=== PATIENT | male | born 1965 | race Caucasian/White ===

== ENCOUNTER 2016-09-15 15:13 | Inpatient (IN) ==
--- NOTE | 2016-09-15 15:30 | Emergency Department Note ---
Disposition Clinical Impression: ESRD on hemodialysis, Anemia in CKD (chronic kidney disease), Benign hypertension with ESRD (end-stage renal disease), Pneumonia, Localized swelling , mass and lump, upper limb, Headache, Thrombocytopenia Disposition: Admitted As Inpatient Referrals: NO,PCP [Primary Care Provider] - Forms: ED Satisfaction Letter General Adult HPI - General Chief complaint: ED Extremity Problem,Nontraumatic Stated complaint: Left Arm Swelling Time Seen by Provider: 09/15/16 15:28 Source: patient, EMS Limitations: no limitations - History of Present Illness HPI Narrative: 50-year-old male dialysis patient comes from a snf, there is concern for left arm swelling at the dialysis port site. He reported as been red and warm. There is no history of hector trauma. No coldness blueness numbness or weakness of the arms or legs. The patient has felt somewhat twitchy. The patient denies any chest pain or shortness of breath he has had no abdominal pain but has had a few loose stools which have been nonbloody. The patient has had no trouble moving his arms or legs independently. No acute back pain. He states he has migraine headaches all the time and has a headache today which is nothing new there is no history of acute rapid onset headache trauma neck stiffness rash or fever. The patient is known to be anticoagulated. There is no history of convulsion or confusion. The patient came in from the snf regarding left arm swelling as the major complaint. Pain Scale: 9 - Related Data Home Medications Medication Instructions Recorded Confirmed Aspirin [Adult Low Dose Aspirin EC] 81 mg PO DAILY 08/27/15 09/15/16 Citalopram Hydrobromide 40 mg PO DAILY 04/23/16 09/15/16 [Citalopram HBr] Gabapentin [Neurontin] 300 mg PO BID 04/23/16 09/15/16 Losartan Potassium [Cozaar] 100 mg PO DAILY 04/23/16 09/15/16 Metoprolol [Lopressor] 50 mg PO BID 04/23/16 09/15/16 Oxybutynin Chloride [Ditropan Xl] 10 mg PO DAILY 05/21/16 09/15/16 B Complex W-C No.20/Folic Acid 1 mg PO DAILY 09/15/16 09/15/16 [Nephrocaps Softgel] BuPROPion XL (24 HR) [Wellbutrin 150 mg PO DAILY 09/15/16 09/15/16 XL] Calcium Carbonate [Tums] 500 mg PO TIDAC 09/15/16 09/15/16 Diazepam [Valium] 5 mg PO Q6H PRN 09/15/16 09/15/16 Ibuprofen [Motrin] 800 mg PO Q6H PRN 09/15/16 09/15/16 Lactulose 20 gm PO DAILY PRN 09/15/16 09/15/16 Oxycodone HCl/Acetaminophen 1 each PO Q6H PRN 09/15/16 09/15/16 [Percocet 10-325 mg Tablet] Oxygen 2 l NS AD 09/15/16 09/15/16 Sennosides/Docusate Sodium [Senna 1 each PO BID 09/15/16 09/15/16 Plus] Allergies Allergy/AdvReac Type Severity Reaction Status Date / Time lorazepam [From Ativan] AdvReac Paranoia Verified 09/15/16 15:21 All systems ED: reviewed and negative except as stated. Past Medical History - Past Medical History Medical history: Reports: CHF, diabetes, dialysis, hypertension, renal disease, other Surgical history: Reports: cholecystectomy Psychiatric history: Reports: depression - Social History Smoking Status: Never smoker Smokeless Tobacco Status: No Alcohol use: Reports: none Drug use: Reports: none Physical Exam - General Limitations: no limitations General appearance: alert, in no apparent distress - Head Head exam: atraumatic, normocephalic, normal inspection - Eye Eye exam: Present: normal appearance, PERRL, EOMI. Absent: scleral icterus, conjunctival injection, miosis, mydriasis - ENT ENT exam: normal exam, normal oropharynx, mucous membranes moist - Neck Neck exam: Present: normal inspection, full ROM, trachea midline. Absent: tenderness - Chest Chest inspection: Present: symmetric chest wall rise. Absent: tenderness - Respiratory Respiratory exam: Present: normal lung sounds bilaterally. Absent: respiratory distress, accessory muscle use, prolonged expiratory phase - Cardiovascular Cardiovascular exam: Present: regular rate, normal rhythm, normal heart sounds - Abdominal Exam Abdominal exam: Present: soft, Non-Tender, normal bowel sounds. Absent: tenderness, distention, guarding, rebound, rigidity - Extremities Exam Extremities exam: Present: full ROM, normal capillary refill, other (The patient 's left humeral area at the site of the dialysis port shows erythema and edema. No active bleeding. No crepitance of the skin no blackening or fluctuance. All 4 extremities are warm and well perfused without cyanosis or hector edema otherwise. All 4 extremities are supple and show no evidence of acute neurovascular or neuromuscular compromise or trauma.). Absent: tenderness, pedal edema, joint swelling, calf tenderness - Expanded Lower Extremity Exam Lower leg exam: Absent: Homans' sign Neurovascular/Tendon exam: Present: normal capillary refill. Absent: motor deficit, sensory deficit, tendon deficit, extremity cold to touch, pallor - Back Exam Back exam: Present: normal inspection, full ROM. Absent: tenderness, CVA tenderness (R), CVA tenderness (L), vertebral tenderness - Neurological Exam Neurological exam: Present: alert, oriented X3, CN II-XII intact. Absent: motor sensory deficit - Psychiatric Psychiatric exam: Present: normal affect, normal mood - Skin Skin exam: Present: warm, dry, intact, normal color. Absent: rash, cyanosis, diaphoresis, erythema, pallor, mottled Course Vital Signs Temperature 99.4 F 09/15/16 15:15 Pulse Rate 71 09/15/16 15:15 Respiratory Rate 18 09/15/16 15:15 Blood Pressure 172/93 09/15/16 15:15 O2 Sat by Pulse Oximetry 95 09/15/16 15:15 Temperature 99.4 F 09/15/16 15:15 Pulse Rate 77 09/15/16 18:43 Respiratory Rate 18 09/15/16 18:43 Blood Pressure 168/83 09/15/16 18:43 O2 Sat by Pulse Oximetry 95 09/15/16 18:43 Oxygen Delivery Oxygen Delivery Nasal Cannula Medical Decision Making - [facility] Narrative Medical decision making narrative: The patient diabetic, has end-stage renal disease on dialysis, the patient seems to have had some muscle spasms in the ED, he was treated for hyperkalemia. His chest x-ray indicates pneumonitis, antibiotics were given. The patient also has swelling in the left upper extremity around his dialysis port which may be related to hematoma, infection, or even potentially an abscess. Blood cultures were sent. The patient is currently stable, he does not have tachycardia, high fever, or an elevated white count, he does not necessarily meet Sirs or sepsis criteria. However, based on his comorbidities, possible arm infection and or dialysis port failure, in association with HCAP, and apparent symptomatic hyperkalemia, I thought it would be appropriate to admit the patient to the hospital. I discussed the case with the hospitalist on -call. The patient's EKG demonstrates recurrent PVCs. He is not describing chest pain or palpitations. - Lab Data Lab results reviewed: Yes I reviewed the patient's lab results. Result diagrams: 09/15/16 17:12 09/15/16 17:12 Lab Results 09/15/16 09/15/16 09/15/16 Range/Units 16:26 16:26 16:26 WBC (4.3-11.1) K/mcL RBC (4.19-5.50) M/mcL Hgb (12.9-16.9) g/dL Hct (37.5-50.1) % MCV (83.0-100.0) fL MCH (28.0-33.3) pg MCHC (31.6-35.5) g/dL RDW (11.5-14.5) % Plt Count (140-400) K/mcL MPV (9.4-12.4) fL Immature Gran % (0-4) % Seg Neutrophils % % Lymphocytes % % Monocytes % % Eosinophils % % Basophils % % Neutrophils # (1.6-8.9) K/mcL Lymphocytes # (0.6-4.6) K/mcL Monocytes # (0.0-1.3) K/mcL Eosinophils # (0.0-0.6) K/mcL Basophils # (0.0-0.2) K/mcL Immature Plt Fraction (1.1-6.1) % PT 13.2 H (9.4-12.1) Seconds INR 1.2 APTT 35.8 (26.0-36.0) Seconds Sodium (136-145) mEq/L Potassium (3.5-4.5) mEq/L Chloride (98-109) mEq/L Carbon Dioxide (19-29) mEq/L BUN (8-26) mg/dL Creatinine (0.72-1.25) mg/dL Est GFR ( Amer) (> 60) Est GFR (Non-Af Amer) (> 60) BUN/Creatinine Ratio (6-26) Glucose (70-99) mg/dL Calculated Osmolality (280-300) Lactic Acid (0.5-2.2) mmol/L Calcium (8.6-10.8) mg/dL Magnesium (1.6-2.6) mg/dL Total Bilirubin (0.2-1.2) mg/dL Direct Bilirubin (0.0-0.5) mg/dL Indirect Bilirubin (0.0-1.2) mg/dL AST (5-34) Units/L ALT (0-55) Units/L Alkaline Phosphatase (38-126) Units/L Troponin I (0-0.03) ng/mL B-Natriuretic Peptide 4272 H (0-100) pg/mL Serum Total Protein (6.0-8.3) g/dL Albumin (3.5-5.0) g/dL Globulin (2.4-3.5) g/dL Albumin/Globulin Ratio (1.1-2.2) Specimen Rejected Hemolyzed 09/15/16 09/15/16 09/15/16 Range/Units 17:12 17:12 17:12 WBC 8.7 (4.3-11.1) K/mcL RBC 3.60 L (4.19-5.50) M/mcL Hgb 11.1 L (12.9-16.9) g/dL Hct 34.6 L (37.5-50.1) % MCV 96.1 (83.0-100.0) fL MCH 30.8 (28.0-33.3) pg MCHC 32.1 (31.6-35.5) g/dL RDW 16.2 H (11.5-14.5) % Plt Count 131 L (140-400) K/mcL MPV 10.7 (9.4-12.4) fL Immature Gran % 0.5 (0-4) % Seg Neutrophils % 91.6 % Lymphocytes % 3.4 % Monocytes % 4.3 % Eosinophils % 0.1 % Basophils % 0.1 % Neutrophils # 7.9 (1.6-8.9) K/mcL Lymphocytes # 0.3 L (0.6-4.6) K/mcL Monocytes # 0.4 (0.0-1.3) K/mcL Eosinophils # 0.0 (0.0-0.6) K/mcL Basophils # 0.0 (0.0-0.2) K/mcL Immature Plt Fraction 3.9 (1.1-6.1) % PT (9.4-12.1) Seconds INR APTT (26.0-36.0) Seconds Sodium 135 L (136-145) mEq/L Potassium 5.6 H (3.5-4.5) mEq/L Chloride 96 L (98-109) mEq/L Carbon Dioxide 28 (19-29) mEq/L BUN 42 H (8-26) mg/dL Creatinine 4.93 H (0.72-1.25) mg/dL Est GFR ( Amer) 15 L (> 60) Est GFR (Non-Af Amer) 13 L (> 60) BUN/Creatinine Ratio 9 (6-26) Glucose 110 H (70-99) mg/dL Calculated Osmolality 291 (280-300) Lactic Acid 1.2 (0.5-2.2) mmol/L Calcium 9.5 (8.6-10.8) mg/dL Magnesium 1.7 (1.6-2.6) mg/dL Total Bilirubin 1.5 H (0.2-1.2) mg/dL Direct Bilirubin 0.7 H (0.0-0.5) mg/dL Indirect Bilirubin 0.8 (0.0-1.2) mg/dL AST 19 (5-34) Units/L ALT 14 (0-55) Units/L Alkaline Phosphatase 116 (38-126) Units/L Troponin I (0-0.03) ng/mL B-Natriuretic Peptide (0-100) pg/mL Serum Total Protein 7.3 (6.0-8.3) g/dL Albumin 2.9 L (3.5-5.0) g/dL Globulin 4.4 H (2.4-3.5) g/dL Albumin/Globulin Ratio 0.7 L (1.1-2.2) Specimen Rejected 09/15/16 Range/Units 17:12 WBC (4.3-11.1) K/mcL RBC (4.19-5.50) M/mcL Hgb (12.9-16.9) g/dL Hct (37.5-50.1) % MCV (83.0-100.0) fL MCH (28.0-33.3) pg MCHC (31.6-35.5) g/dL RDW (11.5-14.5) % Plt Count (140-400) K/mcL MPV (9.4-12.4) fL Immature Gran % (0-4) % Seg Neutrophils % % Lymphocytes % % Monocytes % % Eosinophils % % Basophils % % Neutrophils # (1.6-8.9) K/mcL Lymphocytes # (0.6-4.6) K/mcL Monocytes # (0.0-1.3) K/mcL Eosinophils # (0.0-0.6) K/mcL Basophils # (0.0-0.2) K/mcL Immature Plt Fraction (1.1-6.1) % PT (9.4-12.1) Seconds INR APTT (26.0-36.0) Seconds Sodium (136-145) mEq/L Potassium (3.5-4.5) mEq/L Chloride (98-109) mEq/L Carbon Dioxide (19-29) mEq/L BUN (8-26) mg/dL Creatinine (0.72-1.25) mg/dL Est GFR ( Amer) (> 60) Est GFR (Non-Af Amer) (> 60) BUN/Creatinine Ratio (6-26) Glucose (70-99) mg/dL Calculated Osmolality (280-300) Lactic Acid (0.5-2.2) mmol/L Calcium (8.6-10.8) mg/dL Magnesium (1.6-2.6) mg/dL Total Bilirubin (0.2-1.2) mg/dL Direct Bilirubin (0.0-0.5) mg/dL Indirect Bilirubin (0.0-1.2) mg/dL AST (5-34) Units/L ALT (0-55) Units/L Alkaline Phosphatase (38-126) Units/L Troponin I 0.05 H* (0-0.03) ng/mL B-Natriuretic Peptide (0-100) pg/mL Serum Total Protein (6.0-8.3) g/dL Albumin (3.5-5.0) g/dL Globulin (2.4-3.5) g/dL Albumin/Globulin Ratio (1.1-2.2) Specimen Rejected - Radiology Data Radiology results reviewed: Yes I reviewed the patient's radiology results.
[2016-09-15 16:41] LABS: INR 1.2; Prothrombin Time 13.2 Seconds (9.4-12.1)
[2016-09-15 16:44] LABS: Activated Partial Thrombo Time 35.8 Seconds (26.0-36.0)
[2016-09-15] MEDS ORDERED: Vancomycin 1,000 MG in D5% in Water 250 ML IVPB ONE (16:57)
[2016-09-15] MEDS ORDERED: Piperacillin/Tazobactam 3.375 GM in D5% in Water (Mini-Bag+) 100 ML IVPB ONE ×2 (16:57→18:00)
[2016-09-15] MEDS ORDERED: Piperacillin/Tazobactam 2.25 GM in D5% in Water (Mini-Bag+) 100 ML IVPB ONE (16:58)
[2016-09-15] MEDS ORDERED: Levofloxacin 750 MG/150 ML 750 MG/150 ML BAG IVPB ONE (16:59)
[2016-09-15 17:20] LABS: Basophils % 0.1 %; Eosinophils % 0.1 %; Hematocrit 34.6 % (37.5-50.1); Hemoglobin 11.1 g/dL (12.9-16.9); Immature Granulocytes % 0.5 % (0-4); Immature Platelets 3.9 % (1.1-6.1); Lymphocytes # 0.3 K/mcL (0.6-4.6); Lymphocytes % 3.4 %; Mean Corpuscular HGB Conc 32.1 g/dL (31.6-35.5); Mean Corpuscular Hemoglobin 30.8 pg (28.0-33.3); Mean Corpuscular Volume 96.1 fL (83.0-100.0); Mean Platelet Volume 10.7 fL (9.4-12.4); Monocytes # 0.4 K/mcL (0.0-1.3); Monocytes % 4.3 %; Neutrophils # 7.9 K/mcL (1.6-8.9); Platelet Count 131 K/mcL (140-400); Red Cell Distribution Width 16.2 % (11.5-14.5); Segmented Neutrophils % 91.6 %
[2016-09-15 17:36] LABS: Albumin 2.9 g/dL (3.5-5.0); Albumin/Globulin Ratio 0.7 (1.1-2.2); Bilirubin,Direct 0.7 mg/dL (0.0-0.5); Bilirubin,Indirect 0.8 mg/dL (0.0-1.2); Bilirubin,Total 1.5 mg/dL (0.2-1.2); Calcium 9.5 mg/dL (8.6-10.8); Globulin 4.4 g/dL (2.4-3.5); Magnesium 1.7 mg/dL (1.6-2.6); Potassium 5.6 mEq/L (3.5-4.5); Total Protein 7.3 g/dL (6.0-8.3)
[2016-09-15] MEDS ORDERED: Albuterol 2.5 MG/3 ML NEBULIZER IH ONE (17:53)
[2016-09-15] MEDS ORDERED: Calcium Gluconate 1,000 MG in D5% in Water 100 ML IVPB ONE (17:53)
[2016-09-15] MEDS ORDERED: Aspirin 325 MG TABLET PO ONE (17:56)
[2016-09-15] MEDS ORDERED: *HR* Dextrose 50 % in Water (Syg) 50 ML SYRINGE IVP ONE (17:56)
[2016-09-15] MEDS ORDERED: Insulin Human Regular 10 UNIT in 0.9 % Sodium Chloride 10 ML IV ONE (17:57)
[2016-09-15] MEDS ORDERED: *HR* OxyCODONE/APAP 5/325 TABLET PO ONE (18:36)
[2016-09-16] MEDS ORDERED: *HR* Promethazine 25 MG/ML VIAL IVP PRN (01:25)
[2016-09-16] MEDS ORDERED: Acetaminophen 325 MG TABLET PO PRN ×2 (01:25→22:02)
[2016-09-16] MEDS ORDERED: Naloxone 0.4 MG/ML INJ IVP PRN ×2 (01:25→22:02)
[2016-09-16] MEDS ORDERED: Lactulose Oral Soln 20 GM/30 ML UDC PO PRN ×2 (01:29→22:02)
[2016-09-16] MEDS ORDERED: NON-FORMULARY MEDICATION 1 EACH EACH (Oxygen [Oxygen] 2 L) NS SCH (01:30)
[2016-09-16] MEDS ORDERED: Naloxone 0.4 MG/ML INJ IVP STA (01:35)
[2016-09-16] MEDS ORDERED: Albuterol 2.5 MG/3 ML NEBULIZER IH PRN ×2 (01:35→22:02)
[2016-09-16 01:53] LABS: VBG HCO3 32.8 mEq/L (21-27); VBG PH 7.47 pH Units (7.32-7.42)
[2016-09-16] MEDS ORDERED: Promethazine 12.5 MG in 0.9 % Sodium Chloride 50 ML IVPB PRN (01:55)
[2016-09-16 02:00] LABS: INR 1.3; Prothrombin Time 14.5 Seconds (9.4-12.1)
[2016-09-16] MEDS ORDERED: Vancomycin 1,500 MG in D5% in Water 250 ML IVPB SCH (02:00)
[2016-09-16] MEDS ORDERED: Levofloxacin 750 MG/150 ML 750 MG/150 ML BAG IVPB SCH (02:00)
[2016-09-16 02:03] LABS: Activated Partial Thrombo Time 33.4 Seconds (26.0-36.0)
[2016-09-16 02:10] LABS: Albumin 2.6 g/dL (3.5-5.0); Albumin/Globulin Ratio 0.7 (1.1-2.2); Bilirubin,Total 1.5 mg/dL (0.2-1.2); Calcium 9.1 mg/dL (8.6-10.8); Chol/HDL Ratio 2.8 (0-4.9); Magnesium 1.7 mg/dL (1.6-2.6); Phosphorous 2.6 mg/dL (2.3-4.7); Potassium 5.7 mEq/L (3.5-4.5); Total Protein 6.6 g/dL (6.0-8.3)
[2016-09-16] MEDS: Ipratropium/Albuterol Neb 3 ML IH SCH ×4 (04:02→22:12)
[2016-09-16 06:00] LABS: Acinetobacter baumannii by PCR Not Detected (Not Detect); Candida albicans by PCR Not Detected (Not Detect); Candida glabrata by PCR Not Detected (Not Detect); Candida krusei by PCR Not Detected (Not Detect); Candida parapsilosis by PCR Not Detected (Not Detect); Candida tropicalis by PCR Not Detected (Not Detect); Enterococcus by PCR Not Detected (Not Detect); Escherichia coli by PCR Not Detected (Not Detect); Klebsiella oxytoca by PCR Not Detected (Not Detect); Klebsiella pneumoniae by PCR Not Detected (Not Detect); Pseudomonas aeruginosa by PCR Not Detected (Not Detect); Serratia marcescens by PCR Not Detected (Not Detect); Staphylococcus aureus by PCR ***DETECTED*** (Not Detect); Streptococcus agalactiae(B)PCR Not Detected (Not Detect); Streptococcus by PCR Not Detected (Not Detect); Streptococcus pneumoniae PCR Not Detected (Not Detect); Streptococcus pyogenes (A) PCR Not Detected (Not Detect); mecA Methicillin-Resist Gene ***DETECTED*** (Not Detect)
[2016-09-16] MEDS ORDERED: Piperacillin/Tazobactam 3.375 GM in D5% in Water (Mini-Bag+) 100 ML IVPB SCH (06:00)
--- NOTE | 2016-09-16 06:10 | Internal Med History&Physical ---
Date of Encounter: 09/16/16 Time of Encounter: 02:00 Assessment and Plan (1) Myoclonic jerking Current visit: Yes Status: Acute . (2) Toxic metabolic encephalopathy Current visit: Yes Status: Acute . (3) Delirium due to conditions classified elsewhere Current visit: Yes Status: Acute . (4) Serotonin syndrome Current visit: Yes Status: Acute . (5) ESRD on hemodialysis Current visit: Yes Status: Acute . (6) Volume overload Current visit: Yes Status: Acute . Qualifiers: Hypervolemia type: unspecified Qualified Code(s): E87.70 - Fluid overload, unspecified (7) Dialysis AV fistula infection Current visit: Yes Status: Acute . Qualifiers: Encounter type: initial encounter Qualified Code(s): T82.7XXA - Infection and inflammatory reaction due to other cardiac and vascular devices, implants and grafts, initial encounter (8) Pneumonia Current visit: Yes Status: Acute . Qualifiers: Pneumonia type: due to unspecified organism Laterality: right Lung location: unspecified part of lung Qualified Code(s): J18.9 - Pneumonia, unspecified organism Internal Medicine - H&P: HPI Chief complaint: Left arm swelling. Confusion. Admitted From: Emergency Dept Plans for Post Hospital Care: Home History of present illness: Mr. Martínez is a 50 year old male with significant history for ESRD HD dependent (MWF), major depression/anxiety, ?cognitive impairment unspecified, DM peripheral neuropathy, chr MSK pain, OA, COPD continuous O2 dependent, HTN, HLD , chr H/As, type II DM, PVD, morbid obesity, nonsmoker, etc.. Patient is admitted to [facility] via the emergency department when he presented via EMS services from retirement with concerns regarding his left arm. Patient is hemodialysis dependent and had received dialysis the day of his presentation. He reported that 6 L of fluid was removed. However he still felt volume overloaded. He stated that his left arm swelling occurred about the dialysis port site. Red warm and tender. He denied any history of trauma beyond that the received dialysis. He denied any coldness or cyanosis numbness or weakness of his distal arm and hand/digits and he can relate to this finding. He denied any impairment of use of his upper or lower extremities. Denied any associated fevers chills sweats. Denied chest pain abdominal pain and flank pain. Denied any upper or lower respiratory complaints. He related pain to his arm at a 9/10 severity. Local resident. Though at presentation was consistent with mild delirium and intermittent twitching of the extremities. Findings in the ED noted a temperature of 99.4 degrees Fahrenheit. Vital signs were otherwise stable. O2 saturation was 95% on 2 L per nasal cannula. PT 13.2 INR 1.2 PTT 35.8. BNP 4272 troponin 0.05. WBC 8.7 hemoglobin 11.1 platelets 131,000. Differential normal. Comprehensive metabolic panel noted sodium 135 potassium 5.6 chloride 96. BUN 42 creatinine 4.93 GFR 13. Glucose 110 osmolality 291. Total bilirubin 1.5 direct 0.7. Magnesium 1.7. Lactic acid 1.2. LFTs normal. Albumin 2.9 total 7.3. Chest x- ray suggested right perihilar airspace opacity compatible with pneumonia. CT head scan demonstrated no acute intracranial abnormality. Preliminary findings suggest acute toxic metabolic encephalopathy with delirium. Etiology is multifactorial. Findings for right perihilar pneumonia, uremia, hypoxic respiratory failure, mild volume overload, polypharmacy. Discussion of patient' s polypharmacy relates to psychotropic medications almost entirely. Patient is oriented to self but variable and is an unreliable historian of current circumstances and events. Examination demonstrates intermittent myoclonic jerking. This in concert with low-grade temperature a/c headache confusion disorientation monoclonus tremulousness agitation is suggestive of serotonin syndrome. SIRS/sepsis criteria are not fulfilled at presentation. This however acutely and seriously ill and likely possesses a sepsis picture yet to be fullyn evolved. Further workup and investigation will proceed. The patient was visited and interviewed and examined. Cumulative laboratory and radiographic data base will be considered and discussed. Pertinent ancillary medical records including ECW and PCI documentation when available was reviewed and considered. Given the patient's presenting concerns, past medical history, clinical findings and symptoms, he is admitted at this time will undergo further evaluation and disposition. Orders were written as per the computerized physician tape recorder mechanic system.......................................................................... .................... Consultative opinions will be sought as clinical circumstances justify. Nephrology/dialysis team consultation. Pain management needs will be addressed. Laboratory+radiographic data base will be updated as appropriate. Studies include: Cultures of blood and urine and sputum, prolactin, cpk, LDH, pt/inr, aptt, ddimer, UA, UDS, cardiac injury panel, BNP, metabolic and hematologic panel, magnesium, phosphorus, ionized calcium, thyroid panel, lipid profile, A1c , C-peptide, CRP, sedimentation rate, respiratory infection profile, respiratory virus panel, blood gas, lactic acid, serologies, etc. Precautions: Aspiration, fall, seizure, delirium protocol/surveillance initiated. Telemetry with continuous hemodynamic monitoring and pulse oximetry initiated. Empiric antibiotic coverage: Intravenous Vancomycin, Zosyn, Levaquin pending culture data. Special studies: CT head/ chest, chest x-ray, telemetry, EKG. Pulmonary toilet: Incentive spirometry, aerosol bronchodilator, mucolytic, antitussive, supplemental oxygen. Corticosteroid therapyPRN. CPAP/BiPAP supplemental oxygen deliveryPRN. Aerosol Mucomyst therapyPRN. Fluid and electrolyte repletion efforts will proceed. Careful attention to fluid balance and renal recovery will be emphasized. Avoidance of nephrotoxic exposure and adverse drug drug interaction in the setting of impaired renal function will be monitored closely. Acute coronary syndrome protocol/surveillance initiated. DVT and PUD prophylaxis initiated: PPI therapy, intermittent pneumatic cuffs. Subcutaneous heparin was held due to thrombocytopenia. Early ambulation will be encouraged. Immunization updates recommended. Influenza and pneumococcal vaccinations as part of ongoing preventative healthcare recommendations strongly recommended. Smoking cessation counseling addressed. Patient is a nonsmoker. Advanced care directive discussion addressed. Patient does not declare any healthcare restrictions at this time per healthcare records. Cardiovascular risk appraisal and cardiovascular risk reduction efforts will be emphasized. Physical+occupational therapy asked to evaluate patient's functional capacity and progressive mobility as circumstances justify. Sliding scale insulin coverage, ADA-RENAL dietary restraint and schedule an as- needed basis fingerstick glucose assessments were initiated. Nutrition/ diabetes education counseling may be considered as circumstances justify. Outpatient medication schedules will be reviewed, confirmed and facilitated as appropriate. Reconciliation of home treatments including adjustments, substitutions and reintroduction into the treatment regimen will address necessary maintenance therapies for chronic pre-existing medical conditions. Plan of care has been reviewed and discussed in detail with the patient's attending/caregiver staff. Questions addressed. Hospital course dictated by clinical findings, treatment response and potential consultative interventions. Patient is at risk for further acute clinical decline and morbidity due to his frailty, presenting chief complaints and comorbid conditions. Condition is serious. Prognosis is guarded. CODE STATUS is full. Past Med Surg Social Fam HX - Past Medical History Source: old records reviewed Medical history: arthritis, CHF, diabetes, dialysis, GERD, hypertension, osteoporosis, renal disease, venous stasis, other Psychiatric history: anxiety, depression, other - Past Surgical History Surgical History: cholecystectomy, vascular surgery - Social History Smoking Status: Never smoker Smokeless Tobacco Status: No Alcohol use: none, unknown Drug use: none, unknown Occupational status: unemployed, disabled Current living situation: [facility] Activity Level: Independent ambulation, Mostly sedentary Recent Out of Country Travel Within the Last 8 Weeks: No Exposure or Possible Exposure to Illness During Travel: No - Family History Mother Living Status: Hx Family Cardiac Disorders: Yes Hx Family Endocrine Disorder: Yes Father Living Status: Hx Family Respiratory Disorders: Yes Internal Medicine - H&P: Meds Aspirin [Adult Low Dose Aspirin EC] 81 mg PO DAILY 08/27/15 [History] Citalopram Hydrobromide [Citalopram HBr] 40 mg PO DAILY 04/23/16 [History] Gabapentin [Neurontin] 300 mg PO BID 04/23/16 [History] Losartan Potassium [Cozaar] 100 mg PO DAILY 04/23/16 [History] Metoprolol [Lopressor] 50 mg PO BID 04/23/16 [History] Oxybutynin Chloride [Ditropan Xl] 10 mg PO DAILY 05/21/16 [History] B Complex W-C No.20/Folic Acid [Nephrocaps Softgel] 1 mg PO DAILY 09/15/16 [ History] BuPROPion XL (24 HR) [Wellbutrin XL] 150 mg PO DAILY 09/15/16 [History] Calcium Carbonate [Tums] 500 mg PO TIDAC 09/15/16 [History] Diazepam [Valium] 5 mg PO Q6H PRN 09/15/16 [History] Ibuprofen [Motrin] 800 mg PO Q6H PRN 09/15/16 [History] Lactulose 20 gm PO DAILY PRN 09/15/16 [History] Oxycodone HCl/Acetaminophen [Percocet 10-325 mg Tablet] 1 each PO Q6H PRN [History] Oxygen 2 l NS AD 09/15/16 [History] Sennosides/Docusate Sodium [Senna Plus] 1 each PO BID 09/15/16 [History] Allergies lorazepam [From Ativan] Adverse Reaction (Verified 09/15/16 15:21) Paranoia ROS unobtainable: due to mental status All Systems PM: A 10-system review of systems was performed and is negative for pertinent findings except as documented above in the HPI. The patient was found to be acutely encephalopathic and delirious. The patient presents as a non-historian of current circumstances and events. Information collected from medical records , EGD and EMS triage, retirement staff reports. - Constitutional Constitutional: as per HPI - EENT Eyes: as per HPI Ears: as per HPI Nose, mouth and throat: as per HPI - Cardiovascular Cardiovascular ROS IM: as per HPI - Respiratory Respiratory: as per HPI - Gastrointestinal Gastrointestinal: as per HPI - Genitourinary Genitourinary ROS male: as per HPI - Musculoskeletal Musculoskeletal ROS IM: as per HPI - Integumentary Integumentary IM: as per HPI - Neurological Neurological ROS: as per HPI - Psychiatric Psychiatric: as per HPI - Endocrine Endocrine IM: as per HPI - Hematologic/Lymphatic Hematologic/Lymphatic: as per HPI - Allergic/Immunologic Allergic/Immunologic: as per HPI - Constitutional Vitals: Temp Pulse Resp BP Pulse Ox 99.2 F 84 18 140/79 98 09/16/16 04:52 09/16/16 04:52 09/16/16 04:52 09/16/16 04:52 09/16/16 04:52 Vital Signs Temp Pulse Resp BP Pulse Ox 09/16/16 04:52 99.2 F 84 18 140/79 98 09/16/16 04:20 100 09/16/16 04:07 18 99 09/15/16 23:11 99.4 F 76 18 146/87 94 09/15/16 21:13 18 191/90 09/15/16 20:38 76 16 175/96 98 09/15/16 18:43 77 18 168/83 95 09/15/16 17:30 72 20 157/117 96 09/15/16 16:40 73 18 174/101 96 09/15/16 15:48 76 20 176/88 95 09/15/16 15:15 99.4 F 71 18 172/93 95 Intake and Output 09/15/16 09/15/16 09/16/16 15:59 23:59 07:59 Intake Total 520.1 / 520.1 Output Total 0 / 0 Balance 520.1 / 520.1 0 / 0 Intake: IV Fluids 520.1 / 520.1 HumuLIN R 10 UNIT In 10.1 / 10.1 Normal Saline Flush 10 ML @ 1212 mls/hr IV ONCE ONE Rx#:[id number] Calcium Gluconate 1,000 110 / 110 MG In Dextrose 5% 100 ML @ 220 mls/hr IVPB ONCE ONE Rx#:[id number] Levaquin 750mg/150 mL 750 150 / 150 mg In 150 ml @ 100 mls/ hr IVPB ONCE ONE Rx#: [id number] Vancocin 1,000 MG In 250 / 250 Dextrose 5% 250 ML @ 167 mls/hr IVPB ONCE ONE Rx#: [id number] Output: Urine 0 / 0 Other: # Urine Diapers 1 Weight 108.862 kg 107.1 kg 107.9 kg Blood Glucose* 130 96 Patient Weight 09/16/16 23:59 Weight 107.9 kg General appearance: Present: A&O X 1, mild distress, morbidly obese. Absent: answers questions appropriately - Head Head exam: Present: atraumatic, normocephalic - Eye Eye exam: Present: EOMI, PERRL, conjuntiva pink, sclera anicteric Pupils: Present: normal accommodation, PERRL - ENT ENT exam: Present: mucous membranes dry, normal oropharynx - Neck Neck exam general surgery: Present: full ROM, supple, trachea midline. Absent: lymphadenopathy, nuchal rigidity - Respiratory Respiratory exam: Present: decreased breath sounds. Absent: accessory muscle use, CTAB, rales, rhonchi, stridor, wheezes - Cardiovascular Cardiovascular exam: Present: distant heart sounds, RRR, +S1, +S2, tachycardia. Absent: diastolic murmur, gallop, rubs, systolic murmur - GI/Abdominal GI/Abdominal exam: Present: normal bowel sounds, soft, no peritoneal signs. Absent: distended, tenderness - Extremities Exam Extremities exam: Present: full ROM, warm, radial pulses palpable and symetrical. Absent: calf tenderness, cyanotic, normal inspection (Apparent cellulitis areas of focal tissue necrosis apparent at vascular access site for hemodialysis. Tender to palpation. Warm to touch.), pedal edema - Expanded Upper Extremities Exam Upper Arm exam: Present: ecchymosis, erythema, swelling, tenderness. Absent: normal inspection Vascular exam: Absent: vascular compromise - Neurological Exam Neurological exam: Present: alert, altered, CN II-XII intact, no focal deficits. Absent: oriented X3, pronater drift, facial droop, speech deficit - Expanded Neurological Exam Neurological exam expanded: Present: ataxia, inattentive, protecting the airway , tremor. Absent: expressive aphasia, receptive aphasia Patient oriented to: Present: person. Absent: place, time Speech: Present: garbled Ataxia: Present: yes Coma Scale Eye Opening: To Voice Coma Scale Motor Response: Localizes to Pain Coma Scale Verbal Response: Confused Coma Scale Total: 12 - Psychiatric Psychiatric exam: Present: agitated, anxious - Expanded Psychiatric Exam Focused psych exam: Present: psychomotor agitation - Skin Skin exam: Present: dry, intact, warm Internal Med - H&P Results - Labs CBC & Chem 7: 09/15/16 17:12 09/16/16 01:46 Labs: BMP 09/16/16 01:46 Sodium 135 L Potassium 5.7 H Chloride 97 L Carbon Dioxide 29 BUN 47 H Creatinine 5.32 H Glucose 99 Calcium 9.1 Cardiac Enzymes 09/16/16 Range/Units 01:46 Troponin I 0.05 H* (0-0.03) ng/mL Liver Function 09/16/16 Range/Units 01:46 Total Bilirubin 1.5 H (0.2-1.2) mg/dL AST 18 (5-34) Units/L ALT 14 (0-55) Units/L Alkaline Phosphatase 93 (38-126) Units/L Albumin 2.6 L (3.5-5.0) g/dL Short CBC 09/15/16 Range/Units 17:12 WBC 8.7 (4.3-11.1) K/mcL Hgb 11.1 L (12.9-16.9) g/dL Hct 34.6 L (37.5-50.1) % Plt Count 131 L (140-400) K/mcL Neutrophils # 7.9 (1.6-8.9) K/mcL BMP 09/16/16 09/15/16 Range/Units 01:46 17:12 Sodium 135 L 135 L (136-145) mEq/L Potassium 5.7 H 5.6 H (3.5-4.5) mEq/L Chloride 97 L 96 L (98-109) mEq/L Carbon Dioxide 29 28 (19-29) mEq/L BUN 47 H 42 H (8-26) mg/dL Creatinine 5.32 H 4.93 H (0.72-1.25) mg/dL Glucose 99 110 H (70-99) mg/dL Calcium 9.1 9.5 (8.6-10.8) mg/dL Cardiac Enzymes 09/16/16 09/15/16 Range/Units 01:46 17:12 Troponin I 0.05 H* 0.05 H* (0-0.03) ng/mL Liver Function 09/16/16 09/15/16 Range/Units 01:46 17:12 Total Bilirubin 1.5 H 1.5 H (0.2-1.2) mg/dL Direct Bilirubin 0.7 H (0.0-0.5) mg/dL AST 18 19 (5-34) Units/L ALT 14 14 (0-55) Units/L Alkaline Phosphatase 93 116 (38-126) Units/L Albumin 2.6 L 2.9 L (3.5-5.0) g/dL Abnormal lab results RBC 3.60 M/mcL (4.19-5.50) L 09/15/16 17:12 Hgb 11.1 g/dL (12.9-16.9) L 09/15/16 17:12 Hct 34.6 % (37.5-50.1) L 09/15/16 17:12 RDW 16.2 % (11.5-14.5) H 09/15/16 17:12 Plt Count 131 K/mcL (140-400) L 09/15/16 17:12 Lymphocytes # 0.3 K/mcL (0.6-4.6) L 09/15/16 17:12 PT 14.5 Seconds (9.4-12.1) H 09/16/16 01:46 VBG pH 7.47 pH Units (7.32-7.42) H 09/16/16 01:46 VBG pO2 72 mmHg (25-40) H 09/16/16 01:46 VBG HCO3 32.8 mEq/L (21-27) H 09/16/16 01:46 Sodium 135 mEq/L (136-145) L 09/16/16 01:46 Potassium 5.7 mEq/L (3.5-4.5) H 09/16/16 01:46 Chloride 97 mEq/L (98-109) L 09/16/16 01:46 BUN 47 mg/dL (8-26) H 09/16/16 01:46 Creatinine 5.32 mg/dL (0.72-1.25) H 09/16/16 01:46 Est GFR ( Amer) 14 (> 60) L 09/16/16 01:46 Est GFR (Non-Af Amer) 11 (> 60) L 09/16/16 01:46 POC Glucose 96 (58-89) H 09/16/16 02:21 Total Bilirubin 1.5 mg/dL (0.2-1.2) H 09/16/16 01:46 Direct Bilirubin 0.7 mg/dL (0.0-0.5) H 09/15/16 17:12 Troponin I 0.05 ng/mL (0-0.03) H* 09/16/16 01:46 B-Natriuretic Peptide 4272 pg/mL (0-100) H 09/15/16 16:26 Albumin 2.6 g/dL (3.5-5.0) L 09/16/16 01:46 Globulin 4.0 g/dL (2.4-3.5) H 09/16/16 01:46 Albumin/Globulin Ratio 0.7 (1.1-2.2) L 09/16/16 01:46 HDL Cholesterol 25 mg/dL (40-59) L 09/16/16 01:46 Prolactin 42.94 ng/mL (3.46-19.40) H 09/16/16 01:46 Staphylococcus sp PCR DETECTED (Not Detect) A 09/15/16 16:26 Staph aureus (PCR) DETECTED (Not Detect) A 09/15/16 16:26 mecA-Methicil Res Gene DETECTED (Not Detect) A 09/15/16 16:26 Laboratory Results WBC 8.7 K/mcL (4.3-11.1) 09/15/16 17:12 RBC 3.60 M/mcL (4.19-5.50) L 09/15/16 17:12 Hgb 11.1 g/dL (12.9-16.9) L 09/15/16 17:12 Hct 34.6 % (37.5-50.1) L 09/15/16 17:12 MCV 96.1 fL (83.0-100.0) 09/15/16 17:12 MCH 30.8 pg (28.0-33.3) 09/15/16 17:12 MCHC 32.1 g/dL (31.6-35.5) 09/15/16 17:12 RDW 16.2 % (11.5-14.5) H 09/15/16 17:12 Plt Count 131 K/mcL (140-400) L 09/15/16 17:12 MPV 10.7 fL (9.4-12.4) 09/15/16 17:12 Immature Gran % 0.5 % (0-4) 09/15/16 17:12 Seg Neutrophils % 91.6 % 09/15/16 17:12 Lymphocytes % 3.4 % 09/15/16 17:12 Monocytes % 4.3 % 09/15/16 17:12 Eosinophils % 0.1 % 09/15/16 17:12 Basophils % 0.1 % 09/15/16 17:12 Neutrophils # 7.9 K/mcL (1.6-8.9) 09/15/16 17:12 Lymphocytes # 0.3 K/mcL (0.6-4.6) L 09/15/16 17:12 Monocytes # 0.4 K/mcL (0.0-1.3) 09/15/16 17:12 Eosinophils # 0.0 K/mcL (0.0-0.6) 09/15/16 17:12 Basophils # 0.0 K/mcL (0.0-0.2) 09/15/16 17:12 Immature Plt Fraction 3.9 % (1.1-6.1) 09/15/16 17:12 PT 14.5 Seconds (9.4-12.1) H 09/16/16 01:46 INR 1.3 09/16/16 01:46 APTT 33.4 Seconds (26.0-36.0) 09/16/16 01:46 VBG pH 7.47 pH Units (7.32-7.42) H 09/16/16 01:46 VBG pCO2 45 mmHg (41-51) 09/16/16 01:46 VBG pO2 72 mmHg (25-40) H 09/16/16 01:46 VBG HCO3 32.8 mEq/L (21-27) H 09/16/16 01:46 Sodium 135 mEq/L (136-145) L 09/16/16 01:46 Potassium 5.7 mEq/L (3.5-4.5) H 09/16/16 01:46 Chloride 97 mEq/L (98-109) L 09/16/16 01:46 Carbon Dioxide 29 mEq/L (19-29) 09/16/16 01:46 BUN 47 mg/dL (8-26) H 09/16/16 01:46 Creatinine 5.32 mg/dL (0.72-1.25) H 09/16/16 01:46 Est GFR ( Amer) 14 (> 60) L 09/16/16 01:46 Est GFR (Non-Af Amer) 11 (> 60) L 09/16/16 01:46 BUN/Creatinine Ratio 9 (6-26) 09/16/16 01:46 Glucose 99 mg/dL (70-99) 09/16/16 01:46 POC Glucose 96 (58-89) H 09/16/16 02:21 Calculated Osmolality 292 (280-300) 09/16/16 01:46 Lactic Acid 1.2 mmol/L (0.5-2.2) 09/15/16 17:12 Calcium 9.1 mg/dL (8.6-10.8) 09/16/16 01:46 Phosphorus 2.6 mg/dL (2.3-4.7) 09/16/16 01:46 Magnesium 1.7 mg/dL (1.6-2.6) 09/16/16 01:46 Total Bilirubin 1.5 mg/dL (0.2-1.2) H 09/16/16 01:46 Direct Bilirubin 0.7 mg/dL (0.0-0.5) H 09/15/16 17:12 Indirect Bilirubin 0.8 mg/dL (0.0-1.2) 09/15/16 17:12 AST 18 Units/L (5-34) 09/16/16 01:46 ALT 14 Units/L (0-55) 09/16/16 01:46 Alkaline Phosphatase 93 Units/L (38-126) 09/16/16 01:46 Ammonia 27 mcmol/L (18-72) 09/16/16 01:46 Troponin I 0.05 ng/mL (0-0.03) H* 09/16/16 01:46 B-Natriuretic Peptide 4272 pg/mL (0-100) H 09/15/16 16:26 Serum Total Protein 6.6 g/dL (6.0-8.3) 09/16/16 01:46 Albumin 2.6 g/dL (3.5-5.0) L 09/16/16 01:46 Globulin 4.0 g/dL (2.4-3.5) H 09/16/16 01:46 Albumin/Globulin Ratio 0.7 (1.1-2.2) L 09/16/16 01:46 Triglycerides 63 mg/dL (< 150) 09/16/16 01:46 Cholesterol 71 mg/dL (< 200) 09/16/16 01:46 LDL Cholesterol, Calc 33 mg/dL (0-99) 09/16/16 01:46 VLDL Cholesterol, Calc 13 mg/dL (< 31) 09/16/16 01:46 HDL Cholesterol 25 mg/dL (40-59) L 09/16/16 01:46 Cholesterol/HDL Ratio 2.8 (0-4.9) 09/16/16 01:46 Prolactin 42.94 ng/mL (3.46-19.40) H 09/16/16 01:46 A. baumannii (PCR) Not Detected (Not Detect) 09/15/16 16:26 Corine albicans (PCR) Not Detected (Not Detect) 09/15/16 16:26 C. glabrata (PCR) Not Detected (Not Detect) 09/15/16 16:26 C. krusei (PCR) Not Detected (Not Detect) 09/15/16 16:26 C. parapsilosis (PCR) Not Detected (Not Detect) 09/15/16 16:26 C. tropicalis (PCR) Not Detected (Not Detect) 09/15/16 16:26 Enterobacteriac sp PCR Not Detected (Not Detect) 09/15/16 16:26 E. cloacae complex PCR Not Detected (Not Detect) 09/15/16 16:26 Enterococcus sp PCR Not Detected (Not Detect) 09/15/16 16:26 E. coli (PCR) Not Detected (Not Detect) 09/15/16 16:26 H. influenzae (PCR) Not Detected (Not Detect) 09/15/16 16:26 Klebsiella oxytoca PCR Not Detected (Not Detect) 09/15/16 16:26 Klebsiella pneumoniae Not Detected (Not Detect) 09/15/16 16:26 List. monocytogenes PCR Not Detected (Not Detect) 09/15/16 16:26 N. meningitidis (PCR) Not Detected (Not Detect) 09/15/16 16:26 Proteus species (PCR) Not Detected (Not Detect) 09/15/16 16:26 Serratia marcescens PCR Not Detected (Not Detect) 09/15/16 16:26 Staphylococcus sp PCR DETECTED (Not Detect) A 09/15/16 16:26 Staph aureus (PCR) DETECTED (Not Detect) A 09/15/16 16:26 mecA-Methicil Res Gene DETECTED (Not Detect) A 09/15/16 16:26 Streptococcus sp PCR Not Detected (Not Detect) 09/15/16 16:26 Group A Strep DNA Not Detected (Not Detect) 09/15/16 16:26 Group B Strep (PCR) Not Detected (Not Detect) 09/15/16 16:26 Strep pneumoniae (PCR) Not Detected (Not Detect) 09/15/16 16:26 P. aeruginosa (PCR) Not Detected (Not Detect) 09/15/16 16:26 Thong/B-Vanco Res Genes N/A (Not Detect) 09/15/16 16:26 KPC (blaKPC) Detect PCR N/A (Not Detect) 09/15/16 16:26 Specimen Rejected Hemolyzed 09/15/16 16:26 Impressions Chest X-Ray 09/15/16 15:32 IMPRESSION: Right perihilar airspace opacity compatible with right perihilar pneumonia. D/ / Germán Ravi MD / Germán Ravi MD Interpreting Provider: Germán Ravi MD Head CT 09/15/16 16:44 IMPRESSION: No acute intracranial abnormality. D/ / Oneil Tong MD / Oneil Tong MD Interpreting Provider: Oneil Tong MD - ABG Interpretation ABG results: 09/16/16 01:46 VBG pH 7.47 H VBG pCO2 45 VBG pO2 72 H VBG HCO3 32.8 H
[2016-09-16] MEDS ORDERED: diazePAM 10 MG/2 ML SYRINGE IVP PRN ×7 (07:27→22:02)
[2016-09-16 07:28] LABS: Vancomycin,Trough 12.4 mcg/mL (10-20)
[2016-09-16] MEDS: Cyprohepatdine 4 MG TABLET PO SCH ×3 (08:29→18:41)
[2016-09-16] MEDS: diazePAM 10 MG/2 ML SYRINGE IVP PRN ×2 (08:37→15:16)
[2016-09-16] MEDS ORDERED: Aspirin Enteric Coated 81 MG Tablet PO SCH (09:00)
[2016-09-16] MEDS ORDERED: Sennosides/Docusate Sodium TABLET PO SCH (09:00)
[2016-09-16] MEDS ORDERED: Renal Vitamin 1 MG CAPSULE PO SCH (09:00)
[2016-09-16] MEDS ORDERED: Thiamine (B-1) 100 MG TABLET PO SCH (09:00)
[2016-09-16 09:05] LABS: Basophils % 0.1 %; Eosinophils % 0.1 %; Hematocrit 32.5 % (37.5-50.1); Hemoglobin 10.3 g/dL (12.9-16.9); Immature Granulocytes % 0.5 % (0-4); Lymphocytes # 0.2 K/mcL (0.6-4.6); Lymphocytes % 1.9 %; Mean Corpuscular HGB Conc 31.7 g/dL (31.6-35.5); Mean Corpuscular Hemoglobin 31.1 pg (28.0-33.3); Mean Corpuscular Volume 98.2 fL (83.0-100.0); Mean Platelet Volume 11.3 fL (9.4-12.4); Monocytes # 0.3 K/mcL (0.0-1.3); Monocytes % 3.4 %; Neutrophils # 7.7 K/mcL (1.6-8.9); Platelet Count 113 K/mcL (140-400); Red Blood Count 3.31 M/mcL (4.19-5.50); Red Cell Distribution Width 16.1 % (11.5-14.5)
[2016-09-16 09:17] LABS: Calcium 9.4 mg/dL (8.6-10.8); Magnesium 1.6 mg/dL (1.6-2.6); Phosphorous 2.6 mg/dL (2.3-4.7); Potassium 5.9 mEq/L (3.5-4.5)
[2016-09-16 09:28] LABS: Platelet Estimate Slight Decrease (Normal)
--- NOTE | 2016-09-16 10:53 | Nephrology Consult Note ---
Date of Encounter: 09/16/16 Time of Encounter: 10:20 Assessment and Plan (1) ESRD on hemodialysis Current Visit: Yes Status: Acute ESRD on HD. Infected AVG /site. GM positive cocci, on Vanco. Vascular consult placed. Will consult IR for temporary catheter placement followed by HD. History of Present Illness - Reason for Consult end stage renal disease - History of Present Illness Mr. Bass is a 50 year old male with ESRD who dialyzes at [facility] on , Last dialysis on Tuesday. Other PMH- HTN, CHF, diabetes. Mr Bass presented to ER from nursing facility with redness and swelling at left brachiocephalic AV graft site. Peripheral blood cultures show gm positive coccci. Vancomycin ordered. This morning Mr. Bass is alert, has tongue rolling and extremity twitching which he has been noted over past few weeks when at diaysis. He is unsure of his current whereabouts. He denies pain. AVG site is erythemic, swollen with thickened oozing blood. Dialysis staff stated he has had prolonged bleedin after treatment and was scheduled for shuntogram. Past Med Surg Social Fam HX - Past Medical History Medical history: arthritis, CHF, diabetes, dialysis, GERD, hypertension, osteoporosis, renal disease, venous stasis, other Psychiatric history: anxiety, depression, other - Past Surgical History Surgical History: cholecystectomy, vascular surgery - Social History Smoking Status: Never smoker Smokeless Tobacco Status: No Alcohol use: none, unknown Drug use: none, unknown - Family History Mother Living Status: Hx Family Cardiac Disorders: Yes Hx Family Endocrine Disorder: Yes Father Living Status: Hx Family Respiratory Disorders: Yes Hx Family Cancer: Yes Medications and Allergies Aspirin [Adult Low Dose Aspirin EC] 81 mg PO DAILY 08/27/15 [History] Citalopram Hydrobromide [Citalopram HBr] 40 mg PO DAILY 04/23/16 [History] Gabapentin [Neurontin] 300 mg PO BID 04/23/16 [History] Losartan Potassium [Cozaar] 100 mg PO DAILY 04/23/16 [History] Metoprolol [Lopressor] 50 mg PO BID 04/23/16 [History] Oxybutynin Chloride [Ditropan Xl] 10 mg PO DAILY 05/21/16 [History] B Complex W-C No.20/Folic Acid [Nephrocaps Softgel] 1 mg PO DAILY 09/15/16 [ History] BuPROPion XL (24 HR) [Wellbutrin XL] 150 mg PO DAILY 09/15/16 [History] Calcium Carbonate [Tums] 500 mg PO TIDAC 09/15/16 [History] Diazepam [Valium] 5 mg PO Q6H PRN 09/15/16 [History] Ibuprofen [Motrin] 800 mg PO Q6H PRN 09/15/16 [History] Lactulose 20 gm PO DAILY PRN 09/15/16 [History] Oxycodone HCl/Acetaminophen [Percocet 10-325 mg Tablet] 1 each PO Q6H PRN [History] Oxygen 2 l NS AD 09/15/16 [History] Sennosides/Docusate Sodium [Senna Plus] 1 each PO BID 09/15/16 [History] Allergies lorazepam [From Ativan] Adverse Reaction (Verified 09/15/16 15:21) Paranoia Review of Systems All Systems: reviewed and no additional remarkable complaints except as stated Exam - Vital Signs Vital signs: Initial Vital Signs Temp Pulse Resp BP Pulse Ox 99.4 F 71 18 172/93 95 09/15/16 15:15 09/15/16 15:15 09/15/16 15:15 09/15/16 15:15 09/15/16 15:15 Vital Signs - Last 8 Hours Temp Pulse Resp BP Pulse Ox 09/16/16 08:09 96 09/16/16 08:00 98.1 F 73 16 108/77 96 09/16/16 04:52 99.2 F 84 18 140/79 98 09/16/16 04:20 100 09/16/16 04:07 18 99 Intake and Output 09/15/16 09/16/16 09/16/16 23:59 07:59 15:59 Intake Total 190 / 190 Output Total 0 / 0 Balance 0 / 0 190 / 190 Intake: Oral 190 / 190 Output: Urine 0 / 0 Other: Meal Breakfast # Urine Diapers 1 Weight 107.1 kg 107.9 kg Blood Glucose* 95 Patient Weight 09/16/16 23:59 Weight 107.9 kg - General Appearance General appearance: well-developed, well-nourished, appears started age EENT: mucous membranes moist Neck: no JVD, no carotid bruit Respiratory: clear Cardiology: no edema, regular rate, regular rhythm - Dialysis Access Dialysis Vascular Access: Arteriovenous Graft Additional Comments: AVG site is erythemic, swollen with thickened oozing blood. Gastrointestinal: normoactive bowel sounds, no tenderness Integumentary: warm and dry Psychiatric: mood/affect appropriate, cooperative Results - Lab Results 09/16/16 06:49 09/16/16 06:49 Most recent lab results Calcium 9.4 mg/dL (8.6-10.8) 09/16/16 06:49 Phosphorus 2.6 mg/dL (2.3-4.7) 09/16/16 06:49 Magnesium 1.6 mg/dL (1.6-2.6) 09/16/16 06:49 Consult Discharge Plan - Plan Referrals: NO,PCP [Primary Care Provider] - ([facility] ([facility]))
[2016-09-16] MEDS ORDERED: 0.9 % Sodium Chloride 250 ML IVC PRN ×2 (12:24→22:02)
[2016-09-16] MEDS ORDERED: 0.9 % Sodium Chloride 1,000 ML PRIME SCH ×2 (12:30→22:02)
[2016-09-16] MEDS ORDERED: Heparin 1,000 UNITS/500 mL NS 500 ML ONE ×2 (12:53→16:28)
[2016-09-16] MEDS ORDERED: Vancomycin 500 MG in D5% in Water (Mini-Bag+) 100 ML IVPB ONE (13:00)
--- NOTE | 2016-09-16 13:05 | Vascular/Endovasc Consult Note ---
Date of Encounter: 09/16/16 Time of Encounter: 12:00 Assessment and Plan (1) Myoclonic jerking Current Visit: Yes Status: Acute May be related to renal status and infection (2) Toxic metabolic encephalopathy Current Visit: Yes Status: Acute May be related to renal status and infection. (3) Dialysis AV fistula infection Current Visit: Yes Status: Acute Infected left upper arm AV shunt. This is a left brachial to axillary vein AV shunt. It is not as noted elsewhere a brachiocephalic shunt. Because of the large raised area with necrotic skin this may represent a pseudoaneurysm and needs to be excised today for risk of rupture and then spontaneous arterial bleeding. Qualifiers: Encounter type: initial encounter Qualified Code(s): T82.7XXA - Infection and inflammatory reaction due to other cardiac and vascular devices, implants and grafts, initial encounter - History of Present Illness Consult date: 09/16/16 Consult reason: Infected left upper arm AV shunt Chief complaint: The patient is confused History of present illness: Mr. Martínez is a 50 year old male That was admitted yesterday to the hospitalist service with a variety of complaints. Apparently he was transferred from his extended care facility because of mental status and mild clonic jerking. It is unclear how long he has had this jerking phenomenon. There was issues raised according to chart notations that his left upper arm AV shunt is not functioning appropriately and he has had prolonged bleeding. Apparently he was scheduled for a shuntogram. We do not know where this was going to be performed or what time. The patient is confused and cannot give me any significant history whatsoever. He cannot tell me who or when or where the AV shunt was created. He cannot give me any history in regards to the functioning of the shunt or problems with the shunt use. Of note in the chart the patient has blood cultures that are positive for gram- positive cocci. Past Med Surg Social Fam HX - Past Medical History Medical history: arthritis, CHF, diabetes, dialysis, GERD, hypertension, osteoporosis, renal disease, venous stasis, other Psychiatric history: anxiety, depression, other - Past Surgical History Surgical History: cholecystectomy, vascular surgery - Social History Smoking Status: Never smoker Smokeless Tobacco Status: No Alcohol use: none, unknown Drug use: none, unknown - Family History Mother Living Status: Hx Family Cardiac Disorders: Yes Hx Family Endocrine Disorder: Yes Father Living Status: Hx Family Respiratory Disorders: Yes Hx Family Cancer: Yes Medications and Allergies Aspirin [Adult Low Dose Aspirin EC] 81 mg PO DAILY 08/27/15 [History] Citalopram Hydrobromide [Citalopram HBr] 40 mg PO DAILY 04/23/16 [History] Gabapentin [Neurontin] 300 mg PO BID 04/23/16 [History] Losartan Potassium [Cozaar] 100 mg PO DAILY 04/23/16 [History] Metoprolol [Lopressor] 50 mg PO BID 04/23/16 [History] Oxybutynin Chloride [Ditropan Xl] 10 mg PO DAILY 05/21/16 [History] B Complex W-C No.20/Folic Acid [Nephrocaps Softgel] 1 mg PO DAILY 09/15/16 [ History] BuPROPion XL (24 HR) [Wellbutrin XL] 150 mg PO DAILY 09/15/16 [History] Calcium Carbonate [Tums] 500 mg PO TIDAC 09/15/16 [History] Diazepam [Valium] 5 mg PO Q6H PRN 09/15/16 [History] Ibuprofen [Motrin] 800 mg PO Q6H PRN 09/15/16 [History] Lactulose 20 gm PO DAILY PRN 09/15/16 [History] Oxycodone HCl/Acetaminophen [Percocet 10-325 mg Tablet] 1 each PO Q6H PRN [History] Oxygen 2 l NS AD 09/15/16 [History] Sennosides/Docusate Sodium [Senna Plus] 1 each PO BID 09/15/16 [History] Allergies lorazepam [From Ativan] Adverse Reaction (Verified 09/15/16 15:21) Paranoia All Systems Review: A 10-system review of systems was performed and is negative for pertinent findings except as documented above in the HPI. Exam Vital Signs, Last 4 Hours Temp Pulse Resp BP Pulse Ox 09/16/16 11:50 100.1 F H 94 18 153/74 98 General: Present: Other (The patient is confused. He is difficult to arouse.) HEENT: Present: Atraumatic Neck: Absent: JVD Cardiac: Present: Reg Rate and Rhythm, Normal S1 and S2 Lungs: Present: Decreased breath sounds Neuro: Present: Other (The patient has myoclonic jerking of all 4 extremities and torso.) Abdomen: Present: Soft, Other (Obese). Absent: Masses Vascular: Present: Pulse, absent (I do not palpate pulses at his feet. He has ulcerations on his heels bilaterally.), Other (The patient has a raised boggy area immediately proximal to the antecubital crease near the arterial anastomosis for his AV shunt. This mass measures approximately 6 x 8 cm. There is a black and necrotic area over the top portion of this mass. There is also a small puncture site which has purulent type material in it. This was not manipulated to express the area. I'm concerned this may represent a pseudoaneurysm and so to avoid potential rupture this was not further manipulated. The AV shunt itself is widely patent. He has an excellent pulse and thrill and bruit.). Absent: Edema Consult Discharge Plan - Plan Referrals: NO,PCP [Primary Care Provider] - ([facility] ([facility]))
--- NOTE | 2016-09-16 13:15 | Event Note ---
Date of Encounter: 09/16/16 Time of Encounter: 13:14 I was informed by the nursing staff that they have been unable to reach the family despite multiple attempts. As this is a life-threatening condition the patient requires surgery today. We will proceed with surgery without consent in order to prevent loss of life.
[2016-09-16] MEDS ORDERED: *HR* Heparin 5,000 UNIT/ML VIAL ONE ×2 (13:39→19:28)
--- NOTE | 2016-09-16 13:52 | IR Procedure Note ---
Date of procedure: 09/16/16 Consent Obtained: Verbal consent, Written consent Timeout: Correct patient and procedure verified, Correct site verified, Time out performed, Skin prep completed Local anesthetic: Lidocaine 1% Indications: infected AV graft Procedure Performed: temp HDC placement Site/Technique: CRISTIN Estimated blood loss (cc): 5 Complications: None; Tolerated procedure well Post Procedure Treatment Plan: ok to use catheter
[2016-09-16] MEDS ORDERED: Ondansetron 4 MG/2 ML VIAL IVP PRN ×2 (14:33→22:02)
--- NOTE | 2016-09-16 16:08 | Anesthesia Evaluation PreOp ---
Date of Encounter: 09/16/16 Time of Encounter: 16:06 - Past History Planned Operation: I&D L-UE graft INFO OBTAINED Fr COMPUTERIZED RECORDS Cardiac History: CHF, HTN (maintained on Cozaar, Lopressor), Other ( PVDz) Pulmonary History: Denies Any Significant HX (unknown) APPLICATION DEVELOPMENT INTERN History: Seizures (Pt demonstrating myoclonic/involuntary jerking activity) , Other (Toxic Metabolic Encephalopathy, Delirium, Serotonin syndrome. Depression/Anxiety - Maintained on Citalopram, Buspar, Diazepam, ? Cognitive Impairment. Peripheral Neuropathy - maintained on GAbapentin.) Other Medical History: Renal (ESRD on MWF hemodialysis), Diabetes Type II, GERD Anesthesia History: Past Anesthesia (Jennifer, VAscular surgery) Alcohol Use: none, unknown Drug use: none, unknown Medications and Allergies Aspirin [Adult Low Dose Aspirin EC] 81 mg PO DAILY 08/27/15 [History] Citalopram Hydrobromide [Citalopram HBr] 40 mg PO DAILY 04/23/16 [History] Gabapentin [Neurontin] 300 mg PO BID 04/23/16 [History] Losartan Potassium [Cozaar] 100 mg PO DAILY 04/23/16 [History] Metoprolol [Lopressor] 50 mg PO BID 04/23/16 [History] Oxybutynin Chloride [Ditropan Xl] 10 mg PO DAILY 05/21/16 [History] B Complex W-C No.20/Folic Acid [Nephrocaps Softgel] 1 mg PO DAILY 09/15/16 [ History] BuPROPion XL (24 HR) [Wellbutrin XL] 150 mg PO DAILY 09/15/16 [History] Calcium Carbonate [Tums] 500 mg PO TIDAC 09/15/16 [History] Diazepam [Valium] 5 mg PO Q6H PRN 09/15/16 [History] Ibuprofen [Motrin] 800 mg PO Q6H PRN 09/15/16 [History] Lactulose 20 gm PO DAILY PRN 09/15/16 [History] Oxycodone HCl/Acetaminophen [Percocet 10-325 mg Tablet] 1 each PO Q6H PRN [History] Oxygen 2 l NS AD 09/15/16 [History] Sennosides/Docusate Sodium [Senna Plus] 1 each PO BID 09/15/16 [History] Allergies lorazepam [From Ativan] Adverse Reaction (Verified 09/15/16 15:21) Paranoia - Meds/Allergy Pre-op Review Medications Reviewed: Yes Allergies Reviewed: Yes Beta Blockers on Current Med List: No Anesthesia Results - Labs 09/16/16 06:49 09/16/16 06:49 Laboratory Results Impressions Chest X-Ray 09/15/16 15:32 IMPRESSION: Right perihilar airspace opacity compatible with right perihilar pneumonia. D/ / Germán Ravi MD / Germán Ravi MD Interpreting Provider: Germán Ravi MD Guidance Needle Placement Ultrasound 09/16/16 00:00 IMPRESSION: Successful ultrasound and fluoroscopy guided non-tunneled right internal jugular dialysis catheter placement. D/ / 09/16/2016 14:34:29 Jeremy Brooks MD / jarrod Interpreting Provider: Jeremy Brooks MD Insertion Non-Tunneled Catheter 09/16/16 00:00 IMPRESSION: Successful ultrasound and fluoroscopy guided non-tunneled right internal jugular dialysis catheter placement. D/ / 09/16/2016 14:34:29 Jeremy Brooks MD / jarrod Interpreting Provider: Jeremy Brooks MD Chest CT 09/16/16 09:00 IMPRESSION: Diffuse bilateral ground-glass and nodular infiltrate is seen bilaterally, suggestive of pneumonitis. Edema is an additional consideration in the appropriate clinical setting. Mediastinal lymph nodes are upper limits of normal in size. Trace bilateral pleural effusions. Follow-up to resolution recommended. D/ / Jordi Gill MD / Jordi Gill MD Interpreting Provider: Jordi Gill MD Head CT 09/16/16 09:00 IMPRESSION: 1. Motion artifact degrades the overall exam. 2. No acute intracranial hemorrhage or global mass effect. 3. Chronic small vessel ischemic disease. D/ / 09/16/2016 10:18:17 Bebeto Amor MD / Angela Emery Interpreting Provider: Bebeto Amor MD - Imaging EKG: image reviewed Anesthesia Exam Vital Signs Temp Pulse Resp BP Pulse Ox 09/16/16 11:50 100.1 F H 94 18 153/74 98 09/16/16 08:09 96 09/16/16 08:00 98.1 F 73 16 108/77 96 09/16/16 04:52 99.2 F 84 18 140/79 98 09/16/16 04:20 100 09/16/16 04:07 18 99 09/15/16 23:11 99.4 F 76 18 146/87 94 09/15/16 21:13 18 191/90 09/15/16 20:38 76 16 175/96 98 09/15/16 18:43 77 18 168/83 95 09/15/16 17:30 72 20 157/117 96 09/15/16 16:40 73 18 174/101 96 Intake and Output 09/16/16 09/16/16 09/16/16 07:59 15:59 23:59 Intake Total 190 / 190 Output Total 0 / 0 Balance 0 / 0 190 / 190 Intake: Oral 190 / 190 Output: Urine 0 / 0 Other: Meal Breakfast Weight 107.9 kg Blood Glucose* 95 146 Patient Weight 09/16/16 23:59 Weight 107.9 kg - HEENT Pupil (Motor): Pupils equal, EOMI (PT opened eyes twice during interview attempts) Mallampati: IV (Pt not cooperative to Physical exam) Teeth: Edentulous, Poor dentition Oral Opening: Greater than 3 - APPLICATION DEVELOPMENT INTERN LOC: Unable to assess (Pt unable to cooperate with physical exam or interview) APPLICATION DEVELOPMENT INTERN Motor: Normal RUE (Pt demonstrates some myoclonic jerking activity), Normal LUE, Normal RLE, Normal LLE, Normal Face APPLICATION DEVELOPMENT INTERN Sensory: Normal: RUE, LUE, RLE, LLE, Face - Cardiac Rhythm: Regular Murmur: None - Pulmonary Breath Sounds: bilateral Clear (distant breath sounds w/faint crackles) Respiratory Effort: Symmetrical Anesthesia Assess/Plan ASA Score: 4 (ESRD, Toxic Encephalopathy, HTN, CHF, DM) Modified Williams Scale for Level of Consciousness: Asleep with sluggish response to stimulus (Pt is non-conversant) Anesthetic Plan: General Monitoring Plan: Standard Monitors Recovery Plan: PACU Anes Supervising Prov Stmt: Pt seen/evaluated, R&B discussed, questions answered. Consent via 2 physician decree re: emergent need for surgery per Dr. Suárez.
[2016-09-16] MEDS ORDERED: Lidocaine 1% 20 ML MDV ONE (16:27)
--- NOTE | 2016-09-16 16:30 | Event Note ---
Date of Encounter: 09/16/16 Time of Encounter: 15:06 Patient is a 50-year-old male with extensive medical history admitted for healthcare acquired pneumonia, bacteremia, and toxic metabolic encephalopathy. Patient seen and examined at bedside. Resting in bed and denies any discomfort at this time. Patient is alert and oriented to self and it is unclear of patient's baseline mental status. Patient is noted to have an infected AV graft for which vascular surgery was consulted. Given the severity of the infection, patient is to undergo surgical procedure for the removal of this graft today. Patient is started on empiric IV antibiotics. He is also noted to be on numerous psychotropic agents contributing to his mental status and as per PCP, patient is noted to have myoclonic jerking for the last several weeks. At this time we will hold all psychotropic agents and there is a concern for serotonin syndrome due to which patient was started on Valium when necessary. CIWA protocol is initiated to monitor his symptoms and use Valium as needed. Patient has history of end-stage renal disease and is on hemodialysis. Nephrology is consulted for continuation of his dialysis sessions. Due to the infected AV graft, interventional radiology was consulted for a temporary HD dialysis catheter. Patient is to receive hemodialysis after receiving a temporary HD catheter.
[2016-09-16] MEDS ORDERED: *HR* Propofol 200 MG/20 ML VIAL IVP ONE ×2 (17:02→17:18)
[2016-09-16] MEDS ORDERED: *HR* FentaNYL (PF) 100 MCG/2 ML VIAL ONE (17:03)
[2016-09-16] MEDS ORDERED: EPHEDrine 50 MG/ML VIAL ONE (18:13)
--- NOTE | 2016-09-16 19:27 | Electrocardiograph Report ---
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
--- NOTE | 2016-09-16 20:46 | Operative Note ---
Date of procedure: 09/16/16 Pre-op diagnosis: infected left arm AV shunt Post-op diagnosis: other (Plus contained rupture of left upper arm AV shunt pseudoaneurysm) Procedure: excision of infected left upper arm AV shunt thrombectomy of left upper extremity arteries via arm incision debridement of left brachial artey with reconstruction via bovine pericardial patch angioplasty Complications: none Anesthesia: BRYANT Surgeon: Eddie Suárez Estimated blood loss (cc): 600 Specimen: infected AV shunt and cultures and Gram stain Condition: critical Disposition: ICU Procedure in Detail: History Germán Roca is a 50-year-old white male that was seen in emergent consultation for evaluation of a left upper arm AV shunt infection. Unfortunately the patient has delirium and some type of metabolic encephalopathy so he was unable to provide much history. As best we could determine he had had a left upper arm AV shunt placed sometime in the past and was [facility] ER because of redness and swelling at the AV shunt as well as skin color changes. The patient was found to have gram-positive cocci in his bloodstream and necrotic skin over the AV shunt. The patient was then recommended for emergent surgery to prevent complete disruption and external arterial bleeding. Unfortunately the patient was unable to provide consent and family members could not be contacted and so therefore the surgery was performed as a life- threatening emergency surgery performed without consent. Procedure After the patient was brought from the floor he was evaluated in the preoperative holding area and then taken to the operating room. General endotracheal anesthesia was established. The left upper extremity was sterilely prepped and draped. A timeout protocol was observed. The initial incision was made over the left antecubital area. Dissection here revealed the anastomosis to the brachial artery. Dissection was made proximally and distally and then the graft was lighted. Interestingly I discovered that the arterial anastomosis had been treated with a previous stent angioplasty. This is an unusual location for stent angioplasty as this is normally reserved for the venous side of an AV shunt. The divided shunt particles were then removed as much as possible and then the brachial artery was closed with a running 6-0 Prolene suture. Care was taken to preserve the lumen as well as to debride some of the residual fibrinous material. This surgical area was then closed with interrupted sutures. Attention was then directed to the venous outflow. The patient was initially thought to have a brachial to axillary AV shunt which is a typical construction at this location. The patient had a very curious construction of a brachial artery to mid upper arm cephalic vein in an end-to-end fashion. Therefore this graft to vein connection was divided and the vein oversewn at this location. The shunt edges were then freed up in an attempt to mobilize this for further removal. Then a third and final incision was made over the area of swelling and discoloration with necrotic tissue. Upon opening this area patient had both liquid blood and chronic from boast blood. The patient was found to have a disruption of the graft off of the brachial artery at yet a second and more proximal anastomosis to the one at the antecubital area. The graft was then dissected and it was removed and sent for culture. Attention was then directed to try to repair this brachial artery area proximal to the antecubital crease. The patient experiences significant amount of blood loss because of trying to obtain control was difficult due to marked inflammation and edema and distortion of all typical anatomic planes. Control was eventually obtained with proximal and distal Vesseloops. The brachial artery at this location was edematous and the edges of the artery were jagged. This was debrided. A vein patch angioplasty was then performed. However before this was done it was noted that there was no backbleeding from the distal arterial system. Therefore a 3 [place] catheter was passed antegrade into the brachial artery and proximal forearm vessels. Fresh thrombus was retrieved and backbleeding was established. Heparinized saline was then administered. It should also be noted that intravenous heparin was administered to patient as well when working on the brachial artery which was controlled proximally and distally. The edges of the brachial artery were debrided and then a bovine pericardial patch was delicately sewn onto this irregular and jagged vessel. After appropriate backbleeding and flushing the area was opened. Pulsatile flow was then restored into the forearm and hand. Excellent pulses were found in the surgical wound and excellent Doppler signals at the wrist. It should be noted that on the synthetic graft itself and area of rupture was found and so then therefore this issue demonstrated and was actually a contained rupture of a pseudoaneurysm that was most likely infected at this left antecubital site. This portion of the graft was submitted for culture as noted above. The wounds were then copiously irrigated. The more proximal wound at the shunt to vein anastomosis was closed with interrupted suture. At the large distal upper arm wound at the site of the infection pseudoaneurysm rupture the artery was covered in 2 layers. The edges of the skin were then surgically debrided and hemostasis was achieved. This part of the wound was then packed open with saline soaked gauze. Dry sterile dressings were applied to the other 2 incisions. The left hand was inspected and found to be warm and pink. The patient was then extubated in the operating room. He was taken to the intensive care unit for further observation due to the late hour and the blood loss and his dialysis in mental status status.
--- NOTE | 2016-09-16 21:13 | Anesthesia Evaluation Post Op ---
Date of Encounter: 09/16/16 Time of Encounter: 21:13 - Vital Signs Vital Signs: Last Vital Signs Temp 100.1 F H 09/16/16 11:50 Pulse 94 09/16/16 11:50 Resp 18 09/16/16 11:50 BP 153/74 09/16/16 11:50 Pulse Ox 98 09/16/16 11:50 - Lungs Lungs: Clear Ascult./Percussion - Airway Airway: Non-obstructed - Cardiovascular Regular Rate - Mental Status Mental Status: Alert & Oriented, Answers Appropriately - Pain Pain Scale: 2 - Nausea Vomiting Nausea Vomiting: Not Present - Hydration Hydration: NPO - Discharge PostOp Status: Transfer Patient to floor (Care in ICU)
[2016-09-16] MEDS ORDERED: *HR* HYDROmorphone (PF) 1 MG/ML SYRINGE IVP ONE (22:15)
[2016-09-17] MEDS: Ipratropium/Albuterol Neb 3 ML IH SCH ×4 (03:59→22:17)
[2016-09-17] MEDS ORDERED: *HR* OxyCODONE Immed Rel 5 MG TABLET PO PRN (04:03)
[2016-09-17] MEDS: Piperacillin/Tazobactam 3.375 GM in D5% in Water (Mini-Bag+) 100 ML IVPB SCH (05:04)
[2016-09-17] MEDS: Cyprohepatdine 4 MG TABLET PO SCH ×3 (08:43→18:22)
[2016-09-17] MEDS: Thiamine (B-1) 100 MG TABLET PO SCH (08:43)
[2016-09-17] MEDS: Aspirin Enteric Coated 81 MG Tablet PO SCH (08:43)
[2016-09-17] MEDS: Renal Vitamin 1 MG CAPSULE PO SCH (08:43)
[2016-09-17] MEDS: Sennosides/Docusate Sodium TABLET PO SCH (08:43)
[2016-09-17] MEDS: *HR* HYDROmorphone (PF) 1 MG/ML SYRINGE IVP PRN (08:44)
[2016-09-17 09:00] LABS: Basophils % 0.2 %; Mean Corpuscular Volume 96.6 fL (83.0-100.0)
[2016-09-17 09:02] LABS: Eosinophils # 0.1 K/mcL (0.0-0.6); Eosinophils % 1.8 %; Hematocrit 25.8 % (37.5-50.1); Hemoglobin 8.1 g/dL (12.9-16.9); Immature Granulocytes % 0.4 % (0-4); Immature Platelets 7.5 % (1.1-6.1); Lymphocytes # 0.4 K/mcL (0.6-4.6); Lymphocytes % 8.1 %; Mean Corpuscular HGB Conc 31.4 g/dL (31.6-35.5); Mean Corpuscular Hemoglobin 30.3 pg (28.0-33.3); Mean Platelet Volume 11.3 fL (9.4-12.4); Monocytes # 0.5 K/mcL (0.0-1.3); Monocytes % 9.7 %; Neutrophils # 3.9 K/mcL (1.6-8.9); Red Blood Count 2.67 M/mcL (4.19-5.50); Red Cell Distribution Width 16.2 % (11.5-14.5); Segmented Neutrophils % 79.8 %
[2016-09-17 09:05] LABS: Platelet Count 98 K/mcL (140-400)
[2016-09-17 09:13] LABS: Calcium 8.5 mg/dL (8.6-10.8); Magnesium 1.9 mg/dL (1.6-2.6); Phosphorous 3.8 mg/dL (2.3-4.7); Potassium 5.8 mEq/L (3.5-4.5)
[2016-09-17 09:40] LABS: Platelet Estimate Slight Decrease (Normal)
[2016-09-17] MEDS ORDERED: 0.9 % Sodium Chloride 250 ML IVC PRN (09:50)
--- NOTE | 2016-09-17 09:50 | Nephrology Progress Note ---
Date of Encounter: 09/17/16 Time of Encounter: 09:48 - Assessment and Plan (1) ESRD on hemodialysis Current Visit: Yes Status: Acute The patient will undergo dialysis today. He will be placed on Aranesp for his anemia. He remains on antibiotics. (2) Anemia in CKD (chronic kidney disease) Current Visit: Yes Status: Acute (3) Dialysis AV fistula infection Current Visit: Yes Status: Acute Qualifiers: Encounter type: initial encounter Qualified Code(s): T82.7XXA - Infection and inflammatory reaction due to other cardiac and vascular devices, implants and grafts, initial encounter Subjective Interval history: The patient is status post ligation of left AV fistula. Currently he is alert and oriented. He is complaining of some postoperative pain. He has a temporary dialysis catheter in place. He will undergo dialysis today. He is on vancomycin. Cultures are growing gram-positive cocci. Objective - Vital Signs Vital signs: Vital Signs Temp Pulse Resp BP Pulse Ox 09/17/16 08:13 97.9 F 09/17/16 08:00 70 16 108/61 96 09/17/16 07:32 71 09/17/16 07:00 70 18 103/61 94 09/17/16 06:00 71 16 100/67 95 09/17/16 05:00 73 12 118/82 96 09/17/16 04:13 98 F 09/17/16 04:00 74 12 122/71 92 09/17/16 03:59 17 91 09/17/16 03:50 83 09/17/16 03:00 74 19 109/58 94 09/17/16 02:00 72 16 107/60 97 09/17/16 01:00 73 16 104/57 98 09/17/16 00:11 98.4 F 09/17/16 00:00 76 16 108/56 97 09/16/16 23:00 81 16 129/61 96 09/16/16 22:24 79 17 142/71 95 09/16/16 22:14 17 100 09/16/16 21:00 99 F 77 20 140/65 100 Intake and Output 09/16/16 09/17/16 09/17/16 23:59 07:59 15:59 Intake Total 0 / 0 0 / 0 100 / 100 Output Total 600 / 600 Balance -600 / -600 0 / 0 100 / 100 Intake: IV Fluids 100 / 100 Zosyn 3.375 GM In 100 / 100 Dextrose 5% (Minibag+) 100 ML 100 ML @ 25 mls/hr IVPB Q12H [facility] Rx#: [id number] Oral 0 / 0 0 / 0 Output: Estimated Blood Loss 600 / 600 Other: Weight 109.5 kg Blood Glucose* 74 74 71 Patient Weight 09/17/16 23:59 Weight 109.5 kg - General Appearance Exam: Patient is alert and oriented. He is in no acute distress. Lungs mage breath sounds otherwise clear. Heart regular rate and rhythm with a 2/6 talk ejection murmur. Abdomen is obese. There is no tenderness. There is a temporary dialysis catheter in the right internal jugular vein. There is minimal lower extremity swelling. - Lab 09/17/16 08:50 09/17/16 08:50 Most recent lab results Calcium 8.5 mg/dL (8.6-10.8) L 09/17/16 08:50 Phosphorus 3.8 mg/dL (2.3-4.7) 09/17/16 08:50 Magnesium 1.9 mg/dL (1.6-2.6) 09/17/16 08:50 Consult Discharge Plan - Plan Referrals: NO,PCP [Primary Care Provider] - ([facility] ([facility]))
[2016-09-17] MEDS ORDERED: Darbepoetin 100 MCG/0.5 ML SYRINGE SQ SCH (10:00)
--- NOTE | 2016-09-17 14:44 | Internal Med Progress Note ---
Date of Encounter: 09/17/16 Time of Encounter: 14:42 - Assessment and plan (1) Toxic metabolic encephalopathy Current Visit: Yes Status: Acute Assessment and plan: Likely secondary to bacteremia and HCAP Concern for polypharmacy and serotonin syndrome given the list of psychotropic agents patient was on at the [place] Mental status improved, Alert and oriented today will continue IV abx continue to hold psychotropic agents closely monitor mental status Patient can be transferred out of the ICU after HD today (2) Infection of AV graft for dialysis Current Visit: Yes Status: Acute Assessment and plan: Vascular surgery consultation appreciated S/P: excision of infected left upper arm AV shunt, thrombectomy of left upper extremity arteries via arm incision, debridement of left brachial artey with reconstruction via bovine pericardial patch angioplasty POD #1 continue pain control (3) Bacteremia Current Visit: Yes Status: Acute Assessment and plan: Gram positive bacteremia secondary to infected AV graft will continue IV abx pharmacy to dose vancomycin and monitor trough will follow up repeat blood cultures (4) HCAP (healthcare-associated pneumonia) Current Visit: Yes Status: Acute Assessment and plan: continue IV abx will de-escalate therapy as per culture results and clinical improvement (5) Anemia in CKD (chronic kidney disease) Current Visit: Yes Status: Chronic Assessment and plan: H&H low but acceptable no acute bleeding reported at this time continue to monitor (6) ESRD on hemodialysis Current Visit: Yes Status: Acute Assessment and plan: Nephrology input appreciated patient to receive HD today (7) Hypertension Current Visit: No Status: Acute Assessment and plan: BP within acceptable range continue home medications Qualifiers: Hypertension type: essential hypertension Qualified Code(s): I10 - Essential (primary) hypertension (8) DVT prophylaxis Current Visit: No Status: Acute Assessment and plan: Heparin sQ (9) Disorder of penis, 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 Patient is POD #1 s/p excision of infected LUE AV graft. Patient was transferred to the ICU post op. He tolerated the procedure well and is currently AAO x 3 in the ICU. Reports of post-op pain but denies any other discomfort at this time. Patient had a temporary HD catheter placed yesterday and is to undergo HD today (09/17/16). - Constitutional Vitals: Temp Pulse Resp BP Pulse Ox 98.3 F 75 16 121/71 94 09/17/16 11:00 09/17/16 14:00 09/17/16 14:00 09/17/16 14:00 09/17/16 14:00 General appearance: Present: A&O X 3, morbidly obese, no acute distress, answers questions appropriately - Head Head exam: Present: atraumatic, normocephalic - Neck Additional comments: right IJ HD cath in place - Respiratory Respiratory exam: Present: CTAB. Absent: accessory muscle use, rales, respiratory distress, rhonchi, wheezes - Cardiovascular Cardiovascular exam: Present: RRR, +S1, +S2. Absent: diastolic murmur, gallop, rubs, systolic murmur - GI/Abdominal GI/Abdominal exam: Present: normal bowel sounds, soft, no peritoneal signs. Absent: distended, tenderness - Extremities Exam Extremities exam: Present: pedal edema, warm, radial pulses palpable and symetrical Additional comments: Dressing intact on LUE Internal Medicine: Result - Labs CBC & Chem 7: 09/17/16 08:50 09/17/16 08:50 Labs: Short CBC 09/17/16 Range/Units 08:50 WBC 4.9 (4.3-11.1) K/mcL Hgb 8.1 L D (12.9-16.9) g/dL Hct 25.8 L (37.5-50.1) % Plt Count 98 L (140-400) K/mcL Neutrophils # 3.9 (1.6-8.9) K/mcL BMP 09/17/16 08:50 Sodium 135 L Potassium 5.8 H Chloride 95 L Carbon Dioxide 30 H BUN 65 H D Creatinine 6.71 H Glucose 67 L Calcium 8.5 L - ABG Interpretation ABG results: PT/INR, D-dimer PT 14.5 Seconds (9.4-12.1) H 09/16/16 01:46 Consult Discharge Plan - Plan Referrals: NO,PCP [Primary Care Provider] - ([facility] ([facility]))
[2016-09-17] MEDS: *HR* OxyCODONE/APAP 7.5/325 TABLET PO PRN (15:14)
[2016-09-17] MEDS: *HR* Heparin 5,000 UNIT/ML VIAL SQ SCH (18:22)
[2016-09-17] MEDS ORDERED: 0.9 % Sodium Chloride 2,000 ML ONE (20:24)
--- NOTE | 2016-09-17 20:56 | Vascular/Endovas Progress Note ---
Date of Encounter: 09/17/16 Time of Encounter: 19:00 - Assessment and plan (1) Myoclonic jerking Current Visit: Yes Status: Acute May be related to renal status and infection (2) Toxic metabolic encephalopathy Current Visit: Yes Status: Acute May be related to renal status and infection. (3) Dialysis AV fistula infection Current Visit: Yes Status: Acute Status post excision of left upper arm AV shunt. The patient had a contained rupture of a pseudoaneurysm. Cultures were taken of the graft and of the clot and submitted for further analysis at the time of surgery. At this time the brachial reconstruction is widely patent with excellent perfusion to the left upper extremity and hand. The patient will continue with dressing changes twice a day to the left upper arm incision. Qualifiers: Encounter type: initial encounter Qualified Code(s): T82.7XXA - Infection and inflammatory reaction due to other cardiac and vascular devices, implants and grafts, initial encounter - Subjective Interval history: This patient is postoperative day #1 from an emergency left upper arm AV shunt removal. The patient was found to have a contained rupture of a pseudoaneurysm from his AV shunt. Serial appeared to be infected it was widely debrided and the skin edges were packed open. The graft was removed in its entirety. The brachial artery required a bovine pericardial patch to reconstruct the vessel to provide continuity to the forearm and hand. On today's visit the patient has no specific complaints. Vital Signs, Last 4 Hours Temp Pulse Resp BP Pulse Ox 09/17/16 20:36 98.4 F 09/17/16 20:00 78 16 137/62 94 09/17/16 19:00 79 12 116/64 94 09/17/16 17:00 82 16 140/58 94 - Physical Examination General: Present: Conversant, No Apparent Distress Vascular: Present: Pulse, normal (Left wrist pulses are normal and left hand has normal color and temperature.), Surgical incisions (The surgical incisions are clean and dry. The mid incision which was packed open had the dressing removed. The skin edges were inspected. There is no signs of further necrosis or gross infection. There is no signs of bleeding. The artery has been covered in 2 layers.) Results 09/17/16 08:50 09/17/16 08:50 Lab Results, Last 24 hours 09/17/16 09/17/16 08:50 08:50 WBC 4.9 Hgb 8.1 L D Hct 25.8 L Plt Count 98 L Sodium 135 L Potassium 5.8 H Chloride 95 L Carbon Dioxide 30 H BUN 65 H D Creatinine 6.71 H Glucose 67 L Calcium 8.5 L Magnesium 1.9 Consult Discharge Plan - Plan Referrals: NO,PCP [Primary Care Provider[facility] - [facility]
[2016-09-17] MEDS ORDERED: Vancomycin 500 MG in D5% in Water (Mini-Bag+) 100 ML IVPB ONE (23:00)
[2016-09-18] MEDS: Piperacillin/Tazobactam 3.375 GM in D5% in Water (Mini-Bag+) 100 ML IVPB SCH ×2 (01:02→12:11)
[2016-09-18] MEDS: Sennosides/Docusate Sodium TABLET PO SCH ×3 (01:03→21:00)
[2016-09-18] MEDS: Cyprohepatdine 4 MG TABLET PO SCH ×5 (01:03→20:59)
[2016-09-18] MEDS: *HR* OxyCODONE/APAP 7.5/325 TABLET PO PRN ×3 (01:03→16:58)
[2016-09-18] MEDS ORDERED: Levofloxacin 500 MG/100 ML 500 MG/100 ML BAG IVPB SCH (02:00)
[2016-09-18] MEDS: Ipratropium/Albuterol Neb 3 ML IH SCH ×4 (04:14→22:49)
[2016-09-18 04:17] LABS: Basophils % 0.2 %; Eosinophils # 0.2 K/mcL (0.0-0.6); Eosinophils % 4.1 %; Hematocrit 25.8 % (37.5-50.1); Hemoglobin 8.2 g/dL (12.9-16.9); Immature Granulocytes % 0.4 % (0-4); Lymphocytes # 0.4 K/mcL (0.6-4.6); Lymphocytes % 7.7 %; Mean Corpuscular HGB Conc 31.8 g/dL (31.6-35.5); Mean Corpuscular Hemoglobin 30.5 pg (28.0-33.3); Mean Corpuscular Volume 95.9 fL (83.0-100.0); Mean Platelet Volume 11.4 fL (9.4-12.4); Monocytes # 0.6 K/mcL (0.0-1.3); Monocytes % 12.2 %; Neutrophils # 3.6 K/mcL (1.6-8.9); Platelet Count 100 K/mcL (140-400); Red Blood Count 2.69 M/mcL (4.19-5.50); Red Cell Distribution Width 16.1 % (11.5-14.5); Segmented Neutrophils % 75.4 %
[2016-09-18 04:32] LABS: Calcium 8.3 mg/dL (8.6-10.8); Magnesium 1.4 mg/dL (1.6-2.6); Phosphorous 2.3 mg/dL (2.3-4.7)
[2016-09-18 04:35] LABS: Potassium 4.7 mEq/L (3.5-4.5)
[2016-09-18] MEDS: *HR* Heparin 5,000 UNIT/ML VIAL SQ SCH ×2 (05:46→16:54)
[2016-09-18] MEDS ORDERED: Magnesium Sulfate 1 GM in D5% in Water 100 ML IVPB ONE (08:09)
[2016-09-18] MEDS: Thiamine (B-1) 100 MG TABLET PO SCH (08:19)
[2016-09-18] MEDS: Aspirin Enteric Coated 81 MG Tablet PO SCH (08:19)
[2016-09-18] MEDS: Renal Vitamin 1 MG CAPSULE PO SCH (08:19)
--- NOTE | 2016-09-18 08:49 | Internal Med Progress Note ---
Date of Encounter: 09/18/16 Time of Encounter: 08:47 - Assessment and plan (1) Toxic metabolic encephalopathy Current Visit: Yes Status: Acute Assessment and plan: Likely secondary to bacteremia and HCAP Concern for polypharmacy and serotonin syndrome given the list of psychotropic agents patient was on at the [place] Mental status improved,appears to be at baseline. AAO x 3. will continue IV abx continue to hold psychotropic agents closely monitor mental status (2) Infection of AV graft for dialysis Current Visit: Yes Status: Acute Assessment and plan: Vascular surgery consultation appreciated S/P: excision of infected left upper arm AV shunt-POD #2 continue pain control continue daily dressing changes as per surgery (3) Bacteremia Current Visit: Yes Status: Acute Assessment and plan: Gram positive bacteremia secondary to infected AV graft will continue IV abx pharmacy to dose vancomycin and monitor trough will follow up repeat blood cultures wound cultures positive for MRSA, will continue current abx regimen Patient will need 14 days of IV abx after the first negative blood culture results. (4) HCAP (healthcare-associated pneumonia) Current Visit: Yes Status: Acute Assessment and plan: continue IV abx Continue Vancomycin and Zosyn (5) Anemia in CKD (chronic kidney disease) Current Visit: Yes Status: Chronic Assessment and plan: H&H low but acceptable no acute bleeding reported at this time continue to monitor (6) ESRD on hemodialysis Current Visit: Yes Status: Acute Assessment and plan: )Nephrology input appreciated patient received HD yesterday (09/17/16) (7) Hypertension Current Visit: No Status: Acute Assessment and plan: BP within acceptable range continue home medications Qualifiers: Hypertension type: essential hypertension Qualified Code(s): I10 - Essential (primary) hypertension (8) DVT prophylaxis Current Visit: No Status: Acute Assessment and plan: Heparin sQ (9) Disorder of penis, 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 Patient is POD #2 s/p excision of infected LUE AV graft. Patient resting comfortably in bed and reports of pain at the surgical site which is controlled with the pain medications. Currently AAO x 3, tolerated HD well yesterday and no overnight issues reported - Constitutional Vitals: Temp Pulse Resp BP Pulse Ox 97.1 F L 73 16 118/52 96 09/18/16 06:58 09/18/16 06:58 09/18/16 06:58 09/18/16 06:58 09/18/16 06:58 General appearance: Present: A&O X 3, morbidly obese, no acute distress, answers questions appropriately - Head Head exam: Present: atraumatic, normocephalic - Eye Eye exam: Present: normal appearance, conjuntiva pink, sclera anicteric - Respiratory Respiratory exam: Present: CTAB. Absent: respiratory distress, wheezes - Cardiovascular Cardiovascular exam: Present: RRR, +S1, +S2. Absent: diastolic murmur, gallop, rubs, systolic murmur - GI/Abdominal GI/Abdominal exam: Present: normal bowel sounds, soft, no peritoneal signs. Absent: distended, tenderness - Extremities Exam Extremities exam: Present: warm, radial pulses palpable and symetrical. Absent : pedal edema Additional comments: LUE dressing intact - Neurological Exam Neurological exam: Present: alert, oriented X3 Internal Medicine: Result - Labs CBC & Chem 7: 09/18/16 03:56 09/18/16 03:56 Labs: Short CBC 09/17/16 09/18/16 Range/Units 08:50 03:56 WBC 4.9 4.8 (4.3-11.1) K/mcL Hgb 8.1 L D 8.2 L (12.9-16.9) g/dL Hct 25.8 L 25.8 L (37.5-50.1) % Plt Count 98 L 100 L (140-400) K/mcL Neutrophils # 3.9 3.6 (1.6-8.9) K/mcL BMP 09/17/16 09/18/16 08:50 03:56 Sodium 135 L 138 Potassium 5.8 H 4.7 H D Chloride 95 L 99 Carbon Dioxide 30 H 31 H BUN 65 H D 28 H D Creatinine 6.71 H 3.74 H Glucose 67 L 94 Calcium 8.5 L 8.3 L - ABG Interpretation ABG results: PT/INR, D-dimer PT 14.5 Seconds (9.4-12.1) H 09/16/16 01:46 Consult Discharge Plan - Plan Referrals: NO,PCP [Primary Care Provider] - ([facility] ([facility]))
--- NOTE | 2016-09-18 10:25 | Nephrology Progress Note ---
Date of Encounter: 09/18/16 Time of Encounter: 10:00 - Assessment and Plan (1) ESRD on hemodialysis Current Visit: Yes Status: Acute ESRD on HD. Infected AVG /site. GM positive cocci, on Vanco. Blood cutures drawn today. No HD today. Subjective Interval history: Alert, aware of surroundings. States feeling better. Objective - Vital Signs Vital signs: Vital Signs Temp Pulse Resp BP Pulse Ox 09/18/16 08:15 74 09/18/16 06:58 97.1 F L 73 16 118/52 96 09/18/16 06:00 73 16 118/56 94 09/18/16 05:00 72 12 116/66 96 09/18/16 04:36 98.6 F 09/18/16 04:15 13 119/61 96 09/18/16 04:00 71 20 119/61 93 09/18/16 03:00 82 18 128/62 94 09/18/16 02:56 90 09/18/16 02:00 82 16 140/61 96 09/18/16 01:00 90 14 131/68 97 09/18/16 00:15 125/67 09/18/16 00:01 98.5 F 09/18/16 00:00 88 14 132/71 100 09/17/16 23:45 116/78 09/17/16 23:30 117/69 09/17/16 23:15 113/66 09/17/16 23:00 86 12 94/72 93 09/17/16 22:45 122/66 09/17/16 22:30 113/63 09/17/16 22:17 16 117/62 93 09/17/16 22:15 117/62 09/17/16 22:00 81 12 113/57 94 09/17/16 21:45 109/69 09/17/16 21:30 131/71 09/17/16 21:15 125/71 09/17/16 21:00 85 20 136/74 93 09/17/16 20:45 97.9 F 18 144/67 09/17/16 20:36 98.4 F 09/17/16 20:00 78 16 137/62 94 09/17/16 19:00 82 12 116/64 94 09/17/16 17:00 82 16 140/58 94 09/17/16 15:46 16 135/63 98 09/17/16 15:06 75 09/17/16 15:00 76 18 116/75 98 09/17/16 14:00 75 16 121/71 94 09/17/16 12:19 119/59 09/17/16 12:00 80 20 127/71 94 09/17/16 11:29 73 94 09/17/16 11:11 16 119/59 94 09/17/16 11:00 98.3 F 73 18 119/59 95 Intake and Output 09/17/16 09/18/16 09/18/16 23:59 07:59 15:59 Intake Total 600 / 600 200 / 200 120 / 120 Output Total 0 / 0 0 / 0 Balance 600 / 600 200 / 200 120 / 120 Intake: IV Fluids 200 / 200 Zosyn 3.375 GM In 100 / 100 Dextrose 5% (Minibag+) 100 ML 100 ML @ 25 mls/hr IVPB Q12H [facility] Rx#: [id number] Vancocin 500 MG In 100 / 100 Dextrose 5% (Minibag+) 100 ML 100 ML @ 100 mls/ hr IVPB ONCE ONE Rx#: [id number] Oral 0 / 0 0 / 0 120 / 120 Intake, Rinseback and 600 / 600 Flushes Output: Urine 0 / 0 Catheter 0 / 0 Other: Meal Breakfast Percent of Meal Consumed 100% Weight 108.363 kg Blood Glucose* 108 85 Hemodialysis Net Fluid 1380 1600 Removed (mL) Patient Weight 09/18/16 23:59 Weight 108.363 kg - General Appearance General appearance: Present: well-developed, well-nourished, appears started age , obese EENT: Present: mucous membranes moist Neck: Present: no JVD Respiratory: Present: clear Cardiology: Present: no edema, regular rate, regular rhythm Gastrointestinal: Present: normoactive bowel sounds, no tenderness Integumentary: Present: warm and dry Psychiatric: Present: mood/affect appropriate, cooperative - Lab 09/18/16 03:56 09/18/16 03:56 Most recent lab results Calcium 8.3 mg/dL (8.6-10.8) L 09/18/16 03:56 Phosphorus 2.3 mg/dL (2.3-4.7) 09/18/16 03:56 Magnesium 1.4 mg/dL (1.6-2.6) L 09/18/16 03:56 Consult Discharge Plan - Plan Referrals: NO,PCP [Primary Care Provider] - ([facility] ([facility]))
[2016-09-18] MEDS ORDERED: Gentamicin Oint 15 GM TUBE TP SCH (13:30)
--- NOTE | 2016-09-18 18:15 | Vascular/Endovas Progress Note ---
Date of Encounter: 09/18/16 Time of Encounter: 13:15 - Assessment and plan (1) Dialysis AV fistula infection Current Visit: Yes Status: Acute The patient presented to the ER with an infected arteriovenous shunt. He underwent excision and repair of the brachial artery with a bovine pericardial patch. His wounds appear to be healing. Continue with dressing changes. Qualifiers: Encounter type: subsequent encounter Qualified Code(s): T82.7XXD - Infection and inflammatory reaction due to other cardiac and vascular devices, implants and grafts, subsequent encounter - Subjective Interval history: The patient is postoperative day #2 after excision of his infected arteriovenous shunt. He has had no acute issues overnight. Vital Signs, Last 4 Hours Temp Pulse Resp BP Pulse Ox 09/18/16 16:01 16 100 09/18/16 15:54 97.5 F L 64 18 123/84 99 09/18/16 15:45 59 - Physical Examination Vascular: Present: Other (The left radial pulse is palpable, the open wound has viable margins with no signifcant drainage, remaining incisions are clean and dry without drainage) Results 09/19/16 03:58 09/19/16 03:58 Lab Results, Last 24 hours 09/18/16 09/18/16 03:56 03:56 WBC 4.8 Hgb 8.2 L Hct 25.8 L Plt Count 100 L Sodium 138 Potassium 4.7 H D Chloride 99 Carbon Dioxide 31 H BUN 28 H D Creatinine 3.74 H Glucose 94 Calcium 8.3 L Magnesium 1.4 L Consult Discharge Plan - Plan Referrals: NO,PCP [Non-Partnered Physician] - ([facility] ([facility]))
[2016-09-19] MEDS: Piperacillin/Tazobactam 3.375 GM in D5% in Water (Mini-Bag+) 100 ML IVPB SCH ×3 (00:25→23:26)
[2016-09-19 04:08] LABS: Basophils % 0.4 %; Eosinophils # 0.4 K/mcL (0.0-0.6); Eosinophils % 8.4 %; Hematocrit 25.2 % (37.5-50.1); Hemoglobin 8.1 g/dL (12.9-16.9); Immature Granulocytes % 0.6 % (0-4); Lymphocytes # 0.8 K/mcL (0.6-4.6); Lymphocytes % 16.6 %; Mean Corpuscular HGB Conc 32.1 g/dL (31.6-35.5); Mean Corpuscular Hemoglobin 30.2 pg (28.0-33.3); Mean Platelet Volume 11.3 fL (9.4-12.4); Monocytes # 0.7 K/mcL (0.0-1.3); Monocytes % 14.7 %; Neutrophils # 2.8 K/mcL (1.6-8.9); Platelet Count 109 K/mcL (140-400); Red Blood Count 2.68 M/mcL (4.19-5.50); Red Cell Distribution Width 16.1 % (11.5-14.5); Segmented Neutrophils % 59.3 %
[2016-09-19 04:22] LABS: Calcium 8.4 mg/dL (8.6-10.8); Magnesium 2.1 mg/dL (1.6-2.6)
[2016-09-19 04:24] LABS: Phosphorous 3.9 mg/dL (2.3-4.7)
[2016-09-19 04:25] LABS: Potassium 6.1 mEq/L (3.5-4.5)
[2016-09-19] MEDS: Ipratropium/Albuterol Neb 3 ML IH SCH ×4 (04:36→22:43)
[2016-09-19] MEDS: *HR* Heparin 5,000 UNIT/ML VIAL SQ SCH ×2 (05:30→17:12)
[2016-09-19] MEDS: Cyprohepatdine 4 MG TABLET PO SCH ×4 (08:35→20:13)
[2016-09-19] MEDS: Aspirin Enteric Coated 81 MG Tablet PO SCH (08:35)
[2016-09-19] MEDS: *HR* OxyCODONE/APAP 7.5/325 TABLET PO PRN ×2 (08:36→20:14)
[2016-09-19] MEDS: Renal Vitamin 1 MG CAPSULE PO SCH (08:36)
[2016-09-19] MEDS: Thiamine (B-1) 100 MG TABLET PO SCH (08:36)
[2016-09-19] MEDS: Sennosides/Docusate Sodium TABLET PO SCH ×2 (08:36→20:14)
--- NOTE | 2016-09-19 08:47 | Nephrology Progress Note ---
Date of Encounter: 09/19/16 Time of Encounter: 08:35 - Assessment and Plan (1) ESRD on hemodialysis Current Visit: Yes Status: Acute ESRD on HD. POD #2 excision of infected AV shunt. Blood cutures pending. No HD today. Kaexylate ordered for K 6.1. Subjective Interval history: Alert, oriented. States feeling better. Eating breakfast. Objective - Vital Signs Vital signs: Vital Signs Temp Pulse Resp BP Pulse Ox 09/19/16 08:02 97.5 F L 60 18 136/76 99 09/19/16 04:36 16 98 09/19/16 04:09 98.2 F 62 16 127/69 96 09/19/16 00:02 97.4 F L 60 16 124/73 98 09/18/16 22:49 18 99 09/18/16 20:47 97.9 F 65 18 121/90 99 09/18/16 16:01 16 100 09/18/16 15:54 97.5 F L 64 18 123/84 99 09/18/16 15:45 59 09/18/16 11:23 97.9 F 66 16 116/53 92 09/18/16 11:04 18 96 09/18/16 10:50 66 Intake and Output 09/18/16 09/19/16 09/19/16 23:59 07:59 15:59 Intake Total 100 / 100 100 / 100 Balance 100 / 100 100 / 100 Intake: IV Fluids 100 / 100 100 / 100 Zosyn 3.375 GM In 100 / 100 100 / 100 Dextrose 5% (Minibag+) 100 ML 100 ML @ 25 mls/hr IVPB Q12H [facility] Rx#: [id number] Other: Weight 108.1 kg Blood Glucose* 116 95 Patient Weight 09/19/16 23:59 Weight 108.1 kg - General Appearance General appearance: Present: well-developed, well-nourished, appears started age , obese EENT: Present: mucous membranes moist Neck: Present: no JVD Respiratory: Present: clear Cardiology: Present: no edema, regular rate, regular rhythm Gastrointestinal: Present: normoactive bowel sounds, no tenderness Integumentary: Present: warm and dry Neurologic: Present: alert and oriented x3 Psychiatric: Present: mood/affect appropriate, cooperative - Lab 09/19/16 03:58 09/19/16 03:58 Most recent lab results Calcium 8.4 mg/dL (8.6-10.8) L 09/19/16 03:58 Phosphorus 3.9 mg/dL (2.3-4.7) D 09/19/16 03:58 Magnesium 2.1 mg/dL (1.6-2.6) 09/19/16 03:58 Consult Discharge Plan - Plan Referrals: NO,PCP [Non-Partnered Physician] - ([facility] ([facility]))
[2016-09-19] MEDS ORDERED: Vancomycin 1,000 MG in D5% in Water 250 ML IVPB ONE (10:15)
--- NOTE | 2016-09-19 12:16 | Podiatry Consult Note ---
Date of Encounter: 09/19/16 Time of Encounter: 12:13 Assessment and Plan (1) Decubitus ulcer, heel, right, unstageable Current visit: Yes Status: Acute unstagable right heel ulceration present for 1 year DM with neuropathy I had a thorough review with the patient regarding his history, my findings and recommendations for treatment. discussed his heel ulceration and the soft tissue does not appear to be infected. this is a chronic ulceration will get xray to check for underlying osseous abnormality of the calcaneus. nurse will order offloading boots. discussed importance of offloading. c/w santyl on the right heel ulceration. I think he would benefit from f/u in the wound care center post discharge. (2) ESRD on hemodialysis Current visit: Yes Status: Acute History of Present Illness Chief complaint: right heel ulcer HPI: Mr. Martínze is a 50 year old male with neuropathy and ESRD who was admitted with an infected AV fistula found to have an MRSA bacteremia. He says the wound on the right heel has been present for about a year. The patient states that Dr. Alford who comes to the facility where he lives monitors the wound and he gets some sort of pressure jet treatment on it every few days. He says he has had vascular testing to look at the blood flow in his legs done at [place]. Denies f/c /n/v/sob/cp. He says he has a pad he uses at the facility where he lives to keep the weight off the wound. Past Med Surg Social Fam HX - Past Medical History Medical history: arthritis, CHF, diabetes, dialysis, GERD, hypertension, osteoporosis, renal disease, venous stasis, other Psychiatric history: anxiety, depression, other - Past Surgical History Surgical History: cholecystectomy, vascular surgery - Social History Smoking Status: Never smoker Smokeless Tobacco Status: No Alcohol use: none, unknown Drug use: none, unknown - Family History Mother Living Status: Hx Family Cardiac Disorders: Yes Hx Family Endocrine Disorder: Yes Father Living Status: Hx Family Respiratory Disorders: Yes Hx Family Cancer: Yes Medications and Allergies Aspirin [Adult Low Dose Aspirin EC] 81 mg PO DAILY 08/27/15 [History] Citalopram Hydrobromide [Citalopram HBr] 40 mg PO DAILY 04/23/16 [History] Gabapentin [Neurontin] 300 mg PO BID 12/02/16 [History] Losartan Potassium [Cozaar] 100 mg PO DAILY 04/23/16 [History] Metoprolol [Lopressor] 50 mg PO BID 04/23/16 [History] Oxybutynin Chloride [Ditropan Xl] 10 mg PO DAILY 05/21/16 [History] B Complex W-C No.20/Folic Acid [Nephrocaps Softgel] 1 mg PO DAILY 09/15/16 [ History] BuPROPion XL (24 HR) [Wellbutrin XL] 150 mg PO DAILY 09/15/16 [History] Calcium Carbonate [Tums] 500 mg PO TIDAC 09/15/16 [History] Diazepam [Valium] 5 mg PO Q6H PRN 09/15/16 [History] Ibuprofen [Motrin] 800 mg PO Q6H PRN 09/15/16 [History] Lactulose 20 gm PO DAILY PRN 09/15/16 [History] Oxycodone HCl/Acetaminophen [Percocet 10-325 mg Tablet] 1 each PO Q6H PRN [History] Oxygen 2 l NS AD 09/15/16 [History] Sennosides/Docusate Sodium [Senna Plus] 1 each PO BID 09/15/16 [History] Allergies lorazepam [From Ativan] Adverse Reaction (Verified 09/15/16 15:21) Paranoia All Systems Reviewed: A 10-system review of systems was performed and is negative for pertinent findings except as documented above in the HPI. Physical Exam - Constitutional Vitals: Temp Pulse Resp BP Pulse Ox 97.7 F 60 16 150/64 100 09/19/16 11:50 09/19/16 11:50 09/19/16 11:50 09/19/16 11:50 09/19/16 11:50 General appearance: no acute distress Exam: AOx3 - Head Head exam: Present: atraumatic, normocephalic - Extremities Exam Additional comments: right heel eschar without fluctuance, no drainage. no ascending erythema. non- palpable DP/PT. feet are warm to touch. CFT < 3 sec x 5 digits b/l feet. left foot heel has small unstagable eschar which appears to be superficial without erythema, drainage, or fluctuance. absent protective sensation to light touch. no pain with palpation posterior aspect of heels. Results - Labs Result Diagrams: 09/19/16 03:58 09/19/16 03:58 Labs: Abnormal lab results RBC 2.68 M/mcL (4.19-5.50) L 09/19/16 03:58 Hgb 8.1 g/dL (12.9-16.9) L 09/19/16 03:58 Hct 25.2 % (37.5-50.1) L 09/19/16 03:58 RDW 16.1 % (11.5-14.5) H 09/19/16 03:58 Plt Count 109 K/mcL (140-400) L 09/19/16 03:58 Platelet Estimate Slight Decrease (Normal) L 09/17/16 08:50 Immature Plt Fraction 7.5 % (1.1-6.1) H 09/17/16 08:50 PT 14.5 Seconds (9.4-12.1) H 09/16/16 01:46 VBG pH 7.47 pH Units (7.32-7.42) H 09/16/16 01:46 VBG pO2 72 mmHg (25-40) H 09/16/16 01:46 VBG HCO3 32.8 mEq/L (21-27) H 09/16/16 01:46 Potassium 6.1 mEq/L (3.5-4.5) H D 09/19/16 03:58 BUN 40 mg/dL (8-26) H D 09/19/16 03:58 Creatinine 4.90 mg/dL (0.72-1.25) H 09/19/16 03:58 Est GFR ( Amer) 15 (> 60) L 09/19/16 03:58 Est GFR (Non-Af Amer) 13 (> 60) L 09/19/16 03:58 POC Glucose 116 (58-89) H 09/18/16 20:41 Calcium 8.4 mg/dL (8.6-10.8) L 09/19/16 03:58 Total Bilirubin 1.5 mg/dL (0.2-1.2) H 09/16/16 01:46 Direct Bilirubin 0.7 mg/dL (0.0-0.5) H 09/15/16 17:12 Creatine Kinase 17 Units/L (30-200) L 09/16/16 06:49 B-Natriuretic Peptide 4272 pg/mL (0-100) H 09/15/16 16:26 Albumin 2.6 g/dL (3.5-5.0) L 09/16/16 01:46 Globulin 4.0 g/dL (2.4-3.5) H 09/16/16 01:46 Albumin/Globulin Ratio 0.7 (1.1-2.2) L 09/16/16 01:46 HDL Cholesterol 25 mg/dL (40-59) L 09/16/16 01:46 Prolactin 42.94 ng/mL (3.46-19.40) H 09/16/16 01:46 Staphylococcus sp PCR DETECTED (Not Detect) A 09/15/16 16:26 Staph aureus (PCR) DETECTED (Not Detect) A 09/15/16 16:26 mecA-Methicil Res Gene DETECTED (Not Detect) A 09/15/16 16:26 H & H 09/19/16 Range/Units 03:58 Hgb 8.1 L (12.9-16.9) g/dL Hct 25.2 L (37.5-50.1) % All other labs normal. Consult Discharge Plan - Plan Referrals: NO,PCP [Non-Partnered Physician] - ([facility] ([facility]))
--- NOTE | 2016-09-19 13:02 | Internal Med Progress Note ---
Date of Encounter: 09/19/16 Time of Encounter: 13:01 - Assessment and plan (1) Toxic metabolic encephalopathy Current Visit: Yes Status: Acute Assessment and plan: Resolved Likely secondary to bacteremia and HCAP Concern for polypharmacy and serotonin syndrome given the list of psychotropic agents patient was on at the [facility] Mental status back to baseline will continue IV abx continue to hold psychotropic agents closely monitor mental status (2) Infection of AV graft for dialysis Current Visit: Yes Status: Acute Assessment and plan: Vascular surgery consultation appreciated S/P: excision of infected left upper arm AV shunt-POD #3 continue pain control continue daily dressing changes as per surgery (3) Bacteremia Current Visit: Yes Status: Acute Assessment and plan: Gram positive bacteremia secondary to infected AV graft will continue IV abx pharmacy to dose vancomycin and monitor trough will follow up repeat blood cultures wound cultures positive for MRSA, will continue current abx regimen Patient will need 14 days of IV abx after the first negative blood culture results. (4) HCAP (healthcare-associated pneumonia) Current Visit: Yes Status: Acute Assessment and plan: continue IV abx Continue Vancomycin and Zosyn (5) Anemia in CKD (chronic kidney disease) Current Visit: Yes Status: Chronic Assessment and plan: H&H low but acceptable no acute bleeding reported at this time continue to monitor (6) ESRD on hemodialysis Current Visit: Yes Status: Acute Assessment and plan: Nephrology input appreciated patient received HD on (09/17/16) continue HD sessions as per nephrology (7) Hypertension Current Visit: No Status: Acute Assessment and plan: BP within acceptable range continue home medications Qualifiers: Hypertension type: essential hypertension Qualified Code(s): I10 - Essential (primary) hypertension (8) DVT prophylaxis Current Visit: No Status: Acute Assessment and plan: Heparin sQ (9) Disorder of penis, 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 Patient is POD #3 s/p excision of infected LUE AV graft. Patient resting comfortably in bed and reports of adequate control of the pain. Noted to the Rt heel ulcer for which podiatry was consulted. No infectious etiology reported. Will continue daily dressing changes - Constitutional Vitals: Temp Pulse Resp BP Pulse Ox 97.7 F 61 16 150/64 100 09/19/16 11:50 09/19/16 12:10 09/19/16 11:50 09/19/16 11:50 09/19/16 11:50 General appearance: Present: A&O X 3, morbidly obese, no acute distress, answers questions appropriately - Head Head exam: Present: atraumatic, normocephalic - Eye Eye exam: Present: normal appearance, conjuntiva pink, sclera anicteric - Neck Additional comments: right IJ temporary HD cath - Respiratory Respiratory exam: Present: CTAB. Absent: accessory muscle use, rales, rhonchi, wheezes - Cardiovascular Cardiovascular exam: Present: RRR, +S1, +S2. Absent: diastolic murmur, gallop, rubs, systolic murmur - GI/Abdominal GI/Abdominal exam: Present: normal bowel sounds, soft, no peritoneal signs. Absent: distended, tenderness - Extremities Exam Extremities exam: Present: warm, radial pulses palpable and symetrical. Absent : pedal edema Additional comments: right heel ulcer-dressing intact - Neurological Exam Neurological exam: Present: alert, oriented X3 - Psychiatric Psychiatric exam: Present: normal affect, normal mood Internal Medicine: Result - Labs CBC & Chem 7: 09/19/16 03:58 09/19/16 03:58 Labs: Short CBC 09/19/16 Range/Units 03:58 WBC 4.8 (4.3-11.1) K/mcL Hgb 8.1 L (12.9-16.9) g/dL Hct 25.2 L (37.5-50.1) % Plt Count 109 L (140-400) K/mcL Neutrophils # 2.8 (1.6-8.9) K/mcL BMP 09/19/16 03:58 Sodium 137 Potassium 6.1 H D Chloride 100 Carbon Dioxide 24 BUN 40 H D Creatinine 4.90 H Glucose 95 Calcium 8.4 L - ABG Interpretation ABG results: PT/INR, D-dimer PT 14.5 Seconds (9.4-12.1) H 09/16/16 01:46 - Impressions Impressions Foot X-Ray 09/19/16 12:11 IMPRESSION: 1. Skin defect in the right heel likely corresponding with the reported ulceration. No findings of underlying necrotizing fasciitis or osteomyelitis. 2. Mild osteoarthritic changes of the right talonavicular, 1st tarsometatarsal, and 3rd metatarsophalangeal joints. 3. Bony demineralization. D/ / Jimmy Love MD / Jimmy Love MD Interpreting Provider: Jimmy Love MD Consult Discharge Plan - Plan Referrals: NO,PCP [Non-Partnered Physician] - (ECF ([facility]))
--- NOTE | 2016-09-19 22:03 | Vascular/[facility] Progress Note ---
Date of Encounter: 09/19/16 Time of Encounter: 13:00 - Assessment and plan (1) Dialysis AV fistula infection Current Visit: Yes Status: Acute His wound looks like it is healing well. Continue with dressing changes. Qualifiers: Encounter type: subsequent encounter Qualified Code(s): T82.7XXD - Infection and inflammatory reaction due to other cardiac and vascular devices, implants and grafts, subsequent encounter - Subjective Interval history: The patient is postoperative day #2 after excision of his infected arteriovenous shunt. He has had no acute issues overnight. Vital Signs, Last 4 Hours Temp Pulse Resp BP Pulse Ox 09/19/16 19:46 98.3 F 70 18 173/93 98 - Physical Examination General: Present: Conversant Cardiac: Present: Reg Rate and Rhythm Lungs: Present: Normal Breath Sounds Neuro: Present: Alert and responsive Vascular: Present: Surgical incisions (Incisions clean and dry without erythema or drainage, wound margins viable) Results 09/22/16 06:43 09/22/16 06:43 Lab Results, Last 24 hours 09/19/16 09/19/16 03:58 03:58 WBC 4.8 Hgb 8.1 L Hct 25.2 L Plt Count 109 L Sodium 137 Potassium 6.1 H D Chloride 100 Carbon Dioxide 24 BUN 40 H D Creatinine 4.90 H Glucose 95 Calcium 8.4 L Magnesium 2.1 Consult Discharge Plan - Plan Additional Instructions: Please follow up with your primary care physician and radio station engineer within one week after your discharge. Please follow up with vascular surgery within one to two weeks after discharge. Continue twice a day normal saline wet to dry dressing changes for the left upper arm AV shunt excision site. Please follow up with podiatry/wound care within five days after your discharge. Continue daily right heel dressing. Continue with santyl on right heel ulceration. Your home dose of Citalopram, Oxybutynin, and Wellbutrin have been discontinued due to your myoclonic jerks and confused mental status that you presented with during this hospitalization. you have been off these medications throughout the course of this hospitalization. Please consult your primary care physician about the need of restarting these medications. Amlodipine has been added to your home medications given your elevated blood pressure readings. Please closely monitor your blood pressure. Resume all other home medications as prescribed by your primary care physician. Referrals: NO,PCP [Non-Partnered Physician] - (EC ([facility])) Prescriptions: Diazepam [Valium] 5 mg PO Q6H PRN #20 tablet PRN Reason: Tremors/Seizure-Like Activity Oxycodone HCl/Acetaminophen [Percocet 10-325 mg Tablet] 1 each PO Q6H PRN #20 tablet PRN Reason: Pain Vancomycin [Vancocin] 500 each IV WD #3 vial
[2016-09-20] MEDS: *HR* HYDROmorphone (PF) 1 MG/ML SYRINGE IVP PRN (03:16)
[2016-09-20 04:42] LABS: Basophils % 0.2 %; Eosinophils # 0.4 K/mcL (0.0-0.6); Eosinophils % 10.8 %; Hematocrit 24.4 % (37.5-50.1); Hemoglobin 7.8 g/dL (12.9-16.9); Immature Granulocytes % 0.7 % (0-4); Lymphocytes # 0.8 K/mcL (0.6-4.6); Lymphocytes % 18.7 %; Mean Corpuscular Hemoglobin 30.4 pg (28.0-33.3); Mean Corpuscular Volume 94.9 fL (83.0-100.0); Mean Platelet Volume 10.1 fL (9.4-12.4); Monocytes # 0.4 K/mcL (0.0-1.3); Monocytes % 10.8 %; Neutrophils # 2.4 K/mcL (1.6-8.9); Platelet Count 117 K/mcL (140-400); Red Blood Count 2.57 M/mcL (4.19-5.50); Red Cell Distribution Width 15.9 % (11.5-14.5); Segmented Neutrophils % 58.8 %
[2016-09-20] MEDS: Ipratropium/Albuterol Neb 3 ML IH SCH ×4 (04:54→23:28)
[2016-09-20 05:07] LABS: Calcium 8.4 mg/dL (8.6-10.8); Magnesium 1.8 mg/dL (1.6-2.6); Phosphorous 4.4 mg/dL (2.3-4.7); Potassium 5.4 mEq/L (3.5-4.5)
[2016-09-20] MEDS: *HR* Heparin 5,000 UNIT/ML VIAL SQ SCH ×2 (06:34→15:48)
--- NOTE | 2016-09-20 08:28 | Nephrology Progress Note ---
Date of Encounter: 09/20/16 Time of Encounter: 08:26 - Assessment and Plan (1) ESRD on hemodialysis Current Visit: Yes Status: Acute The patient will undergo dialysis today. He will be transfused 2 units of blood. Since his cultures from the and are negative we should be able to remove the temporary dialysis catheter and place a tunneled dialysis catheter. (2) Anemia in CKD (chronic kidney disease) Current Visit: Yes Status: Chronic (3) Dialysis AV fistula infection Current Visit: Yes Status: Acute Qualifiers: Encounter type: subsequent encounter Qualified Code(s): T82.7XXD - Infection and inflammatory reaction due to other cardiac and vascular devices, implants and grafts, subsequent encounter Subjective Interval history: Patient reports no complaints. He is sitting up in bed eating breakfast. He is scheduled for dialysis today. Blood cultures from September 18 as well as September 19 are negative. Objective - Vital Signs Vital signs: Vital Signs Temp Pulse Resp BP Pulse Ox 09/20/16 07:51 97.3 F L 61 17 147/83 98 09/20/16 04:55 16 96 09/20/16 04:48 97.9 F 64 16 157/74 100 09/20/16 00:35 98.1 F 64 16 143/77 97 09/19/16 22:50 16 98 09/19/16 19:46 98.3 F 70 18 173/93 98 09/19/16 16:56 16 97 09/19/16 16:41 97.9 F 61 16 148/82 100 09/19/16 12:10 61 09/19/16 11:50 97.7 F 60 16 150/64 100 09/19/16 11:28 16 100 09/19/16 08:35 61 Intake and Output 09/19/16 09/20/16 09/20/16 23:59 07:59 15:59 Intake Total 100 / 100 0 / 0 Output Total 0 / 0 0 / 0 Balance 100 / 100 0 / 0 Intake: IV Fluids 100 / 100 Zosyn 3.375 GM In 100 / 100 Dextrose 5% (Minibag+) 100 ML 100 ML @ 25 mls/hr IVPB Q12H [facility] Rx#: [id number] Oral 0 / 0 0 / 0 Output: Urine 0 / 0 0 / 0 Other: Blood Glucose* 117 95 - General Appearance Exam: Patient is alert and oriented. He is in no acute distress. Lungs sounds otherwise clear. Heart regular rhythm with a 2/6 systolic murmur. Abdomen is obese. There is no tenderness guarding or rigidity. Lower extremity show no edema. There is a dressing on the left arm following AV fistula surgery. There is a temporary dialysis catheter in the right internal jugular vein. - Lab 09/20/16 04:30 09/20/16 04:30 Most recent lab results Calcium 8.4 mg/dL (8.6-10.8) L 09/20/16 04:30 Phosphorus 4.4 mg/dL (2.3-4.7) 09/20/16 04:30 Magnesium 1.8 mg/dL (1.6-2.6) 09/20/16 04:30 Consult Discharge Plan - Plan Referrals: NO,PCP [Non-Partnered Physician] - (ECF ([facility]))
[2016-09-20] MEDS ORDERED: 0.9 % Sodium Chloride 250 ML IVC PRN (08:33)
[2016-09-20] MEDS: Sennosides/Docusate Sodium TABLET PO SCH ×2 (09:23→21:08)
[2016-09-20] MEDS: Aspirin Enteric Coated 81 MG Tablet PO SCH (09:24)
[2016-09-20] MEDS: Cyprohepatdine 4 MG TABLET PO SCH ×4 (09:24→21:08)
[2016-09-20] MEDS: Renal Vitamin 1 MG CAPSULE PO SCH (09:24)
[2016-09-20] MEDS: Thiamine (B-1) 100 MG TABLET PO SCH (09:24)
[2016-09-20] MEDS ORDERED: *HR* Heparin 10,000 UNIT/10 ML VIAL IV PRN (12:15)
--- NOTE | 2016-09-20 15:31 | Internal Med Progress Note ---
Date of Encounter: 09/20/16 Time of Encounter: 15:28 - Assessment and plan (1) Toxic metabolic encephalopathy Current Visit: Yes Status: Acute Assessment and plan: Resolved Likely secondary to bacteremia and HCAP and Polypharmacy Concern for serotonin syndrome given the list of psychotropic agents patient was on at the [place] Mental status back to baseline will continue IV abx continue to hold psychotropic agents closely monitor mental status (2) Infection of AV graft for dialysis Current Visit: Yes Status: Acute Assessment and plan: Vascular surgery consultation appreciated S/P: excision of infected left upper arm AV shunt-POD #4 continue pain control continue daily dressing changes as per surgery (3) Bacteremia Current Visit: Yes Status: Acute Assessment and plan: Gram positive bacteremia secondary to infected AV graft will continue IV abx pharmacy to dose vancomycin and monitor trough will follow up repeat blood cultures wound cultures positive for MRSA, will continue current abx regimen Patient will need 14 days of IV abx after the first negative blood culture results. Scheduled for tunneled HD cath and PICC line placement by IR in am (09/21/16) (4) HCAP (healthcare-associated pneumonia) Current Visit: Yes Status: Acute Assessment and plan: continue IV abx Continue Vancomycin and Zosyn (5) Anemia in CKD (chronic kidney disease) Current Visit: Yes Status: Chronic Assessment and plan: Drop in H&H noted patient received two units PRBC in Dialysis today will closely monitor H&H (6) ESRD on hemodialysis Current Visit: Yes Status: Acute Assessment and plan: Nephrology input appreciated patient received HD today (09/20/16) continue HD sessions as per nephrology (7) Hypertension Current Visit: No Status: Acute Assessment and plan: Noted to be hypertensive during HD Will start Hydralazine 10mg IVP q6h PRN SBP>160 continue home medications will closely monitor, if remains hypertensive, will adjust medications accordingly Qualifiers: Hypertension type: essential hypertension Qualified Code(s): I10 - Essential (primary) hypertension (8) DVT prophylaxis Current Visit: No Status: Acute Assessment and plan: Heparin sQ (9) Disorder of penis, 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 Patient is POD #4 s/p excision of infected LUE AV graft. Patient resting comfortably in bed and reports of adequate control of the pain. Noted to the Rt heel ulcer for which podiatry was consulted. No infectious etiology reported. Will continue daily dressing changes s/p HD today (09/20/16), noted to have drop in H&H, received 2unit PRBC during dialysis. Scheduled for tunnelled HD cath and PICC line placement by IR in am (09/21/16). - Constitutional Vitals: Temp Pulse Resp BP Pulse Ox 98.3 F 68 14 193/80 98 09/20/16 13:30 09/20/16 12:20 09/20/16 13:30 09/20/16 13:30 09/20/16 11:10 General appearance: Present: A&O X 3, morbidly obese, no acute distress, answers questions appropriately - Head Head exam: Present: atraumatic, normocephalic - Eye Eye exam: Present: normal appearance, conjuntiva pink, sclera anicteric - Neck Additional comments: right IJ HD cath in place - Respiratory Respiratory exam: Present: CTAB. Absent: accessory muscle use, rales, rhonchi, wheezes - Cardiovascular Cardiovascular exam: Present: RRR, +S1, +S2. Absent: diastolic murmur, gallop, rubs, systolic murmur - GI/Abdominal GI/Abdominal exam: Present: normal bowel sounds, soft, no peritoneal signs. Absent: distended, tenderness - Extremities Exam Extremities exam: Present: warm, radial pulses palpable and symetrical. Absent : calf tenderness, cyanotic, pedal edema Additional comments: right heel ulcer-dressing intact - Neurological Exam Neurological exam: Present: alert, oriented X3 - Psychiatric Psychiatric exam: Present: normal affect, normal mood Internal Medicine: Result - Labs CBC & Chem 7: 09/20/16 04:30 09/20/16 04:30 Labs: Short CBC 09/20/16 Range/Units 04:30 WBC 4.1 L (4.3-11.1) K/mcL Hgb 7.8 L (12.9-16.9) g/dL Hct 24.4 L (37.5-50.1) % Plt Count 117 L (140-400) K/mcL Neutrophils # 2.4 (1.6-8.9) K/mcL BMP 09/20/16 04:30 Sodium 136 Potassium 5.4 H Chloride 95 L Carbon Dioxide 28 BUN 50 H D Creatinine 5.69 H Glucose 111 H Calcium 8.4 L - ABG Interpretation ABG results: PT/INR, D-dimer PT 14.5 Seconds (9.4-12.1) H 09/16/16 01:46 Consult Discharge Plan - Plan Referrals: NO,PCP [Non-Partnered Physician] - ([facility] ([facility]))
[2016-09-20] MEDS: Piperacillin/Tazobactam 3.375 GM in D5% in Water (Mini-Bag+) 100 ML IVPB SCH (15:48)
--- NOTE | 2016-09-20 16:18 | Vascular/Endovas Progress Note ---
Date of Encounter: 09/20/16 Time of Encounter: 16:15 - Assessment and plan (1) Myoclonic jerking Current Visit: Yes Status: Acute May be related to renal status and infection and appears to have resolved as the patient has clinically improved. (2) Toxic metabolic encephalopathy Current Visit: Yes Status: Acute May be related to renal status and infection and appears to have resolved that the patient has clinically improved. (3) Dialysis AV fistula infection Current Visit: Yes Status: Acute Postoperative day #4 Status post excision of left upper arm AV shunt. The patient had a contained rupture of an infected pseudoaneurysm. Cultures were taken of the graft and of the clot and submitted for further analysis at the time of surgery which were positive for MRSA. At this time the brachial reconstruction is widely patent with excellent perfusion to the left upper extremity and hand. The patient will continue with dressing changes twice a day to the left upper arm incision. The patient is tentatively scheduled for conversion of the temporary dialysis catheter to a tunneled permanent hemodialysis catheter tomorrow. Patient may be transferred to the extended care facility at the discretion of the admitting service. Patient will need to continue twice a day normal saline wet to dry dressing changes for the left upper arm AV shunt excision site. Qualifiers: Encounter type: subsequent encounter Qualified Code(s): T82.7XXD - Infection and inflammatory reaction due to other cardiac and vascular devices, implants and grafts, subsequent encounter - Subjective Interval history: This patient is postoperative day #4 from an emergency left upper arm AV shunt removal. The patient was found to have a contained rupture of a infected pseudoaneurysm from his left upper arm AV shunt. The skin edges were packed open. The graft was removed in its entirety. The brachial artery required a bovine pericardial patch to reconstruct the vessel to provide arterial continuity to the forearm and hand. On today's visit the patient has no specific complaints except for left upper extremity pain associated with the surgical site and infection. Vital Signs, Last 4 Hours Temp Pulse Resp BP Pulse Ox 09/20/16 15:00 97.6 F 69 17 185/80 93 09/20/16 13:30 98.3 F 14 193/80 09/20/16 13:25 177/84 09/20/16 13:10 181/80 09/20/16 12:55 151/92 09/20/16 12:40 186/73 09/20/16 12:25 180/84 09/20/16 12:20 98.2 F 68 14 180/84 - Physical Examination General: Present: Conversant, No Apparent Distress Vascular: Present: Pulse, normal (Brachial artery pulses of the left upper extremity are normal.), Color/Temperature (On the left hand is normal.), Surgical incisions (The left upper arm incision was debrided and packed open is clean and dry. The skin edges are viable. There is no purulence or cellulitis or fasciitis present. The patient has excellent brachial pulses both proximal and distal to this incision as this was the area that required brachial artery reconstruction with a bovine pericardial patch.) Results 09/20/16 04:30 09/20/16 04:30 Lab Results, Last 24 hours 09/20/16 09/20/16 04:30 04:30 WBC 4.1 L Hgb 7.8 L Hct 24.4 L Plt Count 117 L Sodium 136 Potassium 5.4 H Chloride 95 L Carbon Dioxide 28 BUN 50 H D Creatinine 5.69 H Glucose 111 H Calcium 8.4 L Magnesium 1.8 Consult Discharge Plan - Plan Referrals: NO,PCP [Non-Partnered Physician] - (ECF ([facility]))
[2016-09-20] MEDS ORDERED: 0.9 % Sodium Chloride 3,000 ML ONE (16:51)
[2016-09-20] MEDS: *HR* OxyCODONE/APAP 7.5/325 TABLET PO PRN (17:31)
[2016-09-20] MEDS ORDERED: Piperacillin/Tazobactam 3.375 GM in D5% in Water (Mini-Bag+) 100 ML IVPB SCH (19:30)
[2016-09-20] MEDS ORDERED: diazePAM 10 MG TABLET PO ONE (21:24)
[2016-09-20] MEDS: Melatonin 3 MG TABLET PO SCH (21:59)
[2016-09-21] MEDS: Ipratropium/Albuterol Neb 3 ML IH SCH ×4 (04:14→22:24)
[2016-09-21] MEDS: Piperacillin/Tazobactam 3.375 GM in D5% in Water (Mini-Bag+) 100 ML IVPB SCH ×2 (05:05→15:32)
[2016-09-21] MEDS: *HR* Heparin 5,000 UNIT/ML VIAL SQ SCH ×2 (05:08→15:30)
[2016-09-21 05:14] LABS: Basophils % 0.2 %; Eosinophils # 0.4 K/mcL (0.0-0.6); Eosinophils % 8.3 %; Hematocrit 30.3 % (37.5-50.1); Immature Granulocytes % 0.6 % (0-4); Lymphocytes # 0.7 K/mcL (0.6-4.6); Mean Corpuscular HGB Conc 32.3 g/dL (31.6-35.5); Mean Corpuscular Hemoglobin 29.3 pg (28.0-33.3); Mean Corpuscular Volume 90.7 fL (83.0-100.0); Mean Platelet Volume 10.2 fL (9.4-12.4); Monocytes # 0.5 K/mcL (0.0-1.3); Monocytes % 10.2 %; Neutrophils # 3.6 K/mcL (1.6-8.9); Platelet Count 144 K/mcL (140-400); Red Blood Count 3.34 M/mcL (4.19-5.50); Segmented Neutrophils % 67.7 %
[2016-09-21 05:20] LABS: Hemoglobin 9.8 g/dL (12.9-16.9)
[2016-09-21 05:32] LABS: Calcium 8.2 mg/dL (8.6-10.8); Magnesium 1.7 mg/dL (1.6-2.6); Phosphorous 3.5 mg/dL (2.3-4.7); Potassium 4.8 mEq/L (3.5-4.5)
[2016-09-21] MEDS ORDERED: Heparin 1,000 UNITS/500 mL NS 500 ML ONE (10:49)
[2016-09-21] MEDS ORDERED: 0.9 % Sodium Chloride 500 ML ONE (11:57)
[2016-09-21] MEDS: *HR* FentaNYL (PF) 100 MCG/2 ML VIAL ONE ×2 (12:02→12:10)
[2016-09-21] MEDS: *HR* Midazolam HCl 2 MG/2 ML VIAL ONE ×2 (12:02→12:12)
[2016-09-21] MEDS ORDERED: *HR* Heparin 5,000 UNIT/ML VIAL ONE (12:16)
[2016-09-21] MEDS: Cyprohepatdine 4 MG TABLET PO SCH ×4 (12:34→21:48)
--- NOTE | 2016-09-21 12:48 | Nephrology Progress Note ---
Date of Encounter: 09/21/16 Time of Encounter: 12:46 - Assessment and Plan (1) ESRD on hemodialysis Current Visit: Yes Status: Acute The patient will continue to be supported with dialysis every Tuesday. Following hospital discharge we will continue him on vancomycin for another several weeks. (2) Anemia in CKD (chronic kidney disease) Current Visit: Yes Status: Chronic (3) Dialysis AV fistula infection Current Visit: Yes Status: Acute Qualifiers: Encounter type: subsequent encounter Qualified Code(s): T82.7XXD - Infection and inflammatory reaction due to other cardiac and vascular devices, implants and grafts, subsequent encounter Subjective Interval history: The patient has just returned from the IR lab after getting his permacath placed. He continues to have some postoperative arm pain. Otherwise he has no new complaints. Vital signs are stable. Objective - Vital Signs Vital signs: Vital Signs Temp Pulse Resp BP Pulse Ox 09/21/16 12:25 77 15 193/89 97 09/21/16 12:23 78 16 210/98 100 09/21/16 12:20 84 15 216/131 99 09/21/16 12:14 80 13 228/112 99 09/21/16 12:08 68 14 99 09/21/16 12:05 65 14 162/82 99 09/21/16 11:57 70 15 177/86 96 09/21/16 07:43 98.3 F 68 16 127/59 96 09/21/16 04:14 20 98 09/20/16 23:42 97.9 F 68 16 169/74 94 09/20/16 23:28 16 92 09/20/16 20:22 98.2 F 68 18 171/91 97 09/20/16 15:34 18 94 09/20/16 15:00 97.6 F 69 17 185/80 93 09/20/16 13:30 98.3 F 14 193/80 09/20/16 13:25 177/84 09/20/16 13:10 181/80 09/20/16 12:55 151/92 Intake and Output 09/20/16 09/21/16 09/21/16 23:59 07:59 15:59 Intake Total 100 / 100 100 / 100 Balance 100 / 100 100 / 100 Intake: IV Fluids 100 / 100 100 / 100 Zosyn 3.375 GM In 100 / 100 100 / 100 Dextrose 5% (Minibag+) 100 ML 100 ML @ 25 mls/hr IVPB Q12H [facility] Rx#: [id number] Oral 0 / 0 Other: Weight 106.9 kg Blood Glucose* 107 74 Patient Weight 09/21/16 23:59 Weight 106.9 kg - General Appearance Exam: Patient is alert and oriented. He is in no acute distress. Lungs essentially clear to auscultation anteriorly. Heart regular rate and rhythm. Abdomen is benign. There is no lower extremity edema. There is a tunneled dialysis catheter in the right chest. - Lab 09/21/16 04:50 09/21/16 04:50 Most recent lab results Calcium 8.2 mg/dL (8.6-10.8) L 09/21/16 04:50 Phosphorus 3.5 mg/dL (2.3-4.7) 09/21/16 04:50 Magnesium 1.7 mg/dL (1.6-2.6) 09/21/16 04:50 Consult Discharge Plan - Plan Referrals: NO,PCP [Non-Partnered Physician] - [facility]
[2016-09-21] MEDS: Thiamine (B-1) 100 MG TABLET PO SCH (12:51)
[2016-09-21] MEDS: Sennosides/Docusate Sodium TABLET PO SCH ×2 (12:52→21:48)
[2016-09-21] MEDS: Renal Vitamin 1 MG CAPSULE PO SCH (12:52)
[2016-09-21] MEDS: Aspirin Enteric Coated 81 MG Tablet PO SCH (12:52)
--- NOTE | 2016-09-21 14:17 | Internal Med Progress Note ---
Date of Encounter: 09/21/16 Time of Encounter: 14:07 - Assessment and plan (1) Toxic metabolic encephalopathy Current Visit: Yes Status: Acute Assessment and plan: Resolved Likely secondary to bacteremia and HCAP and Polypharmacy Concern for serotonin syndrome given the list of psychotropic agents patient was on at the [place] Mental status back to baseline will continue IV abx continue to hold psychotropic agents closely monitor mental status (2) Infection of AV graft for dialysis Current Visit: Yes Status: Acute Assessment and plan: Vascular surgery consultation appreciated S/P: excision of infected left upper arm AV shunt-POD #5 continue pain control continue daily dressing changes as per surgery (3) Bacteremia Current Visit: Yes Status: Acute Assessment and plan: Gram positive bacteremia secondary to infected AV graft will continue IV abx pharmacy to dose vancomycin and monitor trough will follow up repeat blood cultures wound cultures positive for MRSA, will continue current abx regimen Patient will need 14 days of IV abx after the first negative blood culture results. tunneled HD cath and PICC line placed by IR (09/21/16) Likely d/c in am with pt to receive vancomycin until September 30 to complete therapy for 14 days. Vanco renally dosed and will receive after HD. (4) HCAP (healthcare-associated pneumonia) Current Visit: Yes Status: Acute Assessment and plan: continue IV abx Continue Vancomycin and Zosyn (5) Anemia in CKD (chronic kidney disease) Current Visit: Yes Status: Chronic Assessment and plan: patient received two units PRBC in Dialysis yesterday (09/20/16) Repeat H&H within acceptable range will closely monitor H&H (6) ESRD on hemodialysis Current Visit: Yes Status: Acute Assessment and plan: Nephrology input appreciated patient received HD (09/20/16) continue HD sessions as per nephrology (7) Hypertension Current Visit: No Status: Acute Assessment and plan: Noted to remain hypertensive Will start Amlodipine 5mg PO qd Hydralazine 10mg IV q6h PRN SBP>160 continue to closely monitor BP Qualifiers: Hypertension type: essential hypertension Qualified Code(s): I10 - Essential (primary) hypertension (8) DVT prophylaxis Current Visit: No Status: Acute Assessment and plan: Heparin sQ (9) Disorder of penis, 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 Patient is POD #5 s/p excision of infected LUE AV graft. Patient resting comfortably in bed and reports of adequate control of the pain. Noted to the Rt heel ulcer for which podiatry was consulted. No infectious etiology reported. Will continue daily dressing changes s/p HD (09/20/16), noted to have drop in H&H, received 2unit PRBC during dialysis. Tunnelled HD cath and PICC line placement done today (09/21/16). - Constitutional Vitals: Temp Pulse Resp BP Pulse Ox 97.6 F 72 15 164/77 88 09/21/16 13:27 09/21/16 13:27 09/21/16 13:27 09/21/16 13:27 09/21/16 13:27 General appearance: Present: A&O X 3, morbidly obese, no acute distress, answers questions appropriately - Head Head exam: Present: atraumatic, normocephalic - Eye Eye exam: Present: normal appearance, conjuntiva pink, sclera anicteric - Respiratory Respiratory exam: Absent: respiratory distress, wheezes - Cardiovascular Cardiovascular exam: Present: RRR, +S1, +S2. Absent: diastolic murmur, gallop, rubs, systolic murmur - GI/Abdominal GI/Abdominal exam: Present: normal bowel sounds, soft, no peritoneal signs. Absent: distended, tenderness - Extremities Exam Extremities exam: Present: warm, radial pulses palpable and symetrical. Absent : calf tenderness, cyanotic, pedal edema Additional comments: right heel dressing intact - Neurological Exam Neurological exam: Present: alert, oriented X3 - Psychiatric Psychiatric exam: Present: normal affect, normal mood Internal Medicine: Result - Labs CBC & Chem 7: 09/21/16 04:50 09/21/16 04:50 Labs: Short CBC 09/21/16 Range/Units 04:50 WBC 5.3 (4.3-11.1) K/mcL Hgb 9.8 L D (12.9-16.9) g/dL Hct 30.3 L (37.5-50.1) % Plt Count 144 (140-400) K/mcL Neutrophils # 3.6 (1.6-8.9) K/mcL BMP 09/21/16 04:50 Sodium 135 L Potassium 4.8 H Chloride 97 L Carbon Dioxide 28 BUN 33 H D Creatinine 4.27 H Glucose 79 Calcium 8.2 L - ABG Interpretation ABG results: PT/INR, D-dimer PT 14.5 Seconds (9.4-12.1) H 09/16/16 01:46 - Impressions Impressions Guidance Needle Placement Ultrasound 09/21/16 00:00 IMPRESSION: Successful ultrasound and fluoroscopy guided tunneled catheter placement . D/ / Oneil Tong MD / Oneil Tong MD Interpreting Provider: Oneil Tong MD Insertion Tunneled Catheter 09/21/16 00:00 IMPRESSION: Successful ultrasound and fluoroscopy guided tunneled catheter placement . D/ / Oneil Tong MD / Oneil Tong MD Interpreting Provider: Oneil Tong MD Consult Discharge Plan - Plan Referrals: NO,PCP [Non-Partnered Physician] - (ECF ([place]))
[2016-09-21] MEDS: amLODIPine 5 MG TABLET PO SCH (15:28)
[2016-09-21] MEDS: *HR* OxyCODONE/APAP 7.5/325 TABLET PO PRN (15:38)
[2016-09-21] MEDS: Melatonin 3 MG TABLET PO SCH (21:48)
[2016-09-22] MEDS: *HR* OxyCODONE/APAP 7.5/325 TABLET PO PRN (02:02)
[2016-09-22] MEDS: Ipratropium/Albuterol Neb 3 ML IH SCH ×4 (04:27→22:29)
[2016-09-22] MEDS: Sennosides/Docusate Sodium TABLET PO SCH ×2 (06:27→21:41)
[2016-09-22] MEDS: Cyprohepatdine 4 MG TABLET PO SCH (06:27)
[2016-09-22] MEDS: Thiamine (B-1) 100 MG TABLET PO SCH (06:27)
[2016-09-22] MEDS: Aspirin Enteric Coated 81 MG Tablet PO SCH (06:27)
[2016-09-22] MEDS: Renal Vitamin 1 MG CAPSULE PO SCH (06:27)
[2016-09-22] MEDS: *HR* Heparin 5,000 UNIT/ML VIAL SQ SCH ×2 (06:27→17:25)
[2016-09-22 07:10] LABS: Albumin 2.3 g/dL (3.5-5.0); Albumin/Globulin Ratio 0.6 (1.1-2.2); Bilirubin,Total 0.8 mg/dL (0.2-1.2); Calcium 8.7 mg/dL (8.6-10.8); Globulin 4.1 g/dL (2.4-3.5); Potassium 5.2 mEq/L (3.5-4.5); Total Protein 6.4 g/dL (6.0-8.3)
[2016-09-22 07:43] LABS: Basophils % 0.2 %; Eosinophils # 0.4 K/mcL (0.0-0.6); Eosinophils % 6.5 %; Hematocrit 30.6 % (37.5-50.1); Immature Granulocytes % 0.5 % (0-4); Lymphocytes # 0.8 K/mcL (0.6-4.6); Lymphocytes % 12.1 %; Mean Corpuscular HGB Conc 32.7 g/dL (31.6-35.5); Mean Corpuscular Hemoglobin 29.7 pg (28.0-33.3); Mean Corpuscular Volume 90.8 fL (83.0-100.0); Mean Platelet Volume 10.5 fL (9.4-12.4); Monocytes # 0.5 K/mcL (0.0-1.3); Monocytes % 8.4 %; Neutrophils # 4.5 K/mcL (1.6-8.9); Platelet Count 177 K/mcL (140-400); Red Blood Count 3.37 M/mcL (4.19-5.50); Red Cell Distribution Width 16.1 % (11.5-14.5); Segmented Neutrophils % 72.3 %
[2016-09-22] MEDS ORDERED: 0.9 % Sodium Chloride 250 ML IVC PRN (08:07)
--- NOTE | 2016-09-22 08:07 | Nephrology Progress Note ---
Date of Encounter: 09/22/16 Time of Encounter: 08:05 - Assessment and Plan (1) ESRD on hemodialysis Current Visit: Yes Status: Acute The patient will continue to be supported with dialysis every Tuesday. Following hospital discharge we will continue him on vancomycin for another several weeks. (2) Anemia in CKD (chronic kidney disease) Current Visit: Yes Status: Chronic (3) Dialysis AV fistula infection Current Visit: Yes Status: Acute Qualifiers: Encounter type: subsequent encounter Qualified Code(s): T82.7XXD - Infection and inflammatory reaction due to other cardiac and vascular devices, implants and grafts, subsequent encounter Subjective Interval history: The patient reports she is having some pain in his arm as well as the dialysis catheter site. Otherwise he says he is doing well. He appears comfortable lying in bed eating breakfast. He will receive his usual dialysis today. Objective - Vital Signs Vital signs: Vital Signs Temp Pulse Resp BP Pulse Ox 09/22/16 07:28 98.3 F 67 16 164/73 98 09/22/16 04:28 18 91 09/22/16 04:16 98.2 F 64 17 163/73 92 09/21/16 23:37 98.2 F 63 18 179/81 97 09/21/16 22:29 18 173/81 96 09/21/16 19:25 98.1 F 65 17 173/81 97 09/21/16 16:21 98.1 F 65 16 134/66 96 09/21/16 15:34 16 134/66 98 09/21/16 13:27 97.6 F 72 15 164/77 88 09/21/16 12:25 77 15 193/89 97 09/21/16 12:23 78 16 210/98 100 09/21/16 12:20 84 15 216/131 99 09/21/16 12:14 80 13 228/112 99 09/21/16 12:08 68 14 99 09/21/16 12:05 65 14 162/82 99 09/21/16 11:57 70 15 177/86 96 Intake and Output 09/21/16 09/22/16 09/22/16 23:59 07:59 15:59 Intake Total 50 / 50 0 / 0 Output Total 0 / 0 0 / 0 Balance 50 / 50 0 / 0 Intake: Oral 50 / 50 0 / 0 Output: Urine 0 / 0 0 / 0 Other: Weight 105.96 kg Blood Glucose* 96 136 Patient Weight 09/22/16 23:59 Weight 105.96 kg - General Appearance Exam: The patient is alert and oriented. He is in no acute distress. Lung sounds otherwise clear. Heart regular rate and rhythm. Abdomen is obese otherwise benign. There is minimal lower extremity swelling. There is a dressing on the left arm. There is a tunnel dialysis catheter in the right chest. - Lab 09/22/16 06:43 09/22/16 06:43 Most recent lab results Calcium 8.7 mg/dL (8.6-10.8) 09/22/16 06:43 Phosphorus 3.5 mg/dL (2.3-4.7) 09/21/16 04:50 Magnesium 1.7 mg/dL (1.6-2.6) 09/21/16 04:50 Consult Discharge Plan - Plan Referrals: NO,PCP [Non-Partnered Physician] - (EC ([facility])) Prescriptions: Vancomycin [Vancocin] 500 each IV WD #3 vial
[2016-09-22] MEDS ORDERED: *HR* OxyCODONE/APAP 7.5/325 TABLET PO PRN (08:37)
--- NOTE | 2016-09-22 09:47 | Discharge Summary ---
Date of Encounter: 09/22/16 Time of Encounter: 09:20 - Discharge Diagnosis (1) Toxic metabolic encephalopathy Priority: Primary Status: Resolved (2) Infection of AV graft for dialysis Priority: Primary Status: Acute (3) Bacteremia Priority: Primary Status: Acute (4) HCAP (healthcare-associated pneumonia) Priority: Primary Status: Acute (5) Anemia in CKD (chronic kidney disease) Priority: Secondary Status: Chronic (6) ESRD on hemodialysis Priority: Secondary Status: Acute (7) Hypertension Priority: Secondary Status: Chronic Qualifiers: Hypertension type: essential hypertension Qualified Code(s): I10 - Essential (primary) hypertension (8) DVT prophylaxis Priority: Secondary Status: Acute (9) Disorder of penis, unspecified Priority: Secondary Status: Chronic (10) Hypomagnesemia Priority: Secondary Status: Resolved (11) Decubitus ulcer, heel, right, unstageable Priority: Secondary Status: Chronic - Discharge Medications Prescriptions: Diazepam [Valium] 5 mg PO Q6H PRN #20 tablet PRN Reason: Tremors/Seizure-Like Activity Oxycodone HCl/Acetaminophen [Percocet 10-325 mg Tablet] 1 each PO Q6H PRN #20 tablet PRN Reason: Pain Vancomycin [Vancocin] 500 each IV WD #3 vial Home Medications: Aspirin [Adult Low Dose Aspirin EC] 81 mg PO DAILY 08/27/15 [History] Gabapentin [Neurontin] 300 mg PO BID 04/23/16 [History] Losartan Potassium [Cozaar] 100 mg PO DAILY 04/23/16 [History] Metoprolol [Lopressor] 50 mg PO BID 04/23/16 [History] B Complex W-C No.20/Folic Acid [Nephrocaps Softgel] 1 mg PO DAILY 09/15/16 [ History] Calcium Carbonate [Tums] 500 mg PO TIDAC 09/15/16 [History] Ibuprofen [Motrin] 800 mg PO Q6H PRN 09/15/16 [History] Lactulose 20 gm PO DAILY PRN 09/15/16 [History] Oxygen 2 l NS AD 09/15/16 [History] Sennosides/Docusate Sodium [Senna Plus] 1 each PO BID 09/15/16 [History] Vancomycin [Vancocin] 500 each IV WD #3 vial 09/21/16 [Rx] Amlodipine [Norvasc] 5 mg PO DAILY tablet 09/22/16 [Rx] Diazepam [Valium] 5 mg PO Q6H PRN #20 tablet 09/22/16 [Rx] Ipratropium/Albuterol Neb [Duoneb] 3 ml IH QIDR PRN inhsol 09/22/16 [Rx] Oxycodone HCl/Acetaminophen [Percocet 10-325 mg Tablet] 1 each PO Q6H PRN #20 tablet 09/22/16 [Rx] Vancomycin [Vancocin] 0 each IVPB RPHPROT PRN #0 vial 09/22/16 [Rx] Allergies/Adverse Reactions: Allergies lorazepam [From Ativan] Adverse Reaction (Verified 09/15/16 15:21) Paranoia Procedures/tests Complete & Pending: Procedures Performed prior 72 hours Category Date Time Status IR cvc insrt tunnel wo prt/educational recruiter [IR] Routine IR 09/21/16 Completed IR us guide needle place [IR] Routine IR 09/21/16 Completed Date of admission: 09/16/16 16:22 Primary care physician: Olvin Alford MD Consults: 09/17/16 10:00 Consult to Dialysis [CONS] ONCE 09/18/16 13:29 Consult to Podiatry [CONS] Routine Consulting Provider: Pod[facility] Reason for Consult: RIGHT HEEL NECROTIC WOUND Call Completed: Yes 09/20/16 08:30 Consult to Interventional Radiology [CONS] Routine Consulting Provider: Radiology Interventional Cols Reason for Consult: remove temporary HD cath, place tunneled dialysis catheter, tunneled PICC line for termite helper IV abx Time Notified: 08:31 Call Completed: No 09/20/16 08:45 Consult to Dialysis [CONS] ONCE 09/22/16 08:15 Consult to Dialysis [CONS] ONCE Discharging clinician: Lia Kim Anticipated date of discharge: 09/22/16 - Patient Status Disposition: Transfer SNF Condition: Good Functional capacity at discharge: bed bound Overall status at discharge: patient is back to baseline - Discharge Instructions Follow Up With: NO,PCP [Non[facility]Partnered Physician[facility] - [facility] Additional Instructions: Please follow up with your primary care physician and armor reconnaissance vehicle crewman within one week after your discharge. Please follow up with vascular surgery within one to two weeks after discharge. Continue twice a day normal saline wet to dry dressing changes for the left upper arm AV shunt excision site. Please follow up with podiatry/wound care within five days after your discharge. Continue daily right heel dressing. Continue with santyl on right heel ulceration. Your home dose of Citalopram, Oxybutynin, and Wellbutrin have been discontinued due to your myoclonic jerks and confused mental status that you presented with during this hospitalization. you have been off these medications throughout the course of this hospitalization. Please consult your primary care physician about the need of restarting these medications. Amlodipine has been added to your home medications given your elevated blood pressure readings. Please closely monitor your blood pressure. Resume all other home medications as prescribed by your primary care physician. - Diet and Activity Activity: as per physical therapy, wear oxygen at all times Diet: low salt diet Hospital course: Mr. Martínez is a 50 year old male with PMH of ESRD on HD, DM, OA, COPD on LTOT, depression/anxiety, and morbid obesity who was admitted for management of toxic metabolic encephalopathy, healthcare acquired pneumonia, infected left upper extremity AV graft. Patient was noted to have MRSA bacteremia secondary to infected AV graft. Patient was started on IV abx and vascular surgery was consulted and patient underwent surgical resection of the infected AV graft. he was also noted to be on psychotropic agents contributing to his mental status change and myoclonic jerks due to which all these medications were placed on hold. Patient was followed by nephrology and was continued on his outpatient schedule of Hemodialysis. He initially received a temporary HD cath and after clearance of blood cultures, a Perma cath was placed. Patient is currently hemodynamically stable, mental status at baseline (AAO x 3), and responding appropriately to therapy. He was also noted to have necrotic right heel ulcer for which podiatry was consulted and daily wound care was initiated. Patient will be discharged back to [place] with follow up with your PCP, nephrology, podiatry , and vascular surgery. Patient is to continue IV abx for a total of 14 days after the first negative blood culture and armor reconnaissance vehicle crewman is to manage the abx, as patient will be receiving the abx after dialysis. Patient demonstrates understanding of his diagnosis and agree with the discharge care and plan. - Time Spent with Patient Total time spent providing and/or coordinating discharge services: Greater than 30 minutes - Constitutional Vitals: Temp Pulse Resp BP Pulse Ox 98.3 F 67 16 164/73 98 09/22/16 07:28 09/22/16 07:28 09/22/16 07:28 09/22/16 07:28 09/22/16 07:28 General appearance: Present: A&O X 3, morbidly obese, no acute distress, answers questions appropriately - Head Head exam: Present: atraumatic, normocephalic - Eye Eye exam: Present: normal appearance, conjuntiva pink, sclera anicteric - Respiratory Respiratory exam: Present: CTAB. Absent: accessory muscle use, rales, rhonchi, wheezes - Cardiovascular Cardiovascular exam: Present: RRR, +S1, +S2. Absent: diastolic murmur, gallop, rubs, systolic murmur - GI/Abdominal GI/Abdominal exam: Present: normal bowel sounds, soft, no peritoneal signs. Absent: distended, tenderness - Extremities Exam Extremities exam: Present: warm, radial pulses palpable and symetrical. Absent : calf tenderness, pedal edema Additional comments: right heel ulcer-dressing intact - Neurological Exam Neurological exam: Present: alert, oriented X3 - Psychiatric Psychiatric exam: Present: normal affect, normal mood
--- NOTE | 2016-09-22 10:05 | Physician Discharge Referral ---
Extended[facility] Referral Info Transfer To: F Provider in Charge after Transfer: PCP - Diagnosis (1) Toxic metabolic encephalopathy Priority: Primary Status: Resolved (2) Infection of AV graft for dialysis Priority: Primary Status: Acute (3) Bacteremia Priority: Primary Status: Acute (4) HCAP (healthcare-associated pneumonia) Priority: Primary Status: Acute (5) Anemia in CKD (chronic kidney disease) Priority: Secondary Status: Chronic (6) ESRD on hemodialysis Priority: Secondary Status: Acute (7) Hypertension Priority: Secondary Status: Chronic (8) DVT prophylaxis Priority: Secondary Status: Acute (9) Disorder of penis, unspecified Priority: Secondary Status: Chronic (10) Hypomagnesemia Priority: Secondary Status: Resolved (11) Decubitus ulcer, heel, right, unstageable Priority: Secondary Status: Chronic - Transfer Medications Prescriptions: Diazepam [Valium] 5 mg PO Q6H PRN #20 tablet PRN Reason: Tremors/Seizure-Like Activity Oxycodone HCl/Acetaminophen [Percocet 10-325 mg Tablet] 1 each PO Q6H PRN #20 tablet PRN Reason: Pain Vancomycin [Vancocin] 500 each IV WD #3 vial Home Medications: Aspirin [Adult Low Dose Aspirin EC] 81 mg PO DAILY 08/27/15 [History] Gabapentin [Neurontin] 300 mg PO BID 04/23/16 [History] Losartan Potassium [Cozaar] 100 mg PO DAILY 04/23/16 [History] Metoprolol [Lopressor] 50 mg PO BID 04/23/16 [History] B Complex W-C No.20/Folic Acid [Nephrocaps Softgel] 1 mg PO DAILY 09/15/16 [ History] Calcium Carbonate [Tums] 500 mg PO TIDAC 09/15/16 [History] Ibuprofen [Motrin] 800 mg PO Q6H PRN 09/15/16 [History] Lactulose 20 gm PO DAILY PRN 09/15/16 [History] Oxygen 2 l NS AD 09/15/16 [History] Sennosides/Docusate Sodium [Senna Plus] 1 each PO BID 09/15/16 [History] Vancomycin [Vancocin] 500 each IV WD #3 vial 09/21/16 [Rx] Amlodipine [Norvasc] 5 mg PO DAILY tablet 09/22/16 [Rx] Diazepam [Valium] 5 mg PO Q6H PRN #20 tablet 09/22/16 [Rx] Ipratropium/Albuterol Neb [Duoneb] 3 ml IH QIDR PRN inhsol 09/22/16 [Rx] Oxycodone HCl/Acetaminophen [Percocet 10-325 mg Tablet] 1 each PO Q6H PRN #20 tablet 09/22/16 [Rx] Vancomycin [Vancocin] 0 each IVPB RPHPROT PRN #0 vial 09/22/16 [Rx] Allergies/Adverse Reactions: Allergies lorazepam [From Ativan] Adverse Reaction (Verified 09/15/16 15:21) Paranoia - Respiratory Orders Smoking Cessation: Smoking cessation has been advised. For more information, call the [employer] Line at 2-904-ZMWS-NOW. - Rehabiliation Orders Other: Please follow up with your primary care physician and contracts advisor within one week after your discharge. Please follow up with vascular surgery within one to two weeks after discharge. Continue twice a day normal saline wet to dry dressing changes for the left upper arm AV shunt excision site. Please follow up with podiatry/wound care within five days after your discharge. Continue daily right heel dressing. Continue with santyl on right heel ulceration. Your home dose of Citalopram, Oxybutynin, and Wellbutrin have been discontinued due to your myoclonic jerks and confused mental status that you presented with during this hospitalization. you have been off these medications throughout the course of this hospitalization. Please consult your primary care physician about the need of restarting these medications. Amlodipine has been added to your home medications given your elevated blood pressure readings. Please closely monitor your blood pressure. Resume all other home medications as prescribed by your primary care physician. CERTIFICATION: I certify that the transfer of the above named patient to an Extended Care Facility is necessary for the continuing treatment of the diagnosis listed. The above information is true and accurate reflection of patient's current condition. Confidential - Redisclosure prohibited without a patient's written consent.
[2016-09-22 10:32] LABS: Hepatitis B Surface Antigen Nonreactive (Nonreactive)
[2016-09-22 10:33] LABS: Hepatitis B Surface Antibody 99.49 mIU/mL
[2016-09-22] MEDS ORDERED: *HR* Heparin 10,000 UNIT/10 ML VIAL IV PRN (10:56)
[2016-09-22] MEDS ORDERED: Vancomycin 500 MG in D5% in Water (Mini-Bag+) 100 ML IVPB ONE (12:00)
[2016-09-22] MEDS: amLODIPine 5 MG TABLET PO SCH (15:41)
[2016-09-22] MEDS ORDERED: 0.9 % Sodium Chloride 2,000 ML ONE (17:16)
[2016-09-22] MEDS ORDERED: amLODIPine 5 MG TABLET PO STA (18:44)
[2016-09-22] MEDS: Melatonin 3 MG TABLET PO SCH (21:41)
[2016-09-23] MEDS: Ipratropium/Albuterol Neb 3 ML IH SCH ×3 (04:05→16:50)
[2016-09-23] MEDS: *HR* Heparin 5,000 UNIT/ML VIAL SQ SCH (06:20)
[2016-09-23] MEDS ORDERED: amLODIPine 5 MG TABLET PO SCH (07:36)
[2016-09-23] MEDS ORDERED: diazePAM 5 MG TABLET PO ONE (09:05)
--- NOTE | 2016-09-23 09:19 | Nephrology Progress Note ---
Date of Encounter: 09/23/16 Time of Encounter: 09:05 - Assessment and Plan (1) ESRD on hemodialysis Current Visit: Yes Status: Acute ESRD on HD. S/P Excision of infected AV shunt. No HD today. If discharged will dialyze tomorrow in [place]. Subjective Interval history: Alert, oriented. States feeling better. Objective - Vital Signs Vital signs: Vital Signs Temp Pulse Resp BP Pulse Ox 09/23/16 07:25 98.6 F 71 19 160/77 92 09/23/16 04:31 98.4 F 72 18 159/77 95 09/23/16 04:05 18 96 09/23/16 00:20 97.9 F 81 18 169/69 90 09/22/16 22:29 18 99 09/22/16 20:11 97.8 F 72 18 168/78 90 09/22/16 15:47 98.4 F 70 17 176/81 100 09/22/16 15:10 98.5 F 18 147/75 09/22/16 15:00 155/83 09/22/16 14:45 149/72 09/22/16 14:30 163/76 09/22/16 14:15 165/76 09/22/16 14:00 160/51 09/22/16 13:45 151/68 09/22/16 13:30 163/76 09/22/16 13:15 152/75 09/22/16 13:00 134/73 09/22/16 12:45 146/71 09/22/16 12:30 147/70 09/22/16 12:15 150/71 09/22/16 12:00 162/73 09/22/16 11:45 178/84 09/22/16 11:36 98.5 F 73 18 168/77 96 09/22/16 11:30 98.5 F 18 170/81 09/22/16 10:31 16 96 Intake and Output 09/22/16 09/23/16 09/23/16 23:59 07:59 15:59 Intake Total Balance Intake: Oral Other: Meal Breakfast Percent of Meal Consumed 0% Weight 104.2 kg Blood Glucose* 100 90 Patient Weight 09/23/16 23:59 Weight 104.2 kg - General Appearance General appearance: Present: well-developed, well-nourished, appears started age , obese EENT: Present: mucous membranes moist Neck: Present: no JVD Respiratory: Present: clear Cardiology: Present: no edema, regular rate, regular rhythm Gastrointestinal: Present: normoactive bowel sounds, no tenderness Integumentary: Present: warm and dry Neurologic: Present: alert and oriented x3 Psychiatric: Present: mood/affect appropriate, cooperative - Lab 09/22/16 06:43 09/22/16 06:43 Most recent lab results Calcium 8.7 mg/dL (8.6-10.8) 09/22/16 06:43 Phosphorus 3.5 mg/dL (2.3-4.7) 09/21/16 04:50 Magnesium 1.7 mg/dL (1.6-2.6) 09/21/16 04:50 Consult Discharge Plan - Plan Additional Instructions: Please follow up with your primary care physician and ophthalmic technician apprentice within one week after your discharge. Please follow up with vascular surgery within one to two weeks after discharge. Continue twice a day normal saline wet to dry dressing changes for the left upper arm AV shunt excision site. Please follow up with podiatry/wound care within five days after your discharge. Continue daily right heel dressing. Continue with santyl on right heel ulceration. Your home dose of Citalopram, Oxybutynin, and Wellbutrin have been discontinued due to your myoclonic jerks and confused mental status that you presented with during this hospitalization. you have been off these medications throughout the course of this hospitalization. Please consult your primary care physician about the need of restarting these medications. Amlodipine has been added to your home medications given your elevated blood pressure readings. Please closely monitor your blood pressure. Resume all other home medications as prescribed by your primary care physician. Referrals: NO,PCP [Non-Partnered Physician] - ([facility] ([facility])) Prescriptions: Diazepam [Valium] 5 mg PO Q6H PRN #20 tablet PRN Reason: Tremors/Seizure-Like Activity Oxycodone HCl/Acetaminophen [Percocet 10-325 mg Tablet] 1 each PO Q6H PRN #20 tablet PRN Reason: Pain Vancomycin [Vancocin] 500 each IV WD #3 vial
--- NOTE | 2016-09-23 09:58 | Internal Med Progress Note ---
Date of Encounter: 09/23/16 Time of Encounter: 09:56 - Assessment and plan (1) Toxic metabolic encephalopathy Current Visit: Yes Status: Resolved (2) Infection of AV graft for dialysis Current Visit: Yes Status: Acute (3) Bacteremia Current Visit: Yes Status: Acute (4) HCAP (healthcare-associated pneumonia) Current Visit: Yes Status: Acute (5) Anemia in CKD (chronic kidney disease) Current Visit: Yes Status: Chronic (6) ESRD on hemodialysis Current Visit: Yes Status: Acute (7) Hypertension Current Visit: No Status: Chronic Qualifiers: Hypertension type: essential hypertension Qualified Code(s): I10 - Essential (primary) hypertension (8) DVT prophylaxis Current Visit: No Status: Acute (9) Disorder of penis, unspecified Current Visit: No Status: Chronic (10) Hypomagnesemia Current Visit: Yes Status: Resolved (11) Decubitus ulcer, heel, right, unstageable Current Visit: Yes Status: Chronic - Subjective Interval history: Patient seen and examined at bedside. Patient is POD #6 s/p excision of infected LUE AV graft. Patient resting comfortably in bed and reports of adequate control of the pain. Pt was discharged to ECF yesterday pending BP control. He remained hypertensive overnight and appears to be anxious this morning. Will give one dose of Valium (from her home meds) and Increased Metoprolol and Amlodipine dose Nephrology informed about patient's BP readings and they will monitor it after discharge. Once BP is better controlled, patient will be discharged to ECF. No overnight issues reported. Pt denies any pain at this time. - Constitutional Vitals: Temp Pulse Resp BP Pulse Ox 98.6 F 71 19 160/77 92 09/23/16 07:25 09/23/16 07:25 09/23/16 07:25 09/23/16 07:25 09/23/16 07:25 General appearance: Present: A&O X 3, morbidly obese, no acute distress, answers questions appropriately - Head Head exam: Present: atraumatic, normocephalic - Eye Eye exam: Present: normal appearance, conjuntiva pink, sclera anicteric - Respiratory Respiratory exam: Present: CTAB. Absent: respiratory distress, rhonchi, wheezes - Cardiovascular Cardiovascular exam: Present: RRR, +S1, +S2. Absent: diastolic murmur, gallop, rubs, systolic murmur - GI/Abdominal GI/Abdominal exam: Present: normal bowel sounds, soft, no peritoneal signs. Absent: distended, tenderness - Extremities Exam Extremities exam: Present: warm, radial pulses palpable and symetrical. Absent : calf tenderness Additional comments: right heel dressing intact - Neurological Exam Neurological exam: Present: alert, oriented X3 Internal Medicine: Result - Labs CBC & Chem 7: 09/22/16 06:43 09/22/16 06:43 - ABG Interpretation ABG results: PT/INR, D-dimer PT 14.5 Seconds (9.4-12.1) H 09/16/16 01:46 Consult Discharge Plan - Plan Additional Instructions: Please follow up with your primary care physician and prenatal teacher within one week after your discharge. Please follow up with vascular surgery within one to two weeks after discharge. Continue twice a day normal saline wet to dry dressing changes for the left upper arm AV shunt excision site. Please follow up with podiatry/wound care within five days after your discharge. Continue daily right heel dressing. Continue with santyl on right heel ulceration. Your home dose of Citalopram, Oxybutynin, and Wellbutrin have been discontinued due to your myoclonic jerks and confused mental status that you presented with during this hospitalization. you have been off these medications throughout the course of this hospitalization. Please consult your primary care physician about the need of restarting these medications. Amlodipine has been added to your home medications given your elevated blood pressure readings. Please closely monitor your blood pressure. Resume all other home medications as prescribed by your primary care physician. Referrals: NO,PCP [Non-Partnered Physician] - ([facility] ([facility] Prescriptions: Diazepam [Valium] 5 mg PO Q6H PRN #20 tablet PRN Reason: Tremors/Seizure-Like Activity Oxycodone HCl/Acetaminophen [Percocet 10-325 mg Tablet] 1 each PO Q6H PRN #20 tablet PRN Reason: Pain Vancomycin [Vancocin] 500 each IV WD #3 vial
[2016-09-23] MEDS: Sennosides/Docusate Sodium TABLET PO SCH (10:05)
[2016-09-23] MEDS: Renal Vitamin 1 MG CAPSULE PO SCH (10:05)
[2016-09-23] MEDS: Aspirin Enteric Coated 81 MG Tablet PO SCH (10:05)
[2016-09-23] MEDS: Thiamine (B-1) 100 MG TABLET PO SCH (10:06)
--- NOTE | 2016-09-23 14:02 | Vascular/[facility] Progress Note ---
Date of Encounter: 09/23/16 Time of Encounter: 14:00 - Assessment and plan (1) Myoclonic jerking Current Visit: Yes Status: Acute May be related to renal status and infection and appears to have resolved as the patient has clinically improved. (2) Toxic metabolic encephalopathy Current Visit: Yes Status: Resolved May be related to renal status and infection and appears to have resolved that the patient has clinically improved. (3) Dialysis AV fistula infection Current Visit: Yes Status: Acute Postoperative day #7 Status post excision of left upper arm AV shunt. The patient had a contained rupture of an infected pseudoaneurysm. Cultures were taken of the graft and of the clot and submitted for further analysis at the time of surgery which were positive for MRSA. The brachial reconstruction is widely patent with excellent perfusion to the left upper extremity and hand. Patient may be transferred to the extended care facility at the discretion of the admitting service. Patient to continue twice a day normal saline wet to dry dressing changes for the left upper arm AV shunt excision site. Qualifiers: Encounter type: subsequent encounter Qualified Code(s): T82.7XXD - Infection and inflammatory reaction due to other cardiac and vascular devices, implants and grafts, subsequent encounter - Subjective Interval history: This patient is postoperative day #7 from an emergency left upper arm AV shunt removal. The patient was found to have a contained rupture of a infected pseudoaneurysm from his left upper arm AV shunt. The skin edges were packed open. The graft was removed in its entirety. The brachial artery required a bovine pericardial patch to reconstruct the vessel to provide arterial continuity to the forearm and hand. On today's visit the patient has no specific complaints. The left upper extremity is feeling better. His discharge and return to the extended care facility was postponed from yesterday due to hypertension. He is tentatively scheduled to go to the extended care facility later today if his blood pressure remains under appropriate control. He specifically denies any issues of pain or discomfort or paresthesias in the left upper extremity and hand. Vital Signs, Last 4 Hours Temp Pulse Resp BP Pulse Ox 09/23/16 11:19 98.3 F 74 18 166/80 97 09/23/16 10:40 19 92 - Physical Examination General: Present: Conversant, No Apparent Distress Vascular: Present: Surgical incisions (The close surgical incisions are clean and dry. They're healing well.The left upper arm incision that was packed open was inspected. There is no signs of bleeding or hematoma or purulence. There is no signs of fasciitis. This area shows early granulation tissue. There is some decrease in the edema of the tissue. The wound edges have not significantly changed and there is no significant decrease in the overall wound area at this time.) Results 09/22/16 06:43 09/22/16 06:43 Consult Discharge Plan - Plan Additional Instructions: Please follow up with your primary care physician and assessor within one week after your discharge. Please follow up with vascular surgery within one to two weeks after discharge. Continue twice a day normal saline wet to dry dressing changes for the left upper arm AV shunt excision site. Please follow up with podiatry/wound care within five days after your discharge. Continue daily right heel dressing. Continue with santyl on right heel ulceration. Your home dose of Citalopram, Oxybutynin, and Wellbutrin have been discontinued due to your myoclonic jerks and confused mental status that you presented with during this hospitalization. you have been off these medications throughout the course of this hospitalization. Please consult your primary care physician about the need of restarting these medications. Amlodipine has been added to your home medications given your elevated blood pressure readings. Please closely monitor your blood pressure. Resume all other home medications as prescribed by your primary care physician. Referrals: NO,PCP [Non-Partnered Physician] - ([facility] ([facility])) Eddie Suárez MD [Partnered Physician] - (Follow-up with Dr. Suárez in 3 weeks. Call clinic at [phone] to schedule appointment.) Prescriptions: Diazepam [Valium] 5 mg PO Q6H PRN #20 tablet PRN Reason: Tremors/Seizure-Like Activity Oxycodone HCl/Acetaminophen [Percocet 10-325 mg Tablet] 1 each PO Q6H PRN #20 tablet PRN Reason: Pain Vancomycin [Vancocin] 500 each IV WD #3 vial
[2016-09-23] MEDS ORDERED: hydrALAZINE 25 MG TABLET PO SCH (15:00)
[2016-09-23 15:26] VITALS: BP 145/77
[2016-09-23] MEDS ORDERED: Aminoglycoside Consult 1 EACH MC ONE (16:59)
== END 2016-09-23 17:00 | DRG 252 ==
LOC: EMEROO 15:13 → 2ANU 15:13 → ICNU 09-16 20:44 → 2NNU 09-18 06:50 → 2ANU 09-19 16:43
PROVIDERS: ADMIT Internal Medicine; ATTEND Internal Medicine
PROC: IRPERMA (2016-09-21 12:00)

== ENCOUNTER 2016-12-11 10:37 | Inpatient (IN) ==
[2016-12-11 11:07] LABS: Basophils % 0.1 %; Hematocrit 26.6 % (37.5-50.1); Hemoglobin 9.1 g/dL (12.9-16.9); Lymphocytes # 0.2 K/mcL (0.6-4.6); Mean Corpuscular HGB Conc 34.2 g/dL (31.6-35.5); Mean Corpuscular Hemoglobin 32.2 pg (28.0-33.3); Mean Platelet Volume 10.6 fL (9.4-12.4); Monocytes # 0.4 K/mcL (0.0-1.3); Monocytes % 2.2 %; Platelet Count 205 K/mcL (140-400); Red Blood Count 2.83 M/mcL (4.19-5.50); Red Cell Distribution Width 13.1 % (11.5-14.5); Segmented Neutrophils % 95.7 %
[2016-12-11] MEDS ORDERED: Acetaminophen 650 MG RECTAL SUPP RC ONE (11:10)
[2016-12-11 11:12] LABS: INR 1.2; Prothrombin Time 12.6 Seconds (9.4-12.1)
--- NOTE | 2016-12-11 11:14 | Emergency Department Note ---
Disposition Clinical Impression: History of renal dialysis, Elevated lactic acid level Altered mental status Qualifiers: Altered mental status type: unspecified Qualified Code(s): R41.82 - Altered mental status, unspecified Sepsis Qualifiers: Sepsis type: sepsis due to unspecified organism Qualified Code(s): A41.9 - Sepsis, unspecified organism Renal failure Qualifiers: Renal failure chronicity: chronic Chronic kidney disease stage: on chronic dialysis Qualified Code(s): N18.6 - End stage renal disease; Z99.2 - Dependence on renal dialysis Leukocytosis Qualifiers: Leukocytosis type: unspecified Qualified Code(s): D72.829 - Elevated white blood cell count, unspecified Anemia Qualifiers: Anemia type: unspecified type Qualified Code(s): D64.9 - Anemia, unspecified Infected venous access port Qualifiers: Encounter type: initial encounter Qualified Code(s): T80.219A - Unspecified infection due to central venous catheter, initial encounter Hypothyroidism Qualifiers: Hypothyroidism type: unspecified Qualified Code(s): E03.9 - Hypothyroidism, unspecified Disposition: Admitted As Inpatient Condition: Serious Referrals: NO,PCP [Primary Care Provider] - Time of Disposition: 12:54 Altered Mental Status HPI - General Chief Complaint: ED Altered Mental Status Stated Complaint: ams Time Seen by Provider: 12/11/16 10:43 Source: EMS Mode of arrival: EMS Limitations: altered mental status Nursing Notes Reviewed: Yes Vital Signs Reviewed: Yes - History of Present Illness HPI Narrative: Patient is a 51-year-old male that presents to the emergency department via EMS for altered mental status. EMS states that he was at dialysis and became altered and so he was brought here. I called and spoke with [facility] and they said that he came in this morning for dialysis and stated that he was oriented and alert but had a couple of confused statements. They stated that they went to change the catheter and noticed a yellowish discharge and it was somewhat red. They called the physician and he ordered 1 g of vancomycin to be given. They stated that he slept through the duration of dialysis. When they went to wake him they said that he was completely altered and confused. The dialysis center said that he normally dialyzes 3 times a week on Tuesday, and Tuesday. They stated that he did not dialyze on but they gave him medicines to make up for. Normally dialysis session is 3 hours 15 minutes. - Related Data Home Medications Medication Instructions Recorded Confirmed Aspirin [Adult Low Dose Aspirin EC] 81 mg PO DAILY 08/27/15 09/15/16 Gabapentin [Neurontin] 300 mg PO BID 04/23/16 09/15/16 Losartan Potassium [Cozaar] 100 mg PO DAILY 04/23/16 09/15/16 Metoprolol [Lopressor] 50 mg PO BID 04/23/16 09/15/16 B Complex W-C No.20/Folic Acid 1 mg PO DAILY 09/15/16 09/15/16 [Nephrocaps Softgel] Oxygen 2 l NS AD 09/15/16 09/15/16 Sennosides/Docusate Sodium [Senna 1 each PO BID 09/15/16 09/15/16 Plus] BuPROPion XL (24 HR) [Wellbutrin 150 mg PO DAILY 12/11/16 12/11/16 XL] Cetirizine HCl [Zyrtec] 10 mg PO DAILY 12/11/16 12/11/16 Citalopram Hydrobromide [Celexa] 40 mg PO DAILY 12/11/16 12/11/16 Oxybutynin Chloride [Ditropan Xl] 10 mg PO DAILY 12/11/16 12/11/16 Oxycodone HCl/Acetaminophen 1 tab PO Q6H PRN 12/11/16 12/11/16 [Percocet 10-325 mg Tablet] Previous Rx's Medication Instructions Recorded Vancomycin [Vancocin] 500 each IV WD #3 vial 09/21/16 Ipratropium/Albuterol Neb [Duoneb] 3 ml IH QIDR PRN inhsol 09/22/16 amLODIPine [Norvasc] 5 mg PO DAILY tablet 09/22/16 diazePAM [Valium] 5 mg PO Q6H PRN #20 tablet 09/22/16 Allergies Allergy/AdvReac Type Severity Reaction Status Date / Time lorazepam [From Ativan] AdvReac Paranoia Verified 09/15/16 15:21 Limitations: ROS unobtainable due to patients medical condition Past Medical History - Past Medical History Source: old records reviewed Medical history: Reports: arthritis, CHF, diabetes, dialysis, GERD, hypertension , osteoporosis, renal disease, venous stasis, other Surgical history: Reports: cholecystectomy, vascular surgery Psychiatric history: Reports: anxiety, depression, other - Social History Smoking Status: Never smoker Smokeless Tobacco Status: No Alcohol use: Reports: none, unknown Drug use: Reports: none, unknown Physical Exam - General Limitations: altered mental status General appearance: alert - Head Head exam: atraumatic - Eye Eye exam: Present: normal appearance, PERRL - Neck Neck exam: Present: normal inspection, trachea midline - Respiratory Respiratory exam: Present: normal lung sounds bilaterally. Absent: respiratory distress, wheezes - Cardiovascular Cardiovascular exam: Present: regular rate, normal rhythm, normal heart sounds, +S2 - Abdominal Exam Abdominal exam: Present: soft, normal bowel sounds, other (warm to touch) - Expanded Lower Extremity Exam Foot/toe exam: Present: calcaneal tenderness, other (wound on the bottom heal of right foot) - Neurological Exam Neurological exam: Present: other. Absent: alert, oriented X3 - Psychiatric Psychiatric exam: Absent: normal affect, normal mood - Skin Skin exam: Present: dry, intact (except for on the right heal), other (Skin is very warm) Course Course Narrative: 11:20 AM Reevaluation -Patient opened his eyes and responded to his name. -wound on his right foot was examined and patient responded to pain from the wound. 11:45 AM Labs are reviewed with the attending showing a leukocytosis with toxic granulation concerning for sepsis Patient has returned from CT scan and is stable we are awaiting images from the CT scan. 12:05 PM I spoke with the corner former and Dr. Anderson and informed him of the patient's condition. He has accepted the patient to the ICU on his service. 12:[address] Anderson came to the ER to see the patient. I was present in the room while he examined the patient. He has that we give gentamicin 1 mg/kg. I have placed that order. 12:58pm Patient is now verbal. Patient is currently stable 1:10pm Patient has left for the ICU Vital Signs Temperature 101.7 F H 12/11/16 10:38 Pulse Rate 93 12/11/16 10:38 Respiratory Rate 20 12/11/16 10:38 Blood Pressure 178/72 12/11/16 10:38 O2 Sat by Pulse Oximetry 96 12/11/16 10:38 Temperature 101.7 F H 12/11/16 10:38 Pulse Rate 93 12/11/16 11:11 Respiratory Rate 18 12/11/16 11:11 Blood Pressure 169/66 12/11/16 11:11 O2 Sat by Pulse Oximetry 99 12/11/16 11:11 Oxygen Delivery Oxygen Delivery Nasal Cannula Altered Mental Status - MDM Narrative Medical decision making narrative: Due to the patient coming in with altered mental status we have ordered the sepsis protocol as well as labs for altered mental status. We did not administer fluids due to the patient requiring dialysis. Patient had a GCS of 10 and was protecting his airway. We did order labs in imaging. CT scan was negative. The labs showed a leukocytosis with toxic granulation. Also there was a lactic acid of 2.4. I have called and spoke with Dr. Anderson the corner former and he has accepted the patient to his service. I was present when Dr. Anderson came to the ED to see the patient. He ask that we being gentamicin and i have placed that order. - Medical Records Medical records reviewed: Yes I reviewed the patient's medical records. - Lab Data Lab results reviewed: Yes I reviewed the patient's lab results. Result diagrams: 12/11/16 10:57 12/11/16 10:57 Lab Results 12/11/16 12/11/16 12/11/16 Range/Units 10:57 10:57 10:57 WBC 16.7 H D (4.3-11.1) K/mcL RBC 2.83 L (4.19-5.50) M/mcL Hgb 9.1 L (12.9-16.9) g/dL Hct 26.6 L (37.5-50.1) % MCV 94.0 (83.0-100.0) fL MCH 32.2 (28.0-33.3) pg MCHC 34.2 (31.6-35.5) g/dL RDW 13.1 (11.5-14.5) % Plt Count 205 (140-400) K/mcL MPV 10.6 (9.4-12.4) fL Immature Gran % 1.0 (0-4) % Seg Neutrophils % 95.7 % Lymphocytes % 1.0 % Monocytes % 2.2 % Eosinophils % 0.0 % Basophils % 0.1 % Neutrophils # 16.0 H (1.6-8.9) K/mcL Lymphocytes # 0.2 L (0.6-4.6) K/mcL Monocytes # 0.4 (0.0-1.3) K/mcL Eosinophils # 0.0 (0.0-0.6) K/mcL Basophils # 0.0 (0.0-0.2) K/mcL Toxic Granulation Present A (Not Present) Dohle Bodies Present A (Not Present) PT 12.6 H (9.4-12.1) Seconds INR 1.2 APTT 32.3 (26.0-36.0) Seconds Sodium 135 L (136-145) mEq/L Potassium 4.3 (3.5-4.5) mEq/L Chloride 95 L (98-109) mEq/L Carbon Dioxide 29 (19-29) mEq/L BUN 30 H D (8-26) mg/dL Creatinine 3.93 H (0.72-1.25) mg/dL Est GFR ( Amer) 20 L (> 60) Est GFR (Non-Af Amer) 16 L (> 60) BUN/Creatinine Ratio 8 (6-26) Glucose 160 H (70-99) mg/dL Calculated Osmolality 290 (280-300) Lactic Acid (0.5-2.2) mmol/L Calcium 8.8 (8.6-10.8) mg/dL Phosphorus 2.9 (2.3-4.7) mg/dL Magnesium 1.6 (1.6-2.6) mg/dL Total Bilirubin 1.3 H (0.2-1.2) mg/dL Direct Bilirubin 0.7 H (0.0-0.5) mg/dL Indirect Bilirubin 0.6 (0.0-1.2) mg/dL AST 26 (5-34) Units/L ALT 25 (0-55) Units/L Alkaline Phosphatase 178 H (38-126) Units/L Troponin I (0-0.03) ng/mL Serum Total Protein 8.0 (6.0-8.3) g/dL Albumin 2.8 L (3.5-5.0) g/dL Globulin 5.2 H (2.4-3.5) g/dL Albumin/Globulin Ratio 0.5 L (1.1-2.2) TSH 4.857 H (0.350-4.840) mcIU/mL Ethyl Alcohol < 10 (0-10) mg/dL 12/11/16 12/11/16 Range/Units 10:57 10:59 WBC (4.3-11.1) K/mcL RBC (4.19-5.50) M/mcL Hgb (12.9-16.9) g/dL Hct (37.5-50.1) % MCV (83.0-100.0) fL MCH (28.0-33.3) pg MCHC (31.6-35.5) g/dL RDW (11.5-14.5) % Plt Count (140-400) K/mcL MPV (9.4-12.4) fL Immature Gran % (0-4) % Seg Neutrophils % % Lymphocytes % % Monocytes % % Eosinophils % % Basophils % % Neutrophils # (1.6-8.9) K/mcL Lymphocytes # (0.6-4.6) K/mcL Monocytes # (0.0-1.3) K/mcL Eosinophils # (0.0-0.6) K/mcL Basophils # (0.0-0.2) K/mcL Toxic Granulation (Not Present) Dohle Bodies (Not Present) PT (9.4-12.1) Seconds INR APTT (26.0-36.0) Seconds Sodium (136-145) mEq/L Potassium (3.5-4.5) mEq/L Chloride (98-109) mEq/L Carbon Dioxide (19-29) mEq/L BUN (8-26) mg/dL Creatinine (0.72-1.25) mg/dL Est GFR ( Amer) (> 60) Est GFR (Non-Af Amer) (> 60) BUN/Creatinine Ratio (6-26) Glucose (70-99) mg/dL Calculated Osmolality (280-300) Lactic Acid 2.4 H (0.5-2.2) mmol/L Calcium (8.6-10.8) mg/dL Phosphorus (2.3-4.7) mg/dL Magnesium (1.6-2.6) mg/dL Total Bilirubin (0.2-1.2) mg/dL Direct Bilirubin (0.0-0.5) mg/dL Indirect Bilirubin (0.0-1.2) mg/dL AST (5-34) Units/L ALT (0-55) Units/L Alkaline Phosphatase (38-126) Units/L Troponin I 0.03 (0-0.03) ng/mL Serum Total Protein (6.0-8.3) g/dL Albumin (3.5-5.0) g/dL Globulin (2.4-3.5) g/dL Albumin/Globulin Ratio (1.1-2.2) TSH (0.350-4.840) mcIU/mL Ethyl Alcohol (0-10) mg/dL - Radiology Data Radiology results reviewed: Yes I reviewed the patient's radiology results. Head CT 12/11/16 10:45 IMPRESSION: No acute intracranial abnormality. D/ / Alfred Wiggins MD / Alfred Wiggins MD Interpreting Provider: Alfred Wiggins MD Chest X-Ray 12/11/16 10:44 IMPRESSION: Mild congestion D/ / Alfred Wiggins MD / Alfred Wiggins MD Interpreting Provider: Alfred Wiggins MD Head CT 12/11/16 10:45 IMPRESSION: No acute intracranial abnormality. D/ / Alfred Wiggins MD / Alfred Wiggins MD Interpreting Provider: Alfred Wiggins MD - EKG Data EKG attestation: Yes I reviewed and interpreted this EKG. EKG results narrative: EKG shows sinus rhythm at a rate of 91 bpm, ME interval of 151, QRS duration 110 QTC 415 with a left axis. No ischemic changes noted on this EKG. EKG compared to previous on 10/22/15 no acute changes in comparison. TPA Checklist - LKW: 3-4.5 hrs Add. Warnings/Precautions Patient/family understanding: The patient/family members have been counseled and understood the risk, benefit , and alternatives of treatment.
[2016-12-11 11:15] LABS: Activated Partial Thrombo Time 32.3 Seconds (26.0-36.0)
[2016-12-11 11:20] LABS: Alanine Aminotransferase 25 Units/L (0-55); Albumin 2.8 g/dL (3.5-5.0); Albumin/Globulin Ratio 0.5 (1.1-2.2); Alkaline Phosphatase 178 Units/L (38-126); Aspartate Amino Transferase 26 Units/L (5-34); BUN/Creatinine Ratio 8 (6-26); Bilirubin,Direct 0.7 mg/dL (0.0-0.5); Bilirubin,Indirect 0.6 mg/dL (0.0-1.2); Bilirubin,Total 1.3 mg/dL (0.2-1.2); Blood Urea Nitrogen 30 mg/dL (8-26); Calcium 8.8 mg/dL (8.6-10.8); Carbon Dioxide 29 mEq/L (19-29); Chloride 95 mEq/L (98-109); Globulin 5.2 g/dL (2.4-3.5); Glucose 160 mg/dL (70-99); Osmolality,Calculated 290 (280-300); Potassium 4.3 mEq/L (3.5-4.5); Sodium 135 mEq/L (136-145); eGFR For African Americans 20 (> 60); eGFR For Non-African Americans 16 (> 60)
[2016-12-11 11:21] LABS: Ethanol < 10 mg/dL (0-10)
[2016-12-11 11:34] LABS: Magnesium 1.6 mg/dL (1.6-2.6); Phosphorous 2.9 mg/dL (2.3-4.7)
[2016-12-11 11:37] LABS: Dohle Bodies Present (Not Present); Toxic Granulation Present (Not Present)
[2016-12-11 11:40] LABS: Thyroid Stimulating Hormone 4.857 mcIU/mL (0.350-4.840)
--- NOTE | 2016-12-11 12:02 | Emergency Department Note ---
START Narrative - START START: I examined this patient and my medical decision-making was reviewed with the GREY PERCHER/PA/Advanced Practice Nurse/Resident Physician. I agree with the documented findings, disposition and treatment plan as described except to the extent set forth below. ED attending: Patient's emergency medicine resident Dr. ELLIOTT. Please see copy of this note for H&P evaluation and management and ED disposition. We both had independent clxa-hy-zyva time in contact with this patient. Briefly: A 51-year-old male dialysis dependent by EMS for altered mental status. By report patient arrived ambulatory awake and alert at his port access which was "infected and had pus. Was given a dose of vancomycin 1 g and had his full four-hour dialysis. Patient was sleeping during that time and when they woke him up and noted he was obtunded. Accu-Chek was 116 field systolic 178. Patient arrived here able to maintain his airway. With a GCS of 10. Patient had emergent fluid resuscitation imaging and lab work. EKG showed sinus rhythm at about 92 bpm with pulmonary pattern nonspecific ST-T changes noted acute changes. Labs showed he had a significant leukocytosis of over 16 with toxic granulations highly suggestive for sepsis. Patient had a lactic acid level elevated at 2.4. And an elevated transaminase. Patient maintained blood pressures but mentation remained about the same although he woke up a little bit. Head CT noncontrast interpreted without radiology initially showed no acute mass bleed or shift. With the patient is current presentation were thinking sepsis to severe sepsis. Patient will be admitted to the intensive care unit at [facility]. We have provided one-hour critical care services to this patient. Presentation to intensive this is currently in progress. Patient is critical at this time with prognosis unknown.
[2016-12-11] MEDS ORDERED: Clindamycin 600 MG/50 ML 600 MG/50 ML IV.SOLN IVPB ONE (12:04)
[2016-12-11 12:14] LABS: VBG HCO3 31.4 mEq/L (21-27); VBG PH 7.38 pH Units (7.32-7.42)
[2016-12-11 12:14] LABS: Triiodothyronine (T3) Free 1.05 pg/mL (1.71-3.71)
[2016-12-11] MEDS ORDERED: SODIUM CHLORIDE 0.9% IVPB ONE (12:21)
[2016-12-11] MEDS ORDERED: GENTAMICIN IVPB ONE (12:21)
[2016-12-11] MEDS ORDERED: Naloxone 0.4 MG/ML INJ IVP PRN (12:48)
--- NOTE | 2016-12-11 13:06 | Pulmonology History & Physical ---
Date of Encounter: 12/11/16 Time of Encounter: 12:59 Assessment and Plan (1) Sepsis Current visit: Yes Status: Acute Sepsis suspected as etiology of current circumstances, findings (and likely etiology of encephalopathy), line source most likely site of infection. IV ATB (Vancomycin, Gentamicin x 1). Remove HD catheter (spoke with [employer], IR long winder tender). Admit to ICU for close monitoring. DVT, ulcer prophylaxis. Resume home medications. Culture of blood pending. Qualifiers: Sepsis type: sepsis due to unspecified organism Qualified Code(s): A41.9 - Sepsis, unspecified organism Code(s): A41.9 - Sepsis, unspecified organism SNOMED Code(s): 47978229 History of Present Illness Chief complaint: Encephalopathy HPI: Mr. Martínez is a 51 year old male morbidly obese admitted form Hd unit ( completed 3.5 hours of HD) with decreased LOC, encephalopathy, ? fever, purulent drained from right SC permacath device hence blood cultures obtained at HD center dose of vancomycin IV administered in ER. Admitted to ICU for close monitoring given encephalopathy. Note acceptable BP, rhythm, airway control (severely encephalopathic, awakes with stimulation, readily back to sleep when not stimulated). Recent (September) placement of currrent HD catheter following removal of infected RUE AVF (MRSA bacteremia). Reported histories include ESRD, DM, HTN, HLD, ?PVD (heal ulcer right LE), ?CARLA , ?COPD (listed as non smoker but Duoneb listed as hiome medication). Unable to obtain ROS due to mental status, unable to verify accuracy of medical histories. Past Med Surg Social Fam HX - Past Medical History Medical history: arthritis, CHF, diabetes, dialysis, GERD, hypertension, osteoporosis, renal disease, venous stasis, other Psychiatric history: anxiety, depression, other - Past Surgical History Surgical History: cholecystectomy, vascular surgery - Social History Smoking Status: Never smoker Smokeless Tobacco Status: No Alcohol use: none, unknown Drug use: none, unknown - Family History Mother Living Status: Hx Family Cardiac Disorders: Yes Hx Family Endocrine Disorder: Yes Father Living Status: Hx Family Respiratory Disorders: Yes Hx Family Cancer: Yes Medications and Allergies Aspirin [Adult Low Dose Aspirin EC] 81 mg PO DAILY 08/27/15 [History] Gabapentin [Neurontin] 300 mg PO BID 04/23/16 [History] Losartan Potassium [Cozaar] 100 mg PO DAILY 04/23/16 [History] Metoprolol [Lopressor] 50 mg PO BID 04/23/16 [History] B Complex W-C No.20/Folic Acid [Nephrocaps Softgel] 1 mg PO DAILY 09/15/16 [ History] Oxygen 2 l NS AD 09/15/16 [History] Sennosides/Docusate Sodium [Senna Plus] 1 each PO BID 09/15/16 [History] Vancomycin [Vancocin] 500 each IV WD #3 vial 09/21/16 [Rx] Ipratropium/Albuterol Neb [Duoneb] 3 ml IH QIDR PRN inhsol 09/22/16 [Rx] amLODIPine [Norvasc] 5 mg PO DAILY tablet 09/22/16 [Rx] diazePAM [Valium] 5 mg PO Q6H PRN #20 tablet 09/22/16 [Rx] BuPROPion XL (24 HR) [Wellbutrin XL] 150 mg PO DAILY 12/11/16 [History] Cetirizine HCl [Zyrtec] 10 mg PO DAILY 12/11/16 [History] Citalopram Hydrobromide [Celexa] 40 mg PO DAILY 12/11/16 [History] Oxybutynin Chloride [Ditropan Xl] 10 mg PO DAILY 12/11/16 [History] Oxycodone HCl/Acetaminophen [Percocet 10-325 mg Tablet] 1 tab PO Q6H PRN [History] Allergies lorazepam [From Ativan] Adverse Reaction (Verified 09/15/16 15:21) Paranoia ROS unobtainable: due to mental status All Systems: A 10-system review of systems was performed and is negative for pertinent findings except as documented above in the HPI. Physical Examination General appearance: no acute distress, lethargic, other (Obese male) Eyes: nonicteric ENT: oropharynx moist Mallampati (class): 3 Auscultation: right: other (tunneled catheter right upper anterior chest, erythema site, minimal drainage, purulent material noted on overlying dressing) , bilateral: clear, diminished breath sounds Cardiovascular: regular rate and rhythm, murmur noted (systolic murmur) Gastrointestinal: normoactive bowel sounds, non-distended, other (central obesity) Extremities: no cyanosis, edema (Trace edema, small heal ulcer right foot, minimal drainage) non-focal exam, unable to assess due to mental status Results - Laboratory Findings CBC and BMP: 12/11/16 10:57 12/11/16 10:57 PT/INR, D-dimer PT 12.6 Seconds (9.4-12.1) H 12/11/16 10:57 Abnormal lab findings: Abnormal lab results WBC 16.7 K/mcL (4.3-11.1) H D 12/11/16 10:57 RBC 2.83 M/mcL (4.19-5.50) L 12/11/16 10:57 Hgb 9.1 g/dL (12.9-16.9) L 12/11/16 10:57 Hct 26.6 % (37.5-50.1) L 12/11/16 10:57 Neutrophils # 16.0 K/mcL (1.6-8.9) H 12/11/16 10:57 Lymphocytes # 0.2 K/mcL (0.6-4.6) L 12/11/16 10:57 Toxic Granulation Present (Not Present) A 12/11/16 10:57 Dohle Bodies Present (Not Present) A 12/11/16 10:57 PT 12.6 Seconds (9.4-12.1) H 12/11/16 10:57 VBG pCO2 53 mmHg (41-51) H 12/11/16 12:08 VBG HCO3 31.4 mEq/L (21-27) H 12/11/16 12:08 Sodium 135 mEq/L (136-145) L 12/11/16 10:57 Chloride 95 mEq/L (98-109) L 12/11/16 10:57 BUN 30 mg/dL (8-26) H D 12/11/16 10:57 Creatinine 3.93 mg/dL (0.72-1.25) H 12/11/16 10:57 Est GFR ( Amer) 20 (> 60) L 12/11/16 10:57 Est GFR (Non-Af Amer) 16 (> 60) L 12/11/16 10:57 Glucose 160 mg/dL (70-99) H 12/11/16 10:57 Lactic Acid 2.4 mmol/L (0.5-2.2) H 12/11/16 10:59 Total Bilirubin 1.3 mg/dL (0.2-1.2) H 12/11/16 10:57 Direct Bilirubin 0.7 mg/dL (0.0-0.5) H 12/11/16 10:57 Alkaline Phosphatase 178 Units/L (38-126) H 12/11/16 10:57 Albumin 2.8 g/dL (3.5-5.0) L 12/11/16 10:57 Globulin 5.2 g/dL (2.4-3.5) H 12/11/16 10:57 Albumin/Globulin Ratio 0.5 (1.1-2.2) L 12/11/16 10:57 TSH 4.857 mcIU/mL (0.350-4.840) H 12/11/16 10:57 Free T3 1.05 pg/mL (1.71-3.71) L 12/11/16 10:57
--- NOTE | 2016-12-11 13:45 | IR Procedure Note ---
Date of procedure: 12/11/16 Consent Obtained: Verbal consent, Written consent Timeout: Correct patient and procedure verified, Correct site verified, Time out performed, Skin prep completed Local anesthetic: Lidocaine 1% Indications: sepsis Procedure Performed: tunneled dialysis catheter removal Site/Technique: RIJ Results/Findings: purulence adherent to catheter and within subcutaneous tract Estimated blood loss (cc): 0 Complications: None; Tolerated procedure well Post Procedure Treatment Plan: bedrest x 1 hour with HOB > 30 degrees; tip sent for cx
[2016-12-11] MEDS: *HR* Heparin 5,000 UNIT/ML VIAL SQ SCH ×2 (15:34→21:02)
[2016-12-11] MEDS ORDERED: D5% in Water 1,000 ML IVC PRN (15:53)
[2016-12-11] MEDS ORDERED: *HR* Dextrose 50 % in Water (Syg) 50 ML SYRINGE IVP PRN (15:53)
[2016-12-11] MEDS ORDERED: Dextrose Gel 15 GM PO PRN ×2 (15:53)
[2016-12-11] MEDS: Insulin LISPRO 300 UNITS/3 ML VIAL SQ SCH ×2 (17:37→20:58)
[2016-12-11] MEDS: Acetaminophen 325 MG TABLET PO PRN (20:58)
[2016-12-11] MEDS: Famotidine 20 MG TABLET PO SCH (20:58)
[2016-12-12] MEDS ORDERED: Piperacillin/Tazobactam 3.375 GM in D5% in Water (Mini-Bag+) 100 ML IVPB SCH
[2016-12-12] MEDS ORDERED: Vancomycin 2,000 MG in D5% in Water 500 ML IVPB ONE (00:01)
[2016-12-12 03:59] LABS: Acinetobacter baumannii by PCR Not Detected (Not Detect); Candida albicans by PCR Not Detected (Not Detect); Candida glabrata by PCR Not Detected (Not Detect); Candida krusei by PCR Not Detected (Not Detect); Candida parapsilosis by PCR Not Detected (Not Detect); Candida tropicalis by PCR Not Detected (Not Detect); Enterococcus by PCR Not Detected (Not Detect); Escherichia coli by PCR Not Detected (Not Detect); Klebsiella oxytoca by PCR Not Detected (Not Detect); Klebsiella pneumoniae by PCR Not Detected (Not Detect); Pseudomonas aeruginosa by PCR Not Detected (Not Detect); Serratia marcescens by PCR Not Detected (Not Detect); Staphylococcus aureus by PCR ***DETECTED*** (Not Detect); Streptococcus agalactiae(B)PCR Not Detected (Not Detect); Streptococcus by PCR Not Detected (Not Detect); Streptococcus pneumoniae PCR Not Detected (Not Detect); Streptococcus pyogenes (A) PCR Not Detected (Not Detect); blaKPC Carbapenem-Resist Gene Not Detected (Not Detect); mecA Methicillin-Resist Gene ***DETECTED*** (Not Detect); vanA/B Vancomycin-Resist Genes Not Detected (Not Detect)
[2016-12-12] MEDS: Acetaminophen 325 MG TABLET PO PRN ×3 (05:43→23:13)
[2016-12-12] MEDS: *HR* Heparin 5,000 UNIT/ML VIAL SQ SCH ×3 (05:43→22:14)
[2016-12-12] MEDS ORDERED: Vancomycin 1,000 MG in D5% in Water 250 ML IVPB SCH (06:00)
[2016-12-12] MEDS ORDERED: Ondansetron 4 MG/2 ML VIAL IVP PRN (08:21)
--- NOTE | 2016-12-12 08:34 | Nephrology Consult Note ---
Date of Encounter: 12/12/16 Time of Encounter: 08:20 Assessment and Plan (1) ESRD on hemodialysis Current Visit: No Status: Acute Sepsis, encephalopathy, most likely related to HD catheter. On Gent, Vanco. No HD today, HD schedule TTS. History of Present Illness - Reason for Consult end stage renal disease - History of Present Illness Mr. Martínez is a 51 year old male with ESRD who dialyzes at [facility]. Last dialysis yesterday. Dialysis cath site noted by staff to have purulent drainage. Site was cultures, given Vancomycin 1 gram and completed full dialysis. At end of treatment staff noted obtunded. Sent to ER, fluid resuscitated, EKG sinus rhythm, Labs showed significant leukocytosis with toxic granulations suggestive for sepsis. Head CT negative for acute process. Admitted to the ICU for close monitoring. HD catheter removed by IR darlene. This morning alert, oriented. States does not feel good, admits nausea. States cannot recall yesterdays events. Past Med Surg Social Fam HX - Past Medical History Medical history: arthritis, CHF, diabetes, dialysis, GERD, hypertension, osteoporosis, renal disease, venous stasis, other Psychiatric history: anxiety, depression, other - Past Surgical History Surgical History: cholecystectomy, vascular surgery - Social History Smoking Status: Never smoker Smokeless Tobacco Status: No Alcohol use: none, unknown Drug use: none, unknown - Family History Mother History Unknown: Yes Adopted: No Living Status: Cause of : DM Hx Family Cardiac Disorders: Yes Hx Family Endocrine Disorder: Yes Father History Unknown: Yes Adopted: No Living Status: Cause of : CA Hx Family Respiratory Disorders: Yes Hx Family Cancer: Yes Medications and Allergies Aspirin [Adult Low Dose Aspirin EC] 81 mg PO DAILY 08/27/15 [History] Gabapentin [Neurontin] 300 mg PO TID 04/23/16 [History] Losartan Potassium [Cozaar] 100 mg PO DAILY 04/23/16 [History] Metoprolol [Lopressor] 50 mg PO BID 04/23/16 [History] B Complex W-C No.20/Folic Acid [Nephrocaps Softgel] 1 mg PO DAILY 09/15/16 [ History] Oxygen 2 l NS AD 09/15/16 [History] Sennosides/Docusate Sodium [Senna Plus] 1 tab PO BID 09/15/16 [History] Vancomycin [Vancocin] 500 each IV WD #3 vial 09/21/16 [Rx] Ipratropium/Albuterol Neb [Duoneb] 3 ml IH QIDR PRN inhsol 09/22/16 [Rx] amLODIPine [Norvasc] 5 mg PO DAILY tablet 09/22/16 [Rx] diazePAM [Valium] 5 mg PO Q6H PRN #20 tablet 09/22/16 [Rx] BuPROPion XL (24 HR) [Wellbutrin XL] 150 mg PO DAILY 12/11/16 [History] Cetirizine HCl [Zyrtec] 10 mg PO DAILY 12/11/16 [History] Citalopram Hydrobromide [Celexa] 40 mg PO DAILY 12/11/16 [History] Oxybutynin Chloride [Ditropan Xl] 10 mg PO DAILY 12/11/16 [History] Oxycodone HCl/Acetaminophen [Percocet 10-325 mg Tablet] 1 tab PO Q6H PRN [History] Allergies lorazepam [From Ativan] Adverse Reaction (Verified 09/15/16 15:21) Paranoia Review of Systems All Systems: reviewed and no additional remarkable complaints except as stated Exam - Vital Signs Vital signs: Initial Vital Signs Temp Pulse Resp BP Pulse Ox 101.7 F H 93 20 178/72 96 12/11/16 10:38 12/11/16 10:38 12/11/16 10:38 12/11/16 10:38 12/11/16 10:38 Vital Signs - Last 8 Hours Temp Pulse Resp BP Pulse Ox 12/12/16 06:00 99.6 F 81 16 120/54 92 12/12/16 05:00 75 16 119/60 93 12/12/16 04:00 66 14 117/54 99 12/12/16 03:32 66 12/12/16 03:20 99.9 F H 12/12/16 03:00 66 16 106/53 97 12/12/16 02:00 98.4 F 66 12 108/55 95 12/12/16 01:00 68 16 109/44 95 12/12/16 00:30 70 Intake and Output 12/11/16 12/12/16 12/12/16 23:59 07:59 15:59 Intake Total 720 / 720 600 / 600 Balance 720 / 720 600 / 600 Intake: IV Fluids 600 / 600 Zosyn 3.375 GM In 100 / 100 Dextrose 5% (Minibag+) 100 ML 100 ML @ 25 mls/hr IVPB Q12H [facility] Rx#: [id number] Vancocin 2,000 MG In 500 / 500 Dextrose 5% 500 ML @ 250 mls/hr IVPB ONCE ONE Rx#: [id number] Oral 720 / 720 Other: # Urine Diapers 0 0 Weight 110.1 kg Blood Glucose* 131 Patient Weight 12/12/16 23:59 Weight 110.1 kg - General Appearance General appearance: well-developed, well-nourished, appears started age, obese EENT: mucous membranes moist Neck: no JVD, no carotid bruit Respiratory: clear Cardiology: no edema, regular rate, regular rhythm Gastrointestinal: normoactive bowel sounds, no tenderness, no guarding Integumentary: warm and dry Neurologic: alert and oriented x3 Psychiatric: mood/affect appropriate, cooperative Results - Lab Results 12/11/16 10:57 12/11/16 10:57 Most recent lab results Calcium 8.8 mg/dL (8.6-10.8) 12/11/16 10:57 Phosphorus 2.9 mg/dL (2.3-4.7) 12/11/16 10:57 Magnesium 1.6 mg/dL (1.6-2.6) 12/11/16 10:57 Consult Discharge Plan - Plan
[2016-12-12] MEDS: Aspirin Enteric Coated 81 MG Tablet PO SCH (08:35)
[2016-12-12] MEDS: Famotidine 20 MG TABLET PO SCH (08:35)
[2016-12-12] MEDS: amLODIPine 5 MG TABLET PO SCH (08:36)
[2016-12-12] MEDS: Insulin LISPRO 300 UNITS/3 ML VIAL SQ SCH ×4 (08:36→20:27)
--- NOTE | 2016-12-12 09:03 | Pulmonology Progress Note ---
Date of Encounter: 12/12/16 Time of Encounter: 09:01 Assessment and Plan (1) Sepsis Current Visit: Yes Status: Acute Septic secondary to infected tunneled dialysis catheter. Catheter removed yesterday. Catheter has been sent for culture. Blood cultures positive for MRSA. Patient received vancomycin and gentamicin which will likely remain therapeutic until the patient next dialysis session. Patient has remained hemodynamically stable, encephalopathy is improving. We will repeat blood cultures today, if they remain persistently positive patient will need evaluation for endocarditis. We will discuss with nephrology, patient will need some type of temporary access to continue with hemodialysis. Qualifiers: Sepsis type: sepsis due to unspecified organism Qualified Code(s): A41.9 - Sepsis, unspecified organism (2) Infected venous access port Current Visit: Yes Status: Acute Qualifiers: Encounter type: initial encounter Qualified Code(s): T80.219A - Unspecified infection due to central venous catheter, initial encounter (3) Bacteremia Current Visit: No Status: Acute (4) ESRD on hemodialysis Current Visit: No Status: Acute (5) Myoclonic jerking Current Visit: No Status: Acute (6) Decubitus ulcer, heel, right, unstageable Current Visit: No Status: Chronic Subjective Principal diagnosis: Sepsis Interval history: Patient seen and examined at bedside. Patient states that he feels about the same as yesterday. Sinuses appeared to be improved. Fevers reported overnight. No other acute events noted. Objective PUL Vital signs: Last Vital Signs Temp 101.2 F H 12/12/16 07:45 Pulse 81 12/12/16 06:00 Resp 16 12/12/16 06:00 BP 120/54 12/12/16 06:00 Pulse Ox 92 12/12/16 06:00 General appearance: no acute distress ENT: oropharynx moist Effort: normal, other (Tunnel dialysis catheter is been removed from the right chest, mild surrounding erythema, no purulent drainage noted) Auscultation: bilateral: diminished breath sounds Cardiovascular: regular rate and rhythm Gastrointestinal: hypoactive bowel sounds, soft, non-tender, non-distended Extremities: no cyanosis, edema (trace) normal mental status, non-focal exam Results - Laboratory Findings CBC and BMP: 12/11/16 10:57 12/11/16 10:57 PT/INR, D-dimer PT 12.6 Seconds (9.4-12.1) H 12/11/16 10:57 Abnormal lab findings: Abnormal lab results WBC 16.7 K/mcL (4.3-11.1) H D 12/11/16 10:57 RBC 2.83 M/mcL (4.19-5.50) L 12/11/16 10:57 Hgb 9.1 g/dL (12.9-16.9) L 12/11/16 10:57 Hct 26.6 % (37.5-50.1) L 12/11/16 10:57 Neutrophils # 16.0 K/mcL (1.6-8.9) H 12/11/16 10:57 Lymphocytes # 0.2 K/mcL (0.6-4.6) L 12/11/16 10:57 Toxic Granulation Present (Not Present) A 12/11/16 10:57 Dohle Bodies Present (Not Present) A 12/11/16 10:57 PT 12.6 Seconds (9.4-12.1) H 12/11/16 10:57 VBG pCO2 53 mmHg (41-51) H 12/11/16 12:08 VBG HCO3 31.4 mEq/L (21-27) H 12/11/16 12:08 Sodium 135 mEq/L (136-145) L 12/11/16 10:57 Chloride 95 mEq/L (98-109) L 12/11/16 10:57 BUN 30 mg/dL (8-26) H D 12/11/16 10:57 Creatinine 3.93 mg/dL (0.72-1.25) H 12/11/16 10:57 Est GFR ( Amer) 20 (> 60) L 12/11/16 10:57 Est GFR (Non-Af Amer) 16 (> 60) L 12/11/16 10:57 Glucose 160 mg/dL (70-99) H 12/11/16 10:57 POC Glucose 119 (58-89) H 12/12/16 08:14 Total Bilirubin 1.3 mg/dL (0.2-1.2) H 12/11/16 10:57 Direct Bilirubin 0.7 mg/dL (0.0-0.5) H 12/11/16 10:57 Alkaline Phosphatase 178 Units/L (38-126) H 12/11/16 10:57 Albumin 2.8 g/dL (3.5-5.0) L 12/11/16 10:57 Globulin 5.2 g/dL (2.4-3.5) H 12/11/16 10:57 Albumin/Globulin Ratio 0.5 (1.1-2.2) L 12/11/16 10:57 TSH 4.857 mcIU/mL (0.350-4.840) H 12/11/16 10:57 Free T3 1.05 pg/mL (1.71-3.71) L 12/11/16 10:57 Staph aureus (PCR) DETECTED (Not Detect) A 12/11/16 11:19 mecA-Methicil Res Gene DETECTED (Not Detect) A 12/11/16 11:19 - Clinical Findings Intake & Output: Intake & Output 12/11/16 12/12/16 12/12/16 23:59 07:59 15:59 Intake Total 720 / 720 600 / 600 Balance 720 / 720 600 / 600 Weight 110.1 kg Consult Discharge Plan - Plan Referrals: NO,PCP [Primary Care Provider] -
[2016-12-12] MEDS ORDERED: Acetaminophen 325 MG TABLET PO PRN (23:15)
[2016-12-13 01:57] LABS: Basophils % 0.2 %; Eosinophils # 0.1 K/mcL (0.0-0.6); Eosinophils % 1.5 %; Hematocrit 23.3 % (37.5-50.1); Hemoglobin 7.7 g/dL (12.9-16.9); Immature Granulocytes % 0.4 % (0-4); Lymphocytes # 0.4 K/mcL (0.6-4.6); Lymphocytes % 6.4 %; Mean Platelet Volume 11.6 fL (9.4-12.4); Monocytes # 0.4 K/mcL (0.0-1.3); Monocytes % 7.5 %; Neutrophils # 4.6 K/mcL (1.6-8.9); Platelet Count 144 K/mcL (140-400); Red Blood Count 2.48 M/mcL (4.19-5.50); Red Cell Distribution Width 13.3 % (11.5-14.5)
[2016-12-13 02:16] LABS: Calcium 8.3 mg/dL (8.6-10.8); Magnesium 1.7 mg/dL (1.6-2.6); Potassium 5.1 mEq/L (3.5-4.5)
[2016-12-13] MEDS: *HR* Heparin 5,000 UNIT/ML VIAL SQ SCH ×3 (05:32→23:14)
[2016-12-13] MEDS ORDERED: Famotidine 20 MG TABLET PO SCH (06:30)
--- NOTE | 2016-12-13 07:49 | Pulmonology Progress Note ---
<Marina Baxter - Last Filed: 12/13/16 10:55> Date of Encounter: 12/13/16 Time of Encounter: 07:48 Assessment and Plan (1) Sepsis Current Visit: Yes Status: Acute Sepsis secondary to infected tunneled dialysis catheter. The catheter was removed on 12/11/16. Preliminary read on blood cultures were positive for MRSA. Patient is currently receiving vancomycin. Continue vancomycin. Patient remains hemodynamically stable and is alert and oriented. An echo was ordered to evaluate for endocarditis. Patient receives hemodialysis on Tuesday and Tuesday. Qualifiers: Sepsis type: sepsis due to unspecified organism Qualified Code(s): A41.9 - Sepsis, unspecified organism (2) Infected venous access port Current Visit: Yes Status: Acute Port was removed on 12/11/2016. Qualifiers: Encounter type: initial encounter Qualified Code(s): T80.219A - Unspecified infection due to central venous catheter, initial encounter (3) ESRD on hemodialysis Current Visit: No Status: Acute Patient receives dialysis on Tuesday and Tuesday. May possibly require some type of temporary access to continually hemodialysis. Subjective Principal diagnosis: Sepsis Objective PUL Vital signs: Last Vital Signs Temp 98.7 F 12/13/16 03:00 Pulse 59 12/13/16 06:00 Resp 14 12/13/16 06:00 BP 102/47 12/13/16 06:00 Pulse Ox 100 12/13/16 06:00 General appearance: no acute distress, alert Eyes: nonicteric ENT: oropharynx moist Neck: supple, no lymphadenopathy, no JVD Effort: normal Auscultation: bilateral: diminished breath sounds Cardiovascular: regular rate and rhythm Gastrointestinal: normoactive bowel sounds, soft, non-tender, non-distended Integumentary: other (Tunnel dialysis catheter was removed from right chest. No erythema noted. No purulent discharge.) Extremities: no cyanosis, no edema, no clubbing, pulses normal Musculoskeletal: no deformities normal mental status Results - Laboratory Findings CBC and BMP: 12/13/16 01:28 12/13/16 01:28 PT/INR, D-dimer PT 12.6 Seconds (9.4-12.1) H 12/11/16 10:57 Abnormal lab findings: Abnormal lab results RBC 2.48 M/mcL (4.19-5.50) L 12/13/16 01:28 Hgb 7.7 g/dL (12.9-16.9) L 12/13/16 01:28 Hct 23.3 % (37.5-50.1) L 12/13/16 01:28 Lymphocytes # 0.4 K/mcL (0.6-4.6) L 12/13/16 01:28 Toxic Granulation Present (Not Present) A 12/11/16 10:57 Dohle Bodies Present (Not Present) A 12/11/16 10:57 PT 12.6 Seconds (9.4-12.1) H 12/11/16 10:57 VBG pCO2 53 mmHg (41-51) H 12/11/16 12:08 VBG HCO3 31.4 mEq/L (21-27) H 12/11/16 12:08 Sodium 128 mEq/L (136-145) L D 12/13/16 01:28 Potassium 5.1 mEq/L (3.5-4.5) H 12/13/16 01:28 Chloride 91 mEq/L (98-109) L 12/13/16 01:28 BUN 61 mg/dL (8-26) H D 12/13/16 01:28 Creatinine 6.01 mg/dL (0.72-1.25) H D 12/13/16 01:28 Est GFR ( Amer) 12 (> 60) L 12/13/16 01:28 Est GFR (Non-Af Amer) 10 (> 60) L 12/13/16 01:28 Glucose 123 mg/dL (70-99) H 12/13/16 01:28 POC Glucose 109 (58-89) H 12/12/16 18:49 Calcium 8.3 mg/dL (8.6-10.8) L 12/13/16 01:28 Total Bilirubin 1.3 mg/dL (0.2-1.2) H 12/11/16 10:57 Direct Bilirubin 0.7 mg/dL (0.0-0.5) H 12/11/16 10:57 Alkaline Phosphatase 178 Units/L (38-126) H 12/11/16 10:57 Albumin 2.8 g/dL (3.5-5.0) L 12/11/16 10:57 Globulin 5.2 g/dL (2.4-3.5) H 12/11/16 10:57 Albumin/Globulin Ratio 0.5 (1.1-2.2) L 12/11/16 10:57 TSH 4.857 mcIU/mL (0.350-4.840) H 12/11/16 10:57 Free T3 1.05 pg/mL (1.71-3.71) L 12/11/16 10:57 Staph aureus (PCR) DETECTED (Not Detect) A 12/11/16 11:19 mecA-Methicil Res Gene DETECTED (Not Detect) A 12/11/16 11:19 - Microbiology Findings Microbiology Findings: Microbiology, Last 48 Hours 12/11/16 13:28 Catheter Tip Culture - Preliminary Intravenous or Arterial Cath Gram Positive Cocci 12/12/16 08:47 Blood Culture - Preliminary Peripheral Venipuncture Gram Positive Cocci - Clinical Findings Intake & Output: Intake & Output 12/12/16 12/12/16 12/13/16 15:59 23:59 07:59 Intake Total 240 / 240 Output Total 0 / 0 Balance 240 / 240 Weight 111.5 kg Consult Discharge Plan - Plan Referrals: NO,PCP [Primary Care Provider] - (patient is from [facility]) <Abdullahi Saeed - Last Filed: 12/13/16 13:22> Date of Encounter: 12/13/16 Objective PUL Vital signs: Last Vital Signs Temp 97.1 F L 12/13/16 07:45 Pulse 65 12/13/16 08:11 Resp 14 12/13/16 07:00 BP 112/43 12/13/16 07:00 Pulse Ox 100 12/13/16 07:00 Results - Laboratory Findings CBC and BMP: 12/13/16 01:28 12/13/16 01:28 PT/INR, D-dimer PT 12.6 Seconds (9.4-12.1) H 12/11/16 10:57 Abnormal lab findings: Abnormal lab results RBC 2.48 M/mcL (4.19-5.50) L 12/13/16 01:28 Hgb 7.7 g/dL (12.9-16.9) L 12/13/16 01:28 Hct 23.3 % (37.5-50.1) L 12/13/16 01:28 Lymphocytes # 0.4 K/mcL (0.6-4.6) L 12/13/16 01:28 Toxic Granulation Present (Not Present) A 12/11/16 10:57 Dohle Bodies Present (Not Present) A 12/11/16 10:57 PT 12.6 Seconds (9.4-12.1) H 12/11/16 10:57 VBG pCO2 53 mmHg (41-51) H 12/11/16 12:08 VBG HCO3 31.4 mEq/L (21-27) H 12/11/16 12:08 Sodium 128 mEq/L (136-145) L D 12/13/16 01:28 Potassium 5.1 mEq/L (3.5-4.5) H 12/13/16 01:28 Chloride 91 mEq/L (98-109) L 12/13/16 01:28 BUN 61 mg/dL (8-26) H D 12/13/16 01:28 Creatinine 6.01 mg/dL (0.72-1.25) H D 12/13/16 01:28 Est GFR ( Amer) 12 (> 60) L 12/13/16 01:28 Est GFR (Non-Af Amer) 10 (> 60) L 12/13/16 01:28 Glucose 123 mg/dL (70-99) H 12/13/16 01:28 POC Glucose 103 (58-89) H 12/13/16 07:51 Calcium 8.3 mg/dL (8.6-10.8) L 12/13/16 01:28 Total Bilirubin 1.3 mg/dL (0.2-1.2) H 12/11/16 10:57 Direct Bilirubin 0.7 mg/dL (0.0-0.5) H 12/11/16 10:57 Alkaline Phosphatase 178 Units/L (38-126) H 12/11/16 10:57 Albumin 2.8 g/dL (3.5-5.0) L 12/11/16 10:57 Globulin 5.2 g/dL (2.4-3.5) H 12/11/16 10:57 Albumin/Globulin Ratio 0.5 (1.1-2.2) L 12/11/16 10:57 TSH 4.857 mcIU/mL (0.350-4.840) H 12/11/16 10:57 Free T3 1.05 pg/mL (1.71-3.71) L 12/11/16 10:57 Staph aureus (PCR) DETECTED (Not Detect) A 12/11/16 11:19 mecA-Methicil Res Gene DETECTED (Not Detect) A 12/11/16 11:19 - Microbiology Findings Microbiology Findings: Microbiology, Last 48 Hours 12/11/16 13:28 Catheter Tip Culture - Preliminary Intravenous or Arterial Cath Gram Positive Cocci 12/12/16 08:47 Blood Culture - Preliminary Peripheral Venipuncture Gram Positive Cocci - Clinical Findings Intake & Output: Intake & Output 12/12/16 12/13/16 12/13/16 23:59 07:59 15:59 Intake Total 240 / 240 Output Total 0 / 0 Balance 240 / 240 Weight 111.5 kg - Attending Attestation I examined this patient and my medical decision-making was reviewed with the Resident Physician. I agree with the documented findings, disposition and treatment plan as described except to the extent set forth below. Patient seen and examined at bedside Labs, radiology, chart personally reviewed. All lines examined without evidence of infection. Management was reviewed during multidisciplinary critical care rounds. Neuropsych: Awake and alert no focal neuro deficit Pulm: acceptable oxygenation on baseline O2 requirement likely s/t to cardiogenic pulmonary edema Cards: Distributive shock s/t sepsis off vasopressor x 24 hours; MAP consistently >60 FEN-GI: diet advanced Renal: ESRD on dialysis may need catheter removal ID: likely MRSA bacteremia possibly from CLABSI ID consulted cont ABx repeat blood cultures ECHO pending Heme/Onc: DVT prophylaxis given Endo: glucose monitored Integ/MSK: Skin Care per routine ICU protocol CODE: Full Stable for transfer to medical telemetry unit for ongoing care
[2016-12-13] MEDS: Insulin LISPRO 300 UNITS/3 ML VIAL SQ SCH ×4 (08:46→21:43)
[2016-12-13] MEDS: Aspirin Enteric Coated 81 MG Tablet PO SCH (08:46)
[2016-12-13] MEDS: amLODIPine 5 MG TABLET PO SCH (08:46)
[2016-12-13] MEDS ORDERED: Dextrose Gel 15 GM PO PRN ×2 (08:51)
[2016-12-13] MEDS ORDERED: *HR* Dextrose 50 % in Water (Syg) 50 ML SYRINGE IVP PRN (08:51)
[2016-12-13] MEDS ORDERED: D5% in Water 1,000 ML IVC PRN (08:51)
[2016-12-13] MEDS ORDERED: Naloxone 0.4 MG/ML INJ IVP PRN (08:51)
[2016-12-13] MEDS ORDERED: Ondansetron 4 MG/2 ML VIAL IVP PRN (08:51)
[2016-12-13] MEDS ORDERED: amLODIPine 5 MG TABLET PO SCH (09:00)
[2016-12-13] MEDS ORDERED: Aspirin Enteric Coated 81 MG Tablet PO SCH (09:00)
--- NOTE | 2016-12-13 09:37 | Nephrology Progress Note ---
Date of Encounter: 12/13/16 Time of Encounter: 09:20 - Assessment and Plan (1) ESRD on hemodialysis Current Visit: No Status: Acute Sepsis, encephalopathy, most likely related to HD catheter. On Vanco. No HD today. Redraw blood cultures today. Temp cath placement tomorrow. Subjective Principal diagnosis: Sepsis Interval history: watching TV, states feeling much better, ate breakfast. Objective - Vital Signs Vital signs: Vital Signs Temp Pulse Resp BP Pulse Ox 12/13/16 08:11 65 12/13/16 07:45 97.1 F L 12/13/16 07:00 65 14 112/43 100 12/13/16 06:00 59 14 102/47 100 12/13/16 05:00 68 14 126/46 98 12/13/16 04:00 68 12 81/39 100 12/13/16 03:48 68 12/13/16 03:00 98.7 F 68 14 91/47 99 12/13/16 02:00 70 18 102/43 99 12/13/16 01:00 69 13 116/48 100 12/13/16 00:00 67 12 103/50 100 12/12/16 23:50 98.2 F 12/12/16 23:22 72 12/12/16 23:00 79 18 117/47 100 12/12/16 22:00 65 12 107/67 95 12/12/16 21:00 60 12 109/61 97 12/12/16 20:24 56 12/12/16 20:04 97.8 F 12/12/16 20:00 56 12 85/51 100 12/12/16 19:00 62 14 71/48 100 12/12/16 18:06 55 20 124/58 100 12/12/16 17:00 57 20 113/60 100 12/12/16 16:00 96.8 F L 64 20 92/36 98 12/12/16 15:00 59 20 97/53 99 12/12/16 14:01 57 20 98/51 95 12/12/16 13:00 61 20 108/57 95 12/12/16 12:00 99.2 F 64 20 94/57 98 12/12/16 11:00 62 20 88/54 98 12/12/16 10:00 67 16 89/57 94 Intake and Output 0712/13/16 12/13/16 23:59 07:59 15:59 Intake Total 240 / 240 Output Total 0 / 0 Balance 240 / 240 Intake: Oral 240 / 240 Output: Urine 0 / 0 Other: # Urine Diapers 0 Weight 111.5 kg Blood Glucose* 109 103 Patient Weight 12/13/16 23:59 Weight 111.5 kg - General Appearance General appearance: Present: well-developed, well-nourished, appears started age , obese EENT: Present: mucous membranes moist Neck: Present: no JVD Respiratory: Present: clear Cardiology: Present: no edema, regular rate, regular rhythm Gastrointestinal: Present: normoactive bowel sounds, no tenderness Integumentary: Present: warm and dry Neurologic: Present: alert and oriented x3 Psychiatric: Present: mood/affect appropriate, cooperative - Lab 12/13/16 01:28 12/13/16 01:28 Most recent lab results Calcium 8.3 mg/dL (8.6-10.8) L 12/13/16 01:28 Phosphorus 2.9 mg/dL (2.3-4.7) 12/11/16 10:57 Magnesium 1.7 mg/dL (1.6-2.6) 12/13/16 01:28 Consult Discharge Plan - Plan Referrals: NO,PCP [Primary Care Provider] -
[2016-12-13] MEDS: Acetaminophen 325 MG TABLET PO PRN ×2 (13:02→21:51)
--- NOTE | 2016-12-13 13:12 | Infectious Disease Consult ---
Date of Encounter: 12/13/16 Time of Encounter: 13:10 Assessment and Plan (1) Severe sepsis Status: Acute Assessment and plan: The patient had three SIRS criteria plus encephalopathy and lactic acidosis on admission. Likely secondary to bacteremia and infected temporary dialysis catheter. Improved. The patient has been afebrile. Tachycardia has improved. Leukocytosis , encephalopathy, and lactic acidosis have resolved. Blood cultures drawn 12/11/16 are positive 2/2 sets for MRSA. Repeat blood cultures drawn 12/12/16 are positive 2/2 sets for MRSA. Additional blood cultures ordered to be drawn this morning. (2) Bacteremia Status: Acute Assessment and plan: Causative organism MRSA. Source likely the temporary dialysis catheter, which has been removed. Uncomplicated - no evidence of septic emboli at this point and the patient does not have any indwelling hardware. Blood cultures drawn 12/11/16 are positive 2/2 sets peripherally for MRSA and 1/ 1 set drawn from the TDC. Repeat blood cultures drawn 12/12/16 are also positive 2/2 sets for MRSA (drawn after TDC removed). Additional blood cultures ordered to be drawn this morning x 2 sets. Get TTE. If negative, the patient may require DEBORAH. The patient has one major and one minor Modified Gentile's Criteria. No endocarditis stigmata noted on exam. Despite having the TDC removed, the patient continues to be bacteremic --> blood cultures drawn too soon after line removed vs. another nidus of infection. Continue Vancomycin IV. Pharmacy to dose. Goal trough ~15. Random vanc level drawn yesterday 34.6. Duration of treatment depends on the clinical picture. Monitor for drug toxicity and dose-adjust antibiotics. (3) Infected venous access port Status: Acute Assessment and plan: Per the medical record, the HD staff reported yellow drainage and erythema at the insertion site. Tip culture positive for MRSA. Blood culture drawn from the TDC positive 1/ set as well. TDC removed 12/11/16 by Interventional Radiology. No evidence of superficial infection at this time. Qualifiers: Encounter type: initial encounter Qualified Code(s): T80.219A - Unspecified infection due to central venous catheter, initial encounter (4) Flank pain Status: Resolved Assessment and plan: Etiology unclear. Concern for infectious etiology. Get CT of the abdomen and pelvis. (5) Encephalopathy Status: Resolved Assessment and plan: Likely secondary to sepsis. CT head negative. Resolved. (6) Elevated lactic acid level Status: Resolved Assessment and plan: Likely secondary to sepsis. Resolved. (7) ESRD on hemodialysis Status: Chronic Assessment and plan: Follows with Dr. Terrell. Nephrology consulted and following. (8) CHF (congestive heart failure) Status: Chronic Qualifiers: Congestive heart failure type: unspecified congestive heart failure type Congestive heart failure chronicity: chronic Qualified Code(s): I50.9 - Heart failure, unspecified Infectious Disease HPI - Data of Consult Patient: new to practice Consult date: 12/13/16 Requesting Physician: Sameer Anderson DO Primary Care Provider: PCP NO - Consult Narrative Reason for consult: MRSA Bacteremia History of present illness: Mr. Martínez is a 51 year old male with a past medical history of end-stage renal disease on hemodialysis Tuesday, , and Tuesday, CHF, diabetes, hypertension, venous stasis, and previous MRSA bacteremia in September 2016. The patient was admitted to the hospital December 11 for sepsis, altered mental status, and an infected temporary dialysis catheter. We are consulted December 13 for further evaluation and treatment recommendations regarding MRSA bacteremia. The patient is a 51-year-old male with past medical history as stated above. Apparently, the patient was previously hospitalized back in September 2016 was diagnosed with MRSA bacteremia with the source being a left upper extremity AV graft. During the hospitalization, the patient underwent removal of the graft and completed a 14 day course of IV antibiotics. Apparently, the patient began to have altered mental status on the day of admission while he was at dialysis. He is also noted to have some yellow discharge and redness at the temporary dialysis catheter site. He was since Satya transferred to the emergency department after he completed 3 and half hours of hemodialysis. Upon arrival, the patient was febrile and tachycardic. He had leukocytosis with neutrophilic predominance and lactic acidosis. A CT of the head was negative and a chest x- ray showed mild pulmonary vascular congestion. The patient had previously received vancomycin at the hemodialysis center and has received gentamicin in the emergency department. Blood cultures were obtained 2 sets. The patient was referred to interventional radiology and had a temporary dialysis catheter removed on the day of admission. He was started on empiric IV antibiotics and admitted to the hospital for further evaluation and treatment. Since admission, the patient has had marked improvement in his clinical status. His leukocytosis has resolved. He has been afebrile for 24 hours. Blood cultures obtained in the emergency department came back +2 out of 2 sets for MRSA. Repeat blood cultures were obtained December 12 after the temporary dialysis catheter was removed and are again +2 out of 2 sets. Currently, the patient is on IV vancomycin only. We been asked to evaluate and make further recommendations. During my exam today, the patient has difficulty relaying the events leading up to his hospitalization. He states that as far as he knows he had been feeling poorly for a couple days prior to admission, but he doesn't rub or anything about being at dialysis Center. He does remember having some low-grade fevers and rigors with chills prior to admission. He does not recall having a headache or neck pain. He denies any congestion, earache, or sore throat. He denies any chest pain, shortness of breath, or cough. He does report a poor appetite leading up to this hospitalization, but denies any nausea, vomiting, diarrhea, or constipation. He denies any abdominal pain. The patient has chronic urinary incontinence secondary to a previous urological procedure. He denies any changes in the odor or color of his urine that he is aware of. He complains of right flank pain that is new since admission. He also complains of chronic lower back pain secondary to herniated disc. He has a chronic stage II ulcer to the right heel that he states is improving and he has not noticed any drainage or foul odor or regression of the wound. The patient denies any oral thrush or any skin lesions. He denies any visual changes. CC: Sameer Anderson, DO Past Med Surg Social Fam HX - Past Medical History Attestation: Yes The following information was validated with the patient. 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) Psychiatric history: anxiety, depression, other - Past Surgical History Surgical History: cholecystectomy, vascular surgery (AV graft removal LUE 2016 d/t MRSA), other (Penis surgery) - Social History Smoking Status: Never smoker Smokeless Tobacco Status: No Alcohol use: none, unknown Drug use: none, unknown Occupational status: unemployed Current living situation: [facility] Activity Level: Uses cane/walker Recent Out of Country Travel Within the Last 8 Weeks: No Exposure or Possible Exposure to Illness During Travel: No - Family History Mother History Unknown: Yes Adopted: No Living Status: Cause of : DM Hx Family Cardiac Disorders: Yes Hx Family Endocrine Disorder: Yes Father History Unknown: Yes Adopted: No Living Status: Cause of : CA Hx Family Respiratory Disorders: Yes Hx Family Cancer: Yes Infectious Disease-CN:Meds Aspirin [Adult Low Dose Aspirin EC] 81 mg PO DAILY 08/27/15 [History] Gabapentin [Neurontin] 300 mg PO TID 04/23/16 [History] Losartan Potassium [Cozaar] 100 mg PO DAILY 04/23/16 [History] Metoprolol [Lopressor] 50 mg PO BID 04/23/16 [History] B Complex W-C No.20/Folic Acid [Nephrocaps Softgel] 1 mg PO DAILY 09/15/16 [ History] Oxygen 2 l NS AD 09/15/16 [History] Sennosides/Docusate Sodium [Senna Plus] 1 tab PO BID 09/15/16 [History] Vancomycin [Vancocin] 500 each IV WD #3 vial 09/21/16 [Rx] Ipratropium/Albuterol Neb [Duoneb] 3 ml IH QIDR PRN inhsol 09/22/16 [Rx] amLODIPine [Norvasc] 5 mg PO DAILY tablet 09/22/16 [Rx] diazePAM [Valium] 5 mg PO Q6H PRN #20 tablet 09/22/16 [Rx] BuPROPion XL (24 HR) [Wellbutrin XL] 150 mg PO DAILY 12/11/16 [History] Cetirizine HCl [Zyrtec] 10 mg PO DAILY 12/11/16 [History] Citalopram Hydrobromide [Celexa] 40 mg PO DAILY 12/11/16 [History] Oxybutynin Chloride [Ditropan Xl] 10 mg PO DAILY 12/11/16 [History] Oxycodone HCl/Acetaminophen [Percocet 10-325 mg Tablet] 1 tab PO Q6H PRN [History] Allergies lorazepam [From Ativan] Adverse Reaction (Verified 09/15/16 15:21) Paranoia All systems: reviewed and no additional remarkable complaints except as stated Exam - Constitutional Vitals: Temp Pulse Resp BP Pulse Ox 97.7 F 63 16 117/66 98 12/13/16 10:28 12/13/16 10:28 12/13/16 10:28 12/13/16 10:28 12/13/16 10:28 General appearance: cooperative, no acute distress, obese - Head Head exam: Present: atraumatic, normal inspection, normocephalic - Eye Eye exam: Present: EOMI, normal appearance, PERRL Pupils: Present: normal accommodation Additional comments: No subconjunctival hemorrhage noted. - ENT ENT exam: Present: mucous membranes moist - Neck Neck exam: Present: normal inspection - Respiratory Respiratory exam: Present: CTAB. Absent: rales, respiratory distress, rhonchi, wheezes - Cardiovascular Cardiovascular exam: Present: RRR, +S1, +S2 - GI/Abdominal GI/Abdominal exam: Present: distended (obese), normal bowel sounds, soft. Absent: tenderness - Extremities Exam Extremities exam: Absent: joint swelling, pedal edema, tenderness Additional comments: Stage II pressure ulcer noted to the posterior heel. 50% slough/50% granulation tissue. No drainage or foul odor or erythema noted. Non-tender. No endocarditis stigmata noted. Surgical site noted to the LUE is well-healed, non-tender, and non- erythematous. No fluctuance noted. - Back Exam Back exam: Present: CVA tenderness (R). Absent: rash noted, vertebral tenderness - Neurological Exam Neurological exam: Present: alert, oriented X3, no focal deficits - Psychiatric Psychiatric exam: Present: normal affect, normal mood - Skin Skin exam: Present: dry, intact, normal color, warm - Additional findings Additional findings: Previous temporary dialysis catheter site without erythema, warmth, or tenderness noted. Dressing C/D/I. Infectious Disease CN: Results - Labs CBC & Chem 7: 12/14/16 08:05 12/14/16 08:05 Cultures: Cultures 12/12/16 08:47 Blood Culture - Preliminary Peripheral Venipuncture Gram Positive Cocci 12/11/16 13:28 Catheter Tip Culture - Preliminary Intravenous or Arterial Cath Gram Positive Cocci 12/12/16 08:47 Blood Culture - Preliminary Peripheral Venipuncture Gram Positive Cocci Consult Discharge Plan - Plan Referrals: NO,PCP [Primary Care Provider] - (patient is from [facility]) - Attending Attestation I examined this patient and my medical decision-making was reviewed with the Resident Physician. I agree with the documented findings, disposition and treatment plan as described except to the extent set forth below. This is an addendum to original report dictated by Macie zarate CNP. Please refer to his note for full detail. Next Patient is 49-year-old gentleman with incisional disease on hemodialysis with a failed fistula in the left upper extremity in the past removed by Dr. Suárez who has a port for dialysis in the right upper chest that he's had for about 3 months. Patient came in complaining of fevers chills and sepsis like picture. Patient was evaluated noted to have severe sepsis and had bacteremia with MRSA. Source of bacteremia was considered to be the port because it was positive. Port was removed and we were asked to evaluate the patient and make further recommendations. Likely patient tells me feeling much better. Patient was getting an echo done as I was examining him. Repeat cultures have been noted. Patient has been started on vancomycin. At this point agree with current antibiotic treatment. Repeat cultures. Port has been removed. Echo has been done. The patient will probably need a DEBORAH. Patient also having some right flank pain so CT scan has been ordered. Monitor labs and for drug toxicity. Duration of treatment depends on the DEBORAH findings and the CAT scan finding.
--- NOTE | 2016-12-13 13:46 | Electrocardiograph Report ---
[place] [id number] Test Date: 2016-12-11 Pat Name: Germán Martínez Department: 104 Room: 2A Gender: M [employer]ur[employer]acer: : 1965 Requested By: Travis Vogel Order Number: [id number] Reading MD: Anshu Huynh MD Measurements Intervals [place] Rate: 91 P: 46 IL: 151 QRS: -59 QRSD: 110 T: 70 QT: 366 QTc: 415 Interpretive Statements SINUS RHYTHM PATTERN CONSISTENT WITH PULMONARY DISEASE LEFT ANTERIOR FASCICULAR BLOCK Poor R wave progression Electronically Signed On 12-13-2016 13:44:45 EDT by Anshu Huynh MD
[2016-12-14] MEDS: *HR* Heparin 5,000 UNIT/ML VIAL SQ SCH ×3 (07:53→22:50)
[2016-12-14] MEDS: Famotidine 20 MG TABLET PO SCH (07:54)
[2016-12-14] MEDS: Insulin LISPRO 300 UNITS/3 ML VIAL SQ SCH ×4 (07:57→22:50)
--- NOTE | 2016-12-14 08:15 | Nephrology Progress Note ---
Date of Encounter: 12/14/16 Time of Encounter: 08:13 - Assessment and Plan (1) ESRD on hemodialysis Current Visit: No Status: Chronic Patient has MRSA from a tunnel dialysis catheter. The catheter is been removed. He will require placement of a temporary dialysis catheter. He will undergo dialysis today. We will continue monitor blood cultures. He is currently on vancomycin. Once his blood cultures are cleared we can have a new tunnel dialysis catheter placed. (2) Non-compliance with renal dialysis Current Visit: No Status: Acute (3) Infected venous access port Current Visit: Yes Status: Acute Qualifiers: Encounter type: initial encounter Qualified Code(s): T80.219A - Unspecified infection due to central venous catheter, initial encounter Subjective Principal diagnosis: Sepsis Interval history: The patient reports she is feeling better. His PermCath is been removed. Blood cultures from December 11 and December 12 remain positive. Catheter tip is growing MRSA. Patient will require placement of a temporary dialysis catheter. Once blood cultures are cleared we can then replace the tunnel dialysis catheter. He will undergo dialysis today. Objective - Vital Signs Vital signs: Vital Signs Temp Pulse Resp BP Pulse Ox 12/14/16 07:36 97.7 F 59 19 125/80 96 12/14/16 04:54 97.7 F 65 17 141/87 96 12/13/16 23:33 97.9 F 72 17 163/75 93 12/13/16 20:24 98.6 F 69 17 125/73 96 12/13/16 16:06 98.2 F 63 16 112/51 95 12/13/16 10:28 97.7 F 63 16 117/66 98 Intake and Output 12/13/16 12/14/16 12/14/16 23:59 07:59 15:59 Intake Total 420 / 420 Balance 420 / 420 Intake: Oral 420 / 420 Other: Meal WATER WITH MEDS Percent of Meal Consumed 10% Weight 110 kg Blood Glucose* 124 103 Patient Weight 12/14/16 23:59 Weight 110 kg - General Appearance Exam: Patient is alert and oriented. He is in no acute distress. Lung sounds otherwise clear. Heart regular rate and rhythm with a 2/6 soft ejection murmur. Abdomen is benign. There is no lower extremity swelling. Tunnel dialysis catheter is been removed from the right chest. - Lab 12/13/16 01:28 12/13/16 01:28 Most recent lab results Calcium 8.3 mg/dL (8.6-10.8) L 12/13/16 01:28 Phosphorus 2.9 mg/dL (2.3-4.7) 12/11/16 10:57 Magnesium 1.7 mg/dL (1.6-2.6) 12/13/16 01:28 Consult Discharge Plan - Plan Referrals: NO,PCP [Primary Care Provider] - (patient is from [facility])
[2016-12-14] MEDS ORDERED: 0.9 % Sodium Chloride 250 ML IVC PRN (08:16)
[2016-12-14] MEDS ORDERED: Darbepoetin 100 MCG/0.5 ML SYRINGE SQ SCH (08:30)
[2016-12-14 08:45] LABS: Basophils % 0.2 %; Eosinophils # 0.4 K/mcL (0.0-0.6); Eosinophils % 8.5 %; Hematocrit 24.2 % (37.5-50.1); Immature Granulocytes % 0.4 % (0-4); Lymphocytes # 0.8 K/mcL (0.6-4.6); Lymphocytes % 16.2 %; Mean Corpuscular HGB Conc 33.1 g/dL (31.6-35.5); Mean Corpuscular Hemoglobin 31.1 pg (28.0-33.3); Mean Corpuscular Volume 94.2 fL (83.0-100.0); Mean Platelet Volume 11.4 fL (9.4-12.4); Monocytes # 0.6 K/mcL (0.0-1.3); Monocytes % 11.3 %; Neutrophils # 3.2 K/mcL (1.6-8.9); Platelet Count 164 K/mcL (140-400); Red Blood Count 2.57 M/mcL (4.19-5.50); Red Cell Distribution Width 13.5 % (11.5-14.5); Segmented Neutrophils % 63.4 %
[2016-12-14 08:50] LABS: Prothrombin Time 10.5 Seconds (9.4-12.1)
[2016-12-14 08:58] LABS: Calcium 8.6 mg/dL (8.6-10.8); Potassium 5.2 mEq/L (3.5-4.5)
[2016-12-14] MEDS ORDERED: Aspirin Enteric Coated 81 MG Tablet PO SCH (09:00)
[2016-12-14] MEDS: amLODIPine 5 MG TABLET PO SCH (09:47)
--- NOTE | 2016-12-14 13:19 | Infectious Disease Progress No ---
Date of Encounter: 12/14/16 Time of Encounter: 13:15 - Assessment and Plan (1) Severe sepsis Current Visit: Yes Status: Acute The patient had three SIRS criteria plus encephalopathy and lactic acidosis on admission. Likely secondary to bacteremia and infected temporary dialysis catheter. Improved. The patient has been afebrile. Tachycardia has improved. Leukocytosis , encephalopathy, and lactic acidosis have resolved. Blood cultures drawn 12/11/16 are positive 2/2 sets for MRSA. Repeat blood cultures drawn 12/12/16 are positive 2/2 sets for MRSA. Additional blood cultures drawn 12/13/16 are pending x 2 sets. (2) Bacteremia Current Visit: No Status: Acute Causative organism MRSA. Source likely the temporary dialysis catheter, which has been removed. Uncomplicated - no evidence of septic emboli at this point and the patient does not have any indwelling hardware. Blood cultures drawn 12/11/16 are positive 2/2 sets peripherally for MRSA and 1/ 1 set drawn from the TDC. Repeat blood cultures drawn 12/12/16 are also positive 2/2 sets for MRSA (drawn after TDC removed). Additional blood cultures drawn 12/13/16 are pending x 2 sets. TTE negative for valvular vegetations. Get DEBORAH. The patient has one major and one minor Modified Gentile's Criteria. No endocarditis stigmata noted on exam. Despite having the TDC removed, the patient continues to be bacteremic --> blood cultures drawn too soon after line removed vs. another nidus of infection. Await repeat blood cultures. Continue Vancomycin IV. Pharmacy to dose. Goal trough ~15. Random vanc level drawn today 28.8. Dose discussed with Janee Britt. Duration of treatment depends on the clinical picture. Monitor for drug toxicity and dose-adjust antibiotics. (3) Infected venous access port Current Visit: Yes Status: Acute Per the medical record, the HD staff reported yellow drainage and erythema at the insertion site. Tip culture positive for MRSA. Blood culture drawn from the TDC positive 1/ set as well. TDC removed 12/11/16 by Interventional Radiology. No evidence of superficial infection at this time. Qualifiers: Encounter type: initial encounter Qualified Code(s): T80.219A - Unspecified infection due to central venous catheter, initial encounter (4) Flank pain Current Visit: Yes Status: Resolved Etiology unclear. Resolved. Hold off on CT scan for now. (5) Encephalopathy Current Visit: Yes Status: Resolved Likely secondary to sepsis. CT head negative. Resolved. (6) Elevated lactic acid level Current Visit: Yes Status: Resolved Likely secondary to sepsis. Resolved. (7) ESRD on hemodialysis Current Visit: No Status: Chronic Follows with Dr. Terrell. Nephrology consulted and following. (8) CHF (congestive heart failure) Current Visit: No Status: Chronic Qualifiers: Congestive heart failure type: unspecified congestive heart failure type Congestive heart failure chronicity: chronic Qualified Code(s): I50.9 - Heart failure, unspecified - Subjective Interval history: Patient seen and examined. No acute events noted overnight. Patient resting in bed. States he is tired, but feels a little better today. Denies fevers, chills , or rigors. Denies chest pain, shortness of breath, or cough. Denies nausea, vomiting, or diarrhea. States he has not had a BM in a few days, but the primary team has started a bowel regimen. Denies abdominal pain. States his appetite is okay. States his right flank pain is resolved this morning. Denies oral thrush or new skin lesions. Infect Dis PN-Objective Data - Labs CBC & Chem 7: 12/14/16 08:05 12/14/16 08:05 Labs: Laboratory Results - last 24 hr 12/14/16 12/14/16 12/14/16 08:05 08:05 08:05 WBC 5.1 RBC 2.57 L Hgb 8.0 L Hct 24.2 L MCV 94.2 MCH 31.1 MCHC 33.1 RDW 13.5 Plt Count 164 MPV 11.4 Immature Gran % 0.4 Seg Neutrophils % 63.4 Lymphocytes % 16.2 Monocytes % 11.3 Eosinophils % 8.5 Basophils % 0.2 Neutrophils # 3.2 Lymphocytes # 0.8 Monocytes # 0.6 Eosinophils # 0.4 Basophils # 0.0 PT 10.5 INR 1.0 Sodium 130 L Potassium 5.2 H Chloride 90 L Carbon Dioxide 27 BUN 80 H D Creatinine 7.49 H Est GFR ( Amer) 9 L Est GFR (Non-Af Amer) 8 L BUN/Creatinine Ratio 11 Glucose 108 H Calculated Osmolality 295 Calcium 8.6 Magnesium 2.0 Iron 135 % Saturation 88 H Transferrin 110 L Random Vancomycin 12/14/16 08:05 WBC RBC Hgb Hct MCV MCH MCHC RDW Plt Count MPV Immature Gran % Seg Neutrophils % Lymphocytes % Monocytes % Eosinophils % Basophils % Neutrophils # Lymphocytes # Monocytes # Eosinophils # Basophils # PT INR Sodium Potassium Chloride Carbon Dioxide BUN Creatinine Est GFR ( Amer) Est GFR (Non-Af Amer) BUN/Creatinine Ratio Glucose Calculated Osmolality Calcium Magnesium Iron % Saturation Transferrin Random Vancomycin 28.8 Cultures: Cultures 12/12/16 08:47 Blood Culture - Preliminary Peripheral Venipuncture Gram Positive Cocci 12/11/16 13:28 Catheter Tip Culture - Final Intravenous or Arterial Cath Methicillin Resistant S.aureus 12/12/16 08:47 Blood Culture - Preliminary Peripheral Venipuncture Gram Positive Cocci Exam - Constitutional Vitals: Temp Pulse Resp BP Pulse Ox 97.5 F L 58 16 120/76 97 12/14/16 10:51 12/14/16 10:51 12/14/16 10:51 12/14/16 10:51 12/14/16 10:51 General appearance: cooperative, no acute distress, obese - Head Head exam: Present: atraumatic, normal inspection, normocephalic - Eye Eye exam: Present: EOMI, normal appearance, PERRL Pupils: Present: normal accommodation Additional comments: No subconjunctival hemorrhage noted. - ENT ENT exam: Present: mucous membranes moist - Neck Neck exam: Present: normal inspection - Respiratory Respiratory exam: Present: CTAB. Absent: rales, respiratory distress, rhonchi, wheezes - Cardiovascular Cardiovascular exam: Present: RRR, +S1, +S2 - GI/Abdominal GI/Abdominal exam: Present: distended (obese), normal bowel sounds, soft. Absent: tenderness - Extremities Exam Extremities exam: Absent: joint swelling, pedal edema, tenderness Additional comments: Right foot dressing C/D/I. - Back Exam Back exam: Present: normal inspection. Absent: paraspinal tenderness, vertebral tenderness - Neurological Exam Neurological exam: Present: alert, oriented X3, no focal deficits - Psychiatric Psychiatric exam: Present: normal affect, normal mood - Skin Skin exam: Present: dry, intact, normal color, warm Additional comments: No endocarditis stigmata noted. - Additional findings Additional findings: Dressing to the right upper chest with transparent dressing C/D/I. Consult Discharge Plan - Plan Referrals: NO,PCP [Primary Care Provider] - (patient is from [facility]) - Attending Attestation I examined this patient and my medical decision-making was reviewed with the Resident Physician. I agree with the documented findings, disposition and treatment plan as described except to the extent set forth below.
[2016-12-14] MEDS ORDERED: *HR* Heparin 5,000 UNIT/ML VIAL ONE (13:20)
--- NOTE | 2016-12-14 15:08 | Internal Med Progress Note ---
<Ramila Bush - Last Filed: 12/14/16 17:00> Date of Encounter: 12/14/16 Time of Encounter: 09:45 - Assessment and plan (1) Severe sepsis Current Visit: Yes Status: Acute Assessment and plan: -Patient had 3 SIRS criteria and developed encephalopathy with lactic acidosis admission -This is most likely due to bacteremia from an infected temporary dialysis catheter -patient has improved, is stable, afebrile. Lactic acidosis resolved -Encephalopathy is resolved -Blood cultures (12/11/16) are positive for MRSA. -Catheter culture (12/11/16) positive for MRSA. -Blood cultures (12/12/16) are positive for GPC -head CT- no acute abnormality Plan -Additional blood cultures drawn 12/13/16 are pending x 2 sets. -Continue close monitoring patient vitals and labs (2) Bacteremia Current Visit: No Status: Acute Assessment and plan: -Most likely due to infected temporary dialysis catheter -IR removed catheter -Blood cultures (12/11/16) are positive for MRSA. -Catheter culture (12/11/16) positive for MRSA. -Blood cultures (12/12/16) are positive for GPC -ID consulted- their input is appreciated -Echo TTE- negative for valvular vegetations. LVEF 60%. Moderate diastolic dysfunction of left ventricle with elevated filling pressures. Mild mitral tricuspid regurgitation. -chest x-ray-out congestion -patient is stable, WBC 5.1 plan continue vancomycin IV. Pharmacy will dose. Goal trough 15 will continue to monitor patient vitals closely repeat blood cultures pending (3) ESRD on hemodialysis Current Visit: No Status: Chronic Assessment and plan: Patient has end-stage renal disease on dialysis Tuesday, , Tuesday nephrology managing- appreciated a new dialysis catheter will be placed once cultures are cleared Plan received dialysis today through temporary dialysis catheter will continue to monitor labs (4) DVT prophylaxis Current Visit: No Status: Acute Assessment and plan: Heparin - Subjective Interval history: Laying in bed comfortably. He has no complaints today he denies fever, chills, confusion, chest pain, dyspnea, wheezing, nausea, vomiting, diarrhea, abdominal pain - Constitutional Vitals: Temp Pulse Resp BP Pulse Ox 97.5 F L 58 16 120/76 97 12/14/16 10:51 12/14/16 10:51 12/14/16 10:51 12/14/16 10:51 12/14/16 10:51 Exam: Gen.: Vitals noted. No acute distress. AAOx3 HEENT: PERRL oropharynx clear, Normocephalic, atraumatic Neck: Supple. No adenopathy. Cardiac: RRR, no murmur, +S1/S2 Pulmonary: CTA bilaterally, no wheezes, rales or rhonchi, equal chest expansion Abdomen: soft, nontender, Bowel sounds noted, no guarding Extremities: nontender calf, no cyanosis or clubbing Neuro: A&Ox3, moves all extremities, no focal deficits Psych: Appropriate mood and behavior Internal Medicine: Result - Labs CBC & Chem 7: 12/14/16 08:05 12/14/16 08:05 Labs: Short CBC 12/14/16 Range/Units 08:05 WBC 5.1 (4.3-11.1) K/mcL Hgb 8.0 L (12.9-16.9) g/dL Hct 24.2 L (37.5-50.1) % Plt Count 164 (140-400) K/mcL Neutrophils # 3.2 (1.6-8.9) K/mcL BMP 12/14/16 08:05 Sodium 130 L Potassium 5.2 H Chloride 90 L Carbon Dioxide 27 BUN 80 H D Creatinine 7.49 H Glucose 108 H Calcium 8.6 - ABG Interpretation ABG results: PT/INR, D-dimer PT 10.5 Seconds (9.4-12.1) 12/14/16 08:05 - Impressions Impressions Guidance Needle Placement Ultrasound 12/14/16 00:00 IMPRESSION: Successful ultrasound guided non-tunneled catheter placement. D/ / Oneil Tong MD / Oneil Tong MD Interpreting Provider: Oneil Tong MD Insertion Non-Tunneled Catheter 12/14/16 00:00 IMPRESSION: Successful ultrasound guided non-tunneled catheter placement. D/ / Oneil Tong MD / Oneil Tong MD Interpreting Provider: Oneil Tong MD X-Ray 12/14/16 13:30 IMPRESSION: Right-sided dialysis catheter tips at L2-3, likely within the IVC. D/ / Olvin Hull MD / Olvin Hull MD Interpreting Provider: Olvin Hull MD Consult Discharge Plan - Plan Referrals: NO,PCP [Primary Care Provider] - (patient is from [facility]) <Ender Gandhi - Last Filed: 12/14/16 18:08> Date of Encounter: 12/14/16 - Constitutional Vitals: Temp Pulse Resp BP Pulse Ox 97.6 F 60 18 176/91 96 12/14/16 16:38 12/14/16 16:38 12/14/16 16:38 12/14/16 16:38 12/14/16 16:38 Internal Medicine: Result - Labs CBC & Chem 7: 12/14/16 08:05 12/14/16 08:05 Labs: Short CBC 12/14/16 Range/Units 08:05 WBC 5.1 (4.3-11.1) K/mcL Hgb 8.0 L (12.9-16.9) g/dL Hct 24.2 L (37.5-50.1) % Plt Count 164 (140-400) K/mcL Neutrophils # 3.2 (1.6-8.9) K/mcL BMP 12/14/16 08:05 Sodium 130 L Potassium 5.2 H Chloride 90 L Carbon Dioxide 27 BUN 80 H D Creatinine 7.49 H Glucose 108 H Calcium 8.6 - ABG Interpretation ABG results: PT/INR, D-dimer PT 10.5 Seconds (9.4-12.1) 12/14/16 08:05 - Impressions Impressions Guidance Needle Placement Ultrasound 12/14/16 00:00 IMPRESSION: Successful ultrasound guided non-tunneled catheter placement. D/ / Oneil Tong MD / Oneil Tong MD Interpreting Provider: Oneil Tong MD Insertion Non-Tunneled Catheter 12/14/16 00:00 IMPRESSION: Successful ultrasound guided non-tunneled catheter placement. D/ / Oneil Tong MD / Oneil Tong MD Interpreting Provider: Oneil Tong MD X-Ray 12/14/16 13:30 IMPRESSION: Right-sided dialysis catheter tips at L2-3, likely within the IVC. D/ / Olvin Hull MD / Olvin Hull MD Interpreting Provider: Olvin Hull MD - Attending Attestation I examined this patient and my medical decision-making was reviewed with the Resident Physician. I agree with the documented findings, disposition and treatment plan as described except to the extent set forth below.
[2016-12-14 19:39] LABS: blaKPC Carbapenem-Resist Gene Not Detected (Not Detect); mecA Methicillin-Resist Gene ***DETECTED*** (Not Detect); vanA/B Vancomycin-Resist Genes Not Detected (Not Detect)
[2016-12-14 19:40] LABS: Acinetobacter baumannii by PCR Not Detected (Not Detect); Candida albicans by PCR Not Detected (Not Detect); Candida glabrata by PCR Not Detected (Not Detect); Candida krusei by PCR Not Detected (Not Detect); Candida parapsilosis by PCR Not Detected (Not Detect); Candida tropicalis by PCR Not Detected (Not Detect); Enterococcus by PCR Not Detected (Not Detect); Escherichia coli by PCR Not Detected (Not Detect); Klebsiella oxytoca by PCR Not Detected (Not Detect); Klebsiella pneumoniae by PCR Not Detected (Not Detect); Pseudomonas aeruginosa by PCR Not Detected (Not Detect); Serratia marcescens by PCR Not Detected (Not Detect); Staphylococcus aureus by PCR ***DETECTED*** (Not Detect); Streptococcus agalactiae(B)PCR Not Detected (Not Detect); Streptococcus by PCR Not Detected (Not Detect); Streptococcus pneumoniae PCR Not Detected (Not Detect); Streptococcus pyogenes (A) PCR Not Detected (Not Detect)
[2016-12-14] MEDS ORDERED: Bisacodyl 10 MG RECTAL SUPPOSITORY RC PRN (22:41)
[2016-12-14] MEDS: Acetaminophen 325 MG TABLET PO PRN (22:54)
[2016-12-15] MEDS: *HR* Heparin 5,000 UNIT/ML VIAL SQ SCH ×3 (05:14→20:49)
[2016-12-15] MEDS: Famotidine 20 MG TABLET PO SCH (05:15)
[2016-12-15 07:25] LABS: Basophils % 0.2 %; Eosinophils # 0.2 K/mcL (0.0-0.6); Eosinophils % 4.4 %; Hematocrit 23.5 % (37.5-50.1); Immature Granulocytes % 0.7 % (0-4); Lymphocytes # 0.8 K/mcL (0.6-4.6); Lymphocytes % 16.8 %; Mean Corpuscular Hemoglobin 32.1 pg (28.0-33.3); Mean Corpuscular Volume 94.4 fL (83.0-100.0); Mean Platelet Volume 11.2 fL (9.4-12.4); Monocytes # 0.5 K/mcL (0.0-1.3); Monocytes % 10.2 %; Neutrophils # 3.1 K/mcL (1.6-8.9); Platelet Count 164 K/mcL (140-400); Red Blood Count 2.49 M/mcL (4.19-5.50); Red Cell Distribution Width 13.7 % (11.5-14.5); Segmented Neutrophils % 67.7 %
[2016-12-15 07:38] LABS: Calcium 8.5 mg/dL (8.6-10.8); Potassium 4.3 mEq/L (3.5-4.5)
--- NOTE | 2016-12-15 08:24 | Nephrology Progress Note ---
Date of Encounter: 12/15/16 Time of Encounter: 08:22 - Assessment and Plan (1) ESRD on hemodialysis Current Visit: No Status: Chronic Patient has MRSA from a tunnel dialysis catheter. The catheter is been removed. He has a temporary dialysis catheter in place. He continues on antibiotics. We will redraw blood cultures again today. He is going to undergo a DEBORAH. (2) Non-compliance with renal dialysis Current Visit: No Status: Acute (3) Infected venous access port Current Visit: Yes Status: Acute Qualifiers: Encounter type: initial encounter Qualified Code(s): T80.219A - Unspecified infection due to central venous catheter, initial encounter Subjective Principal diagnosis: Sepsis Interval history: The patient's main complaint is that of constipation. He had a temporary femoral dialysis catheter placed yesterday. Blood cultures from December 13 remain positive. He is going to undergo a DEBORAH. He had dialysis yesterday. He was placed on Aranesp for hemoglobin of 8. Iron studies are satisfactory. Objective - Vital Signs Vital signs: Vital Signs Temp Pulse Resp BP Pulse Ox 12/15/16 08:19 98.4 F 70 18 149/66 91 12/15/16 04:38 98.2 F 73 16 151/76 92 12/14/16 23:52 98.2 F 73 16 139/71 97 12/14/16 21:36 97.7 F 77 16 161/74 93 12/14/16 21:05 98.4 F 20 133/56 12/14/16 21:00 116/52 12/14/16 20:45 123/62 12/14/16 20:30 120/58 12/14/16 20:15 122/64 12/14/16 20:00 118/64 12/14/16 19:45 109/53 12/14/16 19:30 113/55 12/14/16 19:15 120/54 12/14/16 19:00 122/57 12/14/16 18:45 124/52 12/14/16 18:30 126/56 12/14/16 18:15 132/64 12/14/16 18:00 144/60 12/14/16 17:45 135/62 12/14/16 17:30 98.4 F 20 155/72 12/14/16 16:38 97.6 F 60 18 176/91 96 12/14/16 10:51 97.5 F L 58 16 120/76 97 12/14/16 09:47 125/80 Intake and Output 12/14/16 12/15/16 12/15/16 23:59 07:59 15:59 Intake Total 850 / 850 240 / 240 Output Total 3600 / 3600 Balance -2750 / -2750 240 / 240 Intake: Oral 250 / 250 240 / 240 Intake, Rinseback and 600 / 600 Flushes Output: Urine 0 / 0 Total Dialysis (HD) 3600 / 3600 Output Other: Meal CEREAL AND MILK DIET SODA AND RICE KRISPIE TREAT Weight 109.7 kg Blood Glucose* 89 185 Hemodialysis Net Fluid 3000 Removed (mL) Patient Weight 12/15/16 23:59 Weight 109.7 kg - General Appearance Exam: Patient is alert and oriented. He is in no acute distress. Vital signs are stable. Lungs essentially clear to auscultation. Heart regular rate and rhythm with a 2/6 ejection murmur. Abdomen is obese. Bowel sounds are present. No guarding rigidity or tenderness. There is no lower extremity swelling. There is a temporary femoral dialysis catheter in place. - Lab 12/15/16 06:57 12/15/16 06:57 Most recent lab results Calcium 8.5 mg/dL (8.6-10.8) L 12/15/16 06:57 Phosphorus 2.9 mg/dL (2.3-4.7) 12/11/16 10:57 Magnesium 2.0 mg/dL (1.6-2.6) 12/15/16 06:57 Consult Discharge Plan - Plan Referrals: NO,PCP [Primary Care Provider] - (patient is [facility])
[2016-12-15] MEDS: Insulin LISPRO 300 UNITS/3 ML VIAL SQ SCH ×3 (08:25→16:44)
[2016-12-15] MEDS: amLODIPine 5 MG TABLET PO SCH (08:41)
--- NOTE | 2016-12-15 09:28 | Internal Med Progress Note ---
<Ramila Bush - Last Filed: 12/15/16 12:36> Date of Encounter: 12/15/16 Time of Encounter: 09:24 - Assessment and plan (1) Severe sepsis Current Visit: Yes Status: Acute Assessment and plan: 12/15/2016 Patient is stable, afebrile. Vitals stable. WBC within normal limits Blood Cultures from 12/13/2016 resulted: +GPC continue Vanc ID input is appreciated 12/14/2016 -Patient had 3 SIRS criteria and developed encephalopathy with lactic acidosis admission -This is most likely due to bacteremia from an infected temporary dialysis catheter -patient has improved, is stable, afebrile. Lactic acidosis resolved -Encephalopathy is resolved -Blood cultures (12/11/16) are positive for MRSA. -Catheter culture (12/11/16) positive for MRSA. -Blood cultures (12/12/16) are positive for GPC -head CT- no acute abnormality Plan -Additional blood cultures drawn 12/13/16 are pending x 2 sets. -Continue close monitoring patient vitals and labs (2) Bacteremia Current Visit: No Status: Acute Assessment and plan: 12/15/2016 Patient is stable, afebrile. Vitals stable. WBC within normal limits Blood Cultures from 12/13/2016 resulted: +GPC continue Vanc continue to monitor patient vitals closely ID input is appreciated Will order new blood cultures Will order the DEBORAH due to negative vegetations TTE. 12/14/2016 -Most likely due to infected temporary dialysis catheter -IR removed catheter -Blood cultures (12/11/16) are positive for MRSA. -Catheter culture (12/11/16) positive for MRSA. -Blood cultures (12/12/16) are positive for GPC -ID consulted- their input is appreciated -Echo TTE- negative for valvular vegetations. LVEF 60%. Moderate diastolic dysfunction of left ventricle with elevated filling pressures. Mild mitral tricuspid regurgitation. -chest x-ray- mild congestion -patient is stable, WBC 4.5 plan continue vancomycin IV. Pharmacy will dose. Goal trough 15 will continue to monitor patient vitals closely repeat blood cultures pending (3) ESRD on hemodialysis Current Visit: No Status: Chronic Assessment and plan: Patient has end-stage renal disease on dialysis Tuesday, , Tuesday nephrology managing- appreciated a new dialysis catheter will be placed once cultures are cleared sodium and potassium are within normal limits Plan will continue dialysis treatment schedule will continue to monitor labs (electrolytes) (4) DVT prophylaxis Current Visit: No Status: Acute Assessment and plan: Heparin - Subjective Interval history: Laying in bed comfortably patient states that he is very sleepy due to lack of sleep last night. His only complaint is constipation- I told him we continue his miralax and another medication he denies fever, chills, confusion, chest pain, dyspnea, wheezing, nausea, vomiting, diarrhea, abdominal pain - Constitutional Vitals: Temp Pulse Resp BP Pulse Ox 98.4 F 70 18 149/66 91 12/15/16 08:19 12/15/16 08:19 12/15/16 08:19 12/15/16 08:19 12/15/16 08:19 Exam: Gen.: Vitals noted. No acute distress. AAOx3 HEENT: PERRL, oropharynx clear, Normocephalic, atraumatic Neck: Supple. No adenopathy. Cardiac: RRR, no murmur, +S1/S2 Pulmonary: CTA bilaterally, no wheezes, rales or rhonchi, equal chest expansion Abdomen: soft, nontender, Bowel sounds noted, no guarding MSK: no joint swelling noted Extremities: no BLE edema, minimal tender calf, no cyanosis or clubbing Neuro: A&Ox3, moves all extremities, no focal deficits Psych: Appropriate mood and behavior Internal Medicine: Result - Labs CBC & Chem 7: 12/15/16 06:57 12/15/16 06:57 Labs: Short CBC 12/15/16 Range/Units 06:57 WBC 4.5 (4.3-11.1) K/mcL Hgb 8.0 L (12.9-16.9) g/dL Hct 23.5 L (37.5-50.1) % Plt Count 164 (140-400) K/mcL Neutrophils # 3.1 (1.6-8.9) K/mcL BMP 12/15/16 06:57 Sodium 134 L Potassium 4.3 Chloride 95 L Carbon Dioxide 28 BUN 40 H D Creatinine 4.74 H Glucose 204 H Calcium 8.5 L - ABG Interpretation ABG results: PT/INR, D-dimer PT 10.5 Seconds (9.4-12.1) 12/14/16 08:05 - Impressions Impressions Guidance Needle Placement Ultrasound 12/14/16 00:00 IMPRESSION: Successful ultrasound guided non-tunneled catheter placement. D/ / Oneil Tong MD / Oneil Tong MD Interpreting Provider: Oneil Tong MD Insertion Non-Tunneled Catheter 12/14/16 00:00 IMPRESSION: Successful ultrasound guided non-tunneled catheter placement. D/ / Oneil Tong MD / Oneil Tong MD Interpreting Provider: Oneil Tong MD X-Ray 12/14/16 13:30 IMPRESSION: Right-sided dialysis catheter tips at L2-3, likely within the IVC. D/ / Olvin Hull MD / Olvin Hull MD Interpreting Provider: Olvin Hull MD Consult Discharge Plan - Plan Referrals: NO,PCP [Primary Care Provider] - (patient is from [facility]) <Ender Gandhi - Last Filed: 12/15/16 17:51> Date of Encounter: 12/15/16 - Constitutional Vitals: Temp Pulse Resp BP Pulse Ox 97.7 F 82 17 152/82 98 12/15/16 16:27 12/15/16 16:27 12/15/16 16:27 12/15/16 16:27 12/15/16 16:27 Internal Medicine: Result - Labs CBC & Chem 7: 12/15/16 06:57 12/15/16 06:57 Labs: Short CBC 12/15/16 Range/Units 06:57 WBC 4.5 (4.3-11.1) K/mcL Hgb 8.0 L (12.9-16.9) g/dL Hct 23.5 L (37.5-50.1) % Plt Count 164 (140-400) K/mcL Neutrophils # 3.1 (1.6-8.9) K/mcL BMP 12/15/16 06:57 Sodium 134 L Potassium 4.3 Chloride 95 L Carbon Dioxide 28 BUN 40 H D Creatinine 4.74 H Glucose 204 H Calcium 8.5 L - ABG Interpretation ABG results: PT/INR, D-dimer PT 10.5 Seconds (9.4-12.1) 12/14/16 08:05 - Impressions Impressions Abdomen/Pelvis CT 12/15/16 15:00 IMPRESSION: 1. Bilateral hydronephrosis and hydroureter however no evidence of urinary stones. No evidence of solid renal masses or focal urinary bladder abnormality. 2. Small right effusion and lower lobe atelectatic changes. 3. No acute gastrointestinal abnormality. D/ / 12/15/2016 15:47:18 Raisa Alcaraz MD / yarelis Interpreting Provider: Raisa Alcaraz MD - Attending Attestation I examined this patient and my medical decision-making was reviewed with the Resident Physician. I agree with the documented findings, disposition and treatment plan as described except to the extent set forth below.
--- NOTE | 2016-12-15 13:39 | Infectious Disease Progress No ---
Date of Encounter: 12/15/16 Time of Encounter: 13:37 - Assessment and Plan (1) Severe sepsis Current Visit: Yes Status: Acute The patient had three SIRS criteria plus encephalopathy and lactic acidosis on admission. Likely secondary to bacteremia and infected temporary dialysis catheter. Improved. The patient has been afebrile. Tachycardia has improved. Leukocytosis , encephalopathy, and lactic acidosis have resolved. Blood cultures drawn 12/11/16 are positive 2/2 sets for MRSA. Repeat blood cultures drawn 12/12/16 are positive 2/2 sets for MRSA. Additional blood cultures drawn 12/13/16 are positive 1/2 sets again. Repeat blood cultures drawn 12/15/16 are pending x 2 sets. (2) Bacteremia Current Visit: No Status: Acute Causative organism MRSA. Source likely the temporary dialysis catheter, which has been removed. Uncomplicated - no evidence of septic emboli at this point and the patient does not have any indwelling hardware. Blood cultures drawn 12/11/16 are positive 2/2 sets peripherally for MRSA and 1/ 1 set drawn from the TDC. Repeat blood cultures drawn 12/12/16 are also positive 2/2 sets for MRSA (drawn after TDC removed). Additional blood cultures drawn 12/13/16 are positive again 1/2 sets. TTE negative for valvular vegetations. Get DEBORAH. The patient has one major and one minor Modified Gentile's Criteria. No endocarditis stigmata noted on exam. Despite having the TDC removed, the patient continues to be bacteremic --> consider additional source/seeding of infection. Await repeat blood cultures. Continue Vancomycin IV. Pharmacy to dose. Goal trough ~15. Vanc trough this morning 23.1. Duration of treatment depends on the clinical picture. Monitor for drug toxicity and dose-adjust antibiotics. (3) Infected venous access port Current Visit: Yes Status: Acute Per the medical record, the HD staff reported yellow drainage and erythema at the insertion site. Tip culture positive for MRSA. Blood culture drawn from the TDC positive 1/1 set as well. TDC removed 12/11/16 by Interventional Radiology. No evidence of superficial infection at this time. Qualifiers: Encounter type: initial encounter Qualified Code(s): T80.219A - Unspecified infection due to central venous catheter, initial encounter (4) Flank pain Current Visit: Yes Status: Resolved Etiology unclear. Patient reports recurrence of flank pain. Get CT scan of the abdomen without contrast. Pain management per the primary team. (5) Encephalopathy Current Visit: Yes Status: Resolved Likely secondary to sepsis. CT head negative. Resolved. (6) Elevated lactic acid level Current Visit: Yes Status: Resolved Likely secondary to sepsis. Resolved. (7) ESRD on hemodialysis Current Visit: No Status: Chronic Follows with Dr. Terrell. Nephrology consulted and following. (8) CHF (congestive heart failure) Current Visit: No Status: Chronic Qualifiers: Congestive heart failure type: unspecified congestive heart failure type Congestive heart failure chronicity: chronic Qualified Code(s): I50.9 - Heart failure, unspecified - Subjective Interval history: Patient seen and examined. No acute events noted overnight. Patient resting in bed. States he is tired, but denies acute complaints. Denies fevers, chills, or rigors. Denies chest pain, shortness of breath, or cough. Denies nausea, vomiting, or diarrhea. States he is still constipated. Denies abdominal pain. States his appetite is poor. States his right flank pain is back. Additionally, he complains of pain at the site of his right femoral TDC insertion. Denies oral thrush or new skin lesions. Infect Dis PN-Objective Data - Labs CBC & Chem 7: 12/15/16 06:57 12/15/16 06:57 Labs: Laboratory Results - last 24 hr 12/13/16 12/13/16 12/13/16 10:01 11:12 16:12 WBC RBC Hgb Hct MCV MCH MCHC RDW Plt Count MPV Immature Gran % Seg Neutrophils % Lymphocytes % Monocytes % Eosinophils % Basophils % Neutrophils # Lymphocytes # Monocytes # Eosinophils # Basophils # Sodium Potassium Chloride Carbon Dioxide BUN Creatinine Est GFR ( Amer) Est GFR (Non-Af Amer) BUN/Creatinine Ratio Glucose POC Glucose 149 H 141 H Calculated Osmolality Calcium Magnesium Vancomycin Trough A. baumannii (PCR) Not Detected Corine albicans (PCR) Not Detected C. glabrata (PCR) Not Detected C. krusei (PCR) Not Detected C. parapsilosis (PCR) Not Detected C. tropicalis (PCR) Not Detected Enterobacteriac sp PCR Not Detected E. cloacae complex PCR Not Detected Enterococcus sp PCR Not Detected E. coli (PCR) Not Detected H. influenzae (PCR) Not Detected Klebsiella oxytoca PCR Not Detected Klebsiella pneumoniae Not Detected List. monocytogenes PCR Not Detected N. meningitidis (PCR) Not Detected Proteus species (PCR) Not Detected Serratia marcescens PCR Not Detected Staphylococcus sp PCR DETECTED A Staph aureus (PCR) DETECTED A mecA-Methicil Res Gene DETECTED A Streptococcus sp PCR Not Detected Group A Strep DNA Not Detected Group B Strep (PCR) Not Detected Strep pneumoniae (PCR) Not Detected P. aeruginosa (PCR) Not Detected Thong/B-Vanco Res Genes Not Detected KPC (blaKPC) Detect PCR Not Detected 12/13/16 12/14/16 12/14/16 20:34 07:35 10:56 WBC RBC Hgb Hct MCV MCH MCHC RDW Plt Count MPV Immature Gran % Seg Neutrophils % Lymphocytes % Monocytes % Eosinophils % Basophils % Neutrophils # Lymphocytes # Monocytes # Eosinophils # Basophils # Sodium Potassium Chloride Carbon Dioxide BUN Creatinine Est GFR ( Amer) Est GFR (Non-Af Amer) BUN/Creatinine Ratio Glucose POC Glucose 124 H 103 H 113 H Calculated Osmolality Calcium Magnesium Vancomycin Trough A. baumannii (PCR) Corine albicans (PCR) C. glabrata (PCR) C. krusei (PCR) C. parapsilosis (PCR) C. tropicalis (PCR) Enterobacteriac sp PCR E. cloacae complex PCR Enterococcus sp PCR E. coli (PCR) H. influenzae (PCR) Klebsiella oxytoca PCR Klebsiella pneumoniae List. monocytogenes PCR N. meningitidis (PCR) Proteus species (PCR) Serratia marcescens PCR Staphylococcus sp PCR Staph aureus (PCR) mecA-Methicil Res Gene Streptococcus sp PCR Group A Strep DNA Group B Strep (PCR) Strep pneumoniae (PCR) P. aeruginosa (PCR) Thong/B-Vanco Res Genes KPC (blaKPC) Detect PCR 12/14/16 12/15/16 12/15/16 16:41 06:57 06:57 WBC 4.5 RBC 2.49 L Hgb 8.0 L Hct 23.5 L MCV 94.4 MCH 32.1 MCHC 34.0 RDW 13.7 Plt Count 164 MPV 11.2 Immature Gran % 0.7 Seg Neutrophils % 67.7 Lymphocytes % 16.8 Monocytes % 10.2 Eosinophils % 4.4 Basophils % 0.2 Neutrophils # 3.1 Lymphocytes # 0.8 Monocytes # 0.5 Eosinophils # 0.2 Basophils # 0.0 Sodium 134 L Potassium 4.3 Chloride 95 L Carbon Dioxide 28 BUN 40 H D Creatinine 4.74 H Est GFR ( Amer) 16 L Est GFR (Non-Af Amer) 13 L BUN/Creatinine Ratio 8 Glucose 204 H POC Glucose 123 H Calculated Osmolality 294 Calcium 8.5 L Magnesium 2.0 Vancomycin Trough A. baumannii (PCR) Corine albicans (PCR) C. glabrata (PCR) C. krusei (PCR) C. parapsilosis (PCR) C. tropicalis (PCR) Enterobacteriac sp PCR E. cloacae complex PCR Enterococcus sp PCR E. coli (PCR) H. influenzae (PCR) Klebsiella oxytoca PCR Klebsiella pneumoniae List. monocytogenes PCR N. meningitidis (PCR) Proteus species (PCR) Serratia marcescens PCR Staphylococcus sp PCR Staph aureus (PCR) mecA-Methicil Res Gene Streptococcus sp PCR Group A Strep DNA Group B Strep (PCR) Strep pneumoniae (PCR) P. aeruginosa (PCR) Thong/B-Vanco Res Genes KPC (blaKPC) Detect PCR 12/15/16 06:57 WBC RBC Hgb Hct MCV MCH MCHC RDW Plt Count MPV Immature Gran % Seg Neutrophils % Lymphocytes % Monocytes % Eosinophils % Basophils % Neutrophils # Lymphocytes # Monocytes # Eosinophils # Basophils # Sodium Potassium Chloride Carbon Dioxide BUN Creatinine Est GFR ( Amer) Est GFR (Non-Af Amer) BUN/Creatinine Ratio Glucose POC Glucose Calculated Osmolality Calcium Magnesium Vancomycin Trough 23.1 H* A. baumannii (PCR) Corine albicans (PCR) C. glabrata (PCR) C. krusei (PCR) C. parapsilosis (PCR) C. tropicalis (PCR) Enterobacteriac sp PCR E. cloacae complex PCR Enterococcus sp PCR E. coli (PCR) H. influenzae (PCR) Klebsiella oxytoca PCR Klebsiella pneumoniae List. monocytogenes PCR N. meningitidis (PCR) Proteus species (PCR) Serratia marcescens PCR Staphylococcus sp PCR Staph aureus (PCR) mecA-Methicil Res Gene Streptococcus sp PCR Group A Strep DNA Group B Strep (PCR) Strep pneumoniae (PCR) P. aeruginosa (PCR) Thong/B-Vanco Res Genes KPC (blaKPC) Detect PCR Cultures: Cultures 12/13/16 10:01 Blood Culture - Preliminary Peripheral Venipuncture No growth. 12/12/16 08:47 Blood Culture - Final Peripheral Venipuncture Methicillin Resistant S.aureus 12/13/16 10:01 Blood Culture - Preliminary Peripheral Venipuncture Gram Positive Cocci 12/11/16 13:28 Catheter Tip Culture - Final Intravenous or Arterial Cath Methicillin Resistant S.aureus 12/12/16 08:47 Blood Culture - Preliminary Peripheral Venipuncture Gram Positive Cocci Serology 12/13/16 Range/Units 10:01 A. baumannii (PCR) Not Detected (Not Detect) Corine albicans (PCR) Not Detected (Not Detect) C. glabrata (PCR) Not Detected (Not Detect) C. krusei (PCR) Not Detected (Not Detect) C. parapsilosis (PCR) Not Detected (Not Detect) C. tropicalis (PCR) Not Detected (Not Detect) Enterobacteriac sp PCR Not Detected (Not Detect) E. cloacae complex PCR Not Detected (Not Detect) Enterococcus sp PCR Not Detected (Not Detect) E. coli (PCR) Not Detected (Not Detect) H. influenzae (PCR) Not Detected (Not Detect) Klebsiella oxytoca PCR Not Detected (Not Detect) Klebsiella pneumoniae Not Detected (Not Detect) List. monocytogenes PCR Not Detected (Not Detect) N. meningitidis (PCR) Not Detected (Not Detect) Proteus species (PCR) Not Detected (Not Detect) Serratia marcescens PCR Not Detected (Not Detect) Staphylococcus sp PCR DETECTED A (Not Detect) Staph aureus (PCR) DETECTED A (Not Detect) mecA-Methicil Res Gene DETECTED A (Not Detect) Streptococcus sp PCR Not Detected (Not Detect) Group A Strep DNA Not Detected (Not Detect) Group B Strep (PCR) Not Detected (Not Detect) Strep pneumoniae (PCR) Not Detected (Not Detect) P. aeruginosa (PCR) Not Detected (Not Detect) Thong/B-Vanco Res Genes Not Detected (Not Detect) KPC (blaKPC) Detect PCR Not Detected (Not Detect) - Impressions Impressions Guidance Needle Placement Ultrasound 12/14/16 00:00 IMPRESSION: Successful ultrasound guided non-tunneled catheter placement. D/ / Oneil Tong MD / Oneil Tong MD Interpreting Provider: Oneil Tong MD Insertion Non-Tunneled Catheter 12/14/16 00:00 IMPRESSION: Successful ultrasound guided non-tunneled catheter placement. D/ / Oneil Tong MD / Oneil Tong MD Interpreting Provider: Oneil Tong MD X-Ray 12/14/16 13:30 IMPRESSION: Right-sided dialysis catheter tips at L2-3, likely within the IVC. D/ / Olvin Hull MD / Olvin Hull MD Interpreting Provider: Olvin Hull MD Exam - Constitutional Vitals: Temp Pulse Resp BP Pulse Ox 98.4 F 75 17 158/80 95 12/15/16 10:41 12/15/16 10:41 12/15/16 10:41 12/15/16 10:41 12/15/16 10:41 General appearance: cooperative, no acute distress, obese - Head Head exam: Present: atraumatic, normal inspection, normocephalic - Eye Eye exam: Present: EOMI, normal appearance, PERRL Pupils: Present: normal accommodation Additional comments: No subconjunctival hemorrhage noted. - ENT ENT exam: Present: mucous membranes moist - Neck Neck exam: Present: normal inspection - Respiratory Respiratory exam: Present: CTAB. Absent: rales, respiratory distress, rhonchi, wheezes - Cardiovascular Cardiovascular exam: Present: RRR, +S1, +S2 - GI/Abdominal GI/Abdominal exam: Present: distended, normal bowel sounds, soft, tenderness ( RLQ) Additional comments: Right femoral TDC noted with dressing C/D/I. No erythema, warmth, or drainage noted. - Extremities Exam Extremities exam: Absent: joint swelling, pedal edema, tenderness Additional comments: No endocarditis stigmata noted. Right foot dressing C/D/I. - Back Exam Back exam: Present: CVA tenderness (R), normal inspection - Neurological Exam Neurological exam: Present: alert, oriented X3, no focal deficits - Psychiatric Psychiatric exam: Present: normal affect, normal mood - Skin Skin exam: Present: dry, intact, normal color, warm - Additional findings Additional findings: Previous TDC to the right upper chest with dressing C/D/I. No erythema, warmth, tenderness, or drainage noted. Consult Discharge Plan - Plan Referrals: NO,PCP [Primary Care Provider] - (patient is from [facility])
[2016-12-15] MEDS: SORBITOL PO PRN (18:48)
[2016-12-16] MEDS: Insulin LISPRO 300 UNITS/3 ML VIAL SQ SCH ×5 (01:07→22:20)
[2016-12-16 04:57] LABS: Basophils % 0.3 %; Eosinophils # 0.5 K/mcL (0.0-0.6); Eosinophils % 8.1 %; Hematocrit 23.9 % (37.5-50.1); Hemoglobin 7.8 g/dL (12.9-16.9); Immature Granulocytes % 1.7 % (0-4); Lymphocytes # 1.2 K/mcL (0.6-4.6); Mean Corpuscular HGB Conc 32.6 g/dL (31.6-35.5); Mean Corpuscular Hemoglobin 30.8 pg (28.0-33.3); Mean Corpuscular Volume 94.5 fL (83.0-100.0); Mean Platelet Volume 10.7 fL (9.4-12.4); Monocytes # 0.7 K/mcL (0.0-1.3); Monocytes % 11.4 %; Neutrophils # 3.5 K/mcL (1.6-8.9); Platelet Count 187 K/mcL (140-400); Red Blood Count 2.53 M/mcL (4.19-5.50); Red Cell Distribution Width 13.7 % (11.5-14.5); Segmented Neutrophils % 58.5 %
[2016-12-16 05:21] LABS: Calcium 8.7 mg/dL (8.6-10.8); Magnesium 1.9 mg/dL (1.6-2.6); Potassium 5.1 mEq/L (3.5-4.5)
[2016-12-16 05:22] LABS: Albumin 2.4 g/dL (3.5-5.0); Albumin/Globulin Ratio 0.5 (1.1-2.2); Bilirubin,Total 0.7 mg/dL (0.2-1.2); Calcium 8.8 mg/dL (8.6-10.8); Globulin 4.7 g/dL (2.4-3.5); Potassium 5.1 mEq/L (3.5-4.5); Total Protein 7.1 g/dL (6.0-8.3)
[2016-12-16] MEDS: *HR* Heparin 5,000 UNIT/ML VIAL SQ SCH ×3 (06:15→22:25)
[2016-12-16] MEDS: Famotidine 20 MG TABLET PO SCH (06:15)
--- NOTE | 2016-12-16 08:43 | Nephrology Progress Note ---
Date of Encounter: 12/16/16 Time of Encounter: 08:10 - Assessment and Plan (1) ESRD on hemodialysis Current Visit: No Status: Chronic Sepsis, encephalopathy, most likely related to HD catheter. On Vanco. HD tomorrrow, keeping MWF schedule. Subjective Principal diagnosis: Sepsis Interval history: Watching TV, states feeling better. Objective - Vital Signs Vital signs: Vital Signs Temp Pulse Resp BP Pulse Ox 12/16/16 07:37 97.5 F L 68 15 185/73 96 12/16/16 04:36 97.6 F 68 16 168/76 12/15/16 23:52 97.5 F L 60 16 164/75 95 12/15/16 19:21 97.8 F 69 16 181/90 95 12/15/16 16:27 97.7 F 82 17 152/82 98 12/15/16 10:41 98.4 F 75 17 158/80 95 Intake and Output 12/15/16 12/16/16 12/16/16 23:59 07:59 15:59 Intake Total 120 / 120 100 / 100 Balance 120 / 120 100 / 100 Intake: Oral 120 / 120 100 / 100 Other: # Urine Diapers 1 Weight 106.4 kg Blood Glucose* 127 99 Patient Weight 12/16/16 23:59 Weight 106.4 kg - General Appearance General appearance: Present: well-developed, well-nourished, appears started age , obese EENT: Present: mucous membranes moist Neck: Present: no JVD Respiratory: Present: clear Cardiology: Present: no edema Gastrointestinal: Present: normoactive bowel sounds, no tenderness Integumentary: Present: warm and dry Neurologic: Present: alert and oriented x3 Psychiatric: Present: mood/affect appropriate, cooperative - Lab 12/16/16 04:25 12/16/16 04:25 Most recent lab results Calcium 8.7 mg/dL (8.6-10.8) 12/16/16 04:25 Phosphorus 2.9 mg/dL (2.3-4.7) 12/11/16 10:57 Magnesium 1.9 mg/dL (1.6-2.6) 12/16/16 04:25 Consult Discharge Plan - Plan Referrals: NO,PCP [Primary Care Provider] - (patient is from [facility])
[2016-12-16] MEDS: amLODIPine 5 MG TABLET PO SCH (10:21)
--- NOTE | 2016-12-16 11:01 | Internal Med Progress Note ---
<Ramila Bush - Last Filed: 12/16/16 11:32> Date of Encounter: 12/16/16 Time of Encounter: 08:45 - Assessment and plan (1) Severe sepsis Current Visit: Yes Status: Acute Assessment and plan: -Patient had 3 SIRS criteria and developed encephalopathy with lactic acidosis admission -This is most likely due to bacteremia from an infected temporary dialysis catheter -patient has improved, is stable, afebrile,WBC within normal limits. Lactic acidosis resolved -Encephalopathy is resolved -Blood cultures (12/11/16) are positive for MRSA. -Catheter culture (12/11/16) positive for MRSA. -Blood cultures (12/12/16) are positive for MRSA -Blood Cultures from 12/13/2016 resulted: 1/2 MRSA -head CT- no acute abnormality -ID input is appreciated Plan -continue vancomycin -Additional blood cultures drawn 12/15/16 are pending x 2 sets. -Continue close monitoring patient vitals and labs (2) Bacteremia Current Visit: No Status: Acute Assessment and plan: -MRSA- Most likely due to infected temporary dialysis catheter -IR removed catheter -Blood cultures (12/11/16) are positive for MRSA. -Catheter culture (12/11/16) positive for MRSA. -Blood cultures (12/12/16) are positive for MRSA -Blood Cultures from 12/13/2016 resulted: 1/2 MRSA -Echo TTE- negative for valvular vegetations. LVEF 60%. Moderate diastolic dysfunction of left ventricle with elevated filling pressures. Mild mitral tricuspid regurgitation. -chest x-ray- mild congestion -patient is stable, WBC 6 -Patient is stable, afebrile. Vitals stable. WBC within normal limits -ID consulted- their input is appreciated Plan -continue vancomycin IV. Pharmacy will dose. Goal trough 15 -Blood cultures drawn 12/15/16 pending -DEBORAH ordered -continue to monitor patient vitals closely (3) ESRD on hemodialysis Current Visit: No Status: Chronic Assessment and plan: Patient has end-stage renal disease on dialysis M,W,F nephrology managing- appreciated a new dialysis catheter will be placed once cultures are cleared sodium 134 potassium 5.1 Plan will continue dialysis treatment schedule will continue to monitor labs (electrolytes) (4) DVT prophylaxis Current Visit: No Status: Acute Assessment and plan: Heparin - Subjective Interval history: Laying in bed comfortably sleeping patient states that he is very sleepy. He has no complaints at this time he denies fever, chills, confusion, chest pain, dyspnea, wheezing, nausea, vomiting, diarrhea, abdominal pain - Constitutional Vitals: Temp Pulse Resp BP Pulse Ox 97.5 F L 68 15 185/73 96 12/16/16 07:37 12/16/16 07:37 12/16/16 07:37 12/16/16 07:37 12/16/16 07:37 Exam: Gen.: Vitals noted. No acute distress. AAOx3 HEENT: PERRL, oropharynx clear, Normocephalic, atraumatic Cardiac: RRR, no murmur, +S1/S2 Pulmonary: CTA bilaterally, no wheezes, rales or rhonchi, equal chest expansion Abdomen: soft, nontender, Bowel sounds noted, no guarding skin: right upper extremity scar from fistula removal MSK: ROM intact, no joint swelling noted Extremities: no BLE edema, left calf is minimally tender, no cyanosis or clubbing Neuro: A&Ox3, moves all extremities, no focal deficits Psych: Appropriate mood and behavior Internal Medicine: Result - Labs CBC & Chem 7: 12/16/16 04:25 12/16/16 04:25 Labs: Short CBC 12/16/16 Range/Units 04:25 WBC 6.0 (4.3-11.1) K/mcL Hgb 7.8 L (12.9-16.9) g/dL Hct 23.9 L (37.5-50.1) % Plt Count 187 (140-400) K/mcL Neutrophils # 3.5 (1.6-8.9) K/mcL BMP 12/16/16 12/16/16 04:25 04:25 Sodium 136 134 L Potassium 5.1 H 5.1 H Chloride 96 L 96 L Carbon Dioxide 29 30 H BUN 50 H D 50 H Creatinine 5.72 H 5.65 H Glucose 97 98 Calcium 8.7 8.8 Liver Function 12/16/16 Range/Units 04:25 Total Bilirubin 0.7 (0.2-1.2) mg/dL AST 42 H (5-34) Units/L ALT 42 (0-55) Units/L Alkaline Phosphatase 223 H (38-126) Units/L Albumin 2.4 L (3.5-5.0) g/dL - ABG Interpretation ABG results: PT/INR, D-dimer PT 10.5 Seconds (9.4-12.1) 12/14/16 08:05 - Impressions Impressions Abdomen/Pelvis CT 12/15/16 15:00 IMPRESSION: 1. Bilateral hydronephrosis and hydroureter however no evidence of urinary stones. No evidence of solid renal masses or focal urinary bladder abnormality. 2. Small right effusion and lower lobe atelectatic changes. 3. No acute gastrointestinal abnormality. D/ / 12/15/2016 15:47:18 Raisa Alcaraz MD / yarelis Interpreting Provider: Raisa Alcaraz MD Consult Discharge Plan - Plan Referrals: NO,PCP [Primary Care Provider] - (patient is from [facility]) <Ender Gandhi - Last Filed: 12/16/16 18:13> Date of Encounter: 12/16/16 - Constitutional Vitals: Temp Pulse Resp BP Pulse Ox 97.6 F 64 20 167/88 97 12/16/16 15:05 12/16/16 12:54 12/16/16 15:05 12/16/16 17:50 12/16/16 12:54 Internal Medicine: Result - Labs CBC & Chem 7: 12/16/16 04:25 12/16/16 04:25 Labs: Short CBC 12/16/16 Range/Units 04:25 WBC 6.0 (4.3-11.1) K/mcL Hgb 7.8 L (12.9-16.9) g/dL Hct 23.9 L (37.5-50.1) % Plt Count 187 (140-400) K/mcL Neutrophils # 3.5 (1.6-8.9) K/mcL BMP 12/16/16 12/16/16 04:25 04:25 Sodium 136 134 L Potassium 5.1 H 5.1 H Chloride 96 L 96 L Carbon Dioxide 29 30 H BUN 50 H D 50 H Creatinine 5.72 H 5.65 H Glucose 97 98 Calcium 8.7 8.8 Liver Function 12/16/16 Range/Units 04:25 Total Bilirubin 0.7 (0.2-1.2) mg/dL AST 42 H (5-34) Units/L ALT 42 (0-55) Units/L Alkaline Phosphatase 223 H (38-126) Units/L Albumin 2.4 L (3.5-5.0) g/dL - ABG Interpretation ABG results: PT/INR, D-dimer PT 10.5 Seconds (9.4-12.1) 12/14/16 08:05 - Attending Attestation I examined this patient and my medical decision-making was reviewed with the Resident Physician. I agree with the documented findings, disposition and treatment plan as described except to the extent set forth below. nephrology/ID input appreciated.
--- NOTE | 2016-12-16 12:04 | Infectious Disease Progress No ---
Date of Encounter: 12/16/16 Time of Encounter: 12:02 - Assessment and Plan (1) Severe sepsis Current Visit: Yes Status: Resolved The patient had three SIRS criteria plus encephalopathy and lactic acidosis on admission. Likely secondary to bacteremia and infected temporary dialysis catheter. Improved. The patient has been afebrile. Tachycardia has improved. Leukocytosis , encephalopathy, and lactic acidosis have resolved. Blood cultures drawn 12/11/16 are positive 2/2 sets for MRSA. Repeat blood cultures drawn 12/12/16 are positive 2/2 sets for MRSA. Additional blood cultures drawn 12/13/16 are positive 1/2 sets again. Repeat blood culture drawn 12/14/16 is NGTD x 1 set. Repeat blood cultures drawn 12/15/16 are pending x 2 sets. (2) Bacteremia Current Visit: No Status: Acute Causative organism MRSA. Source likely the temporary dialysis catheter, which has been removed. Uncomplicated - no evidence of septic emboli at this point and the patient does not have any indwelling hardware. Blood cultures drawn 12/11/16 are positive 2/2 sets peripherally for MRSA and 1/ 1 set drawn from the TDC. Repeat blood cultures drawn 12/12/16 are also positive 2/2 sets for MRSA (drawn after TDC removed). Additional blood cultures drawn 12/13/16 are positive again 1/2 sets. Repeat blood culture drawn 12/14/16 is NGTD x 1 set. Additional cultures drawn are pending x 2 sets. TTE negative for valvular vegetations. Get DEBORAH.--> scheduled for today. The patient has one major and one minor Modified Gentile's Criteria. No endocarditis stigmata noted on exam. Await repeat blood cultures. Continue Vancomycin IV. Pharmacy to dose. Goal trough ~15. Random vanc level this morning 21.0. Duration of treatment depends on the clinical picture. Monitor for drug toxicity and dose-adjust antibiotics. (3) Infected venous access port Current Visit: Yes Status: Acute Per the medical record, the HD staff reported yellow drainage and erythema at the insertion site. Tip culture positive for MRSA. Blood culture drawn from the TDC positive 1/1 set as well. TDC removed 12/11/16 by Interventional Radiology. No evidence of superficial infection at this time. Qualifiers: Encounter type: initial encounter Qualified Code(s): T80.219A - Unspecified infection due to central venous catheter, initial encounter (4) Hydronephrosis Current Visit: Yes Status: Acute CT scan shows bilateral hydronephrosis with hydroureter. Consult urology. Qualifiers: Hydronephrosis type: other Qualified Code(s): N13.39 - Other hydronephrosis (5) Flank pain Current Visit: Yes Status: Acute Etiology unclear. Patient reports recurrence of flank pain. CT scan shows bilateral hydronephrosis with hydroureter. Pain management per the primary team. Consult urology. (6) Encephalopathy Current Visit: Yes Status: Resolved Likely secondary to sepsis. CT head negative. Resolved. (7) Elevated lactic acid level Current Visit: Yes Status: Resolved Likely secondary to sepsis. Resolved. (8) ESRD on hemodialysis Current Visit: No Status: Chronic Follows with Dr. Terrell. Nephrology consulted and following. (9) CHF (congestive heart failure) Current Visit: No Status: Chronic Qualifiers: Congestive heart failure type: unspecified congestive heart failure type Congestive heart failure chronicity: chronic Qualified Code(s): I50.9 - Heart failure, unspecified - Subjective Interval history: Patient seen and examined. No acute events noted overnight. Patient resting in bed. States he is tired, but denies acute complaints. Denies fevers, chills, or rigors. Denies chest pain, shortness of breath, or cough. Denies nausea, vomiting, or diarrhea. States he is still constipated. Denies abdominal pain. States his appetite is poor. States his right flank pain is back, but is better after pain medication this morning. Denies oral thrush or new skin lesions. Infect Dis PN-Objective Data - Labs CBC & Chem 7: 12/17/16 03:45 12/17/16 03:45 Labs: Laboratory Results - last 24 hr 12/14/16 12/15/16 12/15/16 21:43 07:49 10:39 WBC RBC Hgb Hct MCV MCH MCHC RDW Plt Count MPV Immature Gran % Seg Neutrophils % Lymphocytes % Monocytes % Eosinophils % Basophils % Neutrophils # Lymphocytes # Monocytes # Eosinophils # Basophils # Sodium Potassium Chloride Carbon Dioxide BUN Creatinine Est GFR ( Amer) Est GFR (Non-Af Amer) BUN/Creatinine Ratio Glucose POC Glucose 89 185 H 145 H Calculated Osmolality Calcium Magnesium Total Bilirubin AST ALT Alkaline Phosphatase Serum Total Protein Albumin Globulin Albumin/Globulin Ratio Random Vancomycin 12/15/16 12/15/16 12/16/16 16:34 19:24 04:25 WBC 6.0 RBC 2.53 L Hgb 7.8 L Hct 23.9 L MCV 94.5 MCH 30.8 MCHC 32.6 RDW 13.7 Plt Count 187 MPV 10.7 Immature Gran % 1.7 Seg Neutrophils % 58.5 Lymphocytes % 20.0 Monocytes % 11.4 Eosinophils % 8.1 Basophils % 0.3 Neutrophils # 3.5 Lymphocytes # 1.2 Monocytes # 0.7 Eosinophils # 0.5 Basophils # 0.0 Sodium Potassium Chloride Carbon Dioxide BUN Creatinine Est GFR ( Amer) Est GFR (Non-Af Amer) BUN/Creatinine Ratio Glucose POC Glucose 94 H 127 H Calculated Osmolality Calcium Magnesium Total Bilirubin AST ALT Alkaline Phosphatase Serum Total Protein Albumin Globulin Albumin/Globulin Ratio Random Vancomycin 12/16/16 12/16/16 12/16/16 04:25 04:25 04:25 WBC RBC Hgb Hct MCV MCH MCHC RDW Plt Count MPV Immature Gran % Seg Neutrophils % Lymphocytes % Monocytes % Eosinophils % Basophils % Neutrophils # Lymphocytes # Monocytes # Eosinophils # Basophils # Sodium 136 134 L Potassium 5.1 H 5.1 H Chloride 96 L 96 L Carbon Dioxide 29 30 H BUN 50 H D 50 H Creatinine 5.72 H 5.65 H Est GFR ( Amer) 13 L 13 L Est GFR (Non-Af Amer) 10 L 11 L BUN/Creatinine Ratio 9 9 Glucose 97 98 POC Glucose Calculated Osmolality 295 291 Calcium 8.7 8.8 Magnesium 1.9 Total Bilirubin 0.7 AST 42 H ALT 42 Alkaline Phosphatase 223 H Serum Total Protein 7.1 Albumin 2.4 L Globulin 4.7 H Albumin/Globulin Ratio 0.5 L Random Vancomycin 21.0 12/16/16 07:44 WBC RBC Hgb Hct MCV MCH MCHC RDW Plt Count MPV Immature Gran % Seg Neutrophils % Lymphocytes % Monocytes % Eosinophils % Basophils % Neutrophils # Lymphocytes # Monocytes # Eosinophils # Basophils # Sodium Potassium Chloride Carbon Dioxide BUN Creatinine Est GFR ( Amer) Est GFR (Non-Af Amer) BUN/Creatinine Ratio Glucose POC Glucose 99 H Calculated Osmolality Calcium Magnesium Total Bilirubin AST ALT Alkaline Phosphatase Serum Total Protein Albumin Globulin Albumin/Globulin Ratio Random Vancomycin Cultures: Cultures 12/12/16 08:47 Blood Culture - Final Peripheral Venipuncture Methicillin Resistant S.aureus 12/12/16 08:47 Blood Culture - Final Peripheral Venipuncture Methicillin Resistant S.aureus 12/13/16 10:01 Blood Culture - Final Peripheral Venipuncture Methicillin Resistant S.aureus 12/14/16 08:05 Blood Culture - Preliminary Peripheral Venipuncture No growth. 12/13/16 10:01 Blood Culture - Preliminary Peripheral Venipuncture No growth. 12/11/16 13:28 Catheter Tip Culture - Final Intravenous or Arterial Cath Methicillin Resistant S.aureus Serology 12/13/16 Range/Units 10:01 A. baumannii (PCR) Not Detected (Not Detect) Corine albicans (PCR) Not Detected (Not Detect) C. glabrata (PCR) Not Detected (Not Detect) C. krusei (PCR) Not Detected (Not Detect) C. parapsilosis (PCR) Not Detected (Not Detect) C. tropicalis (PCR) Not Detected (Not Detect) Enterobacteriac sp PCR Not Detected (Not Detect) E. cloacae complex PCR Not Detected (Not Detect) Enterococcus sp PCR Not Detected (Not Detect) E. coli (PCR) Not Detected (Not Detect) H. influenzae (PCR) Not Detected (Not Detect) Klebsiella oxytoca PCR Not Detected (Not Detect) Klebsiella pneumoniae Not Detected (Not Detect) List. monocytogenes PCR Not Detected (Not Detect) N. meningitidis (PCR) Not Detected (Not Detect) Proteus species (PCR) Not Detected (Not Detect) Serratia marcescens PCR Not Detected (Not Detect) Staphylococcus sp PCR DETECTED A (Not Detect) Staph aureus (PCR) DETECTED A (Not Detect) mecA-Methicil Res Gene DETECTED A (Not Detect) Streptococcus sp PCR Not Detected (Not Detect) Group A Strep DNA Not Detected (Not Detect) Group B Strep (PCR) Not Detected (Not Detect) Strep pneumoniae (PCR) Not Detected (Not Detect) P. aeruginosa (PCR) Not Detected (Not Detect) Thong/B-Vanco Res Genes Not Detected (Not Detect) KPC (blaKPC) Detect PCR Not Detected (Not Detect) - Impressions Impressions Abdomen/Pelvis CT 12/15/16 15:00 IMPRESSION: 1. Bilateral hydronephrosis and hydroureter however no evidence of urinary stones. No evidence of solid renal masses or focal urinary bladder abnormality. 2. Small right effusion and lower lobe atelectatic changes. 3. No acute gastrointestinal abnormality. D/ / 12/15/2016 15:47:18 Raisa Alcaraz MD / yarelis Interpreting Provider: Raisa Alcaraz MD Exam - Constitutional Vitals: Temp Pulse Resp BP Pulse Ox 97.5 F L 68 15 185/73 96 12/16/16 07:37 12/16/16 07:37 12/16/16 07:37 12/16/16 07:37 12/16/16 07:37 General appearance: cooperative, no acute distress, obese - Head Head exam: Present: atraumatic, normal inspection, normocephalic - Eye Eye exam: Present: EOMI, normal appearance, PERRL Pupils: Present: normal accommodation Additional comments: No subconjunctival hemorrhage noted. - ENT ENT exam: Present: mucous membranes moist - Neck Neck exam: Present: normal inspection - Respiratory Respiratory exam: Present: CTAB. Absent: rales, respiratory distress, rhonchi, wheezes - Cardiovascular Cardiovascular exam: Present: RRR, +S1, +S2 - GI/Abdominal GI/Abdominal exam: Present: distended (obese), normal bowel sounds, soft, tenderness (RLQ) - Extremities Exam Extremities exam: Present: tenderness (right groin). Absent: joint swelling, pedal edema Additional comments: Right femoral TDC noted with dressing C/D/I and without erythema, warmth, tenderness, or drainage. Right foot dressing remains C/D/I. - Back Exam Back exam: Present: CVA tenderness (R), normal inspection - Neurological Exam Neurological exam: Present: alert, oriented X3, no focal deficits - Psychiatric Psychiatric exam: Present: normal affect, normal mood - Skin Skin exam: Present: dry, intact, normal color, warm Additional comments: No endocarditis stigmata noted. - Additional findings Additional findings: Previous TDC noted to the right upper chest with transparent dressing C/D/I. Consult Discharge Plan - Plan Referrals: NONE,PCP [Primary Care Provider] - (patient is from [facility]) - Attending Attestation I examined this patient and my medical decision-making was reviewed with the Resident Physician. I agree with the documented findings, disposition and treatment plan as described except to the extent set forth below.
[2016-12-16] MEDS ORDERED: 0.9 % Sodium Chloride 500 ML IVC ONE (12:30)
[2016-12-16] MEDS ORDERED: Tetracaine/Benzocaine/Butamben 200MG/SPRAY (100SPY/BOT) MM ONE (12:30)
[2016-12-16] MEDS ORDERED: 0.9 % Sodium Chloride 250 ML IVC PRN (12:36)
[2016-12-16] MEDS ORDERED: 0.9 % Sodium Chloride 1,000 ML PRIME SCH (12:45)
[2016-12-16] MEDS: *HR* FentaNYL (PF) 100 MCG/2 ML VIAL IVP PRN ×2 (13:30→13:35)
[2016-12-16] MEDS: *HR* Midazolam HCl 5 MG/5 ML VIAL IVP PRN ×2 (13:30→13:35)
[2016-12-16] MEDS ORDERED: 0.9 % Sodium Chloride 1,000 ML ONE (14:42)
[2016-12-17] MEDS: Acetaminophen 325 MG TABLET PO PRN (01:05)
[2016-12-17] MEDS: SORBITOL PO PRN (01:06)
[2016-12-17 04:38] LABS: Basophils % 0.3 %; Eosinophils # 0.5 K/mcL (0.0-0.6); Eosinophils % 8.3 %; Hematocrit 24.8 % (37.5-50.1); Hemoglobin 8.2 g/dL (12.9-16.9); Immature Granulocytes % 2.6 % (0-4); Lymphocytes # 1.2 K/mcL (0.6-4.6); Lymphocytes % 19.9 %; Mean Corpuscular HGB Conc 33.1 g/dL (31.6-35.5); Mean Corpuscular Hemoglobin 31.3 pg (28.0-33.3); Mean Corpuscular Volume 94.7 fL (83.0-100.0); Mean Platelet Volume 10.4 fL (9.4-12.4); Monocytes # 0.7 K/mcL (0.0-1.3); Monocytes % 11.4 %; Neutrophils # 3.3 K/mcL (1.6-8.9); Platelet Count 213 K/mcL (140-400); Red Blood Count 2.62 M/mcL (4.19-5.50); Red Cell Distribution Width 13.7 % (11.5-14.5); Segmented Neutrophils % 57.5 %
[2016-12-17 04:53] LABS: Potassium 4.2 mEq/L (3.5-4.5)
[2016-12-17] MEDS: *HR* Heparin 5,000 UNIT/ML VIAL SQ SCH ×3 (05:40→21:37)
[2016-12-17] MEDS: Famotidine 20 MG TABLET PO SCH (05:40)
[2016-12-17] MEDS: Sennosides 8.6 MG TABLET PO SCH ×2 (08:13→21:36)
[2016-12-17] MEDS: Insulin LISPRO 300 UNITS/3 ML VIAL SQ SCH ×4 (08:13→21:38)
[2016-12-17] MEDS: amLODIPine 5 MG TABLET PO SCH (08:14)
--- NOTE | 2016-12-17 09:51 | Nephrology Progress Note ---
Date of Encounter: 12/17/16 Time of Encounter: 09:30 - Assessment and Plan (1) ESRD on hemodialysis Current Visit: No Status: Chronic Sepsis, encephalopathy, most likely related to HD catheter. On Vanco. HD tomorrow, keeping TTS schedule. Subjective Principal diagnosis: Sepsis Interval history: States tired, has not been sleeping well. Objective - Vital Signs Vital signs: Vital Signs Temp Pulse Resp BP Pulse Ox 12/17/16 09:48 173/78 12/17/16 08:04 98.5 F 71 18 181/79 95 12/17/16 04:26 98.1 F 72 18 196/84 98 12/16/16 23:27 97.8 F 75 18 174/72 92 12/16/16 19:36 97.6 F 78 18 161/73 97 12/16/16 18:55 97.7 F 18 139/67 12/16/16 18:35 152/74 12/16/16 18:20 163/75 12/16/16 18:05 162/89 12/16/16 17:50 167/88 12/16/16 17:35 145/72 12/16/16 17:20 134/58 12/16/16 17:05 127/66 12/16/16 16:50 136/68 12/16/16 16:35 146/69 12/16/16 16:20 137/70 12/16/16 16:05 159/74 12/16/16 15:50 153/74 12/16/16 15:35 174/81 12/16/16 15:20 172/84 12/16/16 15:05 97.6 F 20 155/75 12/16/16 12:54 97.5 F L 64 16 182/74 97 Intake and Output 12/16/16 12/17/16 12/17/16 23:59 07:59 15:59 Intake Total 0 / 0 50 / 50 Output Total 3600 / 3600 0 / 0 Balance -3600 / -3600 50 / 50 Intake: Oral 0 / 0 50 / 50 Output: Urine 0 / 0 0 / 0 Total Dialysis (HD) 3600 / 3600 Output Other: Stool Size Small Stool Consistency loose liquid Stool Characteristics Pasty Stool Color Brown # Bowel Movements 1 Weight 103.4 kg Blood Glucose* 144 143 Hemodialysis Net Fluid 3000 Removed (mL) Patient Weight 12/17/16 23:59 Weight 103.4 kg - General Appearance General appearance: Present: well-developed, well-nourished, appears started age , obese EENT: Present: mucous membranes moist Neck: Present: no JVD Respiratory: Present: clear Cardiology: Present: no edema, regular rate, regular rhythm Gastrointestinal: Present: normoactive bowel sounds, no tenderness Integumentary: Present: warm and dry Neurologic: Present: alert and oriented x3 Psychiatric: Present: mood/affect appropriate, cooperative - Lab 12/17/16 03:45 12/17/16 03:45 Most recent lab results Calcium 9.0 mg/dL (8.6-10.8) 12/17/16 03:45 Phosphorus 2.9 mg/dL (2.3-4.7) 12/11/16 10:57 Magnesium 2.0 mg/dL (1.6-2.6) 12/17/16 03:45 Consult Discharge Plan - Plan Referrals: NO,PCP [Primary Care Provider] - (patient is from [facility])
--- NOTE | 2016-12-17 10:05 | Infectious Disease Progress No ---
Date of Encounter: 12/17/16 Time of Encounter: 10:03 - Assessment and Plan (1) Severe sepsis Current Visit: Yes Status: Resolved The patient had three SIRS criteria plus encephalopathy and lactic acidosis on admission. Likely secondary to bacteremia and infected temporary dialysis catheter. Improved. The patient has been afebrile. Tachycardia has resolved. Leukocytosis , encephalopathy, and lactic acidosis have resolved. Blood cultures drawn 12/11/16 are positive 2/2 sets for MRSA. Repeat blood cultures drawn 12/12/16 are positive 2/2 sets for MRSA. Additional blood cultures drawn 12/13/16 are positive 1/2 sets again. Repeat blood culture drawn 12/14/16 is NGTD x 1 set. Repeat blood cultures drawn 12/15/16 are NGTD x 2 sets. (2) Bacteremia Current Visit: No Status: Acute Causative organism MRSA. Source likely the temporary dialysis catheter, which has been removed. Uncomplicated - no evidence of septic emboli at this point and the patient does not have any indwelling hardware. Blood cultures drawn 12/11/16 are positive 2/2 sets peripherally for MRSA and 1/ 1 set drawn from the TDC. Repeat blood cultures drawn 12/12/16 are also positive 2/2 sets for MRSA (drawn after TDC removed). Additional blood cultures drawn 12/13/16 are positive again 1/2 sets. Repeat blood culture drawn 12/14/16 is NGTD x 1 set. Additional cultures drawn are NGTD x 2 sets. TTE negative for valvular vegetations. DEBORAH negative. The patient has one major and one minor Modified Gentile's Criteria. No endocarditis stigmata noted on exam. Continue Vancomycin IV. Pharmacy to dose. Goal trough ~15. Vanc trough 16.9 this morning. Duration of treatment depends on the clinical picture. Source of the infection has been removed. Will plan on treating with 2 weeks of IV Vancomycin with dialysis. This will help avoid the insertion of additional central venous access. Treat through 12/29/16. Monitor for drug toxicity and dose-adjust antibiotics. Get weekly CBC and Vanc trough every Tuesday for the duration of antibiotic therapy. Follow up with ID 1 week after discharge. (3) Infected venous access port Current Visit: Yes Status: Acute Per the medical record, the HD staff reported yellow drainage and erythema at the insertion site. Tip culture positive for MRSA. Blood culture drawn from the TDC positive 05/23 set as well. TDC removed 12/11/16 by Interventional Radiology. No evidence of superficial infection at this time. Qualifiers: Encounter type: initial encounter Qualified Code(s): T80.219A - Unspecified infection due to central venous catheter, initial encounter (4) Hydronephrosis Current Visit: Yes Status: Acute CT scan shows bilateral hydronephrosis with hydroureter. Consult urology. Qualifiers: Hydronephrosis type: other Qualified Code(s): N13.39 - Other hydronephrosis (5) Flank pain Current Visit: Yes Status: Acute Etiology unclear. Patient reports recurrence of flank pain. CT scan shows bilateral hydronephrosis with hydroureter. Pain management per the primary team. Consult urology. (6) Encephalopathy Current Visit: Yes Status: Resolved Likely secondary to sepsis. CT head negative. Resolved. (7) Elevated lactic acid level Current Visit: Yes Status: Resolved Likely secondary to sepsis. Resolved. (8) ESRD on hemodialysis Current Visit: No Status: Chronic Follows with Dr. Terrell. Nephrology consulted and following. (9) CHF (congestive heart failure) Current Visit: No Status: Chronic Qualifiers: Congestive heart failure type: unspecified congestive heart failure type Congestive heart failure chronicity: chronic Qualified Code(s): I50.9 - Heart failure, unspecified - Subjective Interval history: Patient seen and examined. No acute events noted overnight. Patient resting in bed with eyes closed. States he is tired, but denies acute complaints. Denies fevers, chills, or rigors. Denies chest pain, shortness of breath, or cough. Denies nausea, vomiting, or diarrhea. States he had a small BM this morning, but he is still constipated. Denies abdominal pain. States his appetite is poor. States his right flank pain is back, but better. Denies oral thrush or new skin lesions. Infect Dis PN-Objective Data - Labs CBC & Chem 7: 12/17/16 03:45 12/17/16 03:45 Labs: Laboratory Results - last 24 hr 12/16/16 12/16/16 12/16/16 12:04 17:28 20:58 WBC RBC Hgb Hct MCV MCH MCHC RDW Plt Count MPV Immature Gran % Seg Neutrophils % Lymphocytes % Monocytes % Eosinophils % Basophils % Neutrophils # Lymphocytes # Monocytes # Eosinophils # Basophils # Sodium Potassium Chloride Carbon Dioxide BUN Creatinine Est GFR ( Amer) Est GFR (Non-Af Amer) BUN/Creatinine Ratio Glucose POC Glucose 97 H 96 H 144 H Calculated Osmolality Calcium Magnesium Vancomycin Trough 12/17/16 12/17/16 12/17/16 03:45 03:45 03:45 WBC 5.8 RBC 2.62 L Hgb 8.2 L Hct 24.8 L MCV 94.7 MCH 31.3 MCHC 33.1 RDW 13.7 Plt Count 213 MPV 10.4 Immature Gran % 2.6 Seg Neutrophils % 57.5 Lymphocytes % 19.9 Monocytes % 11.4 Eosinophils % 8.3 Basophils % 0.3 Neutrophils # 3.3 Lymphocytes # 1.2 Monocytes # 0.7 Eosinophils # 0.5 Basophils # 0.0 Sodium 137 Potassium 4.2 Chloride 98 Carbon Dioxide 30 H BUN 27 H D Creatinine 4.10 H Est GFR ( Amer) 19 L Est GFR (Non-Af Amer) 15 L BUN/Creatinine Ratio 7 Glucose 114 H POC Glucose Calculated Osmolality 290 Calcium 9.0 Magnesium 2.0 Vancomycin Trough 16.9 12/17/16 08:11 WBC RBC Hgb Hct MCV MCH MCHC RDW Plt Count MPV Immature Gran % Seg Neutrophils % Lymphocytes % Monocytes % Eosinophils % Basophils % Neutrophils # Lymphocytes # Monocytes # Eosinophils # Basophils # Sodium Potassium Chloride Carbon Dioxide BUN Creatinine Est GFR ( Amer) Est GFR (Non-Af Amer) BUN/Creatinine Ratio Glucose POC Glucose 147 H Calculated Osmolality Calcium Magnesium Vancomycin Trough Cultures: Cultures 12/15/16 13:10 Blood Culture - Preliminary Peripheral Venipuncture No growth. 12/15/16 13:05 Blood Culture - Preliminary Peripheral Venipuncture No growth. 12/12/16 08:47 Blood Culture - Final Peripheral Venipuncture Methicillin Resistant S.aureus 12/12/16 08:47 Blood Culture - Final Peripheral Venipuncture Methicillin Resistant S.aureus 12/13/16 10:01 Blood Culture - Final Peripheral Venipuncture Methicillin Resistant S.aureus 12/14/16 08:05 Blood Culture - Preliminary Peripheral Venipuncture No growth. 12/13/16 10:01 Blood Culture - Preliminary Peripheral Venipuncture No growth. 12/11/16 13:28 Catheter Tip Culture - Final Intravenous or Arterial Cath Methicillin Resistant S.aureus Serology 12/13/16 Range/Units 10:01 A. baumannii (PCR) Not Detected (Not Detect) Corine albicans (PCR) Not Detected (Not Detect) C. glabrata (PCR) Not Detected (Not Detect) C. krusei (PCR) Not Detected (Not Detect) C. parapsilosis (PCR) Not Detected (Not Detect) C. tropicalis (PCR) Not Detected (Not Detect) Enterobacteriac sp PCR Not Detected (Not Detect) E. cloacae complex PCR Not Detected (Not Detect) Enterococcus sp PCR Not Detected (Not Detect) E. coli (PCR) Not Detected (Not Detect) H. influenzae (PCR) Not Detected (Not Detect) Klebsiella oxytoca PCR Not Detected (Not Detect) Klebsiella pneumoniae Not Detected (Not Detect) List. monocytogenes PCR Not Detected (Not Detect) N. meningitidis (PCR) Not Detected (Not Detect) Proteus species (PCR) Not Detected (Not Detect) Serratia marcescens PCR Not Detected (Not Detect) Staphylococcus sp PCR DETECTED A (Not Detect) Staph aureus (PCR) DETECTED A (Not Detect) mecA-Methicil Res Gene DETECTED A (Not Detect) Streptococcus sp PCR Not Detected (Not Detect) Group A Strep DNA Not Detected (Not Detect) Group B Strep (PCR) Not Detected (Not Detect) Strep pneumoniae (PCR) Not Detected (Not Detect) P. aeruginosa (PCR) Not Detected (Not Detect) Thong/B-Vanco Res Genes Not Detected (Not Detect) KPC (blaKPC) Detect PCR Not Detected (Not Detect) Exam - Constitutional Vitals: Temp Pulse Resp BP Pulse Ox 98.5 F 71 18 173/78 95 12/17/16 08:04 12/17/16 08:04 12/17/16 08:04 12/17/16 09:48 12/17/16 08:04 General appearance: cooperative, no acute distress, obese - Head Head exam: Present: atraumatic, normal inspection, normocephalic - Eye Eye exam: Present: EOMI, normal appearance, PERRL Pupils: Present: normal accommodation Additional comments: No subconjunctival hemorrhage noted. - ENT ENT exam: Present: mucous membranes moist - Neck Neck exam: Present: normal inspection - Respiratory Respiratory exam: Present: CTAB. Absent: rales, respiratory distress, rhonchi, wheezes - Cardiovascular Cardiovascular exam: Present: RRR, +S1, +S2 - GI/Abdominal GI/Abdominal exam: Present: distended (obese), normal bowel sounds, soft, tenderness (RLQ) - Extremities Exam Extremities exam: Present: normal inspection. Absent: joint swelling, pedal edema, tenderness Additional comments: Right foot dressing C/D/I. No endocarditis stigmata noted. - Back Exam Back exam: Present: CVA tenderness (R), normal inspection - Neurological Exam Neurological exam: Present: alert, oriented X3, no focal deficits - Psychiatric Psychiatric exam: Present: normal affect, normal mood - Skin Skin exam: Present: dry, intact, normal color, warm - Additional findings Additional findings: Previous TDC to the right upper chest RANULFO and without redness, warmth, or drainage. Right femoral TDC noted with transparent dressing intact. Small amount of serous drainage noted. No warmth or erythema noted. Consult Discharge Plan - Plan Referrals: NONE,PCP [Primary Care Provider] - (patient is from [facility]) - Attending Attestation I examined this patient and my medical decision-making was reviewed with the Resident Physician. I agree with the documented findings, disposition and treatment plan as described except to the extent set forth below.
[2016-12-17] MEDS: Bisacodyl 10 MG RECTAL SUPPOSITORY RC SCH ×3 (13:53→15:59)
--- NOTE | 2016-12-17 14:47 | Internal Med Progress Note ---
<Ramila Bush - Last Filed: 12/17/16 16:02> Date of Encounter: 12/17/16 Time of Encounter: 10:10 - Assessment and plan (1) Severe sepsis Current Visit: Yes Status: Resolved Assessment and plan: -Patient had 3 SIRS criteria and developed encephalopathy with lactic acidosis admission -This is most likely due to bacteremia from an infected temporary dialysis catheter -patient has improved, is stable, afebrile, WBC within normal limits. Lactic acidosis resolved -Encephalopathy is resolved -Blood cultures (12/11/16) are positive for MRSA. -Catheter culture (12/11/16) positive for MRSA. -Blood cultures (12/12/16) are positive for MRSA -Blood Cultures (12/13/2016) resulted: 1/2 MRSA -Blood cultures (12/15/16) preliminary- no growth -DEBORAH- LVEF 65%, no endocarditis -head CT- no acute abnormality -ID input is appreciated Plan -continue IV vancomycin- pharmacy to dose -the patient is to have 2 weeks IV vancomycin with dialysis- treat through 2016. -Weekly CBC and Vanc trough every Tuesday -follow-up with ID one week after discharge -upon discharge he will go back [facility] -Continue close monitoring patient vitals and labs (2) Bacteremia Current Visit: No Status: Acute Assessment and plan: Same as above -MRSA- Most likely due to infected temporary dialysis catheter -IR removed catheter -Blood cultures (12/11/16) are positive for MRSA. -Catheter culture (12/11/16) positive for MRSA. -Blood cultures (12/12/16) are positive for MRSA -Blood Cultures from 12/13/2016 resulted: 1/2 MRSA -Blood cultures (12/15/16) preliminary- No growth -Echo TTE- negative for valvular vegetations. LVEF 60%. Moderate diastolic dysfunction of left ventricle with elevated filling pressures. Mild mitral tricuspid regurgitation. -DEBORAH- LVEF 65%, no endocarditis -chest x-ray- mild congestion -patient is stable, afebrile, WBC 5.8 -ID consulted- their input is appreciated Plan -continue vancomycin IV. Pharmacy will dose. Goal trough 15 -Blood cultures drawn 12/15/16 pending -the patient is to have 2 weeks IV vancomycin with dialysis- treat through 2016. -Weekly CBC and Vanc trough every Tuesday -follow-up with ID one week after discharge -upon discharge he will go back to the [facility] SN[facility] -continue to monitor patient vitals closely (3) ESRD on hemodialysis Current Visit: No Status: Chronic Assessment and plan: He has a temporary for femoral dialysis catheter in place Patient has end-stage renal disease on dialysis to Tuesday, , Tuesday nephrology managing- appreciated a new dialysis catheter will be placed once cultures are cleared sodium 137 potassium 4.2 placed on Aranesp Plan -the patient will stay until final results of the blood cultures 12/15/2016 are negative, at that point a Permacath will be inserted -most likely discharge will be on Tuesday since IR is not here on the weekends -will continue dialysis treatment schedule -will continue to monitor labs (electrolytes) (4) DVT prophylaxis Current Visit: No Status: Acute Assessment and plan: Heparin - Subjective Interval history: Laying in bed comfortably sleeping patient states that he is very sleepy. He has no complaints at this time he denies fever, chills, confusion, chest pain, dyspnea, wheezing, nausea, vomiting, diarrhea, abdominal pain - Constitutional Vitals: Temp Pulse Resp BP Pulse Ox 97.9 F 64 18 153/58 97 12/17/16 12:18 12/17/16 12:18 12/17/16 12:18 12/17/16 12:18 12/17/16 12:18 Exam: Gen.: Vitals noted. No acute distress. AAOx3 HEENT: PERRL, oropharynx clear, Normocephalic, atraumatic Neck: Supple. No adenopathy. Cardiac: RRR, no murmur, +S1/S2 Pulmonary: CTA bilaterally, no wheezes, rales or rhonchi, equal chest expansion Abdomen: soft, nontender, Bowel sounds noted, no guarding Back: Nontender throughout. Extremities: no BLE edema, nontender calf, no cyanosis or clubbing Neuro: A&Ox3, moves all extremities, no focal deficits Psych: Appropriate mood and behavior Internal Medicine: Result - Labs CBC & Chem 7: 12/17/16 03:45 12/17/16 03:45 Labs: Short CBC 12/17/16 Range/Units 03:45 WBC 5.8 (4.3-11.1) K/mcL Hgb 8.2 L (12.9-16.9) g/dL Hct 24.8 L (37.5-50.1) % Plt Count 213 (140-400) K/mcL Neutrophils # 3.3 (1.6-8.9) K/mcL BMP 12/17/16 03:45 Sodium 137 Potassium 4.2 Chloride 98 Carbon Dioxide 30 H BUN 27 H D Creatinine 4.10 H Glucose 114 H Calcium 9.0 - ABG Interpretation ABG results: PT/INR, D-dimer PT 10.5 Seconds (9.4-12.1) 12/14/16 08:05 Consult Discharge Plan - Plan Referrals: NONE,PCP [Primary Care Provider] - (patient is from [facility]) <Ender Gandhi - Last Filed: 12/17/16 17:27> Date of Encounter: 12/17/16 - Constitutional Vitals: Temp Pulse Resp BP Pulse Ox 98.0 F 70 19 183/78 92 12/17/16 17:17 12/17/16 17:17 12/17/16 17:17 12/17/16 17:17 12/17/16 17:17 Internal Medicine: Result - Labs CBC & Chem 7: 12/17/16 03:45 12/17/16 03:45 Labs: Short CBC 12/17/16 Range/Units 03:45 WBC 5.8 (4.3-11.1) K/mcL Hgb 8.2 L (12.9-16.9) g/dL Hct 24.8 L (37.5-50.1) % Plt Count 213 (140-400) K/mcL Neutrophils # 3.3 (1.6-8.9) K/mcL BMP 12/17/16 03:45 Sodium 137 Potassium 4.2 Chloride 98 Carbon Dioxide 30 H BUN 27 H D Creatinine 4.10 H Glucose 114 H Calcium 9.0 - ABG Interpretation ABG results: PT/INR, D-dimer PT 10.5 Seconds (9.4-12.1) 12/14/16 08:05 - Attending Attestation I examined this patient and my medical decision-making was reviewed with the Resident Physician. I agree with the documented findings, disposition and treatment plan as described except to the extent set forth below.
[2016-12-17] MEDS ORDERED: Vancomycin 1,000 MG in D5% in Water 250 ML IVPB ONE ×2 (18:00)
[2016-12-18 04:02] LABS: Basophils % 0.3 %; Eosinophils # 0.8 K/mcL (0.0-0.6); Eosinophils % 12.9 %; Hematocrit 24.6 % (37.5-50.1); Hemoglobin 8.2 g/dL (12.9-16.9); Immature Granulocytes % 2.9 % (0-4); Lymphocytes # 1.5 K/mcL (0.6-4.6); Lymphocytes % 23.3 %; Mean Corpuscular HGB Conc 33.3 g/dL (31.6-35.5); Mean Corpuscular Hemoglobin 31.9 pg (28.0-33.3); Mean Corpuscular Volume 95.7 fL (83.0-100.0); Mean Platelet Volume 10.1 fL (9.4-12.4); Monocytes # 0.7 K/mcL (0.0-1.3); Monocytes % 11.2 %; Neutrophils # 3.2 K/mcL (1.6-8.9); Platelet Count 236 K/mcL (140-400); Red Blood Count 2.57 M/mcL (4.19-5.50); Red Cell Distribution Width 13.8 % (11.5-14.5); Segmented Neutrophils % 49.4 %
[2016-12-18 04:13] LABS: Potassium 4.3 mEq/L (3.5-4.5)
[2016-12-18] MEDS: Famotidine 20 MG TABLET PO SCH (05:52)
[2016-12-18] MEDS: *HR* Heparin 5,000 UNIT/ML VIAL SQ SCH ×3 (05:52→21:23)
[2016-12-18] MEDS: Insulin LISPRO 300 UNITS/3 ML VIAL SQ SCH ×4 (08:02→21:50)
--- NOTE | 2016-12-18 08:51 | Nephrology Progress Note ---
Date of Encounter: 12/18/16 Time of Encounter: 08:30 - Assessment and Plan (1) ESRD on hemodialysis Current Visit: No Status: Chronic Sepsis, encephalopathy, most likely related to HD catheter. On Vanco. HD today, keeping TTS schedule. Orders given. Will have femoral catheter removed following HD today. Consult IR for permacath placement on Tuesday. Subjective Principal diagnosis: Sepsis Interval history: States feeling better today, less tired. No new complaints. Objective - Vital Signs Vital signs: Vital Signs Temp Pulse Resp BP Pulse Ox 12/18/16 07:55 97.2 F L 64 19 185/64 91 12/18/16 04:43 97.9 F 64 17 171/73 91 12/17/16 23:08 97.7 F 57 17 140/58 100 12/17/16 20:06 97.9 F 69 17 189/102 99 12/17/16 17:17 98.0 F 70 19 183/78 92 12/17/16 12:18 97.9 F 64 18 153/58 97 12/17/16 09:48 173/78 Intake and Output 12/17/16 12/18/16 12/18/16 23:59 07:59 15:59 Intake Total 0 / 0 Balance 0 / 0 Intake: Oral 0 / 0 Other: Stool Size Large Stool Consistency soft formed Stool Characteristics Pasty Stool Color Brown # Bowel Movements 1 Weight 104 kg Blood Glucose* 112 91 Patient Weight 12/18/16 23:59 Weight 104 kg - General Appearance General appearance: Present: well-developed, well-nourished, appears started age , obese EENT: Present: mucous membranes moist Neck: Present: no JVD Respiratory: Present: clear Cardiology: Present: no edema, regular rate, regular rhythm Gastrointestinal: Present: normoactive bowel sounds, no tenderness Integumentary: Present: warm and dry Neurologic: Present: alert and oriented x3 Psychiatric: Present: mood/affect appropriate, cooperative - Lab 12/18/16 03:30 12/18/16 03:30 Most recent lab results Calcium 9.0 mg/dL (8.6-10.8) 12/18/16 03:30 Phosphorus 2.9 mg/dL (2.3-4.7) 12/11/16 10:57 Magnesium 2.0 mg/dL (1.6-2.6) 12/17/16 03:45 Consult Discharge Plan - Plan Referrals: NONE,PCP [Primary Care Provider] - (patient is from [facility])
[2016-12-18] MEDS ORDERED: amLODIPine 5 MG TABLET PO SCH (09:00)
[2016-12-18] MEDS: Sennosides 8.6 MG TABLET PO SCH ×2 (09:38→21:23)
[2016-12-18] MEDS: amLODIPine 5 MG TABLET PO SCH (09:38)
[2016-12-18] MEDS: Bisacodyl 10 MG RECTAL SUPPOSITORY RC SCH (09:38)
[2016-12-18] MEDS ORDERED: 0.9 % Sodium Chloride 250 ML IVC PRN (11:22)
--- NOTE | 2016-12-18 11:39 | Internal Med Progress Note ---
Date of Encounter: 12/18/16 Time of Encounter: 11:36 - Assessment and plan (1) Severe sepsis Current Visit: Yes Status: Resolved Assessment and plan: -Patient had 3 SIRS criteria and developed encephalopathy with lactic acidosis admission -This is most likely due to bacteremia from an infected temporary dialysis catheter -patient has improved, is stable, afebrile, WBC within normal limits. Lactic acidosis resolved -Encephalopathy is resolved -Blood cultures (12/11/16) are positive for MRSA. -Catheter culture (12/11/16) positive for MRSA. -Blood cultures (12/12/16) are positive for MRSA -Blood Cultures (12/13/2016) resulted: 1/2 MRSA -Blood cultures (12/15/16) preliminary- no growth -DEBORAH- LVEF 65%, no endocarditis -head CT- no acute abnormality -ID input is appreciated Plan -continue IV vancomycin- pharmacy to dose -the patient is to have 2 weeks IV vancomycin with dialysis- treat through 2016. -Weekly CBC and Vanc trough every Tuesday -follow-up with ID one week after discharge -upon discharge he will go back to the rehabilitation center [facility] -Continue close monitoring patient vitals and labs 12/18/2016 Comfortably sitting in the bed. Noted that patient's vitals are stable. No redness/signs of infection noted. Plan: Continue vancomycin. Regarding antibiotics duration and plan please see above. Input from nephrology appreciated. (2) ESRD on hemodialysis Current Visit: No Status: Chronic Assessment and plan: He has a temporary for femoral dialysis catheter in place Patient has end-stage renal disease on dialysis to Tuesday, , Tuesday nephrology managing- appreciated a new dialysis catheter will be placed once cultures are cleared sodium 137 potassium 4.2 placed on Aranesp Plan -the patient will stay until final results of the blood cultures 12/15/2016 are negative, at that point a Permacath will be inserted -most likely discharge will be on Tuesday since IR is not here on the weekends -will continue dialysis treatment schedule -will continue to monitor labs (electrolytes) 12/18/2016. Noted that interventional radiology to place per catheter for dialysis on Tuesday. Plan from nephrology stated yesterday which can be seen above (3) Hypothyroidism Current Visit: Yes Status: Acute Assessment and plan: Stable Qualifiers: Hypothyroidism type: unspecified Qualified Code(s): E03.9 - Hypothyroidism , unspecified (4) DVT prophylaxis Current Visit: No Status: Acute Assessment and plan: Heparin - Subjective Interval history: Seen and examined. Chart reviewed. Patient is comfortably sitting in the bed. Patient denies chest pain, shortness of breath, abdominal pain, nausea, vomiting and diarrhea. Noted that nephrology has evaluated the patient. - Constitutional Vitals: Temp Pulse Resp BP Pulse Ox 98.0 F 72 19 176/80 94 12/18/16 10:55 12/18/16 10:55 12/18/16 10:55 12/18/16 10:55 12/18/16 10:55 General appearance: Present: A&O X 3, pleasant, no acute distress, answers questions appropriately - Head Head exam: Present: atraumatic, normocephalic - Eye Eye exam: Present: PERRL, conjuntiva pink, sclera anicteric Pupils: Present: PERRL - Neck Neck exam general surgery: Present: supple, trachea midline. Absent: lymphadenopathy - Respiratory Respiratory exam: Present: CTAB. Absent: accessory muscle use, rales, rhonchi, wheezes - Cardiovascular Cardiovascular exam: Present: RRR, +S1, +S2. Absent: diastolic murmur, gallop, rubs, systolic murmur - GI/Abdominal GI/Abdominal exam: Present: normal bowel sounds, soft, no peritoneal signs. Absent: distended, tenderness - Extremities Exam Extremities exam: Present: warm, radial pulses palpable and symetrical. Absent : calf tenderness, cyanotic, pedal edema - Neurological Exam Neurological exam: Present: CN II-XII intact, oriented X3, no focal deficits. Absent: pronater drift, facial droop, speech deficit - Skin Skin exam: Present: dry, intact Internal Medicine: Result - Labs CBC & Chem 7: 12/18/16 03:30 12/18/16 03:30 Labs: Short CBC 12/18/16 Range/Units 03:30 WBC 6.5 (4.3-11.1) K/mcL Hgb 8.2 L (12.9-16.9) g/dL Hct 24.6 L (37.5-50.1) % Plt Count 236 (140-400) K/mcL Neutrophils # 3.2 (1.6-8.9) K/mcL BMP 12/18/16 03:30 Sodium 134 L Potassium 4.3 Chloride 96 L Carbon Dioxide 29 BUN 34 H Creatinine 5.24 H Glucose 88 Calcium 9.0 - ABG Interpretation ABG results: PT/INR, D-dimer PT 10.5 Seconds (9.4-12.1) 12/14/16 08:05 Consult Discharge Plan - Plan Referrals: NONE,PCP [Primary Care Provider] - (patient is from [facility])
[2016-12-18] MEDS ORDERED: 0.9 % Sodium Chloride 1,000 ML PRIME SCH (11:45)
[2016-12-18] MEDS ORDERED: 0.9 % Sodium Chloride 1,000 ML ONE (17:38)
[2016-12-18] MEDS: Acetaminophen 325 MG TABLET PO PRN (20:03)
[2016-12-19] MEDS: Famotidine 20 MG TABLET PO SCH (06:52)
[2016-12-19] MEDS: *HR* Heparin 5,000 UNIT/ML VIAL SQ SCH ×3 (06:52→21:33)
[2016-12-19] MEDS: Insulin LISPRO 300 UNITS/3 ML VIAL SQ SCH ×4 (08:15→21:34)
--- NOTE | 2016-12-19 08:57 | Nephrology Progress Note ---
Date of Encounter: 12/19/16 Time of Encounter: 08:45 - Assessment and Plan (1) ESRD on hemodialysis Current Visit: No Status: Chronic Sepsis, encephalopathy, most likely related to HD catheter. On Vanco. No HD today, keeping TTS. Consulted IR for permacath placement on Tuesday. If discharged after cath placement, will dialyze Tuesday at [place]. Subjective Principal diagnosis: Sepsis Interval history: States feeling better today, less tired. No new complaints. Wants to go back to nursing facility. Objective - Vital Signs Vital signs: Vital Signs Temp Pulse Resp BP Pulse Ox 12/19/16 07:57 98.2 F 71 13 167/78 94 12/19/16 04:40 98.5 F 67 16 151/77 94 12/18/16 23:29 98.4 F 70 18 175/83 95 12/18/16 19:26 97.8 F 65 18 166/68 100 12/18/16 16:28 97.6 F 64 19 124/59 94 12/18/16 16:00 97.9 F 20 136/58 12/18/16 15:45 119/63 12/18/16 15:30 121/61 12/18/16 15:15 130/64 12/18/16 15:00 128/64 12/18/16 14:45 105/58 12/18/16 14:30 109/53 12/18/16 14:15 101/47 12/18/16 14:00 94/46 12/18/16 13:45 99/47 12/18/16 13:30 134/61 12/18/16 13:15 141/60 12/18/16 13:00 142/62 12/18/16 12:45 125/66 12/18/16 12:30 143/71 12/18/16 12:15 97.9 F 18 160/67 12/18/16 10:55 98.0 F 72 19 176/80 94 Intake and Output 12/18/16 12/19/16 12/19/16 23:59 07:59 15:59 Intake Total 450 / 450 200 / 200 Output Total 3600 / 3600 Balance -3150 / -3150 200 / 200 Intake: Oral 450 / 450 200 / 200 Output: Urine 0 / 0 Total Dialysis (HD) 3600 / 3600 Output Other: Weight 99 kg Blood Glucose* 124 106 Hemodialysis Net Fluid 3000 Removed (mL) Patient Weight 12/19/16 23:59 Weight 99 kg - General Appearance General appearance: Present: well-developed, well-nourished, appears started age , obese EENT: Present: mucous membranes moist Neck: Present: no JVD Respiratory: Present: clear Cardiology: Present: no edema, regular rate, regular rhythm Gastrointestinal: Present: normoactive bowel sounds, no tenderness Integumentary: Present: warm and dry Neurologic: Present: alert and oriented x3 Psychiatric: Present: mood/affect appropriate, cooperative - Lab 12/18/16 03:30 12/18/16 03:30 Most recent lab results Calcium 9.0 mg/dL (8.6-10.8) 12/18/16 03:30 Phosphorus 2.9 mg/dL (2.3-4.7) 12/11/16 10:57 Magnesium 2.0 mg/dL (1.6-2.6) 12/17/16 03:45 Consult Discharge Plan - Plan Referrals: NONE,PCP [Primary Care Provider] - (patient is from [facility])
[2016-12-19] MEDS: Acetaminophen 325 MG TABLET PO PRN (09:38)
[2016-12-19] MEDS: amLODIPine 5 MG TABLET PO SCH (09:38)
[2016-12-19] MEDS: Bisacodyl 10 MG RECTAL SUPPOSITORY RC SCH (09:39)
[2016-12-19] MEDS: Sennosides 8.6 MG TABLET PO SCH ×2 (09:39→21:34)
--- NOTE | 2016-12-19 14:32 | Internal Med Progress Note ---
Date of Encounter: 12/19/16 Time of Encounter: 14:30 - Assessment and plan (1) Severe sepsis Current Visit: Yes Status: Resolved Assessment and plan: -Patient had 3 SIRS criteria and developed encephalopathy with lactic acidosis admission -This is most likely due to bacteremia from an infected temporary dialysis catheter -patient has improved, is stable, afebrile, WBC within normal limits. Lactic acidosis resolved -Encephalopathy is resolved -Blood cultures (12/11/16) are positive for MRSA. -Catheter culture (12/11/16) positive for MRSA. -Blood cultures (12/12/16) are positive for MRSA -Blood Cultures (12/13/2016) resulted: 1/2 MRSA -Blood cultures (12/15/16) preliminary- no growth -DEBORAH- LVEF 65%, no endocarditis -head CT- no acute abnormality -ID input is appreciated Plan -continue IV vancomycin- pharmacy to dose -the patient is to have 2 weeks IV vancomycin with dialysis- treat through 2016. -Weekly CBC and Vanc trough every Tuesday -follow-up with ID one week after discharge -upon discharge he will go back to the rehabilitation center [facility] -Continue close monitoring patient vitals and labs 12/18/2016 Comfortably sitting in the bed. Noted that patient's vitals are stable. No redness/signs of infection noted. Plan: Continue vancomycin. Regarding antibiotics duration and plan please see above. Input from nephrology appreciated. 12/19/2016 continue present medications stable vitals will follow nephrology recommendations (2) ESRD on hemodialysis Current Visit: No Status: Chronic Assessment and plan: He has a temporary for femoral dialysis catheter in place Patient has end-stage renal disease on dialysis to Tuesday, , Tuesday nephrology managing- appreciated a new dialysis catheter will be placed once cultures are cleared sodium 137 potassium 4.2 placed on Aranesp Plan -the patient will stay until final results of the blood cultures 12/15/2016 are negative, at that point a Permacath will be inserted -most likely discharge will be on Tuesday since IR is not here on the weekends -will continue dialysis treatment schedule -will continue to monitor labs (electrolytes) 12/18/2016. Noted that interventional radiology to place per catheter for dialysis on Tuesday. Plan from nephrology stated yesterday which can be seen above (3) Hypothyroidism Current Visit: Yes Status: Acute Assessment and plan: Stable Qualifiers: Hypothyroidism type: unspecified Qualified Code(s): E03.9 - Hypothyroidism , unspecified (4) DVT prophylaxis Current Visit: No Status: Acute Assessment and plan: Heparin - Subjective Interval history: Seen and examined. Chart reviewed. Patient is comfortably sitting in the bed. Patient denies chest pain, shortness of breath, abdominal pain, nausea, vomiting and diarrhea. Noted that nephrology has evaluated the patient. 12/19/2016 seen and examined. chart reviewed. patient denies chest pain, cough and abdominal pain. - Constitutional Vitals: Temp Pulse Resp BP Pulse Ox 98.1 F 62 14 179/69 100 12/19/16 11:19 12/19/16 11:19 12/19/16 11:19 12/19/16 11:19 12/19/16 11:19 General appearance: Present: A&O X 3, pleasant, no acute distress, answers questions appropriately - Head Head exam: Present: atraumatic, normocephalic - Eye Eye exam: Present: PERRL, conjuntiva pink, sclera anicteric Pupils: Present: PERRL - Neck Neck exam general surgery: Present: supple, trachea midline. Absent: lymphadenopathy - Respiratory Respiratory exam: Present: CTAB. Absent: accessory muscle use, rales, rhonchi, wheezes - Cardiovascular Cardiovascular exam: Present: RRR, +S1, +S2. Absent: diastolic murmur, gallop, rubs, systolic murmur - GI/Abdominal GI/Abdominal exam: Present: normal bowel sounds, soft, no peritoneal signs. Absent: distended, tenderness - Extremities Exam Extremities exam: Present: warm, radial pulses palpable and symetrical. Absent : calf tenderness, cyanotic, pedal edema - Neurological Exam Neurological exam: Present: CN II-XII intact, oriented X3, no focal deficits. Absent: pronater drift, facial droop, speech deficit - Skin Skin exam: Present: dry, intact Internal Medicine: Result - Labs CBC & Chem 7: 12/18/16 03:30 12/18/16 03:30 - ABG Interpretation ABG results: PT/INR, D-dimer PT 10.5 Seconds (9.4-12.1) 12/14/16 08:05 Consult Discharge Plan - Plan Referrals: NONE,PCP [Primary Care Provider] - (patient is from [facility])
[2016-12-20] MEDS: Acetaminophen 325 MG TABLET PO PRN ×2 (03:16→11:11)
[2016-12-20] MEDS: *HR* Heparin 5,000 UNIT/ML VIAL SQ SCH ×2 (03:45→16:10)
[2016-12-20] MEDS: Famotidine 20 MG TABLET PO SCH (03:45)
[2016-12-20] MEDS ORDERED: Clindamycin 600 MG/50 ML 600 MG/50 ML IV.SOLN IVPB ONE (08:53)
[2016-12-20] MEDS ORDERED: *HR* Midazolam HCl 2 MG/2 ML VIAL IVP PRN (08:53)
--- NOTE | 2016-12-20 08:54 | Pre-Sedation Evaluation ---
Pre-sedation evaluation - Pre-sedation checklist Date of procedure: 12/16/16 Procedure: Transesophogeal Echocardiogram Recent Vitals: Last Vital Signs Temp 97.6 F 12/20/16 08:00 Pulse 67 12/20/16 08:00 Resp 16 12/20/16 08:00 BP 149/85 12/20/16 08:00 Pulse Ox 98 12/20/16 08:00 H&P (including ROS) documented in medical record: Yes Previous reaction to sedatives/anesthetics: No Dietary Status: NPO after Midnight Airway Assessment: Patient can open mouth completely, TMJ function normal, Micrognathia (under-bite, receding chin) absent, Neck with adequate range of motion Dentition: No loose teeth or bridges Possible difficult airway: No ASA Classification *see protocol: CLASS II-Mild systemic disease Plan of Care: Pt appropriate candidate for procedure/moderate/conscious sedation , Risks/benefits of procedure/sedation discussed w/ patient/family
[2016-12-20] MEDS: Insulin LISPRO 300 UNITS/3 ML VIAL SQ SCH ×2 (08:59→12:56)
[2016-12-20] MEDS ORDERED: Heparin 1,000 UNITS/500 mL NS 500 ML ONE (09:00)
[2016-12-20] MEDS ORDERED: 0.9 % Sodium Chloride 500 ML ONE (09:17)
[2016-12-20] MEDS: *HR* FentaNYL (PF) 100 MCG/2 ML VIAL IVP PRN ×2 (09:35→09:42)
[2016-12-20] MEDS ORDERED: *HR* Heparin 5,000 UNIT/ML VIAL ONE (09:48)
--- NOTE | 2016-12-20 10:23 | Event Note ---
Date of Encounter: 12/20/16 Time of Encounter: 10:22 Several attempts to see patient. Off floor for line placement.
[2016-12-20] MEDS: Bisacodyl 10 MG RECTAL SUPPOSITORY RC SCH (11:07)
[2016-12-20] MEDS: amLODIPine 5 MG TABLET PO SCH (11:07)
[2016-12-20] MEDS: Sennosides 8.6 MG TABLET PO SCH (11:07)
--- NOTE | 2016-12-20 11:35 | Infectious Disease Progress No ---
Date of Encounter: 12/20/16 Time of Encounter: 11:33 - Assessment and Plan (1) Severe sepsis Current Visit: Yes Status: Resolved The patient had three SIRS criteria plus encephalopathy and lactic acidosis on admission. Likely secondary to bacteremia and infected temporary dialysis catheter. Improved. The patient has been afebrile. Tachycardia has resolved. Leukocytosis , encephalopathy, and lactic acidosis have resolved. Blood cultures drawn 12/11/16 are positive 2/2 sets for MRSA. Repeat blood cultures drawn 12/12/16 are positive 2/2 sets for MRSA. Additional blood cultures drawn 12/13/16 are positive 1/2 sets again. Repeat blood culture drawn 12/14/16 is negative x 1 set. Repeat blood cultures drawn 12/15/16 are negative x 2 sets. (2) Bacteremia Current Visit: No Status: Acute Causative organism MRSA. Source likely the temporary dialysis catheter, which has been removed. Uncomplicated - no evidence of septic emboli and the patient does not have any indwelling hardware. Blood cultures drawn 12/11/16 are positive 2/2 sets peripherally for MRSA and 1/ 1 set drawn from the TDC. Repeat blood cultures drawn 12/12/16 are also positive 2/2 sets for MRSA (drawn after TDC removed). Additional blood cultures drawn 12/13/16 are positive again 1/2 sets. Repeat blood culture drawn 12/14/16 is negative x 1 set. Additional cultures drawn 12/15/16 are negative x 2 sets. TTE negative for valvular vegetations. DEBORAH negative. The patient has one major and one minor Modified Gentile's Criteria. No endocarditis stigmata noted on exam. Continue Vancomycin IV. Pharmacy to dose. Goal trough ~15. Vanc trough 16.9 this morning. Duration of treatment depends on the clinical picture. Source of the infection has been removed. Will plan on treating with 2 weeks of IV Vancomycin with dialysis. This will help avoid the insertion of additional central venous access. Treat through 12/29/16. Monitor for drug toxicity and dose-adjust antibiotics. Get weekly CBC and Vanc trough every Tuesday for the duration of antibiotic therapy. Follow up with ID 12/27/16 at 1000. (3) Infected venous access port Current Visit: Yes Status: Acute Per the medical record, the HD staff reported yellow drainage and erythema at the insertion site. Tip culture positive for MRSA. Blood culture drawn from the TDC positive 1/1 set as well. TDC removed 7/22/17 by Interventional Radiology. No evidence of superficial infection at this time. Qualifiers: Encounter type: initial encounter Qualified Code(s): T80.219A - Unspecified infection due to central venous catheter, initial encounter (4) Hydronephrosis Current Visit: Yes Status: Acute CT scan shows bilateral hydronephrosis with hydroureter. Consult urology. Qualifiers: Hydronephrosis type: other Qualified Code(s): N13.39 - Other hydronephrosis (5) Flank pain Current Visit: Yes Status: Acute Etiology unclear. Patient reports recurrence of flank pain. CT scan shows bilateral hydronephrosis with hydroureter. Pain management per the primary team. Consult urology. (6) Encephalopathy Current Visit: Yes Status: Resolved Likely secondary to sepsis. CT head negative. Resolved. (7) Elevated lactic acid level Current Visit: Yes Status: Resolved Likely secondary to sepsis. Resolved. (8) ESRD on hemodialysis Current Visit: No Status: Chronic Follows with Dr. Terrell. Nephrology consulted and following. (9) CHF (congestive heart failure) Current Visit: No Status: Chronic Qualifiers: Congestive heart failure type: unspecified congestive heart failure type Congestive heart failure chronicity: chronic Qualified Code(s): I50.9 - Heart failure, unspecified - Subjective Interval history: Patient seen and examined. Weekend notes reviewed. No acute events noted overnight. Patient sitting up on the side of the bed. States that overall, he feels better. Denies fevers, chills, or rigors. Denies chest pain, shortness of breath, or cough. Denies nausea, vomiting, diarrhea, or constipation. Denies abdominal pain and states his appetite is better. States his right flank pain persists, but is better. Denies oral thrush or new skin lesions. Status post tunneled dialysis catheter placement this morning. Infect Dis PN-Objective Data - Labs CBC & Chem 7: 12/18/16 03:30 12/18/16 03:30 Labs: Laboratory Results - last 24 hr 12/19/16 12/19/16 12/20/16 11:21 16:15 08:03 POC Glucose 119 H 112 H 88 Cultures: Cultures 12/14/16 08:05 Blood Culture - Final Peripheral Venipuncture No growth. 12/13/16 10:01 Blood Culture - Final Peripheral Venipuncture No growth. 12/15/16 13:10 Blood Culture - Preliminary Peripheral Venipuncture No growth. 12/15/16 13:05 Blood Culture - Preliminary Peripheral Venipuncture No growth. 12/12/16 08:47 Blood Culture - Final Peripheral Venipuncture Methicillin Resistant S.aureus 12/12/16 08:47 Blood Culture - Final Peripheral Venipuncture Methicillin Resistant S.aureus 12/13/16 10:01 Blood Culture - Final Peripheral Venipuncture Methicillin Resistant S.aureus 12/11/16 13:28 Catheter Tip Culture - Final Intravenous or Arterial Cath Methicillin Resistant S.aureus Serology 12/13/16 Range/Units 10:01 A. baumannii (PCR) Not Detected (Not Detect) Corine albicans (PCR) Not Detected (Not Detect) C. glabrata (PCR) Not Detected (Not Detect) C. krusei (PCR) Not Detected (Not Detect) C. parapsilosis (PCR) Not Detected (Not Detect) C. tropicalis (PCR) Not Detected (Not Detect) Enterobacteriac sp PCR Not Detected (Not Detect) E. cloacae complex PCR Not Detected (Not Detect) Enterococcus sp PCR Not Detected (Not Detect) E. coli (PCR) Not Detected (Not Detect) H. influenzae (PCR) Not Detected (Not Detect) Klebsiella oxytoca PCR Not Detected (Not Detect) Klebsiella pneumoniae Not Detected (Not Detect) List. monocytogenes PCR Not Detected (Not Detect) N. meningitidis (PCR) Not Detected (Not Detect) Proteus species (PCR) Not Detected (Not Detect) Serratia marcescens PCR Not Detected (Not Detect) Staphylococcus sp PCR DETECTED A (Not Detect) Staph aureus (PCR) DETECTED A (Not Detect) mecA-Methicil Res Gene DETECTED A (Not Detect) Streptococcus sp PCR Not Detected (Not Detect) Group A Strep DNA Not Detected (Not Detect) Group B Strep (PCR) Not Detected (Not Detect) Strep pneumoniae (PCR) Not Detected (Not Detect) P. aeruginosa (PCR) Not Detected (Not Detect) Thong/B-Vanco Res Genes Not Detected (Not Detect) KPC (blaKPC) Detect PCR Not Detected (Not Detect) - Impressions Impressions Guidance Needle Placement Ultrasound 12/20/16 00:00 IMPRESSION: Successful ultrasound and fluoroscopy guided tunneled catheter placement . D/ / Oneil Tong MD / Oneil Tong MD Interpreting Provider: Oneil Tong MD Exam - Constitutional Vitals: Temp Pulse Resp BP Pulse Ox 97.6 F 82 19 203/86 100 12/20/16 08:00 12/20/16 09:43 12/20/16 09:43 12/20/16 09:43 12/20/16 09:43 General appearance: cooperative, no acute distress, obese - Head Head exam: Present: atraumatic, normal inspection, normocephalic - Eye Eye exam: Present: EOMI, normal appearance, PERRL Pupils: Present: normal accommodation Additional comments: No subconjunctival hemorrhage noted. - ENT ENT exam: Present: mucous membranes moist - Neck Neck exam: Present: normal inspection - Respiratory Respiratory exam: Present: CTAB. Absent: rales, respiratory distress, rhonchi, wheezes - Cardiovascular Cardiovascular exam: Present: RRR, +S1, +S2 - GI/Abdominal GI/Abdominal exam: Present: distended (obese), normal bowel sounds, soft. Absent: tenderness - Extremities Exam Extremities exam: Present: normal inspection. Absent: joint swelling, pedal edema, tenderness Additional comments: Right foot dressing C/D/I. - Back Exam Back exam: Present: CVA tenderness (R) (Mild). Absent: paraspinal tenderness, vertebral tenderness - Neurological Exam Neurological exam: Present: alert, oriented X3, no focal deficits - Psychiatric Psychiatric exam: Present: normal affect, normal mood - Skin Skin exam: Present: dry, intact, normal color, warm Additional comments: No endocarditis stigmata noted. - Additional findings Additional findings: Tunneled dialysis catheter noted to the right upper chest with transparent dressing C/D/I. Tunneling site covered with guaze and transparent dressing. No bleeding, tenderness, or erythema noted. Consult Discharge Plan - Plan Referrals: NONE,PCP [Primary Care Provider] - (patient is [facility]) Macie Arias, FINANCIAL REPORTING CONSULTANT [Advanced Practice Nurse] - 12/27/16 10:00 am - Attending Attestation I examined this patient and my medical decision-making was reviewed with the Resident Physician. I agree with the documented findings, disposition and treatment plan as described except to the extent set forth below.
[2016-12-20 12:07] VITALS: BP 159/62
--- NOTE | 2016-12-20 13:11 | Internal Med Progress Note ---
Date of Encounter: 12/20/16 Time of Encounter: 13:09 - Assessment and plan (1) Severe sepsis Current Visit: Yes Status: Resolved Assessment and plan: -Patient had 3 SIRS criteria and developed encephalopathy with lactic acidosis admission -This is most likely due to bacteremia from an infected temporary dialysis catheter -patient has improved, is stable, afebrile, WBC within normal limits. Lactic acidosis resolved -Encephalopathy is resolved -Blood cultures (12/11/16) are positive for MRSA. -Catheter culture (12/11/16) positive for MRSA. -Blood cultures (12/12/16) are positive for MRSA -Blood Cultures (12/13/2016) resulted: 1/2 MRSA -Blood cultures (12/15/16) preliminary- no growth -DEBORAH- LVEF 65%, no endocarditis -head CT- no acute abnormality -ID input is appreciated Plan -continue IV vancomycin- pharmacy to dose -the patient is to have 2 weeks IV vancomycin with dialysis- treat through 2016. -Weekly CBC and Vanc trough every Tuesday -follow-up with ID one week after discharge -upon discharge [facility] -Continue close monitoring patient vitals and labs 12/18/2016 Comfortably sitting in the bed. Noted that patient's vitals are stable. No redness/signs of infection noted. Plan: Continue vancomycin. Regarding antibiotics duration and plan please see above. Input from nephrology appreciated. 12/19/2016 continue present medications stable vitals will follow nephrology recommendations 12/20/2016 Noted that patient is getting his hemodialysis today. Vital signs stable. We will continue antibiotics as recommended by infectious disease. Nephrology on the board. We will follow the recommendations from nephrology. (2) ESRD on hemodialysis Current Visit: No Status: Chronic Assessment and plan: He has a temporary for femoral dialysis catheter in place Patient has end-stage renal disease on dialysis to Tuesday, , Tuesday nephrology managing- appreciated a new dialysis catheter will be placed once cultures are cleared sodium 137 potassium 4.2 placed on Aranesp Plan -the patient will stay until final results of the blood cultures 12/15/2016 are negative, at that point a Permacath will be inserted -most likely discharge will be on Tuesday since IR is not here on the weekends -will continue dialysis treatment schedule -will continue to monitor labs (electrolytes) 12/18/2016. Noted that interventional radiology to place per catheter for dialysis on Tuesday. Plan from nephrology stated yesterday which can be seen above 12/20/2016 Follow the recommendations from nephrology (3) Hypothyroidism Current Visit: Yes Status: Acute Assessment and plan: Stable Qualifiers: Hypothyroidism type: unspecified Qualified Code(s): E03.9 - Hypothyroidism , unspecified (4) DVT prophylaxis Current Visit: No Status: Acute Assessment and plan: Heparin - Subjective Interval history: Seen and examined. Chart reviewed. Patient is comfortably sitting in the bed. Patient denies chest pain, shortness of breath, abdominal pain, nausea, vomiting and diarrhea. Noted that nephrology has evaluated the patient. 12/19/2016 seen and examined. chart reviewed. patient denies chest pain, cough and abdominal pain. 12/20/2016 Patient seen and examined. Chart reviewed. Patient is comfortably sitting up in the bed. Patient denies chest pain, shortness of breath, abdominal pain, vomiting, diarrhea and dizziness. Nephrology on board. - Constitutional Vitals: Temp Pulse Resp BP Pulse Ox 98.6 F 66 15 159/62 94 12/20/16 12:01 12/20/16 12:01 12/20/16 12:01 12/20/16 12:01 12/20/16 12:01 General appearance: Present: A&O X 3, pleasant, no acute distress, answers questions appropriately - Head Head exam: Present: atraumatic, normocephalic - Eye Eye exam: Present: PERRL, conjuntiva pink, sclera anicteric Pupils: Present: PERRL - Neck Neck exam general surgery: Present: supple, trachea midline. Absent: lymphadenopathy - Respiratory Respiratory exam: Present: CTAB. Absent: accessory muscle use, rales, rhonchi, wheezes - Cardiovascular Cardiovascular exam: Present: RRR, +S1, +S2. Absent: diastolic murmur, gallop, rubs, systolic murmur - GI/Abdominal GI/Abdominal exam: Present: normal bowel sounds, soft, no peritoneal signs. Absent: distended, tenderness - Extremities Exam Extremities exam: Present: warm, radial pulses palpable and symetrical. Absent : calf tenderness, cyanotic, pedal edema - Neurological Exam Neurological exam: Present: CN II-XII intact, oriented X3, no focal deficits. Absent: pronater drift, facial droop, speech deficit - Skin Skin exam: Present: dry, intact Internal Medicine: Result - Labs CBC & Chem 7: 12/18/16 03:30 12/18/16 03:30 - ABG Interpretation ABG results: PT/INR, D-dimer PT 10.5 Seconds (9.4-12.1) 12/14/16 08:05 - Impressions Impressions Guidance Needle Placement Ultrasound 12/20/16 00:00 IMPRESSION: Successful ultrasound and fluoroscopy guided tunneled catheter placement . D/ / Oneil Tong MD / Oneil Tong MD Interpreting Provider: Oneil Tong MD Consult Discharge Plan - Plan Referrals: Macie Arias, SERVICE COUNTER CASHIER [Advanced Practice Nurse] - 12/27/16 10:00 am NONE,PCP [Primary Care Provider] - (patient is from [facility])
--- NOTE | 2016-12-20 17:02 | Discharge Summary ---
Date of Encounter: 12/20/16 Time of Encounter: 16:58 - Discharge Diagnosis (1) Severe sepsis Priority: Primary Status: Resolved (2) ESRD on hemodialysis Priority: Primary Status: Chronic (3) Hypothyroidism Priority: Secondary Status: Acute Qualifiers: Hypothyroidism type: unspecified Qualified Code(s): E03.9 - Hypothyroidism , unspecified (4) DVT prophylaxis Priority: Secondary Status: Acute - Discharge Medications Prescriptions: diazePAM [Valium] 5 mg PO Q6H PRN #7 tablet PRN Reason: Tremors/Seizure-Like Activity Oxycodone HCl/Acetaminophen [Percocet 10-325 mg Tablet] 1 tab PO Q6H PRN #7 PRN Reason: Pain Home Medications: Aspirin [Adult Low Dose Aspirin EC] 81 mg PO DAILY 08/27/15 [History] Gabapentin [Neurontin] 300 mg PO TID 04/23/16 [History] Losartan Potassium [Cozaar] 100 mg PO DAILY 04/23/16 [History] Metoprolol [Lopressor] 50 mg PO BID 04/23/16 [History] B Complex W-C No.20/Folic Acid [Nephrocaps Softgel] 1 mg PO DAILY 09/15/16 [ History] Oxygen 2 l NS AD 09/15/16 [History] Sennosides/Docusate Sodium [Senna Plus] 1 tab PO BID 09/15/16 [History] Vancomycin [Vancocin] 500 each IV WD #3 vial 09/21/16 [Rx] Ipratropium/Albuterol Neb [Duoneb] 3 ml IH QIDR PRN inhsol 09/22/16 [Rx] amLODIPine [Norvasc] 5 mg PO DAILY tablet 09/22/16 [Rx] BuPROPion XL (24 HR) [Wellbutrin Xl] 150 mg PO DAILY 12/11/16 [History] Cetirizine HCl [Zyrtec] 10 mg PO DAILY 12/11/16 [History] Citalopram Hydrobromide [Celexa] 40 mg PO DAILY 12/11/16 [History] Oxybutynin Chloride [Ditropan Xl] 10 mg PO DAILY 12/11/16 [History] Darbepoetin [Aranesp] 100 mcg SQ QWEEK 12/20/16 [Rx] Losartan [Cozaar] 100 mg PO DAILY tab 12/20/16 [Rx] Metoprolol [Lopressor] 50 mg PO BID tab 12/20/16 [Rx] Oxycodone HCl/Acetaminophen [Percocet 10-325 mg Tablet] 1 tab PO Q6H PRN #7 [Rx] Sorbitol Soln [Sorbitol] 30 ml PO DAILY PRN 12/20/16 [Rx] Vancomycin [Vancocin] 0 each IVPB RPHPROT PRN vial 12/20/16 [Rx] amLODIPine [Norvasc] 5 mg PO DAILY tab 12/20/16 [Rx] diazePAM [Valium] 5 mg PO Q6H PRN #7 tablet 12/20/16 [Rx] Allergies/Adverse Reactions: Allergies lorazepam [From Ativan] Adverse Reaction (Verified 09/15/16 15:21) Paranoia Procedures/tests Complete & Pending: Procedures Performed prior 72 hours Category Date Time Status IR cvc insrt tunnel wo prt/fieldwork coordinator [IR] Routine IR 12/20/16 Taken IR us guide needle place [IR] Routine IR 12/20/16 Completed Date of admission: 12/11/16 12:36 Primary care physician: PCP NONE Consults: 12/13/16 11:09 Consult to Infectious Diseases [CONS] Routine Consulting Provider: Infectious Disease Prospect Reason for Consult: Bacteremia Call Completed: Yes 12/14/16 08:16 Consult to Interventional Radiology [CONS] Routine Consulting Provider: Radiology Interventional Cols Reason for Consult: place temporary dialysis catheter Time Notified: 08:16 Call Completed: No 12/14/16 08:30 Consult to Dialysis [CONS] ONCE 12/16/16 09:44 Consult to Producer Director [CONS] Routine Reason for SW Consult: LTC at [facility] 12/16/16 12:45 Consult to Dialysis [CONS] ONCE 12/18/16 08:52 Consult to Interventional Radiology [CONS] Routine Consulting Provider: Radiology Interventional Cols Reason for Consult: perm cath placement on Tuesday for HD Call Completed: No 12/18/16 11:30 Consult to Dialysis [CONS] ONCE Discharging clinician: Ender Gandhi - Patient Status Disposition: Left Against Medical Advice Condition: Serious - Discharge Instructions Follow Up With: Macie Arias, PRINCIPAL EXAMINER [Advanced Practice Nurse] - 12/27/16 10:00 am NONE,PCP [Primary Care Provider] - (patient is from [facility]) Forms: ED Satisfaction Letter - Diet and Activity Activity: increase activity as tolerated Diet: diabetic diet Interval History: Mr. Martínez is a 51 year old male morbidly obese admitted form Hd unit ( completed 3.5 hours of HD) with decreased LOC, encephalopathy, ? fever, purulent drained from right SC permacath device hence blood cultures obtained at HD center dose of vancomycin IV administered in ER. Admitted to ICU for close monitoring given encephalopathy. Note acceptable BP, rhythm, airway control (severely encephalopathic, awakes with stimulation, readily back to sleep when not stimulated). Recent (September) placement of currrent HD catheter following removal of infected RUE AVF (MRSA bacteremia). Hospital course: Patient was in ICU for next few days. He responded well to the ICU management. He was transferred to the floor. Noted that patient had a MRSA bacteremia. Infectious disease was concentrated. Nephrology, Dr. Cochran's team was on board. Patient was given a catheter holiday. The new tunnel catheter was placed. In between patient received vancomycin. His blood cultures are negative. Blood cultures ordered on 728 was not done yet. Today patient received tunnel catheter. Patient is insisting to go ECF. Vision has unsteady gait and I informed patient that it is unsafe to go to [facility]. Patient will be leaving this facility AGAINST MEDICAL ADVICE. Patient does understand the risk and benefit of leaving AGAINST MEDICAL ADVICE. I explained at length the patient is a possibility of a fall but he insists to go home. Along with me RN Yong was present in the room. I have printed the prescriptions for controlled substances for next couple of days for the patient. Patient is scheduled to have her dialysis tomorrow morning. I will call patient's primary charging machine operator Dr. Terrell and will update him regarding this development. ( voice message left) - Time Spent with Patient Total time spent providing and/or coordinating discharge services: - Constitutional Vitals: Temp Pulse Resp BP Pulse Ox 98.6 F 66 15 159/62 94 12/20/16 12:01 12/20/16 12:01 12/20/16 12:01 12/20/16 12:01 12/20/16 12:01 General appearance: Present: A&O X 3, pleasant, no acute distress, answers questions appropriately - Head Head exam: Present: atraumatic, normocephalic - Eye Eye exam: Present: PERRL, conjuntiva pink, sclera anicteric Pupils: Present: PERRL - Neck Neck exam general surgery: Present: supple, trachea midline. Absent: lymphadenopathy - Respiratory Respiratory exam: Present: CTAB. Absent: accessory muscle use, rales, rhonchi, wheezes - Cardiovascular Cardiovascular exam: Present: RRR, +S1, +S2. Absent: diastolic murmur, gallop, rubs, systolic murmur - GI/Abdominal GI/Abdominal exam: Present: normal bowel sounds, soft, no peritoneal signs. Absent: distended, tenderness - Extremities Exam Extremities exam: Present: warm, radial pulses palpable and symetrical. Absent : calf tenderness, cyanotic, pedal edema - Neurological Exam Neurological exam: Present: CN II-XII intact, oriented X3, no focal deficits. Absent: pronater drift, facial droop, speech deficit - Skin Skin exam: Present: dry, intact
--- NOTE | 2016-12-20 17:33 | Physician Discharge Referral ---
ExtendedCare Referral Info Transfer To: F - Diagnosis (1) Severe sepsis Priority: Primary Status: Resolved (2) ESRD on hemodialysis Priority: Primary Status: Chronic (3) Hypothyroidism Priority: Secondary Status: Acute (4) DVT prophylaxis Priority: Secondary Status: Acute - Transfer Medications Prescriptions: diazePAM [Valium] 5 mg PO Q6H PRN #7 tablet PRN Reason: Tremors/Seizure-Like Activity Oxycodone HCl/Acetaminophen [Percocet 10-325 mg Tablet] 1 tab PO Q6H PRN #7 PRN Reason: Pain Home Medications: Aspirin [Adult Low Dose Aspirin EC] 81 mg PO DAILY 08/27/15 [History] Gabapentin [Neurontin] 300 mg PO TID 04/23/16 [History] Losartan Potassium [Cozaar] 100 mg PO DAILY 04/23/16 [History] Metoprolol [Lopressor] 50 mg PO BID 04/23/16 [History] B Complex W-C No.20/Folic Acid [Nephrocaps Softgel] 1 mg PO DAILY 09/15/16 [ History] Oxygen 2 l NS AD 09/15/16 [History] Sennosides/Docusate Sodium [Senna Plus] 1 tab PO BID 09/15/16 [History] Vancomycin [Vancocin] 500 each IV WD #3 vial 09/21/16 [Rx] Ipratropium/Albuterol Neb [Duoneb] 3 ml IH QIDR PRN inhsol 09/22/16 [Rx] amLODIPine [Norvasc] 5 mg PO DAILY tablet 09/22/16 [Rx] BuPROPion XL (24 HR) [Wellbutrin Xl] 150 mg PO DAILY 12/11/16 [History] Cetirizine HCl [Zyrtec] 10 mg PO DAILY 12/11/16 [History] Citalopram Hydrobromide [Celexa] 40 mg PO DAILY 12/11/16 [History] Oxybutynin Chloride [Ditropan Xl] 10 mg PO DAILY 12/11/16 [History] Darbepoetin [Aranesp] 100 mcg SQ QWEEK 12/20/16 [Rx] Losartan [Cozaar] 100 mg PO DAILY tab 12/20/16 [Rx] Metoprolol [Lopressor] 50 mg PO BID tab 12/20/16 [Rx] Oxycodone HCl/Acetaminophen [Percocet 10-325 mg Tablet] 1 tab PO Q6H PRN #7 [Rx] Sorbitol Soln [Sorbitol] 30 ml PO DAILY PRN 12/20/16 [Rx] Vancomycin [Vancocin] 0 each IVPB RPHPROT PRN vial 12/20/16 [Rx] amLODIPine [Norvasc] 5 mg PO DAILY tab 12/20/16 [Rx] diazePAM [Valium] 5 mg PO Q6H PRN #7 tablet 12/20/16 [Rx] Allergies/Adverse Reactions: Allergies lorazepam [From Ativan] Adverse Reaction (Verified 09/15/16 15:21) Paranoia - Respiratory Orders Smoking Cessation: Smoking cessation has been advised. For more information, call the [place] Tobacco Quit Line at 6-812-KHYCNOW. CERTIFICATION: I certify that the transfer of the above named patient to an Extended Care Facility is necessary for the continuing treatment of the diagnosis listed. The above information is true and accurate reflection of patient's current condition. Confidential - Redisclosure prohibited without a patient's written consent.
[2016-12-20] MEDS ORDERED: Aminoglycoside Consult 1 EACH MC ONE (19:14)
== END 2016-12-20 19:15 | disposition left against medical advice (07) | DRG 314 ==
LOC: EMEROO 10:37 → SUATTDRO 12:36 → ICNU 12:36 → 2ANU 12-13 09:42
PROVIDERS: ADMIT Specialist; ATTEND Internal Medicine
PROC: IRPERMA (2016-12-20 11:00)

== ENCOUNTER 2017-04-28 13:51 | Inpatient (IN) ==
[2017-04-28] MEDS ORDERED: Pantoprazole 40 MG VIAL IVP ONE (14:07)
--- NOTE | 2017-04-28 14:33 | Emergency Department Note ---
Disposition Clinical Impression: Hematochezia, ESRD on hemodialysis Anemia Qualifiers: Anemia type: unspecified type Qualified Code(s): D64.9 - Anemia, unspecified Disposition: Admitted As Inpatient Condition: Good Time of Disposition: 15:13 GI Bleed HPI - General Chief complaint: ED GI Bleed Stated complaint: Low Hgb Time Seen by Provider: 04/28/17 14:14 Source: EMS Limitations: no limitations Nursing Notes Reviewed: Yes Vital Signs Reviewed: Yes - History of Present Illness HPI Narrative: Presents with fatigue for the last 2 weeks which is constant and not worsening and did get blood drawn earlier today which showed hemoglobin 6.8 and I did review these records. Patient has end-stage renal disease but has not had dialysis for the last 3 days, last dialysis was Tuesday. The patient denies any pain in the head, neck, chest, abdomen or back. He has not had blood transfusions in the past. He has been told he has blood in the stool and for the previous record did have a positive Hemoccult which was done on April 21. Constitutional: No fever Vision: No blurred vision ENT: No rhinorrhea Respiratory: No cough Allergic: No allergies : No blood in urine GI: No blood in stool Hematologic: No bruising Dermatologic: No skin rash Musculoskeletal: No pain in the extremities Neuro: No numbness of the extremities Social history: No smoking - Related Data Home Medications Medication Instructions Recorded Confirmed Aspirin [Adult Low Dose Aspirin EC] 81 mg PO DAILY 08/27/15 04/28/17 Gabapentin [Neurontin] 300 mg PO TID 04/23/16 04/28/17 B Complex W-C No.20/Folic Acid 1 mg PO DAILY 09/15/16 04/28/17 [Nephrocaps Softgel] Oxygen 2 l NS AD 09/15/16 12/11/16 Sennosides/Docusate Sodium [Senna 1 tab PO DAILY PRN 09/15/16 04/28/17 Plus] BuPROPion XL (24 HR) [Wellbutrin 150 mg PO DAILY 12/11/16 04/28/17 Xl] Cetirizine HCl [Zyrtec] 10 mg PO DAILY 12/11/16 04/28/17 Oxybutynin Chloride [Ditropan Xl] 10 mg PO DAILY 12/11/16 04/28/17 Ibuprofen [Motrin] 800 mg PO Q6H PRN 04/28/17 04/28/17 Lactulose 20 gm PO Q24H PRN 04/28/17 04/28/17 Loperamide HCl [Imodium A-D] 2 mg PO PER PKG DI PRN MDD 16 mg 04/28/17 04/28/17 Losartan Potassium [Cozaar] 50 mg PO DAILY 04/28/17 04/28/17 Metoprolol [Lopressor] 12.5 mg PO BID 04/28/17 04/28/17 Ondansetron HCl [Zofran] 4 mg PO Q6H PRN 04/28/17 04/28/17 Oxycodone HCl/Acetaminophen 1 tab PO Q6H PRN 04/28/17 04/28/17 [Percocet 10-325 mg Tablet] Polyethylene Glycol 3350 [MiraLAX] 17 gm PO DAILY 04/28/17 04/28/17 Sertraline [Zoloft] 100 mg PO DAILY 04/28/17 04/28/17 Sevelamer [Renvela] 2,400 mg PO TIDWM 04/28/17 04/28/17 amLODIPine [Norvasc] 5 mg PO BID 04/28/17 04/28/17 Allergies Allergy/AdvReac Type Severity Reaction Status Date / Time lorazepam [From Ativan] AdvReac Paranoia Verified 09/15/16 15:21 Review of Systems: As Per HPI Past Medical History - Past Medical History Medical history: Reports: arthritis, CHF, diabetes, dialysis, GERD, hypertension , osteoporosis, renal disease, venous stasis, other Surgical history: Reports: cholecystectomy, vascular surgery, other Psychiatric history: Reports: anxiety, depression, other - Social History Smoking Status: Never smoker Smokeless Tobacco Status: No Alcohol use: Reports: none, unknown Drug use: Reports: none, unknown Physical Exam CONSTITUTIONAL: Alert and oriented X3, well-nourished, well appearing, in no apparent distress HEAD: Normocephalic; atraumatic. EYES: PERRL, no scleral icterus. NOSE: The nose is normal in appearance without rhinorrhea RESP: Normal chest excursion with respiration; breath sounds clear and equal bilaterally; no wheezes, rhonchi, or rales CARD: Regular rhythm, without murmurs, rub or gallop ABD: Non-distended; non-tender, soft,without rigidity, rebound or guarding SKIN: Normal for age and race; warm and dry; no apparent lesions - General Limitations: no limitations General appearance: alert Course Vital Signs Temperature 97.9 F 04/28/17 13:56 Pulse Rate 62 04/28/17 13:56 Respiratory Rate 16 04/28/17 13:56 Blood Pressure 145/66 04/28/17 13:56 O2 Sat by Pulse Oximetry 98 04/28/17 13:56 Temperature 97.7 F 04/28/17 19:41 Pulse Rate 62 04/28/17 19:41 Respiratory Rate 16 04/28/17 19:41 Blood Pressure 145/76 04/28/17 19:41 O2 Sat by Pulse Oximetry 94 04/28/17 19:41 Oxygen Delivery Oxygen Delivery Room Air GI Bleed - MDM Narrative Medical decision making narrative: I did not repeat the rectal exam because this was recently done and did show blood in the patient is anemic so the patient will have Protonix 40 mg IV, transfusion of red blood cells 2 units over 4 hours each. I did speak with the patient further as far as risks and benefits of transfusion and he would like to proceed with transfusion. He has never been transfused in the past. Patient will be admitted and we did speak with Dr. Pettit who is the bull riveter who except the patient in consult. The hospitalist was paged. [id number] I did speak with the hospitalist who accepts the patient for admission. He will go to the floor soon. I did discuss with the hospitalist and they will consult GI if necessary rectal exam is not done at this time as the patient did have recent positive Hemoccult testing. 1512 - Lab Data Lab Results 04/28/17 04/28/17 Range/Units 14:23 14:48 PT 11.9 (9.4-12.1) Seconds INR 1.1 Blood Type A POSITIVE Antibody Screen NEGATIVE Crossmatch See Detail Critical Care Time Critical Care Time: Yes Total Critical Care Time: 35 Attestation: 35 minutes of critical care time was spent with the patient with end-stage renal disease has not been on dialysis, severe fatigue, severe anemia with hemoglobin 6.8 as well as active GI bleeding 151
[2017-04-28 14:40] LABS: INR 1.1; Prothrombin Time 11.9 Seconds (9.4-12.1)
[2017-04-28] MEDS ORDERED: 0.9 % Sodium Chloride 250 ML IVC PRN (15:41)
[2017-04-28] MEDS ORDERED: *HR* Heparin 10,000 UNIT/10 ML VIAL IV PRN (15:41)
[2017-04-28] MEDS ORDERED: 0.9 % Sodium Chloride 1,000 ML PRIME SCH (15:45)
[2017-04-28] MEDS ORDERED: 0.9 % Sodium Chloride 2,000 ML ONE (20:41)
[2017-04-28] MEDS ORDERED: Acetaminophen 325 MG TABLET PO PRN (21:08)
[2017-04-28] MEDS ORDERED: Ondansetron 4 MG/2 ML VIAL IVP PRN (21:08)
[2017-04-28] MEDS ORDERED: Lactulose Oral Soln 20 GM/30 ML UDC PO PRN (21:17)
[2017-04-28] MEDS ORDERED: Sennosides/Docusate Sodium TABLET PO PRN (21:17)
[2017-04-28] MEDS ORDERED: *HR* OxyCODONE/APAP 10/325 TABLET PO PRN (21:17)
[2017-04-28] MEDS ORDERED: Naloxone 0.4 MG/ML INJ IVP PRN (21:22)
[2017-04-28] MEDS ORDERED: *HR* Dextrose 50 % in Water (Syg) 50 ML SYRINGE IVP PRN (21:24)
[2017-04-28] MEDS ORDERED: D5% in Water 1,000 ML IVC PRN (21:24)
[2017-04-28] MEDS ORDERED: Dextrose Gel 15 GM PO PRN ×2 (21:24)
[2017-04-28 21:35] LABS: Hematocrit 28.7 % (37.5-50.1); Hemoglobin 9.5 g/dL (12.9-16.9)
--- NOTE | 2017-04-28 21:38 | Internal Med History&Physical ---
<Germán Bernal - Last Filed: 04/28/17 22:13> Date of Encounter: 04/28/17 Time of Encounter: 20:30 Assessment and Plan (1) GI bleeding Current visit: Yes Status: Acute Acute on chronic GI bleeding that pt. reports has been occurring for several months w/melanotic stools. Last melanotic stool reportedly yesterday. Pt. has hx of anemia w/current Hgb 6.8 and Hct 21.3. On 10/28/16, Hgb was 13.0 and Hct was 38.7. No recent hx of colonoscopy or EGD. Pt. is currently not anti- coagulated. Will avoid pharmacologic DVT prophylaxis and use bilateral SCDs on LEs d/t current report of GI bleeding. Pt. received two units PRBCs today. Monitor H/H Q6HR. GI consult ordered and discussed w/Dr. Benjamin and I appreciate the consult. Denies hx of previous transfusions. Pt. is at high risk for further morbidity d/t current GI bleeding/melanotic stools, ESRD requiring dialysis, hx, and risk factors. Inpatient. Assessment and plan discussed w/Dr. Landin who agrees w/plan of care. Qualifiers: GI bleed type/associated pathology: unspecified gastrointestinal hemorrhage type Qualified Code(s): K92.2 - Gastrointestinal hemorrhage, unspecified (2) Generalized weakness Current visit: Yes Status: Acute Acute generalized weakness and fatigue r/t current anemia, GI bleeding, and missed dialysis. Falls/safety precautions. PT/OT consults to assess pt. for ambulation strength, safety, and stability. (3) Anemia Current visit: Yes Status: Acute Hx of acute on chronic anemia. Current Hgb is 6.8 and Hct 21.3 today. On , Hgb was 13.0 and Hct was 38.7. Hx of fluctuating H/H. Pt. received two units PRBCs today. Will monitor H/H Q6HR and f/u labs. Continue pts. renal vitamin w/B. Qualifiers: Anemia type: other cause Other causes of anemia: other cause, not classified Qualified Code(s): D64.89 - Other specified anemias (4) Diabetes Current visit: Yes Status: Chronic Hx of chronic diabetes that pt. reports is controlled w/insulin but does not currently use. BG checks ACHS. A1c in a.m. labs. Will administer low-dose correction sliding scale insulin as needed w/hypoglycemic protocol. Qualifiers: Diabetes mellitus type: type 2 Diabetes mellitus complication status: with unspecified complications Diabetes mellitus terminal operations supervisor insulin use: unspecified senior care insulin use status Qualified Code(s): E11.8 - Type 2 diabetes mellitus with unspecified complications (5) GERD (gastroesophageal reflux disease) Current visit: Yes Status: Chronic Hx of chronic GERD. Will administer IVP Protonix 40 mg daily for GERD sx as well as current GI bleeding. Qualifiers: Esophagitis presence: esophagitis presence not specified Qualified Code(s) : K21.9 - Gastro-esophageal reflux disease without esophagitis (6) HTN (hypertension) Current visit: Yes Status: Chronic Hx of chronic HTN. Monitor pt. and VS. Continue patient's Norvasc, Cozaar, and Lopressor. Qualifiers: Hypertension type: essential hypertension Qualified Code(s): I10 - Essential (primary) hypertension (7) Anxiety and depression Current visit: Yes Status: Chronic Hx of chronic anxiety and depression. Continue pts. Wellbutrin and Zoloft. (8) ESRD on hemodialysis Current visit: Yes Status: Chronic Hx of chronic ESRD on dialysis. Pt. reports he is dialyzed MWF and was last dialyzed on Tuesday. Was dialyzed today inpatient d/t missing Tuesday. Renal diet. Continue pts. renal vitamin, lactulose, and Renleva. Will use IV fluids judiciously if warranted and avoid nephrotoxins. (9) CHF (congestive heart failure) Current visit: Yes Status: Chronic Hx of chronic CHF. Stable. Qualifiers: Congestive heart failure type: unspecified congestive heart failure type Congestive heart failure chronicity: chronic Qualified Code(s): I50.9 - Heart failure, unspecified (10) DVT prophylaxis Current visit: Yes Status: Acute Bilateral SCDs on LEs for DVT prophylaxis d/t current GI bleeding and dropping Hgb/Hct. Monitor pt. for signs of bleeding. Internal Medicine - H&P: HPI Chief complaint: GI Bleeding/Melanotic stools Admitted From: Emergency Dept Plans for Post Hospital Care: Home History of present illness: Mr. Martínez is a 51 year old male with medical hx of arthritis, CHF, insulin- dependent diabetes, ESRD on dialysis, GERD, HTN, and venous stasis presents from the ED with chief complaint of GI bleeding and melanotic stools for the past few months. Pt. states last melanotic stool was yesterday. Pt also reports he is on dialysis for ESRD and missed his dialysis appointment on Tuesday so he was dialyzed today. Denies previous hx of blood transfusions. He states that he has positive fecal hemoccult today as well as in the past. Pt. reports generalized weakness, fatigue, and constipation alternating w/diarrhea but denies recent illness, fever, chills, nausea, vomiting, abdominal pain, changes in vision, headache, cough, numbness, tingling, dizziness, lightheadedness, presyncope, or syncope. Past Med Surg Social Fam HX - Past Medical History Source: patient, old records reviewed Medical history: arthritis, CHF, diabetes, dialysis, GERD, hypertension, renal disease (End stage), venous stasis Psychiatric history: anxiety, depression - Past Surgical History Surgical History: cholecystectomy, vascular surgery - Social History Smoking Status: Never smoker Smokeless Tobacco Status: No Alcohol use: none, unknown Drug use: none, unknown Current living situation: Home Activity Level: Independent ambulation Recent Out of Country Travel Within the Last 8 Weeks: No Exposure or Possible Exposure to Illness During Travel: No - Family History Mother Adopted: No Race: Family Member Ethnicity: Non- Living Status: Age at : 76 Cause of : CHF Hx Family Cardiac Disorders: Yes (CHF, HTN) Hx Family Endocrine Disorder: Yes (DM) Father Adopted: No Race: Family Member Ethnicity: Non- Living Status: Age at : 70 Cause of : Lung cancer Hx Family Respiratory Disorders: Yes Hx Family Cancer: Yes (Lung) Brother Race: Family Member Ethnicity: Non- Living Status: Still Living Hx Family Medical Disorders: No Sister Race: Family Member Ethnicity: Non- Living Status: Still Living Hx Family Endocrine Disorder: Yes (DM) Internal Medicine - H&P: Meds Aspirin [Adult Low Dose Aspirin EC] 81 mg PO DAILY 08/27/15 [History] Gabapentin [Neurontin] 300 mg PO TID 04/23/16 [History] B Complex W-C No.20/Folic Acid [Nephrocaps Softgel] 1 mg PO DAILY 09/15/16 [ History] Oxygen 2 l NS AD 09/15/16 [History] Sennosides/Docusate Sodium [Senna Plus] 1 tab PO DAILY PRN 09/15/16 [History] BuPROPion XL (24 HR) [Wellbutrin Xl] 150 mg PO DAILY 12/11/16 [History] Cetirizine HCl [Zyrtec] 10 mg PO DAILY 12/11/16 [History] Oxybutynin Chloride [Ditropan Xl] 10 mg PO DAILY 12/11/16 [History] Ibuprofen [Motrin] 800 mg PO Q6H PRN 04/28/17 [History] Lactulose 20 gm PO Q24H PRN 04/28/17 [History] Loperamide HCl [Imodium A-D] 2 mg PO PER PKG DI PRN MDD 16 mg 04/28/17 [History] Losartan Potassium [Cozaar] 50 mg PO DAILY 04/28/17 [History] Metoprolol [Lopressor] 12.5 mg PO BID 04/28/17 [History] Ondansetron HCl [Zofran] 4 mg PO Q6H PRN 04/28/17 [History] Oxycodone HCl/Acetaminophen [Percocet 10-325 mg Tablet] 1 tab PO Q6H PRN [History] Polyethylene Glycol 3350 [MiraLAX] 17 gm PO DAILY 04/28/17 [History] Sertraline [Zoloft] 100 mg PO DAILY 04/28/17 [History] Sevelamer [Renvela] 2,400 mg PO TIDWM 04/28/17 [History] amLODIPine [Norvasc] 5 mg PO BID 04/28/17 [History] 3 Allergy/AdvReac Type Severity Reaction Status Date / Time lorazepam [From Ativan] AdvReac Paranoia Verified 09/15/16 15:21 All Systems PM: A 10-system review of systems was performed and is negative for pertinent findings except as documented above in the HPI. - Constitutional Constitutional: as per HPI, fatigue, weakness, no chills, no fever(s), no night sweats - EENT Eyes: no change in vision, no discharge, no pain, no photophobia Ears: no ear discharge, no ear pain, no tinnitus Nose, mouth and throat: no dysphagia, no nasal discharge, no neck pain, no sore throat - Breasts Breasts: as per HPI - Cardiovascular Cardiovascular ROS IM: no chest pain, no diaphoresis, no dyspnea, no lightheadedness, no palpitations, no syncope - Respiratory Respiratory: no cough, no dyspnea, no wheezing, no excessive phlegm production - Gastrointestinal Gastrointestinal: as per HPI, constipation, diarrhea, melena, no abdominal pain , no hematemesis, no hematochezia, no nausea, no vomiting - Genitourinary Genitourinary ROS male: as per HPI - Musculoskeletal Musculoskeletal ROS IM: no numbness, no tingling - Integumentary Integumentary IM: no rash, no unusual bruising - Neurological Neurological ROS: no confusion, no convulsions, no focal weakness, no numbness, no tingling, no tremor(s) - Psychiatric Psychiatric: as per HPI, anxiety, depression - Endocrine Endocrine IM: as per HPI - Hematologic/Lymphatic Hematologic/Lymphatic: no easy bruising - Allergic/Immunologic Allergic/Immunologic: as per HPI - Constitutional Vitals: Temp Pulse Resp BP Pulse Ox 97.7 F 62 16 145/76 94 04/28/17 19:41 04/28/17 19:41 04/28/17 19:41 04/28/17 19:41 04/28/17 19:41 General appearance: Present: cooperative, mild distress (Anxiety), A&O X 3, pleasant, obese, answers questions appropriately - Head Head exam: Present: atraumatic, normal inspection, normocephalic - Eye Eye exam: Present: PERRL, conjuntiva pink, sclera anicteric Pupils: Present: PERRL - ENT ENT exam: Present: normal exam, normal external ear exam, normal oropharynx - Neck Neck exam general surgery: Present: normal inspection, supple, trachea midline. Absent: lymphadenopathy - Respiratory Respiratory exam: Present: CTAB. Absent: accessory muscle use, rales, rhonchi, wheezes - Cardiovascular Cardiovascular exam: Present: RRR, +S1, +S2. Absent: diastolic murmur, gallop, rubs, systolic murmur - GI/Abdominal GI/Abdominal exam: Present: normal bowel sounds, soft, no peritoneal signs. Absent: distended, tenderness - Rectal Rectal exam: Present: deferred - Additional comments: exam deferred. - Extremities Exam Extremities exam: Present: warm, radial pulses palpable and symmetrical. Absent : calf tenderness, cyanotic, pedal edema - Back Exam Back exam: Present: normal inspection - Neurological Exam Neurological exam: Present: alert, CN II-XII intact, oriented X3, no focal deficits. Absent: pronater drift, facial droop, speech deficit - Psychiatric Psychiatric exam: Present: anxious - Skin Skin exam: Present: dry, intact Internal Med - H&P Results - Labs CBC & Chem 7: 04/28/17 21:12 - EKG Data EKG shows normal: sinus rhythm - EKG Data Prior EKG available for review: no EKG comments: 04/28/17 21:45 EKG dated 04/28/17 shows sinus rhythm. <Pedro Cowart - Last Filed: 04/28/17 23:13> Date of Encounter: 04/28/17 Internal Medicine - H&P: HPI History of present illness: Mr. Martínez is a 51 year old male All Systems PM: A 10-system review of systems was performed and is negative for pertinent findings except as documented above in the HPI. - Constitutional Vitals: Temp Pulse Resp BP Pulse Ox 97.7 F 62 16 145/76 94 04/28/17 19:41 04/28/17 19:41 04/28/17 19:41 04/28/17 19:41 04/28/17 19:41 Internal Med - H&P Results - Labs CBC & Chem 7: 04/28/17 21:12 Labs: Short CBC 04/28/17 Range/Units 21:12 Hgb 9.5 L D (12.9-16.9) g/dL Hct 28.7 L (37.5-50.1) % - Attending Attestation I examined this patient and my medical decision-making was reviewed with the MANUFACTURING SALES REPRESENTATIVE. I agree with the documented findings, disposition and treatment plan as described except to the extent set forth below. I have seen and examined the patient. Patient is a 51-year-old male with past medical history of ESRD on hemodialysis, CHF, hypertension, GERD, diabetes and chronic anemia. He presents to the ED with complaints of dark stool over the past few months. Patient seems to having melena, and most recent episode was yesterday. H&H was found to be 6.8 and 21.3. Patient has received 2 units PRBCs. H&H is now improved. Gastroenterology consult pending. Patient may possibly need colonoscopy and EGD. Patient has been explained about his condition and plan of care in detail. He understood and agreed. No unanswered questions. I discussed with the patient about CODE STATUS, and he is full code. Heart rate 62, blood pressure 145/76, O2 sat 94% on room air. Heart S1 and S2 positive. Lungs good entry no wheeze or crackles. Abdomen soft nontender. Neurological awake and alert, no deficits.
[2017-04-28 22:09] LABS: Hepatitis B Surface Antigen Nonreactive (Nonreactive)
[2017-04-29] MEDS: Insulin LISPRO 300 UNITS/3 ML VIAL SQ SCH ×5 (01:00→20:56)
[2017-04-29 03:17] LABS: Basophils % 0.4 %; Eosinophils # 0.5 K/mcL (0.0-0.6); Eosinophils % 5.7 %; Hematocrit 26.2 % (37.5-50.1); Hemoglobin 8.7 g/dL (12.9-16.9); Immature Granulocytes % 0.7 % (0-4); Lymphocytes # 0.9 K/mcL (0.6-4.6); Lymphocytes % 10.8 %; Mean Corpuscular HGB Conc 33.2 g/dL (31.6-35.5); Mean Corpuscular Volume 102.3 fL (83.0-100.0); Mean Platelet Volume 9.9 fL (9.4-12.4); Monocytes # 0.6 K/mcL (0.0-1.3); Monocytes % 7.6 %; Neutrophils # 6.3 K/mcL (1.6-8.9); Platelet Count 244 K/mcL (140-400); Red Blood Count 2.56 M/mcL (4.19-5.50); Red Cell Distribution Width 18.5 % (11.5-14.5); Segmented Neutrophils % 74.8 %
[2017-04-29 03:33] LABS: Hemoglobin A1C 4.8 %
[2017-04-29 03:39] LABS: Albumin 2.8 g/dL (3.5-5.0); Albumin/Globulin Ratio 0.6 (1.1-2.2); Bilirubin,Total 0.9 mg/dL (0.2-1.2); Calcium 8.6 mg/dL (8.6-10.8); Chol/HDL Ratio 3.5 (0-4.9); Globulin 4.6 g/dL (2.4-3.5); Magnesium 2.6 mg/dL (1.6-2.6); Potassium 5.4 mEq/L (3.5-4.5); Total Protein 7.4 g/dL (6.0-8.3)
[2017-04-29] MEDS: Loratadine 10 MG TABLET PO SCH (07:54)
[2017-04-29] MEDS: BuPROPion XL (24 HR) 150 MG TABLET PO SCH (07:54)
[2017-04-29] MEDS: amLODIPine 5 MG TABLET PO SCH ×2 (07:56→20:56)
[2017-04-29] MEDS: Aspirin Enteric Coated 81 MG Tablet PO SCH (07:56)
[2017-04-29] MEDS: Renal Vitamin 1 MG CAPSULE PO SCH (07:56)
[2017-04-29] MEDS: Pantoprazole 40 MG VIAL IVP SCH (07:57)
[2017-04-29 08:11] LABS: Hepatitis B Surface Antibody 47.79 mIU/mL
[2017-04-29] MEDS ORDERED: Gabapentin 300 MG CAPSULE PO SCH (09:00)
--- NOTE | 2017-04-29 09:45 | Nephrology Consult Note ---
Date of Encounter: 04/29/17 Time of Encounter: 09:15 Assessment and Plan (1) ESRD on hemodialysis Current Visit: Yes Status: Chronic Anemia, most likely GI bleed, history of positive guiac. EGD scheduled for today. ESRD-HD today, keeping MWF schedule. Orders given. History of Present Illness - Reason for Consult end stage renal disease - History of Present Illness Mr. Martínez is a 51 year old male with ESRD who dialyzes in [place] on MWF. He missed this past Tuesday due to not feeling well. Other PMH-arthritis, CHF, diabetes, dialysis, GERD, hypertension, osteoporosis, renal disease, venous stasis, cholecystectomy, vascular surgery, anxiety, depression. Outpatient Hgb 6.8 with positive guiac. A GI referral was made from Dialysis center and had been awaiting and appointment. Due to no improvement in Hgb with aranesp and ongoing fatigue he was brought to ER. Mr. Martínez recieved two units of PRBC's. Today Hgb 8.7. He states he is feeling much better. He did have HD yesterday due to missed treatment. Nursing staff has patient NPO for EGD today. Past Med Surg Social Fam HX - Past Medical History Medical history: arthritis, CHF, diabetes, dialysis, GERD, hypertension, renal disease (End stage), venous stasis Psychiatric history: anxiety, depression - Past Surgical History Surgical History: cholecystectomy, vascular surgery - Social History Smoking Status: Never smoker Smokeless Tobacco Status: No Alcohol use: none, unknown Drug use: none, unknown - Family History Brother Race: Family Member Ethnicity: Non- Living Status: Still Living Hx Family Medical Disorders: No Sister Race: Family Member Ethnicity: Non- Living Status: Still Living Hx Family Endocrine Disorder: Yes (DM) Mother Adopted: No Race: Family Member Ethnicity: Non- Living Status: Age at : 76 Cause of : CHF Hx Family Cardiac Disorders: Yes (CHF, HTN) Hx Family Endocrine Disorder: Yes (DM) Father Adopted: No Race: Family Member Ethnicity: Non- Living Status: Age at : 70 Cause of : Lung cancer Hx Family Respiratory Disorders: Yes Hx Family Cancer: Yes (Lung) Medications and Allergies Aspirin [Adult Low Dose Aspirin EC] 81 mg PO DAILY 08/27/15 [History] Gabapentin [Neurontin] 300 mg PO TID 04/23/16 [History] B Complex W-C No.20/Folic Acid [Nephrocaps Softgel] 1 mg PO DAILY 09/15/16 [ History] Oxygen 2 l NS AD 09/15/16 [History] Sennosides/Docusate Sodium [Senna Plus] 1 tab PO DAILY PRN 09/15/16 [History] BuPROPion XL (24 HR) [Wellbutrin Xl] 150 mg PO DAILY 12/11/16 [History] Cetirizine HCl [Zyrtec] 10 mg PO DAILY 12/11/16 [History] Oxybutynin Chloride [Ditropan Xl] 10 mg PO DAILY 12/11/16 [History] Ibuprofen [Motrin] 800 mg PO Q6H PRN 04/28/17 [History] Lactulose 20 gm PO Q24H PRN 04/28/17 [History] Loperamide HCl [Imodium A-D] 2 mg PO PER PKG DI PRN MDD 16 mg 04/28/17 [History] Losartan Potassium [Cozaar] 50 mg PO DAILY 04/28/17 [History] Metoprolol [Lopressor] 12.5 mg PO BID 04/28/17 [History] Ondansetron HCl [Zofran] 4 mg PO Q6H PRN 04/28/17 [History] Oxycodone HCl/Acetaminophen [Percocet 10-325 mg Tablet] 1 tab PO Q6H PRN [History] Polyethylene Glycol 3350 [MiraLAX] 17 gm PO DAILY 04/28/17 [History] Sertraline [Zoloft] 100 mg PO DAILY 04/28/17 [History] Sevelamer [Renvela] 2,400 mg PO TIDWM 04/28/17 [History] amLODIPine [Norvasc] 5 mg PO BID 04/28/17 [History] 3 Allergy/AdvReac Type Severity Reaction Status Date / Time lorazepam [From Ativan] AdvReac Paranoia Verified 09/15/16 15:21 Review of Systems All Systems: reviewed and no additional remarkable complaints except as stated Exam - Vital Signs Vital signs: Initial Vital Signs Temp Pulse Resp BP Pulse Ox 97.9 F 62 16 145/66 98 04/28/17 13:56 04/28/17 13:56 04/28/17 13:56 04/28/17 13:56 04/28/17 13:56 Vital Signs - Last 8 Hours Temp Pulse Resp BP Pulse Ox 04/29/17 07:31 98.9 F 70 16 163/73 91 04/29/17 04:07 98.1 F 69 16 144/69 92 Intake and Output 04/28/17 04/29/17 04/29/17 23:59 07:59 15:59 Intake Total 480 / 1880 Balance 480 / -2420 Intake: Oral 480 / 480 Other: Meal 2 bowls cheerios Percent of Meal Consumed 100% Weight 109.1 kg Blood Glucose* 101 102 Patient Weight 04/29/17 23:59 Weight 109.1 kg Results - Lab Results 04/29/17 02:58 04/29/17 02:58 Most recent lab results Calcium 8.6 mg/dL (8.6-10.8) 04/29/17 02:58 Magnesium 2.6 mg/dL (1.6-2.6) 04/29/17 02:58 Consult Discharge Plan - Plan Referrals: Olvin Alford MD [Primary Care Provider] -
--- NOTE | 2017-04-29 10:17 | Gastroenterology Consult Note ---
<Ana Bhakta - Last Filed: 04/29/17 10:14> Date of Encounter: 04/29/17 Time of Encounter: 09:30 - Assessment and plan (1) Anemia Current Visit: Yes Status: Acute Assessment and plan: Hgb was 6.8 at the assisted was transfused and is 8.7 this am. He needs EGD and likely colonoscopy. Will make NPO and attempt today. Iron was elevated as was ferritin levels so hemochromatosis panel was ordered. He has multiple comorbid conditions including ESRD and HD chronic anemia but review of labs show a decrease from 11.4-6.8 from February 2017 to now. Qualifiers: Anemia type: other cause Other causes of anemia: other cause, not classified Qualified Code(s): D64.89 - Other specified anemias (2) Renal failure (ARF), acute on chronic Current Visit: Yes Status: Acute Assessment and plan: Followed by nephrology pt has HD MWF. (3) GI bleeding Current Visit: Yes Status: Acute Assessment and plan: Pt complaining of melena, he needs EGD and likely colonoscopy. Qualifiers: GI bleed type/associated pathology: unspecified gastrointestinal hemorrhage type Qualified Code(s): K92.2 - Gastrointestinal hemorrhage, unspecified (4) Elevated ferritin level Current Visit: Yes Status: Acute Assessment and plan: Outpatient labs show ferritin [id number], will check hemochromatosis panel. - Time Spent With Patient Total time spent is greater than 50% in coordination of care (as documented) at patient's floor/unit and/or counseling patient: GI History of Present Illness - Data of Consult Patient: known to practice within the last 3 years Consult date: 04/29/17 Requesting Physician: Rei Bose MD - Consult Narrative Reason for consult: melena History of present illness: Mr Martínez is a 51 year old male with a pmhx of HTN, DM, CHF, and ESRD requiring HD on MWF. He was seen as an outpatient 04/26/17 for abnormal labs. He had a Hgb 9.4, ferritin [id number], direct bili 0.7, alk phos 223, ast 42 and stool was positive for occult blood. He states he had been having back stools for the past couple weeks and had been recently manually disimpacted. He was advised that he needed an EGD/colonoscopy but he refused at that time. Labs for hemachromatosis were ordered. Skin pallor was noted and a cbc was ordered that day which was completed at the assisted and was 7. The assisted was called and the patient was advised to go to ER for anemia and melena. He refused at first but finally agreed. He denies any nausea, vomiting, diarrhea, GERD, or abdominal pain. He has chronic constipation. He was transfused 2 units , hgb is 8.7 this am and the patient states he feels better. EGD: 2013 Colon: 2013 tubular adenoma NSAIDS: asa 81 mg, ibuprofen prn Anticoagulants: none Past Med Surg Social Fam HX - Past Medical History Medical history: arthritis, CHF, diabetes, dialysis, GERD, hypertension, renal disease (End stage), venous stasis Psychiatric history: anxiety, depression - Past Surgical History Surgical History: cholecystectomy, vascular surgery - Social History Smoking Status: Never smoker Smokeless Tobacco Status: No Alcohol use: none, unknown Drug use: none, unknown - Family History Brother Race: Family Member Ethnicity: Non- Living Status: Still Living Hx Family Medical Disorders: No Sister Race: Family Member Ethnicity: Non- Living Status: Still Living Hx Family Endocrine Disorder: Yes (DM) Mother Adopted: No Race: Family Member Ethnicity: Non- Living Status: Age at : 76 Cause of : CHF Hx Family Cardiac Disorders: Yes (CHF, HTN) Hx Family Endocrine Disorder: Yes (DM) Father Adopted: No Race: Family Member Ethnicity: Non- Living Status: Age at : 70 Cause of : Lung cancer Hx Family Respiratory Disorders: Yes Hx Family Cancer: Yes (Lung) Review of Systems: GI: as per [facility] GENERAL: denies fever, has some chills EYES: denies yellow discoloration ENT: denies pain with swallowing or difficulty swallowing CARDIO: denies chest pain, palpitations RESP: Shortness of breath with exertion : denies change in color of urine NEURO: weakness HEME: Denies any bruising MS: chronic joint pain, and back pain. DERM: denies rash or itching PSYCH:history of anxiety or depression - Constitutional Vitals: Temp Pulse Resp BP Pulse Ox 98.9 F 70 16 163/73 91 04/29/17 07:31 04/29/17 07:31 04/29/17 07:31 04/29/17 07:31 04/29/17 07:31 Exam: CONSTITUTIONAL:~alert, no acute distress.~HEAD:~normocephalic.~EYES:~no jaundice.~NECK:~no obvious swelling.~HEART:~regular rate and rhythm, no murmurs. ~LUNGS:~fair air entry.~ABDOMEN:~non distended, soft, non tender, no masses palpable, no organomegaly.~RECTAL EXAM:~Deferred.~EXTREMITIES:~no clubbing, cyanosis or edema, right arm av fistula with + thrill and + bruit.~SKIN:~no stigmata of chronic liver disease, pallor noted.~NEUROLOGIC:~no obvious focal defect.~~~~ Results - Labs CBC & Chem 7: 04/29/17 02:58 04/29/17 02:58 Labs: Last Result Calcium 8.6 mg/dL (8.6-10.8) 04/29/17 02:58 Triglycerides 153 mg/dL (< 150) H 04/29/17 02:58 Entire Visit Hgb 8.7 g/dL (12.9-16.9) L 04/29/17 02:58 Hct 26.2 % (37.5-50.1) L 04/29/17 02:58 PT 11.9 Seconds (9.4-12.1) 04/28/17 14:23 Total Bilirubin 0.9 mg/dL (0.2-1.2) D 04/29/17 02:58 AST 16 Units/L (5-34) 04/29/17 02:58 ALT 16 Units/L (0-55) 04/29/17 02:58 - ABG ABG results: PT/INR, D-dimer PT 11.9 Seconds (9.4-12.1) 04/28/17 14:23 Consult Discharge Plan - Plan Referrals: Olvin Alford MD [Primary Care Provider] - <Yovana Mendes - Last Filed: 04/29/17 13:00> Date of Encounter: 04/29/17 Time of Encounter: 13:00 - Time Spent With Patient Total time spent is greater than 50% in coordination of care (as documented) at patient's floor/unit and/or counseling patient: GI History of Present Illness - Data of Consult Requesting Physician: Rei Bose MD - Consult Narrative History of present illness: Mr. Martínez is a 51 year old male - Constitutional Vitals: Temp Pulse Resp BP Pulse Ox 97.6 F 64 14 161/88 93 04/29/17 12:28 04/29/17 12:28 04/29/17 12:28 04/29/17 12:28 04/29/17 12:28 Results - Labs CBC & Chem 7: 04/29/17 02:58 04/29/17 02:58 Labs: Last Result Calcium 8.6 mg/dL (8.6-10.8) 04/29/17 02:58 Triglycerides 153 mg/dL (< 150) H 04/29/17 02:58 Entire Visit Hgb 8.7 g/dL (12.9-16.9) L 04/29/17 02:58 Hct 26.2 % (37.5-50.1) L 04/29/17 02:58 PT 11.9 Seconds (9.4-12.1) 04/28/17 14:23 Total Bilirubin 0.9 mg/dL (0.2-1.2) D 04/29/17 02:58 AST 16 Units/L (5-34) 04/29/17 02:58 ALT 16 Units/L (0-55) 04/29/17 02:58 - ABG ABG results: PT/INR, D-dimer PT 11.9 Seconds (9.4-12.1) 04/28/17 14:23 - Attending Attestation I examined this patient and my medical decision-making was reviewed with the Resident Physician. I agree with the documented findings, disposition and treatment plan as described except to the extent set forth below. Patient with ESR disease on hemodialysis now with melena and anemia.. Patient will have an EGD done and if negative then we will consider colonoscopy as an outpatient.
[2017-04-29] MEDS ORDERED: *HR* Midazolam HCl 5 MG/5 ML VIAL IVP ONE ×2 (12:57→13:04)
[2017-04-29] MEDS ORDERED: *HR* FentaNYL (PF) 100 MCG/2 ML VIAL ONE (12:58)
[2017-04-29] MEDS ORDERED: *HR* FentaNYL (PF) 100 MCG/2 ML VIAL IVP ONE (13:04)
[2017-04-29] MEDS ORDERED: Tetracaine/Benzocaine/Butamben 200MG/SPRAY (100SPY/BOT) MM ONE (13:04)
[2017-04-29] MEDS ORDERED: Simethicone 40 MG/0.6 ML MLS IR ONE (13:04)
--- NOTE | 2017-04-29 13:05 | Pre-Sedation Evaluation ---
Pre-sedation evaluation - Pre-sedation checklist Procedure: permacath Recent Vitals: Last Vital Signs Temp 97.8 F 04/29/17 13:01 Pulse 65 04/29/17 13:01 Resp 16 04/29/17 13:01 BP 181/86 04/29/17 13:01 Pulse Ox 89 04/29/17 13:01 H&P (including ROS) documented in medical record: Yes Previous reaction to sedatives/anesthetics: No Dietary Status: NPO after Midnight Dentition: No loose teeth or bridges ASA Classification *see protocol: CLASS III-Severe systemic disease Plan of Care: Pt appropriate candidate for procedure/moderate/conscious sedation , Risks/benefits of procedure/sedation discussed w/ patient/family
[2017-04-29] MEDS ORDERED: *HR* Heparin 10,000 UNIT/10 ML VIAL IV PRN (13:46)
[2017-04-29] MEDS ORDERED: 0.9 % Sodium Chloride 250 ML IVC PRN (13:46)
[2017-04-29] MEDS: Gabapentin 100 MG CAPSULE PO SCH ×2 (15:04→20:56)
[2017-04-29 16:25] LABS: Hematocrit 28.9 % (37.5-50.1); Hemoglobin 9.4 g/dL (12.9-16.9)
--- NOTE | 2017-04-29 17:17 | Internal Med Progress Note ---
<Rosas Hilton - Last Filed: 04/29/17 17:15> Date of Encounter: 04/29/17 Time of Encounter: 08:00 - Assessment and plan (1) GI bleeding Status: Acute Assessment and plan: Acute on chronic GI bleeding times several months Hemoglobin 6.8 on presentation, this has stabilized following 2 units PRBCs Gastroenterology on board, appreciate recommendations Qualifiers: GI bleed type/associated pathology: unspecified gastrointestinal hemorrhage type Qualified Code(s): K92.2 - Gastrointestinal hemorrhage, unspecified (2) Generalized weakness Status: Acute Assessment and plan: Likely related to anemia Improving today following transfusion PT/OT consults (3) ESRD on hemodialysis Status: Chronic Assessment and plan: Continue hemodialysis M/W/F (4) Anemia Status: Acute Assessment and plan: Hemoglobin was 11.4 in February. 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 Qualified Code(s): E11.8 - Type 2 diabetes mellitus with unspecified complications (6) GERD (gastroesophageal reflux disease) Status: Chronic Assessment and plan: IV Protonix 40 mg daily Qualifiers: Esophagitis presence: esophagitis presence not specified Qualified Code(s) : K21.9 - Gastro-esophageal reflux disease without esophagitis (7) HTN (hypertension) Status: Chronic Assessment and plan: Continue home medications Continue monitor Qualifiers: Hypertension type: essential hypertension Qualified Code(s): I10 - Essential (primary) hypertension - Subjective Interval history: Patient seen and examined at bedside. He is denying abdominal pain, chest pain , shortness of breath or other new complaints - Constitutional Vitals: Temp Pulse Resp BP Pulse Ox 97.8 F 64 14 148/96 98 04/29/17 13:01 04/29/17 13:15 04/29/17 13:15 04/29/17 13:15 04/29/17 13:15 General appearance: Present: cooperative, mild distress (Anxiety), A&O X 3, pleasant, obese, answers questions appropriately - Respiratory Respiratory exam: Present: CTAB. Absent: accessory muscle use, rales, rhonchi, wheezes - Cardiovascular Cardiovascular exam: Present: RRR, +S1, +S2. Absent: diastolic murmur, gallop, rubs, systolic murmur - GI/Abdominal GI/Abdominal exam: Present: normal bowel sounds, soft, no peritoneal signs. Absent: distended, tenderness - Extremities Exam Extremities exam: Present: warm, radial pulses palpable and symmetrical. Absent : calf tenderness, cyanotic, pedal edema - Neurological Exam Neurological exam: Present: alert, oriented X3, no focal deficits Internal Medicine: Result - Labs CBC & Chem 7: 04/29/17 16:00 04/29/17 02:58 Labs: Short CBC 04/28/17 04/29/17 04/29/17 Range/Units 21:12 02:58 16:00 WBC 8.4 (4.3-11.1) K/mcL Hgb 9.5 L D 8.7 L 9.4 L (12.9-16.9) g/dL Hct 28.7 L 26.2 L 28.9 L (37.5-50.1) % Plt Count 244 (140-400) K/mcL Neutrophils # 6.3 (1.6-8.9) K/mcL BMP 04/29/17 02:58 Sodium 134 L Potassium 5.4 H Chloride 97 L Carbon Dioxide 25 BUN 41 H D Creatinine 4.58 H Glucose 155 H Calcium 8.6 Liver Function 04/29/17 Range/Units 02:58 Total Bilirubin 0.9 D (0.2-1.2) mg/dL AST 16 (5-34) Units/L ALT 16 (0-55) Units/L Alkaline Phosphatase 139 H (38-126) Units/L Albumin 2.8 L (3.5-5.0) g/dL - ABG Interpretation ABG results: PT/INR, D-dimer PT 11.9 Seconds (9.4-12.1) 04/28/17 14:23 - VTE Documentation of Mechanical Device: Intermittent pneumatic compression device Consult Discharge Plan - Plan Referrals: Olvin Alford MD [Primary Care Provider] - 05/05/17 1:00 pm (Please follow up schedule...) Prescriptions: Gabapentin [Neurontin] 300 mg PO TID #90 capsule Oxycodone HCl/Acetaminophen [Percocet 10-325 mg Tablet] 1 tab PO Q6H PRN #20 tablet PRN Reason: Severe Pain Pantoprazole Sodium [Protonix] 40 mg PO DAILY #30 tablet. <Rei Bose - Last Filed: 05/01/17 17:30> Date of Encounter: 04/29/17 - Assessment and plan (1) Elevated ferritin level Status: Acute (2) GI bleeding Status: Acute Qualifiers: GI bleed type/associated pathology: unspecified gastrointestinal hemorrhage type Qualified Code(s): K92.2 - Gastrointestinal hemorrhage, unspecified (3) Generalized weakness Status: Acute (4) Diabetes Status: Chronic Qualifiers: Diabetes mellitus type: type 2 Diabetes mellitus complication status: with unspecified complications Diabetes mellitus [employer] insulin use: unspecified [facility] insulin use status Qualified Code(s): E11.8 - Type 2 diabetes mellitus with unspecified complications (5) ESRD on hemodialysis Status: Chronic (6) HTN (hypertension) Status: Chronic Qualifiers: Hypertension type: essential hypertension Qualified Code(s): I10 - Essential (primary) hypertension (7) Anemia in CKD (chronic kidney disease) Status: Chronic Qualifiers: Chronic kidney disease stage: on chronic dialysis Qualified Code(s): N18.6 - End stage renal disease; D63.1 - Anemia in chronic kidney disease; D63.1 - Anemia in chronic kidney disease; Z99.2 - Dependence on renal dialysis; Z99.2 - Dependence on renal dialysis; Z99.2 - Dependence on renal dialysis; Z99.2 - Dependence on renal dialysis - Constitutional Vitals: Temp Pulse Resp BP Pulse Ox 98.2 F 69 18 174/74 93 04/30/17 06:59 04/30/17 06:59 04/30/17 06:59 04/30/17 06:59 04/30/17 06:59 Internal Medicine: Result - Labs CBC & Chem 7: 04/30/17 05:12 04/30/17 05:12 - ABG Interpretation ABG results: PT/INR, D-dimer PT 11.9 Seconds (9.4-12.1) 04/28/17 14:23 - Attending Attestation I conducted a face to face diagnostic evaluation of this patient and my medical decision-making was reviewed with the Resident Physician, Dr Rosas Hilton. I agree with the documented findings, disposition and treatment plan as described except to the extent set forth below: Patient evaluated while undergoing hemodialysis. Denies abdominal pain. Denies rectal bleeding. Denies chest pain. Plan: EGD showed duodenitis with no source of bleeding. Continue with Protonix. Follow H&H in the morning.
--- NOTE | 2017-04-29 20:27 | Electrocardiograph Report ---
[address] [address] Test Date: 2017-04-28 Pat Name: Germán Martínez Department: 103 Room: [facility] Gender: M Top Coater: [place] : [id number] Requested By: Jimmy Gomez Order Number: [id number] Reading MD: Anshu Huynh MD Measurements Intervals [place] Rate: 62 P: 60 NV: 206 QRS: -62 QRSD: 126 T: 25 QT: 453 QTc: 458 Interpretive Statements SINUS RHYTHM LEFT ANTERIOR FASCICULAR BLOCK Poor R wave progression Electronically Signed On 04-29-2017 20:25:08 EST by Anshu Huynh MD
[2017-04-30 05:30] LABS: Basophils % 0.4 %; Eosinophils # 0.4 K/mcL (0.0-0.6); Eosinophils % 6.1 %; Hematocrit 29.2 % (37.5-50.1); Hemoglobin 9.6 g/dL (12.9-16.9); Immature Granulocytes % 0.6 % (0-4); Lymphocytes # 0.8 K/mcL (0.6-4.6); Lymphocytes % 12.3 %; Mean Corpuscular HGB Conc 32.9 g/dL (31.6-35.5); Mean Corpuscular Hemoglobin 33.6 pg (28.0-33.3); Mean Corpuscular Volume 102.1 fL (83.0-100.0); Mean Platelet Volume 10.1 fL (9.4-12.4); Monocytes # 0.6 K/mcL (0.0-1.3); Monocytes % 9.1 %; Neutrophils # 4.8 K/mcL (1.6-8.9); Platelet Count 260 K/mcL (140-400); Red Blood Count 2.86 M/mcL (4.19-5.50); Red Cell Distribution Width 17.4 % (11.5-14.5); Segmented Neutrophils % 71.5 %
[2017-04-30 05:44] LABS: Albumin 2.8 g/dL (3.5-5.0); Albumin/Globulin Ratio 0.6 (1.1-2.2); Bilirubin,Total 0.8 mg/dL (0.2-1.2); Calcium 8.6 mg/dL (8.6-10.8); Globulin 4.8 g/dL (2.4-3.5); Potassium 5.3 mEq/L (3.5-4.5); Total Protein 7.6 g/dL (6.0-8.3)
[2017-04-30 07:01] VITALS: BP 174/74
--- NOTE | 2017-04-30 07:58 | Nephrology Progress Note ---
Date of Encounter: 04/30/17 Time of Encounter: 07:56 - Assessment and Plan (1) ESRD on hemodialysis Current Visit: Yes Status: Chronic Patient will continue to undergo dialysis every Tuesday. He will continue to receive Aranesp for anemia. He has had Aranesp resistant anemia as an outpatient likely related to some type of GI bleeding. (2) Anemia in CKD (chronic kidney disease) Current Visit: No Status: Chronic Qualifiers: Chronic kidney disease stage: on chronic dialysis Qualified Code(s): N18.6 - End stage renal disease; D63.1 - Anemia in chronic kidney disease; D63.1 - Anemia in chronic kidney disease; Z99.2 - Dependence on renal dialysis; Z99.2 - Dependence on renal dialysis; Z99.2 - Dependence on renal dialysis; Z99.2 - Dependence on renal dialysis (3) GI bleeding Current Visit: Yes Status: Acute Qualifiers: GI bleed type/associated pathology: unspecified gastrointestinal hemorrhage type Qualified Code(s): K92.2 - Gastrointestinal hemorrhage, unspecified Subjective Interval history: Patient reports he is feeling better since undergoing blood transfusion. He also completed dialysis yesterday. Patient denies any nausea vomiting abdominal pain melena or hematochezia. Also denies any heartburn or indigestion. Objective - Vital Signs Vital signs: Vital Signs Temp Pulse Resp BP Pulse Ox 04/30/17 06:59 98.2 F 69 18 174/74 93 04/30/17 00:33 97.5 F L 80 18 147/76 97 04/29/17 20:58 98.2 F 86 18 175/77 91 04/29/17 18:00 97.2 F L 18 139/70 04/29/17 17:35 175/77 04/29/17 17:20 150/68 04/29/17 16:50 147/72 04/29/17 16:20 150/71 04/29/17 15:50 143/68 04/29/17 15:20 148/73 04/29/17 14:50 137/72 04/29/17 14:20 97.9 F 18 146/79 04/29/17 13:15 64 14 148/96 98 04/29/17 13:10 68 14 169/88 97 04/29/17 13:01 97.8 F 65 16 181/86 89 04/29/17 12:28 97.6 F 64 14 161/88 93 Intake and Output 04/29/17 04/29/17 04/30/17 15:59 23:59 07:59 Intake Total 600 / 600 Output Total 3600 / 3600 Balance 600 / 600 -3600 / -3600 Intake: Oral 0 / 0 Intake, Rinseback and Flushes 600 / 600 Output: Urine 0 / 0 Total Dialysis (HD) Output 3600 / 3600 Other: Meal Breakfast Percent of Meal Consumed 0% # Urine Diapers 1 Blood Glucose* 119 87 88 Hemodialysis Net Fluid Removed 1634 3000 (mL) - General Appearance Exam: Patient is alert and oriented. He is in no acute distress. Lungs clear to auscultation. Heart regular rate and rhythm with a 2/6 talk ejection murmur. Abdomen is benign. There is no peripheral edema. An AV fistula is in place. - Lab 04/30/17 05:12 04/30/17 05:12 Most recent lab results Calcium 8.6 mg/dL (8.6-10.8) 04/30/17 05:12 Magnesium 2.6 mg/dL (1.6-2.6) 04/29/17 02:58 - VTE Documentation of Mechanical Device: Intermittent pneumatic compression device Consult Discharge Plan - Plan Referrals: Olvin Alford MD [Primary Care Provider] - 05/05/17 1:00 pm (Please follow up schedule...)
[2017-04-30] MEDS: Insulin LISPRO 300 UNITS/3 ML VIAL SQ SCH (08:56)
[2017-04-30] MEDS: Loratadine 10 MG TABLET PO SCH (08:57)
[2017-04-30] MEDS: Gabapentin 100 MG CAPSULE PO SCH (08:57)
[2017-04-30] MEDS: Aspirin Enteric Coated 81 MG Tablet PO SCH (08:57)
[2017-04-30] MEDS: amLODIPine 5 MG TABLET PO SCH (08:58)
[2017-04-30] MEDS: Renal Vitamin 1 MG CAPSULE PO SCH (08:58)
[2017-04-30] MEDS: Pantoprazole 40 MG VIAL IVP SCH (08:58)
[2017-04-30] MEDS: BuPROPion XL (24 HR) 150 MG TABLET PO SCH (08:58)
--- NOTE | 2017-04-30 10:28 | Discharge Summary ---
Date of Encounter: 04/30/17 Time of Encounter: 10:26 - Discharge Diagnosis (1) Elevated ferritin level Priority: Secondary Status: Acute Comments: outpatient workup for hemochromatosis underway. Follow-up with GI in the outpatient setting. (2) GI bleeding Priority: Primary Status: Acute Comments: EGD was done during this admission found no source of bleeding. Colonoscopy to be done outpatient. Follow-up with GI as recommended. Patient was informed of this and he is in agreement. Qualifiers: GI bleed type/associated pathology: unspecified gastrointestinal hemorrhage type Qualified Code(s): K92.2 - Gastrointestinal hemorrhage, unspecified (3) Generalized weakness Priority: Secondary Status: Acute Comments: Resolved after transfusion. (4) Diabetes Priority: Secondary Status: Chronic Qualifiers: Diabetes mellitus type: type 2 Diabetes mellitus complication status: with unspecified complications Diabetes mellitus correction insulin use: unspecified correction insulin use status Qualified Code(s): E11.8 - Type 2 diabetes mellitus with unspecified complications (5) ESRD on hemodialysis Priority: Secondary Status: Chronic Comments: Continue with hemodialysis Tuesday. Follow-up with nephrology. (6) HTN (hypertension) Priority: Secondary Status: Chronic Qualifiers: Hypertension type: essential hypertension Qualified Code(s): I10 - Essential (primary) hypertension (7) Anemia in CKD (chronic kidney disease) Priority: Secondary Status: Chronic Qualifiers: Chronic kidney disease stage: on chronic dialysis Qualified Code(s): N18.6 - End stage renal disease; D63.1 - Anemia in chronic kidney disease; D63.1 - Anemia in chronic kidney disease; Z99.2 - Dependence on renal dialysis; Z99.2 - Dependence on renal dialysis; Z99.2 - Dependence on renal dialysis; Z99.2 - Dependence on renal dialysis - Discharge Medications Home Medications: Aspirin [Adult Low Dose Aspirin EC] 81 mg PO DAILY 08/27/15 [History] Gabapentin [Neurontin] 300 mg PO TID 04/23/16 [History] B Complex W-C No.20/Folic Acid [Nephrocaps Softgel] 1 mg PO DAILY 09/15/16 [ History] Oxygen 2 l NS AD 09/15/16 [History] Sennosides/Docusate Sodium [Senna Plus] 1 tab PO DAILY PRN 09/15/16 [History] BuPROPion XL (24 HR) [Wellbutrin Xl] 150 mg PO DAILY 12/11/16 [History] Cetirizine HCl [Zyrtec] 10 mg PO DAILY 12/11/16 [History] Oxybutynin Chloride [Ditropan Xl] 10 mg PO DAILY 12/11/16 [History] Lactulose 20 gm PO Q24H PRN 04/28/17 [History] Loperamide HCl [Imodium A-D] 2 mg PO PER PKG DI PRN MDD 16 mg 04/28/17 [History] Losartan Potassium [Cozaar] 50 mg PO DAILY 04/28/17 [History] Metoprolol [Lopressor] 12.5 mg PO BID 04/28/17 [History] Ondansetron HCl [Zofran] 4 mg PO Q6H PRN 04/28/17 [History] Oxycodone HCl/Acetaminophen [Percocet 10-325 mg Tablet] 1 tab PO Q6H PRN [History] Polyethylene Glycol 3350 [MiraLAX] 17 gm PO DAILY 04/28/17 [History] Sertraline [Zoloft] 100 mg PO DAILY 04/28/17 [History] Sevelamer [Renvela] 2,400 mg PO TIDWM 04/28/17 [History] amLODIPine [Norvasc] 5 mg PO BID 04/28/17 [History] Darbepoetin [Aranesp] 60 mcg SQ QWEEK syringe 04/30/17 [Rx] Allergies/Adverse Reactions: 3 Allergy/AdvReac Type Severity Reaction Status Date / Time lorazepam [From Ativan] AdvReac Paranoia Verified 09/15/16 15:21 Procedures/tests Complete & Pending: Procedures Performed prior 72 hours Category Date Time Status ECG 12 lead ECG [ECG] Routine Y 04/28/17 20:53 Completed Date of admission: 04/28/17 21:08 Primary care physician: Olvin Alford MD Consults: 04/28/17 21:26 Consult to Gastroenterology [CONS] Routine Consulting Provider: Gastroenterology Rina Reason for Consult: Pt. has hx of anemia r/t melanotic stools (last melanotic stool was yesterday). Today Hgb is 6.8 and Hct is 21.3. On 10/28/16 Hgb was 13.0 and Hct was 38.7. No recent hx of colonoscopy or EGD. Pt. is also ESRD w/current creatinine of 6.58 and GFR of 9. Pt. dialyzed today. Trending H/H Q6. Pt. transfused w/2 units PRBCs today. Call Completed: Yes 04/28/17 22:03 Consult to Occupational Therapy [CONS] Routine Comment: Evaluate, develop and implement POC Reason for Consult: Patient reports generalized weakness and fatigue w/some instability on his feet. Please assess for strength, stability, safety, ambulation, and possible home needs for post-discharge planning. Consult to Physical Therapy [CONS] Routine Comment: Evaluate, develop and implement POC Reason for Consult: Patient reports generalized weakness and fatigue w/some instability on his feet. Please assess for strength, stability, safety, ambulation, and possible home needs for post-discharge planning. 04/29/17 14:00 Consult to Dialysis [CONS] ONCE - Patient Status Disposition: Transfer SNF Condition: Good Functional capacity at discharge: uses cane/walker Overall status at discharge: patient is progressing back to baseline - Discharge Instructions Follow Up With: Olvin Alford MD [Primary Care Provider] - 05/05/17 1:00 pm (Please follow up schedule...) - Diet and Activity Activity: as per physical therapy, increase activity as tolerated Diet: diabetic diet (Renal diet, low potassium), low salt diet Hospital course: Mr. Martínez is a 51 year old male with medical hx of arthritis, CHF, insulin- dependent diabetes, ESRD on dialysis, GERD, HTN, and venous stasis who presented to the emergency department for generalized weakness. He had also been complaining of dark stools for months. He is hemoglobin was 6.8. Stool Hemoccult was positive. He was transfused 2 units of blood and admitted to the medical service. He responded appropriately to transfusion. Hemoglobin decreased to 9.4. It had remained stable for the last 2 days. He had an EGD which showed no source of bleeding and no abnormalities. He prefers to have a colonoscopy done outpatient and this will be arranged at a subsequent GI follow- up visit. He is undergoing workup for hemochromatosis due to elevated ferritin level. He had hemodialysis while in the hospital. He is back to baseline and asymptomatic and will be discharged to subacute rehabilitation. - Time Spent with Patient Total time spent providing and/or coordinating discharge services: Greater than 30 minutes (I have spent 40 minutes coordinating this discharge.) - Constitutional Vitals: Temp Pulse Resp BP Pulse Ox 98.2 F 69 18 174/74 93 04/30/17 06:59 04/30/17 06:59 04/30/17 06:59 04/30/17 06:59 04/30/17 06:59 General appearance: Present: cooperative, mild distress (Anxiety), A&O X 3, pleasant, obese, answers questions appropriately - Respiratory Respiratory exam: Present: CTAB. Absent: accessory muscle use, rales, rhonchi, wheezes - Cardiovascular Cardiovascular exam: Present: RRR, +S1, +S2. Absent: diastolic murmur, gallop, rubs, systolic murmur - GI/Abdominal GI/Abdominal exam: Present: normal bowel sounds, soft, no peritoneal signs. Absent: distended, tenderness - VTE Documentation of Mechanical Device: Intermittent pneumatic compression device
--- NOTE | 2017-04-30 10:43 | Physician Discharge Referral ---
ExtendedCare Referral Info Provider in Charge after Transfer: PCP Institutional Level of Care: Skilled - Diagnosis (1) Elevated ferritin level Status: Acute (2) GI bleeding Status: Acute (3) Generalized weakness Status: Acute (4) Diabetes Status: Chronic (5) ESRD on hemodialysis Status: Chronic (6) HTN (hypertension) Status: Chronic (7) Anemia in CKD (chronic kidney disease) Status: Chronic - Transfer Medications Home Medications: Aspirin [Adult Low Dose Aspirin EC] 81 mg PO DAILY 08/27/15 [History] Gabapentin [Neurontin] 300 mg PO TID 04/23/16 [History] B Complex W-C No.20/Folic Acid [Nephrocaps Softgel] 1 mg PO DAILY 09/15/16 [ History] Oxygen 2 l NS AD 09/15/16 [History] Sennosides/Docusate Sodium [Senna Plus] 1 tab PO DAILY PRN 09/15/16 [History] BuPROPion XL (24 HR) [Wellbutrin Xl] 150 mg PO DAILY 12/11/16 [History] Cetirizine HCl [Zyrtec] 10 mg PO DAILY 12/11/16 [History] Oxybutynin Chloride [Ditropan Xl] 10 mg PO DAILY 12/11/16 [History] Lactulose 20 gm PO Q24H PRN 04/28/17 [History] Loperamide HCl [Imodium A-D] 2 mg PO PER PKG DI PRN MDD 16 mg 04/28/17 [History] Losartan Potassium [Cozaar] 50 mg PO DAILY 04/28/17 [History] Metoprolol [Lopressor] 12.5 mg PO BID 04/28/17 [History] Ondansetron HCl [Zofran] 4 mg PO Q6H PRN 04/28/17 [History] Oxycodone HCl/Acetaminophen [Percocet 10-325 mg Tablet] 1 tab PO Q6H PRN [History] Polyethylene Glycol 3350 [MiraLAX] 17 gm PO DAILY 04/28/17 [History] Sertraline [Zoloft] 100 mg PO DAILY 04/28/17 [History] Sevelamer [Renvela] 2,400 mg PO TIDWM 04/28/17 [History] amLODIPine [Norvasc] 5 mg PO BID 04/28/17 [History] Darbepoetin [Aranesp] 60 mcg SQ QWEEK syringe 04/30/17 [Rx] Allergies/Adverse Reactions: 3 Allergy/AdvReac Type Severity Reaction Status Date / Time lorazepam [From Ativan] AdvReac Paranoia Verified 09/15/16 15:21 - Respiratory Orders Smoking Cessation: Smoking cessation has been advised. For more information, call the [place] Tobacco Quit Line at 4-799-IVXG-NOW. - Lab Orders Lab Orders: CBC (Please obtain CBC in one week and transfuse if hemoglobin is below 7. Transfusion order to be obtained from nursing teacher.) - Advance Directives Living Will: Yes Power of Peanut Sheller: Yes Code Status: Full Code - Mobility Orders Ambulate - Rehabiliation Orders Rehab Potential: Good Rehab Orders: Evaluation for Physical Therapy, Evaluation for Occupational Therapy - Diet Orders No Concentrated Sweets, Renal, Cardiac CERTIFICATION: I certify that the transfer of the above named patient to an Extended Care Facility is necessary for the continuing treatment of the diagnosis listed. The above information is true and accurate reflection of patient's current condition. Confidential - Redisclosure prohibited without a patient's written consent.
--- NOTE | 2017-04-30 13:54 | Electrocardiograph Report ---
[place] [id number] Test Date: 2017-04-28 Pat Name: Germán Martínez Department: 112 Room: [facility] Gender: M [employer]: AYUSH : 1965 Requested By: Rei Bose Order Number: [id number] Reading MD: Jen Bullock Measurements Intervals [place] Rate: 62 P: 131 MA: 188 QRS: 234 QRSD: 123 T: 148 QT: 473 QTc: 478 Interpretive Statements SINUS RHYTHM ARM LEADS REVERSED LEFT ANTERIOR FASCICULAR BLOCK Electronically Signed On 04-30-2017 13:52:19 EST by Jen Bullock
== END 2017-04-30 12:40 | DRG 377 ==
LOC: EMEROO 13:51 → 2ANU 13:51
PROVIDERS: ADMIT Nurse Practitioner Family; ATTEND Internal Medicine
PROC: ENDOEBX (2017-04-29 13:30)